=== PATIENT | female | born 1960 | race Caucasian/White ===

== ENCOUNTER → 2016-05-31 | Outpatient (CLI) | payer OTHER ==
[~2016-05-31] MED LIST: ATEN25TA PO; CHOL1CAP63 PO; CMD3 PO; CYAN10005 PO; FERR324T PO; FLUO20CA36 PO; LPT10 PO; LSN40 PO; WARF6TAB5 PO
[2016-05-31 15:42] LABS: BASO % 0.3 %; BASO ABS # 0.03 K/uL (0-0.2); COMPLETE YES; EOS % 0.9 %; HEMATOCRIT 39.5 % (37-47); IG% 0.2 %; LYMPH % 10.6 %; LYMPH ABS # 1.18 K/uL (1.2-3.4); MEAN CORPUSCULAR HGB CONC 33.7 g/dl (32-36); MEAN PLATELET VOLUME 8.9 fL (7.4-10.4); MONO % 4.8 %; NEUT % 83.2 %; PLATELET COUNT 240 K/uL (130-400); RED BLOOD COUNT 4.16 M/uL (4.2-5.4); WHITE BLOOD COUNT 11.08 K/uL (4.8-10.8)
[2016-05-31 15:49] LABS: INR 1.6 (0.9-1.1); PROTHROMBIN TIME (PATIENT) 17.4 SECONDS (9.0-12.0)
[2016-05-31 16:00] LABS: ESTIMATED AVERAGE GLUCOSE 94 mg/dl; HA1C FLAG Normal (Normal)
[2016-05-31 16:40] LABS: ALT/SGPT 62 U/L (12-78); BLOOD UREA NITROGEN 10 mg/dl (7-18); BUN/CREATININE RATIO 15.6 (10-20); CALCIUM 8.8 mg/dl (8.5-10.1); CARBON DIOXIDE 29 mmol/L (21-32); CHLORIDE 99 mmol/L (98-107); CREATININE 0.62 mg/dl (0.60-1.20); GLUCOSE 85 mg/dl (70-99); POTASSIUM 4.1 mmol/L (3.5-5.1); SODIUM 140 mmol/L (136-145)
[2016-05-31 16:51] LABS: ALB/GLOB RATIO 0.8 (0.9-2); ALKALINE PHOSPHATASE 230 U/L (45-117); AST/SGOT 150 U/L (15-37); CHOLESTEROL 246 mg/dl (0-200); CHOLESTEROL/HDL RATIO 4.6; HDL CHOLESTEROL 54 mg/dl; LDL CHOLESTEROL CALCULATED 115 mg/dl; TRIGLYCERIDES 385 mg/dl (0-150); VERY LOW DENSITY LIPOPROT CALC 77 mg/dl
== END | disposition home or self-care (01) ==
LOC: C.LAB 14:38
PROVIDERS: ATTEND Internal Medicine
DX: E55.9 Vitamin D deficiency, unspecified (principal)

== ENCOUNTER → 2016-12-24 | Outpatient (CLI) | payer OTHER ==
[2016-12-24 16:13] LABS: BASO % 0.2 %; BASO ABS # 0.03 K/uL (0-0.2); COMPLETE YES; HEMATOCRIT 32.5 % (37-47); IG% 0.4 %; LYMPH % 7.4 %; LYMPH ABS # 1.12 K/uL (1.2-3.4); MEAN CORPUSCULAR HEMOGLOBIN 31.9 pg (25-34); MEAN CORPUSCULAR HGB CONC 33.5 g/dl (32-36); MEAN PLATELET VOLUME 8.5 fL (7.4-10.4); MONO % 5.1 %; NEUT % 85.9 %; PLATELET COUNT 250 K/uL (130-400); RED BLOOD COUNT 3.42 M/uL (4.2-5.4); WHITE BLOOD COUNT 15.16 K/uL (4.8-10.8)
[2016-12-24 16:30] LABS: ALT/SGPT 15 U/L (12-78); AST/SGOT 47 U/L (15-37); BLOOD UREA NITROGEN 9 mg/dl (7-18); BUN/CREATININE RATIO 19.1 (10-20); CALCIUM 9.3 mg/dl (8.5-10.1); CARBON DIOXIDE 29 mmol/L (21-32); CHLORIDE 100 mmol/L (98-107); CHOLESTEROL 72 mg/dl (0-200); CREATININE 0.47 mg/dl (0.60-1.20); GLUCOSE 82 mg/dl (70-99); POTASSIUM 3.8 mmol/L (3.5-5.1); SODIUM 137 mmol/L (136-145)
[2016-12-24 16:40] LABS: ALB/GLOB RATIO 0.8 (0.9-2); ALKALINE PHOSPHATASE 365 U/L (45-117); CHOLESTEROL/HDL RATIO 1.3; HDL CHOLESTEROL 56 mg/dl; TRIGLYCERIDES 247 mg/dl (0-150); VERY LOW DENSITY LIPOPROT CALC 49 mg/dl
== END | disposition home or self-care (01) ==
LOC: C.LAB 14:11
PROVIDERS: ATTEND Internal Medicine
DX: I73.9 Peripheral vascular disease, unspecified (principal); E78.1 Pure hyperglyceridemia

== ENCOUNTER → 2017-02-17 | Outpatient (CLI) | payer OTHER ==
[2017-02-17 15:44] LABS: BASO % 0.2 %; BASO ABS # 0.03 K/uL (0-0.2); COMPLETE YES; EOS % 1.2 %; HEMATOCRIT 28.8 % (37-47); IG% 0.2 %; LYMPH % 7.3 %; LYMPH ABS # 1.08 K/uL (1.2-3.4); MEAN CORPUSCULAR HEMOGLOBIN 29.7 pg (25-34); MEAN CORPUSCULAR HGB CONC 31.3 g/dl (32-36); MEAN PLATELET VOLUME 8.6 fL (7.4-10.4); MONO % 4.8 %; NEUT % 86.3 %; PLATELET COUNT 254 K/uL (130-400); RED BLOOD COUNT 3.03 M/uL (4.2-5.4); WHITE BLOOD COUNT 14.88 K/uL (4.8-10.8)
[2017-02-17 16:20] LABS: FERRITIN 26.7 ng/ml (8.0-388.0)
== END | disposition home or self-care (01) ==
LOC: C.LAB 14:13
PROVIDERS: ATTEND Internal Medicine
DX: D64.9 Anemia, unspecified (principal)

== ENCOUNTER → 2017-07-16 | Outpatient (CLI) | payer OTHER ==
[~2017-07-16] MED LIST changes: +ATOR-22 PO; -CHOL1CAP63 PO; +CHOL20009 PO; -CMD3 PO; +CYAN100020 PO; -CYAN10005 PO; +FERR1TAB39 PO; -FERR324T PO; -FLUO20CA36 PO; -LPT10 PO; +TCMD1 PO; -WARF6TAB5 PO
[2017-07-16 16:32] LABS: BASO % 0.3 %; BASO ABS # 0.04 K/uL (0-0.2); EOS % 1.3 %; EOS ABS # 0.18 K/uL (0-0.5); HEMATOCRIT 38.9 % (37-47); HEMOGLOBIN 12.9 g/dL (12.0-16.0); IG# 0.07 K/uL (0.00-0.02); LYMPH % 8.4 %; LYMPH ABS # 1.17 K/uL (1.2-3.4); MEAN CELL VOLUME 99.2 fL (80-100); MEAN CORPUSCULAR HEMOGLOBIN 32.9 pg (25-34); MEAN CORPUSCULAR HGB CONC 33.2 g/dl (32-36); MONO % 5.1 %; MONO ABS # 0.71 K/uL (0.11-0.59); NEUT % 84.4 %; NEUT ABS # 11.77 K/uL (1.4-6.5); PLATELET COUNT 271 K/uL (130-400); RED CELL DISTRIBUTION WIDTH CV 15.7 % (11.5-14.5); RED CELL DISTRIBUTION WIDTH SD 56.6 fL (36.4-46.3); WHITE BLOOD COUNT 13.94 K/uL (4.8-10.8)
[2017-07-16 16:36] LABS: INR 2.6 (0.9-1.1); PTT PATIENT 36.9 SECONDS (21.0-31.0)
--- NOTE | 2017-07-16 16:48 | DIAGNOSTIC IMAGING REPORT ---
TWO VIEW CHEST CLINICAL HISTORY: Preoperative examination. FINDINGS: PA and lateral chest radiographs are compared to study dated 02/10/2014 and correlated with chest CT dated 11/15/2015. The PA view is degraded by apical lordotic positioning. The cardiomediastinal silhouette is unremarkable. Emphysema and chronic interstitial thickening are similar to previous. The lungs and pleural spaces are clear. There is no pneumothorax. The skeletal structures appear osteopenic. The bony thorax appears intact. IMPRESSION: Emphysema with no active disease in the chest. Electronically signed by: Tristin Addison M.D. 07/16/2017 4:47 PM Dictated Date/Time: 07/16/2017 4:45 PM
[2017-07-16 16:52] LABS: ALBUMIN 3.5 gm/dl (3.4-5.0); ALT/SGPT 26 U/L (12-78); AST/SGOT 76 U/L (15-37); BLOOD UREA NITROGEN 9 mg/dl (7-18); CALCIUM 9.9 mg/dl (8.5-10.1); CARBON DIOXIDE 26 mmol/L (21-32); CREATININE 0.52 mg/dl (0.60-1.20); GLUCOSE 86 mg/dl (70-99); POTASSIUM 3.9 mmol/L (3.5-5.1); SODIUM 136 mmol/L (136-145)
[2017-07-16 17:00] LABS: ALKALINE PHOSPHATASE 693 U/L (45-117); CHOLESTEROL 150 mg/dl (0-200); LDL CHOLESTEROL CALCULATED 54 mg/dl; TOTAL PROTEIN 7.5 gm/dl (6.4-8.2)
== END | disposition home or self-care (01) ==
LOC: C.RAD 14:57
DX: Z01.810 Encounter for preprocedural cardiovascular examination (principal); Z01.811 Encounter for preprocedural respiratory examination; Z01.812 Encounter for preprocedural laboratory examination; I10 Essential (primary) hypertension; E53.8 Deficiency of other specified B group vitamins; D68.62 Lupus anticoagulant syndrome; F10.20 Alcohol dependence, uncomplicated; D68.59 Other primary thrombophilia; E55.9 Vitamin D deficiency, unspecified; Z79.01 Long term (current) use of anticoagulants; D64.9 Anemia, unspecified; R16.2 Hepatomegaly with splenomegaly, not elsewhere classified; J43.9 Emphysema, unspecified

== ENCOUNTER → 2017-07-24 | Outpatient (CLI) | payer OTHER ==
--- NOTE | 2017-07-24 11:05 | DIAGNOSTIC IMAGING REPORT ---
ABDOMEN COMPLETE (US) CLINICAL HISTORY: 57 years-old Female with R74.0 Elevated AST (SGOT)R74.8 Elevated alkaline phosphatase lev. TECHNIQUE: Multiple real time sonographic images of the abdomen were obtained assessing berrios-scale appearance. FINDINGS: PANCREAS: The pancreas is partially obscured by bowel gas. The visualized portions of the pancreas are unremarkable. Pancreatic duct measures 4 mm. LIVER: Increased echogenicity of the liver measuring up to 19 cm. There is no intrahepatic bile duct dilation, focal lesion, or contour nodularity. There is no ascites. GALLBLADDER: The gallbladder is fluid-filled without cholelithiasis, wall thickening, or pericholecystic fluid. Negative sonographic Nascimento's sign. The common bile duct measures 0.6 cm. RIGHT KIDNEY: The right kidney measures 10.8 x 4.2 x 4.4 cm The parenchymal echotexture and cortical thickness are normal. No nephrolithiasis or hydronephrosis. LEFT KIDNEY: The left kidney measures 11.1 x 5.3 x 5.2 cm. The parenchymal echotexture and cortical thickness are normal. No nephrolithiasis or hydronephrosis. SPLEEN: The spleen measures 10.6 cm and is normal in echotexture. No focal lesions are identified. VASCULATURE: The visualized aorta and inferior vena cava are sub-visualized although appear normal as seen. IMPRESSION: 1. Hepatomegaly with hepatic steatosis. 2. No cholelithiasis or sonographic evidence of acute cholecystitis. 3. The remainder of the study is unremarkable. The above report was generated using voice recognition software. It may contain grammatical, syntax or spelling errors. Electronically signed by: Mohinder Carlton M.D. 07/24/2017 11:04 AM Dictated Date/Time: 07/24/2017 10:57 AM
[2017-07-24 12:29] LABS: BASO % 0.4 %; BASO ABS # 0.06 K/uL (0-0.2); EOS % 2.8 %; HEMOGLOBIN 13.4 g/dL (12.0-16.0); IG# 0.06 K/uL (0.00-0.02); LYMPH % 11.8 %; MEAN CELL VOLUME 98.5 fL (80-100); MEAN CORPUSCULAR HGB CONC 33.5 g/dl (32-36); MEAN PLATELET VOLUME 8.9 fL (7.4-10.4); MONO % 2.5 %; MONO ABS # 0.36 K/uL (0.11-0.59); NEUT % 82.1 %; NEUT ABS # 11.84 K/uL (1.4-6.5); PLATELET COUNT 313 K/uL (130-400); RED CELL DISTRIBUTION WIDTH CV 15.3 % (11.5-14.5); RED CELL DISTRIBUTION WIDTH SD 55.1 fL (36.4-46.3); WHITE BLOOD COUNT 14.42 K/uL (4.8-10.8)
[2017-07-24 12:39] LABS: POTASSIUM 3.9 mmol/L (3.5-5.1)
== END | disposition home or self-care (01) ==
LOC: C.ULTR 10:08
PROVIDERS: ATTEND Internal Medicine
DX: Z01.818 Encounter for other preprocedural examination (principal); K76.0 Fatty (change of) liver, not elsewhere classified; R16.0 Hepatomegaly, not elsewhere classified; R94.5 Abnormal results of liver function studies; R74.0 Nonspecific elevation of levels of transaminase and lactic acid dehydrogenase [LDH]; R74.8 Abnormal levels of other serum enzymes

== ENCOUNTER → 2017-07-25 | Day surgery (SDC) | payer OTHER ==
[2017-07-10 15:15] VITALS: Ht 167.6 cm; Wt 60.9 kg
[~2017-07-25] VITALS: Ht 167.6 cm; Wt 60.9 kg
[~2017-07-25] MED LIST changes: +ALBUT/IPRATROP 3MG/0.5MG NEB 3 ML VIAL INH ONE; +ALBUT/IPRATROP 3MG/0.5MG NEB 3 ML VIAL ONE; +ATROPINE SULFATE 0.1 MG/ML 5ML SYR IV PRN; +DEXAMETHASONE SOD INJ 4 MG/ML VIAL ONE; +EpHEDrine SULFATE INJ 50 MG/ML AMP IV PRN; +EpINEphrine INJ 1MG/ML AMP 1 MG/ML AMP ONE; +FENTANYL CITRATE INJ 50 MCG/1 ML 2 ML VIAL ONE; +HYDROCODONE/ACETAMIN 5/325MG TAB PO PRN; +LIDOCAINE 2% JELLY 5 ML TUBE EXT ONE; +LIDOCAINE HCL 2% 2 ML VIAL (20MG/ML) ONE; +LIDOCAINE/EPINEPHRINE 1% 20 ML VIAL ONE; +ONDANSETRON INJ 2 MG/ML 2 ML VIAL IV PRN; +ONDANSETRON INJ 2 MG/ML 2 ML VIAL ONE; +PROPOFOL IV EMULSION 10 MG/ML 20 ML VIAL IV ONE; +SUCCINYLCHOLINE CHLORIDE 20 MG/ML 10 ML VIAL IV ONE
[2017-07-25] MEDS: LACTATED RINGER'S 1000ML 1,000 ML IV SCH ×2 (11:38→14:23)
--- NOTE | 2017-07-25 13:22 | History & Physical Bridge - [place] ---
H&P Re-Evaluation Bridge Note: I have examined the patient, reviewed the History & Physical and in the interval since the performance of the History & Physical I have noted the following changes of clinical significance: No changes noted
--- NOTE | 2017-07-25 13:59 | [facility] Operative Report ---
Operative Report Operative Date Jul 25, 2017. Pre-Operative Diagnosis RIGHT OROPHARYNGEAL MASS Post-Operative Diagnosis SAME ABOVE Procedure(s) Performed EXCISIONAL BIOPSY OF RIGHT OROPHARYNGEAL MASS Surgeon LANCE Estimated Blood Loss 0 Findings MULTILOBULATED CYSTIC LESION OF THE RIGHT TONSIL REGION CONSISTENT WITH EPIDERMAL INCLUSION CYST Specimens RIGHT OROPHARYNGEAL MASS I attest to the content of the Intraoperative Record and any orders documented therein. Any exceptions are noted below.
--- NOTE | 2017-07-25 14:16 | Discharge Instructions ---
Discharge Instructions Date of Service Jul 25, 2017. Admission Reason for Admission: Pharyngeal Mass Discharge Discharge Diagnosis / Problem: SAME Discharge Goals Goal(s): Therapeutic intervention Activity Recommendations Activity Limitations: as noted below LIGHT ACTIVITY FOR 2 WEEKS; NO DRIVING WHILE ON NORCO . Current Hospital Diet Patient's current hospital diet: Full Liquid Diet Discharge Diet Recommended Diet: Full Liquid Diet Diet Texture: Mechanical Soft (ground) Procedures Procedures Performed: EXCISIONAL BIOPSY OF RIGHT OROPHARYNGEAL MASS Pending Studies Studies pending at discharge: no Laboratory Results Lipid Panel Test 07/16/17 15:14 Range/Units Triglycerides Level 261 H 0-150 mg/dl Cholesterol Level 150 0-200 mg/dl HDL Cholesterol 44 mg/dl Cholesterol/HDL Ratio 3.4 LDL Cholesterol, Calculated 54 mg/dl Medical Emergencies . Who to Call and When: Medical Emergencies: If at any time you feel your situation is an emergency, please call 911 immediately. . Non-Emergent Contact Non-Emergency issues call your: Surgeon . . "Provider Documentation" section prepared by Brayan Johnson. .
[2017-07-25] MEDS: FENTANYL CITRATE INJ 50 MCG/1 ML 2 ML VIAL IV PRN ×3 (14:20→14:40)
[2017-07-25 14:58] VITALS: TEMP 37
[2017-07-25 15:19] VITALS: BP 154/94; PULSE 76; O2SAT 95
--- NOTE | 2017-07-25 15:20 | Anesthesia Progress Nt - [facility] ---
Anesthesia Post Op Note Date & Time Jul 25, 2017 at 15:20 Vital Signs Pain Intensity: 3.5 Vital Signs Past 12 Hours Date Time Temp Pulse Resp B/P (MAP) Pulse Ox O2 Delivery O2 Flow Rate FiO2 07/25/17 14:58 37 75 16 134/85 (101) 95 Room Air 07/25/17 14:56 18 07/25/17 14:56 79 18 07/25/17 14:55 144/84 07/25/17 14:51 78 16 94 07/25/17 14:51 77 16 07/25/17 14:50 137/89 07/25/17 14:50 37.5 78 16 137/89 94 Room Air 07/25/17 14:48 75 19 95 07/25/17 14:48 76 19 07/25/17 14:45 155/78 07/25/17 14:43 72 12 100 07/25/17 14:43 73 12 07/25/17 14:40 153/87 07/25/17 14:38 69 13 100 07/25/17 14:38 70 13 07/25/17 14:35 138/83 07/25/17 14:33 71 18 91 07/25/17 14:33 71 18 07/25/17 14:31 142/80 07/25/17 14:28 74 30 07/25/17 14:28 74 30 95 07/25/17 14:26 122/79 07/25/17 14:23 71 19 98 07/25/17 14:23 72 19 07/25/17 14:20 133/79 07/25/17 14:18 72 17 99 07/25/17 14:18 72 17 07/25/17 14:16 129/73 07/25/17 14:13 75 23 07/25/17 14:13 75 23 98 07/25/17 14:10 133/74 07/25/17 14:08 76 18 07/25/17 14:08 36.8 76 16 141/71 98 Room Air 07/25/17 14:08 76 18 141/71 98 07/25/17 11:21 37.4 78 16 127/75 (92) 97 Room Air Notes Mental Status: alert / awake / arousable, participated in evaluation Pt Amnestic to Procedure: Yes Nausea / Vomiting: adequately controlled Pain: adequately controlled Airway Patency, RR, SpO2: stable & adequate BP & HR: stable & adequate Hydration State: stable & adequate Anesthetic Complications: no major complications apparent
--- NOTE | 2017-07-25 15:39 | OPERATIVE REPORT ---
DATE OF OPERATION: 07/25/2017 PREOPERATIVE DIAGNOSIS: Right oropharyngeal mass. POSTOPERATIVE DIAGNOSIS: Right oropharyngeal mass. PROCEDURE: Excisional biopsy of right oropharyngeal mass. SURGEON: Brayan Johnson MD ANESTHESIA: General endotracheal. ESTIMATED BLOOD LOSS: Zero. FINDINGS: Multilobulated cystic mass involving the inferior aspect of the right tonsil, clinically consistent with epidermal inclusion cyst. SPECIMENS: Right oropharyngeal mass for permanent pathologic assessment. COMPLICATIONS: None. INDICATIONS FOR THE PROCEDURE: The patient is a 57-year-old female, smoker, with a history of an incidentally found right oropharyngeal mass which is relatively asymptomatic. However, due to the multilobulated and large nature of the mass, it was recommended that the patient undergo excisional biopsy to rule out malignancy or other worrisome features. She also has mild dysphagia in this region. She presents for the above-mentioned procedure on an outpatient elective basis. DETAILS OF THE PROCEDURE: After informed consent had been obtained from the patient, the patient was wheeled to the operating room, and placed on the operating table in supine position. Monitors were placed. After induction of general endotracheal anesthesia, the table was turned to 90 degrees. The patient's head and neck were gently extended. Antibiotic ointment was applied to the lips and a mouth gag was carefully inserted, opened, and was stabilized on a roll of towels. The palate was inspected and this was found to be mildly abnormal with a bifid uvula. A total of 0.5 mL of 1% lidocaine with 1:100,000 epinephrine was used to inject the mucosa and submucosa overlying the planned incision of the right oropharynx and the inferior tonsil region. After allowing adequate time for vasoconstriction, Bovie electrocautery was used to perform an excisional biopsy of this multilobulated cystic mass that measured approximately 1 cm to 1.5 cm in greatest dimension. Care was taken not to inadvertently enter the cyst portion of the mass. This was sent off for permanent pathological assessment. Suction Bovie electrocautery was used to achieve adequate hemostasis. There was no blood loss during the procedure. 2% lidocaine jelly was placed into the right tonsillar fossa for added anesthetic effect. An orogastric tube was placed and stomach was suctioned free of air and stomach contents. This marked the end of the case. The patient tolerated the procedure well. There were no apparent complications. The patient was extubated and transferred to recovery room in stable condition. I attest to the content of the Intraoperative Record and any orders documented therein. Any exception s are noted below.
== END | disposition home or self-care (01) ==
LOC: X.SURG 11:08
DX: J35.8 Other chronic diseases of tonsils and adenoids (principal); J39.2 Other diseases of pharynx; D68.62 Lupus anticoagulant syndrome; F10.20 Alcohol dependence, uncomplicated; D64.9 Anemia, unspecified; F17.200 Nicotine dependence, unspecified, uncomplicated; F32.9 Major depressive disorder, single episode, unspecified; E78.1 Pure hyperglyceridemia; R16.2 Hepatomegaly with splenomegaly, not elsewhere classified; I10 Essential (primary) hypertension; I73.9 Peripheral vascular disease, unspecified; E55.9 Vitamin D deficiency, unspecified; Z98.51 Tubal ligation status; Z80.0 Family history of malignant neoplasm of digestive organs; Z83.3 Family history of diabetes mellitus; Z86.718 Personal history of other venous thrombosis and embolism; Z86.711 Personal history of pulmonary embolism; Z82.49 Family history of ischemic heart disease and other diseases of the circulatory system; Z79.01 Long term (current) use of anticoagulants

== ENCOUNTER 2021-10-12 17:25 | Inpatient (IN) ==
--- NOTE | 2021-10-12 17:35 | ED Triage Note ---
Date of Service October 12, 2021 History of Present Illness This patient was briefly evaluated while in triage. An abbreviated physical exam was performed. This patient is a 61-year-old Female with past medical history of cirrhosis, anorexia, renal insufficiency who presents to the ED for evaluation of nausea a nd vomiting all day, but been feeling sick x2 weeks. No pain. Physical Exam VITALS: Vitals are noted on the nurse's note and reviewed by myself. GENERAL: This is a 61 year old white female, in no acute distress, nondiaphoretic, well-developed well-nourished. SKIN: The skin was without rashes, erythema, edema, or bruising. There is no tenting of the skin. Capillary refill less than 2 seconds. HEAD: Normocephalic atraumatic. NECK: No JVD. ABDOMEN: Bloated. MUSCULOSKELETAL: No muscle atrophy, erythema, or edema noted. Full range of motion without joint tenderness in all extremities. Normal gait. NEURO: Patient was alert and oriented to person place and time. No focal neurological deficits. Initial orders for labs and / or imaging were placed and patient was placed in the waiting area until a bed is available. Please see further documentation for the full ED course.
[2021-10-12 18:07] LABS: Basophils # (auto) 0.01 K/uL (0-0.2); Basophils % (auto) 0.1 %; Eosinophils # (auto) 0.01 K/uL (0-0.5); Eosinophils % (auto) 0.1 %; Hematocrit (blood only) 36.3 % (37-47); Hemoglobin 13.1 g/dL (12.0-16.0); Immature Granulocytes # (auto) 0.04 K/uL (0.00-0.02); Immature Granulocytes % (auto) 0.3 %; Lymphocytes # (auto) 0.85 K/uL (1.2-3.4); Lymphocytes % (auto) 5.6 %; Mean Corpuscular Hemoglobin 35.6 pg (25-34); Mean Corpuscular Hgb Conc 36.1 g/dL (32-36); Mean Corpuscular Volume 98.6 fL (80-100); Monocytes # (auto) 1.45 K/uL (0.11-0.59); Monocytes % (auto) 9.5 %; Neutrophils # (auto) 12.91 K/uL (1.4-6.5); Neutrophils % (auto) 84.4 %; Platelet Count 287 K/uL (130-400); RDW Coefficient of Variation 12.5 % (11.5-14.5); Red Blood Count 3.68 M/uL (4.2-5.4); White Blood Count 15.27 K/uL (4.8-10.8)
[2021-10-12 18:09] LABS: INR 1.3 (0.9-1.1); Partial Thromboplastin Ratio 1.1; Partial Thromboplastin Time 29.3 Seconds (21.0-31.0); Prothrombin Time 13.5 Seconds (9.0-12.0)
[2021-10-12 18:10] LABS: Pregnancy Test, Serum Negative (Negative)
[2021-10-12 18:19] LABS: BUN Creatinine Ratio 16.3 (10-20); Calcium 8.6 mg/dl (8.5-10.1); Creatinine Clr Calc Pharmacy 118.4 ml/min; Est GFR (African American) 128.1 ml/min; Est GFR (Non-African American) 110.6 ml/min; Potassium 4.1 mmol/L (3.5-5.1)
[2021-10-12 18:20] LABS: Albumin Globulin Ratio 1.2 (0.9-2); Albumin Level 3.6 gm/dl (3.4-5.0); Bilirubin,Total 1.6 mg/dl (0.2-1.0); Globulin 3.1 gm/dl (2.5-4.0); Total Protein 6.7 gm/dl (6.0-8.3)
[2021-10-12] MEDS ORDERED: ONDANSETRON INJ 2 MG/ML 2 ML VIAL IV STA (18:42)
[2021-10-12] MEDS ORDERED: SODIUM CHLORIDE 0.9% 1000ML 1,000 ML IV SCH (18:45)
[2021-10-12] MEDS ORDERED: OPTIRAY 320 100ml IV ONE (18:59)
--- NOTE | 2021-10-12 19:09 | Emergency Department Note ---
History of Present Illness General Chief complaint: Vomiting Stated complaint: UNABLE TO KEEP FOOD OR WATER DOWN Time Seen by Provider: 10/12/21 18:28 History of Present Illness Provider Complaint: + nausea, + vomiting and + abdominal pain Onset (ago): week(s) 1 Description of Vomiting: + watery; no bilious, no blood-streaked or no coffee grounds Description of Diarrhea: + none Associated Abdominal Pain: Yes Location of pain: + diffuse Severity: moderate Maximum Pain Intensity: 7 Current Pain Intensity: 7 Quality: + cramping and + aching Pain Consistency: + intermittent Relieved By: + none Exacerbated By: + eating and + vomiting Context: + alcohol abuse (Patient states that she drinks half a bottle of vodka daily); no foreign travel, no sick contacts, no recent antibiotic use, no anticoagulant use, no NSAID use, no caffeine, no smoking, no CO exposure or no marijuana use Associated symptoms: no myalgias, no chest pain, no cough, no fever/chills, no headaches, no malaise, no dysuria, no shortness of breath, no syncope, no weakness, no altered mental status or no palpitation HPI Narrative: No seizures. No recent head injuries. Home Medications Medication Instructions Recorded Confirmed Type cholecalciferol (vitamin D3) 50 2,000 units PO QAM 11/30/18 10/12/21 History mcg (2,000 unit) capsule cyanocobalamin (vitamin B-12) 1,000 mcg PO PM 11/30/18 10/12/21 History 1,000 mcg tablet (Vitamin B-12) magnesium 500 mg tablet 500 mg PO PM tab 11/30/18 10/12/21 History multivitamin 1 tab PO PM 05/12/19 10/12/21 History buspirone 10 mg tablet 5 - 10 mg PO Q8H PRN #45 tab 12/28/19 10/12/21 Rx fluoxetine 20 mg capsule (Prozac) 20 mg PO PM 05/15/20 10/12/21 History atorvastatin 20 mg tablet 20 mg PO PM #90 tab 12/29/20 10/12/21 Rx atenolol 25 mg tablet 25 mg PO QAM #90 tab 09/03/21 10/12/21 Rx bismuth subsalicylate 262 mg/15 mL 524 mg PO QID PRN 10/12/21 10/12/21 History oral suspension (Pepto-Bismol) gabapentin 300 mg capsule 300 mg PO QPM 10/12/21 10/12/21 History lisinopril 40 mg tablet 40 mg PO QAM 10/12/21 10/12/21 History Allergies Allergy/AdvReac Type Severity Reaction Status Date / Time No Known Allergies Allergy Verified 10/12/21 20:54 Past Med/Surg History Medical History Anxiety Avascular necrosis of femoral neck b/l on CT abd/pelvis 04/2020 Calcification of abdominal aorta Depression Enlarged liver History of anemia History of bronchitis resolved HTN (hypertension), benign Lump of skin of back lipoma Migraine hx Pulmonary embolism and one to groin 8 yrs ago> unknown causes> Xarelto Pulmonary nodules under surveillance Surgical History H/O colonoscopy (2016) Dr. Billings History of esophagogastroduodenoscopy (EGD) (2016) Dr. Billings History of laparoscopic appendectomy (05/23/20) Laparoscopic Appendectomy Dr. Naylor 05/23/2020 History of throat surgery small mass removed > benign History of tooth extraction History of tubal ligation (1996) Family History Mother Diabetes Hypertension Father Colorectal cancer Bladder cancer Grandmother (Paternal) Aneurysm Denies family history of Ovarian cancer Prostate cancer Myocardial infarction Breast cancer Social History Smoking Status: Current every day smoker Tobacco Type: Cigarettes Age Started Using Tobacco: 17; packs per day: 1; Cigarettes Per Day: 20; Second Hand Exposure: No; Hx Alcohol Use: Yes Alcohol type: hard liquor Alcohol Intake Frequency Comment: daily Hx Substance Use: No Preferred Language: Trinidadian Communication Ability: Effective Visual Impairment: Limited Hearing Ability: Normal Communications Advisor Required: No Beliefs That Will Affect Care: None marital status: Current Living Situation: Spouse current occupational status: unemployed 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 How many Children do You have: 2 Feels Safe at Home: Yes Childhood Exposure to Second-Hand Smoke: No caffeine: Yes (coffee and tea 1 cup daily ) Dental Care, Regularly: Yes Physical Activity Frequency: Does not Exercise Seatbelt Use: always Sunscreen Use: No Assistive Devices: None Review of Systems A total of 10 systems reviewed and were otherwise negative Physical Exam Vital Signs: Vital Signs - 24 hr 10/12/21 17:33 10/12/21 18:19 10/12/21 19:12 Temperature 36.6 C Temperature Source Temporal Artery Sc an Pulse Rate 83 Pulse Rate [Apical ] 73 73 Pulse Rhythm Regular Pulse Strength Normal Respiratory Rate 20 16 18 Respiratory Effort / Characteristics Non-Labored Non-Labored Sponta neous Non-Labored Respiratory Depth Normal Normal Normal Respiratory Patter n Regular Blood Pressure 129/88 Blood Pressure [Ri ght Arm] 148/85 H 131/79 Blood Pressure Ananya n 101 Blood Pressure Ananya n [Right Arm] 106 96 Blood Pressure Pos ition [Right Arm] Lying Pulse Oximetry 99 100 100 Oxygen Delivery Me thod Room Air Room Air Room Air Sepsis Recent Feve r Within 48 Hours No Sepsis New/Unexpla ined Change in Men elvin Status N/A Sepsis Action Take n by Nursing No Action Required 10/12/21 19:31 10/12/21 20:00 10/12/21 20:30 Temperature Temperature Source Pulse Rate Pulse Rate [Apical ] 70 76 73 Pulse Rhythm Pulse Strength Respiratory Rate 18 18 18 Respiratory Effort / Characteristics Non-Labored Respiratory Depth Normal Respiratory Patter n Blood Pressure Blood Pressure [Ri ght Arm] 137/77 123/77 125/77 Blood Pressure Ananya n Blood Pressure Ananya n [Right Arm] 97 92 93 Blood Pressure Pos ition [Right Arm] Pulse Oximetry 100 96 98 Oxygen Delivery Me thod Room Air Room Air Room Air Sepsis Recent Feve r Within 48 Hours Sepsis New/Unexpla ined Change in Men elvin Status Sepsis Action Take n by Nursing 10/12/21 21:00 Temperature Temperature Source Pulse Rate Pulse Rate [Apical ] 71 Pulse Rhythm Pulse Strength Respiratory Rate 18 Respiratory Effort / Characteristics Non-Labored Respiratory Depth Normal Respiratory Patter n Blood Pressure Blood Pressure [Ri ght Arm] 143/82 H Blood Pressure Ananya n Blood Pressure Ananya n [Right Arm] 102 Blood Pressure Pos ition [Right Arm] Pulse Oximetry 98 Oxygen Delivery Me thod Room Air Sepsis Recent Feve r Within 48 Hours Sepsis New/Unexpla ined Change in Men elvin Status Sepsis Action Take n by Nursing Physical Exam: Physical Exam GENERAL: She is oriented to person, place, and time. She appears well-developed and well-nourished. She does not appear distressed. HENT: Exam performed. -Head: Normocephalic and atraumatic. -Right Ear: External ear normal. No mastoid tenderness. -Left Ear: External ear normal. No mastoid tenderness. -Mouth/Throat: The oropharynx is clear and moist. No trismus in the jaw. No dental abscesses or uvula swelling. No oropharyngeal exudate or tonsillar abscesses. EYES: Conjunctivae and EOM are normal. Pupils are equal, round, and reactive to light. Right eye exhibits no discharge. Left eye exhibits no discharge. No scleral icterus. NECK: Normal range of motion. Neck supple. No JVD present. No spinous process tenderness present. No carotid bruit present. No rigidity. No tracheal deviation and normal range of motion present. No Brudzinski's sign and no Kernig's sign noted. CV: Normal rate, regular rhythm, normal heart sounds and intact distal pulses. There is no peripheral edema. Palpable radial pulses bue. PULM/CHEST: Effort normal and breath sounds normal. No respiratory distress. No stridor. She has no wheezes. She has no rales. -Chest Wall: She exhibits no tenderness. ABD: The abdomen is distended. Hepatomegaly. No pain on palpation of the abdomen. No fluid wave. MUSC/SKEL: Normal range of motion. There is no peripheral edema, tenderness or deformity. LYMPH: No cervical adenopathy. NEURO: She is alert and oriented to person, place, and time. She has normal strength. No cranial nerve deficit or sensory deficit. Coordination and gait normal. GCS eye subscore is 4. GCS verbal subscore is 5. GCS motor subscore is 6. Cerebellar tests wnl. SKIN: Skin is warm and dry. She is not diaphoretic. PSYCH: She has a normal mood and affect. Behavior is normal. Judgment and thought content normal. Course Course 1827: The patient was evaluated in room B11. A complete history and physical exam was performed Cardiac monitoring: An order was placed for continuous cardiac monitoring. The monitor shows a rate of 80 with sinus rhythm Patient was seen during a time of extreme volume and extreme acuity in the emergency department. Nursing triage protocols were initiated and labs were drawn by protocol in the triage area. Patient's labs show a leukocytosis of 15. Sodium 122. Total bilirubin 1.6. AST 149. Alkaline phosphatase 569. When EMR was reviewed the blood work from September 27 showed that the patient had a sodium of 123. Total bilirubin of 1.7. AST of 149. Alkaline phosphatase of 757. The patient's lipase today is 1754 on September 27 it was 182. Bedside [id number] ultrasound was performed and the patient has some mild asc ites but no pockets that are large enough for bedside drainage in the emergency department tonight. It is not thought that the patient has SBP as she is no pain on palpation of her abdomen at this time. Awaiting CT of the abdomen. 1944: Vital signs stable. CT imaging shows pancreatitis. Patient will be admitted to the [facility] team Dr. Arvizu notified. Administered Medications Thiamine HCl 100 mg/ Syringe 10 mls @ 2 mls/min IV QAM ALISIA Stop: 11/11/21 08:59 Last Admin: 10/12/21 23:27 Dose: Not Given Documented by: [id number] Folic Acid 1 mg/ Syringe 10 mls @ 5 mls/min IV QAM ALISIA Stop: 11/11/21 08:59 Last Admin: 10/12/21 23:27 Dose: Not Given Documented by: [id number] Dextrose/Sodium Chloride (D5w And Nss) 1,000 mls @ 100 mls/hr IV .Q10H ALISIA Stop: 10/14/21 04:44 Last Admin: 10/12/21 23:09 Dose: 100 mls/hr Documented by: [id number] Discontinued Medications Sodium Chloride (Nss 1000ml) 1,000 mls @ 125 mls/hr IV .Q8H ALISIA Stop: 11/11/21 18:44 Last Infusion: 10/12/21 22:38 Dose: 0 mls/hr Documented by: [id number] Admin: 10/12/21 19:11 Dose: 125 mls/hr Documented by: [id number] Pantoprazole Sodium 40 mg/ (Syringe) 10 mls @ 5 mls/min IV NOW ONE Stop: 10/13/21 00:31 Last Admin: 10/13/21 01:12 Dose: 5 mls/min Documented by: [id number] Ioversol (Optiray 320 100ml) 93 ml IV ONCE ONE Stop: 10/12/21 19:00 Last Admin: 10/12/21 19:03 Dose: 93 ml Documented by: [id number] Ondansetron HCl (Ondansetron Inj 2 Mg/Ml 2 Ml Vial) 4 mg IV NOW STA Stop: 10/12/21 18:43 Last Admin: 10/12/21 19:11 Dose: 4 mg Documented by: [id number] Thiamine HCl (Thiamine Hcl 100 Mg/Ml 2 Ml Vial) 100 mg IM NOW STA Stop: 10/12/21 21:15 Last Admin: 10/12/21 23:09 Dose: 100 mg Documented by: [id number] Medical Decision Making Laboratory Data Result diagrams: 10/12/21 17:43 10/12/21 23:46 Lab Results 10/12/21 10/12/21 10/12/21 Range/Units 17:43 17:43 17:43 WBC 15.27 H (4.8-10.8) K/uL RBC 3.68 L (4.2-5.4) M/uL Hgb 13.1 (12.0-16.0) g/dL Hct 36.3 L (37-47) % MCV 98.6 (80-100) fL MCH 35.6 H (25-34) pg MCHC 36.1 H (32-36) g/dL RDW Std Deviation 45.0 (36.4-46.3) fL RDW Coeff of Jorge Luis 12.5 (11.5-14.5) % Plt Count 287 (130-400) K/uL MPV 9.0 (7.4-10.4) fL Immature Gran % (Auto) 0.3 % Neut % (Auto) 84.4 % Lymph % (Auto) 5.6 % Shannon % (Auto) 9.5 % Eos % (Auto) 0.1 % Baso % (Auto) 0.1 % Neut # (Auto) 12.91 H (1.4-6.5) K/uL Lymph # (Auto) 0.85 L (1.2-3.4) K/uL Shannon # (Auto) 1.45 H (0.11-0.59) K/uL Eos # (Auto) 0.01 (0-0.5) K/uL Baso # (Auto) 0.01 (0-0.2) K/uL Immature Gran # (Auto) 0.04 H (0.00-0.02) K/uL PT 13.5 H (9.0-12.0) Seconds INR 1.3 H (0.9-1.1) APTT 29.3 (21.0-31.0) Seconds PTT Ratio 1.1 Sodium (136-145) mmol/L Potassium (3.5-5.1) mmol/L Chloride (98-107) mmol/L Carbon Dioxide (21-32) mmol/L Anion Gap (3-11) BUN (6-23) mg/dl Creatinine (0.6-1.2) mg/dl Est Cr Clr Drug Dosing ml/min Est GFR ( Amer) ml/min Est GFR (Non-Af Amer) ml/min BUN/Creatinine Ratio (10-20) Glucose (70-99(Fasting)) mg/dl Calcium (8.5-10.1) mg/dl Total Bilirubin (0.2-1.0) mg/dl AST (13-39) U/L ALT (7-52) U/L Alkaline Phosphatase (34-104) U/L Total Protein (6.0-8.3) gm/dl Albumin (3.4-5.0) gm/dl Globulin (2.5-4.0) gm/dl Albumin/Globulin Ratio (0.9-2) Lipase (11-82) U/L HCG, Qual (Negative) Urine Color Urine Appearance (Clear) Urine pH (4.5-7.5) Ur Specific [place] (1.000-1.030) Urine Protein (Negative) Urine Glucose (UA) (Negative) Urine Ketones (Negative) Urine Blood (Negative) Urine Nitrite (Negative) Urine Bilirubin (Negative) Urine Urobilinogen (Negative) Ur Leukocyte Esterase (Negative) Urine WBC (Auto) (0-5) /hpf Urine RBC (Auto) (0-4) /hpf U Hyaline Cast (Auto) (0-5) /lpf U Epithel Cells (Auto) (0-5) /lpf Urine Bacteria (Auto) (Negative) Ethyl Alcohol mg/dL < 10.0 (<10.0) mg/dl SARS-CoV-2, RNA, NAAT (NEGATIVE) 10/12/21 10/12/21 10/12/21 Range/Units 17:43 17:43 18:54 WBC (4.8-10.8) K/uL RBC (4.2-5.4) M/uL Hgb (12.0-16.0) g/dL Hct (37-47) % MCV (80-100) fL MCH (25-34) pg MCHC (32-36) g/dL RDW Std Deviation (36.4-46.3) fL RDW Coeff of Jorge Luis (11.5-14.5) % Plt Count (130-400) K/uL MPV (7.4-10.4) fL Immature Gran % (Auto) % Neut % (Auto) % Lymph % (Auto) % Shannon % (Auto) % Eos % (Auto) % Baso % (Auto) % Neut # (Auto) (1.4-6.5) K/uL Lymph # (Auto) (1.2-3.4) K/uL Shannon # (Auto) (0.11-0.59) K/uL Eos # (Auto) (0-0.5) K/uL Baso # (Auto) (0-0.2) K/uL Immature Gran # (Auto) (0.00-0.02) K/uL PT (9.0-12.0) Seconds INR (0.9-1.1) APTT (21.0-31.0) Seconds PTT Ratio Sodium 122 L (136-145) mmol/L Potassium 4.1 (3.5-5.1) mmol/L Chloride 84 L (98-107) mmol/L Carbon Dioxide 28 (21-32) mmol/L Anion Gap 10 (3-11) BUN 7 (6-23) mg/dl Creatinine 0.43 L (0.6-1.2) mg/dl Est Cr Clr Drug Dosing 118.4 ml/min Est GFR ( Amer) 128.1 ml/min Est GFR (Non-Af Amer) 110.6 ml/min BUN/Creatinine Ratio 16.3 (10-20) Glucose 101 H (70-99(Fasting)) mg/dl Calcium 8.6 (8.5-10.1) mg/dl Total Bilirubin 1.6 H (0.2-1.0) mg/dl AST 149 H (13-39) U/L ALT 31 (7-52) U/L Alkaline Phosphatase 569 H (34-104) U/L Total Protein 6.7 (6.0-8.3) gm/dl Albumin 3.6 (3.4-5.0) gm/dl Globulin 3.1 (2.5-4.0) gm/dl Albumin/Globulin Ratio 1.2 (0.9-2) Lipase 1754 H (11-82) U/L HCG, Qual Negative (Negative) Urine Color Dark Yellow Urine Appearance Cloudy A (Clear) Urine pH 5.5 (4.5-7.5) Ur Specific [place] 1.018 (1.000-1.030) Urine Protein Trace H (Negative) Urine Glucose (UA) Negative (Negative) Urine Ketones 1+ H (Negative) Urine Blood Negative (Negative) Urine Nitrite Positive A (Negative) Urine Bilirubin 2+ H (Negative) Urine Urobilinogen Negative (Negative) Ur Leukocyte Esterase Trace H (Negative) Urine WBC (Auto) 1-5 (0-5) /hpf Urine RBC (Auto) 0-4 (0-4) /hpf U Hyaline Cast (Auto) 5-10 H (0-5) /lpf U Epithel Cells (Auto) >30 H (0-5) /lpf Urine Bacteria (Auto) Negative (Negative) Ethyl Alcohol mg/dL (<10.0) mg/dl SARS-CoV-2, RNA, NAAT (NEGATIVE) 10/12/21 Range/Units 19:14 WBC (4.8-10.8) K/uL RBC (4.2-5.4) M/uL Hgb (12.0-16.0) g/dL Hct (37-47) % MCV (80-100) fL MCH (25-34) pg MCHC (32-36) g/dL RDW Std Deviation (36.4-46.3) fL RDW Coeff of Jorge Luis (11.5-14.5) % Plt Count (130-400) K/uL MPV (7.4-10.4) fL Immature Gran % (Auto) % Neut % (Auto) % Lymph % (Auto) % Shannon % (Auto) % Eos % (Auto) % Baso % (Auto) % Neut # (Auto) (1.4-6.5) K/uL Lymph # (Auto) (1.2-3.4) K/uL Shannon # (Auto) (0.11-0.59) K/uL Eos # (Auto) (0-0.5) K/uL Baso # (Auto) (0-0.2) K/uL Immature Gran # (Auto) (0.00-0.02) K/uL PT (9.0-12.0) Seconds INR (0.9-1.1) APTT (21.0-31.0) Seconds PTT Ratio Sodium (136-145) mmol/L Potassium (3.5-5.1) mmol/L Chloride (98-107) mmol/L Carbon Dioxide (21-32) mmol/L Anion Gap (3-11) BUN (6-23) mg/dl Creatinine (0.6-1.2) mg/dl Est Cr Clr Drug Dosing ml/min Est GFR ( Amer) ml/min Est GFR (Non-Af Amer) ml/min BUN/Creatinine Ratio (10-20) Glucose (70-99(Fasting)) mg/dl Calcium (8.5-10.1) mg/dl Total Bilirubin (0.2-1.0) mg/dl AST (13-39) U/L ALT (7-52) U/L Alkaline Phosphatase (34-104) U/L Total Protein (6.0-8.3) gm/dl Albumin (3.4-5.0) gm/dl Globulin (2.5-4.0) gm/dl Albumin/Globulin Ratio (0.9-2) Lipase (11-82) U/L HCG, Qual (Negative) Urine Color Urine Appearance (Clear) Urine pH (4.5-7.5) Ur Specific [place] (1.000-1.030) Urine Protein (Negative) Urine Glucose (UA) (Negative) Urine Ketones (Negative) Urine Blood (Negative) Urine Nitrite (Negative) Urine Bilirubin (Negative) Urine Urobilinogen (Negative) Ur Leukocyte Esterase (Negative) Urine WBC (Auto) (0-5) /hpf Urine RBC (Auto) (0-4) /hpf U Hyaline Cast (Auto) (0-5) /lpf U Epithel Cells (Auto) (0-5) /lpf Urine Bacteria (Auto) (Negative) Ethyl Alcohol mg/dL (<10.0) mg/dl SARS-CoV-2, RNA, NAAT NEGATIVE (NEGATIVE) Imaging Data Radiologist's Impression: Abdomen/Pelvis CT 10/12/21 17:37 CT OF THE ABDOMEN AND PELVIS WITH CONTRAST CLINICAL HISTORY: Generalized abdominal pain/bloating. COMPARISON STUDY: CT of the abdomen and pelvis May 09, 2020. Abdominal ultrasound October 03, 2021. TECHNIQUE: Following IV administration of 93 mL of Optiray, axial images of the abdomen and pelvis were obtained from the lung bases to the proximal femurs. Images were reviewed in the axial, sagittal, and coronal planes. IV contrast was administered without complication. Automated exposure control was utilized for the study. A dose lowering technique was utilized adhering to the principles of ALARA. CT DOSE: 272.15 mGy.cm FINDINGS: Lung bases are unremarkable. No pneumatosis, free air or portal venous gas is present. There is moderate ascites. Hepatic steatosis is noted. Liver surface is irregular. This indicates cirrhosis. No hepatic lesions are identified on this portal venous phase study. The main, left and right portal veins are patent. There is no biliary ductal dilatation. Fluid adjacent to the gallbladder is nonspecific in the setting of ascites. The gallbladder is not distended. Pancreatic duct is mildly dilated, measuring 6 mm in caliber. This has mildly increased since CT of May 09, 2020. Pancreas divisum is noted. A 9 mm hypodense focus within the pancreatic head on axial image 154 of 446 is noted. Fluid and apparent stranding adjacent to the second portion of the duodenum is noted. No free air is present. There is no abscess. There is no evidence for a bowel obstruction. The appendix is surgically absent. Extensive plaque of the abdominal aorta is noted. There is avascular necrosis of both fe moral heads without collapse. No acute fracture or suspicious lesion is identified within the visualized skeletal structures. There is no hydronephrosis. There are no urinary calculi. No lymphadenopathy is present. Recanalized paraumbilical vein is noted. IMPRESSION: 1. Hepatic steatosis and cirrhosis. Manifestations of portal hypertension including moderate ascites and small varices formation. 2. No bowel obstruction. 3. Possible stranding and fluid adjacent to the second portion of the duodenum. This could simply represent ascites however duodenitis or acute pancreatitis cannot be excluded. 4. Mild pancreatic ductal dilatation. This may be related to pancreas divisum however a follow-up pancreatic protocol MRI in one month is recommended. 5. 9 mm cystic focus within the pancreas head which is indeterminate and can be assessed on follow-up MRI. 6. Avascular necrosis of the bilateral femoral heads. ACT 112: Negative or not required by law. Electronically signed by: Humberto Guillen M.D. 10/12/2021 7:39 PM ECG Data Indication: nausea Rate (beats per minute): 75 Rhythm: normal sinus Findings: no ST depression, no ST elevation or no prolonged QT Additional Comments: QRS 72 MDM Narrative 1828: The patient was evaluated in room B11. A complete history and physical exam was performed Cardiac monitoring: An order was placed for continuous cardiac monitoring. The monitor shows a rate of 80 with sinus rhythm Patient was seen during a time of extreme volume and extreme acuity in the emergency department. Nursing triage protocols were initiated and labs were drawn by protocol in the triage area. Patient's labs show a leukocytosis of 15. Sodium 122. Total bilirubin 1.6. AST 149. Alkaline phosphatase 569. When EMR was reviewed the blood work from September 27 showed that the patient had a sodium of 123. Total bilirubin of 1.7. AST of 149. Alkaline phosphatase of 757. The patient's lipase today is 1754 on September 27 it was 182. Bedside [id number] ultrasound was performed and the patient has some mild ascites but no pockets that are large enough for bedside drainage in the emergency department tonight. It is not thought that the patient has SBP as she is no pain on palpation of her abdomen at this time. Awaiting CT of the abdomen. 1945: Vital signs stable. CT imaging shows pancreatitis. Patient will be a dmitted to the [facility] team Dr. Arvizu notified. Impression & Plan Pancreatitis Discharge Plan Visit Data Chief Complaint: Vomiting Stated Complaint: UNABLE TO KEEP FOOD OR WATER DOWN ED Provider: Gino Ross Discharge Problem: Pancreatitis Patient Disposition: Admitted As Inpatient Discharge Instructions Interventions: ED Discharge Assessment Last Done: 10/12/21 22:06
[2021-10-12 19:17] LABS: Appearance Urine Cloudy (Clear); Bacteria Urine Automated Negative (Negative); Blood Urine Negative (Negative); Color Urine Dark Yellow; Epithelial Cell Urine Auto >30 /lpf (0-5); Glucose Urine UA Negative (Negative); Ketones Urine 1+ (Negative); Leukocyte Esterase Urine Trace (Negative); Nitrite Urine Positive (Negative); Protein Urine Trace (Negative); RBC Urine Automated 0-4 /hpf (0-4); Specific Gravity Urine 1.018 (1.000-1.030); Urobilinogen Urine Negative (Negative); pH Urine 5.5 (4.5-7.5)
[2021-10-12 19:27] LABS: Bilirubin Urine 2+ (Negative)
--- NOTE | 2021-10-12 19:40 | CT Scan Report ---
CT OF THE ABDOMEN AND PELVIS WITH CONTRAST CLINICAL HISTORY: Generalized abdominal pain/bloating. COMPARISON STUDY: CT of the abdomen and pelvis May 09, 2020. Abdominal ultrasound October 03, 2021. TECHNIQUE: Following IV administration of 93 mL of Optiray, axial images of the abdomen and pelvis we re obtained from the lung bases to the proximal femurs. Images were reviewed in the axial, sagittal, and coronal planes. IV contrast was administered without complication. Automated exposure control wa s utilized for the study. A dose lowering technique was utilized adhering to the principles of ALARA . CT DOSE: 272.15 mGy.cm FINDINGS: Lung bases are unremarkable. No pneumatosis, free air or portal venous gas is present. Ther e is moderate ascites. Hepatic steatosis is noted. Liver surface is irregular. This indicates cirrhos is. No hepatic lesions are identified on this portal venous phase study. The main, left and right por elvin veins are patent. There is no biliary ductal dilatation. Fluid adjacent to the gallbladder is non specific in the setting of ascites. The gallbladder is not distended. Pancreatic duct is mildly dilat ed, measuring 6 mm in caliber. This has mildly increased since CT of May 09, 2020. Pancreas divis um is noted. A 9 mm hypodense focus within the pancreatic head on axial image 154 of 446 is noted. Fl uid and apparent stranding adjacent to the second portion of the duodenum is noted. No free air is pr esent. There is no abscess. There is no evidence for a bowel obstruction. The appendix is surgically absent. Extensive plaque of the abdominal aorta is noted. There is avascular necrosis of both femoral heads without collapse. No acute fracture or suspicious lesion is identified within the visualized s keletal structures. There is no hydronephrosis. There are no urinary calculi. No lymphadenopathy is p resent. Recanalized paraumbilical vein is noted. IMPRESSION: 1. Hepatic steatosis and cirrhosis. Manifestations of portal hypertension including moderate ascites and small varices formation. 2. No bowel obstruction. 3. Possible stranding and fluid adjacent to the second portion of the duodenum. This could simply rep resent ascites however duodenitis or acute pancreatitis cannot be excluded. 4. Mild pancreatic ductal dilatation. This may be related to pancreas divisum however a follow-up morejon creatic protocol MRI in one month is recommended. 5. 9 mm cystic focus within the pancreas head which is indeterminate and can be assessed on follow-up MRI. 6. Avascular necrosis of the bilateral femoral heads. ACT 112: Negative or not required by law. Electronically signed by: Humberto Guillen M.D. 10/12/2021 7:39 PM
[2021-10-12] MEDS ORDERED: LORazepam 2 MG in SYRINGE 0.5 ML IV PRN (21:14)
[2021-10-12] MEDS ORDERED: THIAMINE HCL 100 MG/ML 2 ML VIAL IM STA (21:14)
[2021-10-12] MEDS ORDERED: LORazepam 1 MG in SYRINGE 0.5 ML IV PRN (21:20)
--- NOTE | 2021-10-12 21:57 | History & Physical Report ---
Date of Service October 12, 2021 Assessment & Plan (1) Cirrhosis: Plan: 61 y/o F Hx HTN, HLD, depression, lupus anticoagulant + with history of PE, ETOH abuse with recent diagnosis of cirrhosis. She states she has not been able to tolerate sufficient amounts of solid food for a few months. She states that she feels full and tends to get nauseous and usually vomits. She has continued to consume alcohol, usually vodka, daily. The pt normally takes Xarelto, however, her PCP instructed her to stop, as he was concerned she may have an ulcer. She has no additional complaints and appears to have a poor overall understanding of her medical conditions. Initial labs are notable for leukocytosis, transaminitis, INR 1.6, lipase 1754, and a sodium of 122. She has a high alk/phos which is apparently chronic. A CT abdomen was read as follows: - Hepatic steatosis and cirrhosis. Manifestations of portal hypertension including moderate ascites and small varices formation. - Possible stranding and fluid adjacent to the second portion of the duodenum. This could simply represent ascites however duodenitis or acute pancreatitis cannot be excluded. - Mild pancreatic ductal dilatation. - 9 mm cystic focus within the pancreas head which is indeterminate and can be assessed on follow-up MRI. - Avascular necrosis of the bilateral femoral heads. On further questioning, she states that her hips have been bothering her when she sleeps, but not when she walks interestingly. 1) Anorexia, nausea, vomiting, abdominal pain - this may be due to gastritis owing to ETOH intake, in addition to cirrhosis. She will be NPO overnight pending a GI consult as she likely needs an EGD. She will receive a PPi. 2) Abnormal CT abdomen - could not exclude pancreatitis, pancreatic malignancy - abdominal MRI will be ordered 3) Hyponatremia - severe without related symptoms - may be due to poor PO intake and free water intake - IVF overnight, trend BMP - urine lytes 4) Cirrhosis - mild ascites and portal HTN - cont atenolol, GI consult AM - 5) HTN, HLD - cont atenolol - hold statin pending DC to follow LFTs. Cont lisinopril, atenolol. 6) ETOH withdrawal is expected - she is assigned to telemetry - PRN lorazepam, thiamine, D5NS provided. She takes gabapentin HS. 7) History of PE - anticoagulation held pending GI workup. SCDs. 8) Depression - cont fluoxetine. Full code - SCDs Total time for this admit including review of labs, meds, imaging, records - discussion with pt and ER attending - 53 min (2) History of alcoholism: (3) Pulmonary embolism: (4) Anorexia: (5) Nausea: (6) Abdominal pain: History of Present Illness Chief Complaint: Nausea, vomiting, upper abdominal pain Primary Care Provider: Rachid Cool MD 61 y/o F Hx HTN, HLD, depression, lupus anticoagulant + with history of PE, ETOH abuse with recent diagnosis of cirrhosis. She states she has not been able to tolerate sufficient amounts of solid food for a few months. She states that she feels full and tends to get nauseous and usually vomits. She has continued to consume alcohol, usually vodka, daily. The pt normally takes Xarelto, however, her PCP instructed her to stop, as he was concerned she may have an ulcer. She has no additional complaints and appears to have a poor overall understanding of her medical conditions. Initial labs are notable for leukocytosis, transaminitis, INR 1.6, lipase 1754, and a sodium of 122. She has a high alk/phos which is apparently chronic. A CT abdomen was read as follows: - Hepatic steatosis and cirrhosis. Manifestations of portal hypertension including moderate ascites and small varices formation. - Possible stranding and fluid adjacent to the second portion of the duodenum. This could simply represent ascites however duodenitis or acute pancreatitis cannot be excluded. - Mild pancreatic ductal dilatation. - 9 mm cystic focus within the pancreas head which is indeterminate and can be assessed on follow-up MRI. - Avascular necrosis of the bilateral femoral heads. On further questioning, she states that her hips have been bothering her when she sleeps, but not when she walks interestingly. PMH: 1) HTN 2) HLD 3) Alcohol abuse 4) Lupus anticoagulant - PE 2011 5) Depression 6) Cirrhosis 7) B12 deficiency Surgical: 1) Appendectomy 2) Tubal ligation Social: Smokes one pack daily, > 30 PYH. Drinks vodka daily - could not specify quantity Family: Mother alive and well Father - colon and bladder CA Allergies Allergy/AdvReac Type Severity Reaction Status Date / Time No Known Allergies Allergy Verified 10/12/21 20:54 Home Medications Medication Instructions Recorded Confirmed Type cholecalciferol (vitamin D3) 50 2,000 units PO QAM 11/30/18 10/12/21 History mcg (2,000 unit) capsule cyanocobalamin (vitamin B-12) 1,000 mcg PO PM 11/30/18 10/12/21 History 1,000 mcg tablet (Vitamin B-12) magnesium 500 mg tablet 500 mg PO PM tab 11/30/18 10/12/21 History multivitamin 1 tab PO PM 05/12/19 10/12/21 History buspirone 10 mg tablet 5 - 10 mg PO Q8H PRN #45 tab 12/28/19 10/12/21 Rx fluoxetine 20 mg capsule (Prozac) 20 mg PO PM 05/15/20 10/12/21 History atorvastatin 20 mg tablet 20 mg PO PM #90 tab 12/29/20 10/12/21 Rx atenolol 25 mg tablet 25 mg PO QAM #90 tab 09/03/21 10/12/21 Rx bismuth subsalicylate 262 mg/15 mL 524 mg PO QID PRN 10/12/21 10/12/21 History oral suspension (Pepto-Bismol) gabapentin 300 mg capsule 300 mg PO QPM 10/12/21 10/12/21 History lisinopril 40 mg tablet 40 mg PO QAM 10/12/21 10/12/21 History Past Med/Surg History Medical History Anxiety Avascular necrosis of femoral neck b/l on CT abd/pelvis 04/2020 Calcification of abdominal aorta Depression Enlarged liver History of anemia History of bronchitis resolved HTN (hypertension), benign Lump of skin of back lipoma Migraine hx Pulmonary embolism and one to groin 8 yrs ago> unknown causes> Xarelto Pulmonary nodules under surveillance Surgical History H/O colonoscopy (2016) Dr. Billings History of esophagogastroduodenoscopy (EGD) (2016) Dr. Billings History of laparoscopic appendectomy (05/23/20) Laparoscopic Appendectomy Dr. Naylor 05/23/2020 History of throat surgery small mass removed > benign History of tooth extraction History of tubal ligation (1996) Family History Mother Diabetes Hypertension Father Colorectal cancer Bladder cancer Grandmother (Paternal) Aneurysm Denies family history of Ovarian cancer Prostate cancer Myocardial infarction Breast cancer Social History Smoking Status: Current every day smoker Tobacco Type: Cigarettes Age Started Using Tobacco: 17; packs per day: 1; Cigarettes Per Day: 20; Second Hand Exposure: No; Hx Alcohol Use: Yes Alcohol type: hard liquor Alcohol Intake Frequency Comment: daily Hx Substance Use: No Preferred Language: Turkmen Communication Ability: Effective Visual Impairment: Limited Hearing Ability: Normal Sustainment Logistics Analyst Required: No Beliefs That Will Affect Care: None marital status: Current Living Situation: Spouse current occupational status: unemployed 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 How many Children do You have: 2 Feels Safe at Home: Yes Childhood Exposure to Second-Hand Smoke: No caffeine: Yes (coffee and tea 1 cup daily ) Dental Care, Regularly: Yes Physical Activity Frequency: Does not Exercise Seatbelt Use: always Sunscreen Use: No Assistive Devices: Glasses Review of Systems Review of Systems: Gen: Denies fevers, night sweats, rigors, fatigue, malaise, weight loss/gain ENT: Denies congestion, throat pain, hearing loss Eyes: Denies acute visual changes CV: Denies CP, palpitations Pulmonary: Denies SOB, cough, wheezing GI: Nausea, vomiting, epigastric pain, poor PO intake - several months Neuro: Denies acute or unilateral weakness, acute gait impairment, headache or acute visual changes Musculoskeletal: Denies joint pain, inflammation Endocrine: Denies polydipsia, polyuria Skin: Denies acute rashes or ulcers Physical Exam Physical Exam: General: AAO x 3, no distress ENT: No erythema or exudates, no thrush Eyes: ZE, EOMI Head and neck: Normocephalic, atraumatic, No JVD, neck is supple. Facial erythema and telangiectasia apparent. Chest/heart: Nontender, S1,2, RRR, no murmurs, no gallops Lungs: CTAB, no wheezing or crackles Abdomen: Nontender, nondistended, BS+ Neuro: AAO x 3, speech is clear, no unilateral weakness or loss of sensation, coordination intact Musculoskeletal: No joint inflammation, muscle tenderness, FROM Skin: No acute rashes or ulcers Extremities: No clubbing, cyanosis, edema Results & Data Results & Data ([facility]) Vital Signs (Past 12 Hours) Vital Signs Temp Pulse Pulse Resp BP BP Pulse Ox 10/12/21 21:00 71 18 143/82 H 98 10/12/21 20:30 73 18 125/77 98 10/12/21 20:00 76 18 123/77 96 10/12/21 19:31 70 18 137/77 100 10/12/21 19:12 73 18 131/79 100 10/12/21 18:19 73 16 148/85 H 100 10/12/21 17:33 97.9 F 83 20 129/88 99 Code Status & VTE Plan VTE Prophylaxis Plan VTE Prophylaxis will be ordered: Yes PG Care Time/CCT Total # of Minutes Spent Total Time Spent with Patient: Total time spent is greater than 50% in coordination of care (as documented) at patient's floor/unit and/or counseling patient: Coding Level of Care Code 81298 Initial Inpt Care Lvl 3 Diagnoses Cirrhosis K74.60 History of alcoholism F10.21 Pulmonary embolism I26.99 Anorexia R63.0 Nausea R11.0 Abdominal pain R10.9
[2021-10-12] MEDS ORDERED: ONDANSETRON INJ 2 MG/ML 2 ML VIAL IV PRN (22:33)
[2021-10-12] MEDS ORDERED: MAGNESIUM HYDROXIDE SUSP 30 ML UDC PO PRN (22:33)
[2021-10-12] MEDS: D5W AND NSS 1,000 ML IV SCH (23:09)
[2021-10-12] MEDS: FOLIC ACID 1 MG in SYRINGE 9.8 ML IV SCH (23:27)
[2021-10-12] MEDS: THIAMINE HCL 100 MG in SYRINGE 9 ML IV SCH (23:27)
[2021-10-13 00:18] LABS: BUN Creatinine Ratio 17.9 (10-20); Calcium 7.9 mg/dl (8.5-10.1); Creatinine Clr Calc Pharmacy 137.3 ml/min; Est GFR (African American) 132.3 ml/min; Est GFR (Non-African American) 114.2 ml/min; Potassium 4.1 mmol/L (3.5-5.1)
[2021-10-13] MEDS ORDERED: PANTOprazole 40 MG in SYRINGE 0 ML IV ONE (00:30)
[2021-10-13 05:53] LABS: Basophils # (auto) 0.02 K/uL (0-0.2); Basophils % (auto) 0.2 %; Eosinophils # (auto) 0.03 K/uL (0-0.5); Eosinophils % (auto) 0.3 %; Hemoglobin 10.4 g/dL (12.0-16.0); Immature Granulocytes # (auto) 0.02 K/uL (0.00-0.02); Immature Granulocytes % (auto) 0.2 %; Lymphocytes # (auto) 1.02 K/uL (1.2-3.4); Lymphocytes % (auto) 11.1 %; Mean Corpuscular Hemoglobin 35.7 pg (25-34); Mean Corpuscular Hgb Conc 35.9 g/dL (32-36); Mean Corpuscular Volume 99.7 fL (80-100); Mean Platelet Volume 8.8 fL (7.4-10.4); Monocytes # (auto) 0.93 K/uL (0.11-0.59); Monocytes % (auto) 10.1 %; Neutrophils # (auto) 7.21 K/uL (1.4-6.5); Neutrophils % (auto) 78.1 %; Platelet Count 186 K/uL (130-400); RDW Coefficient of Variation 12.4 % (11.5-14.5); RDW Standard Deviation 45.2 fL (36.4-46.3); Red Blood Count 2.91 M/uL (4.2-5.4); White Blood Count 9.23 K/uL (4.8-10.8)
[2021-10-13 06:12] LABS: Albumin Level 2.8 gm/dl (3.4-5.0); BUN Creatinine Ratio 20.6 (10-20); Bilirubin Direct 0.6 mg/dl (0-0.2); Bilirubin,Total 1.3 mg/dl (0.2-1.0); Calcium 7.8 mg/dl (8.5-10.1); Creatinine Clr Calc Pharmacy 157.5 ml/min; Est GFR (African American) 138.4 ml/min; Est GFR (Non-African American) 119.4 ml/min; Magnesium 1.2 mg/dl (1.7-2.4); Potassium 3.7 mmol/L (3.5-5.1); Total Protein 5.2 gm/dl (6.0-8.3)
[2021-10-13] MEDS: MAGNESIUM SULFATE / D5W 1 GM/100 ML BAG IV SCH ×4 (08:43→16:16)
[2021-10-13] MEDS: PANTOprazole 40 MG in SYRINGE 0 ML IV SCH ×2 (08:43→20:12)
[2021-10-13] MEDS: THIAMINE HCL 100 MG in SYRINGE 9 ML IV SCH (08:44)
[2021-10-13] MEDS: lisinopril 40 MG TAB PO SCH (08:44)
[2021-10-13] MEDS: FOLIC ACID 1 MG in SYRINGE 9.8 ML IV SCH (08:44)
[2021-10-13] MEDS: ATENOLOL 25 MG TABLET PO SCH (08:45)
[2021-10-13] MEDS: D5W AND NSS 1,000 ML IV SCH ×2 (08:49→18:32)
[2021-10-13] MEDS ORDERED: PANTOprazole 40 MG TAB PO SCH (09:00)
--- NOTE | 2021-10-13 10:26 | Gastrointestinal Consultation ---
Date of Consultation October 13, 2021 Assessment & Plan (1) Pancreatitis: Evidence of likely alcohol induced pancreatitis with significant hyponatremia which appears to be hypovolemic hyponatremia based upon osmolality. Patient has had an appropriate drop in hemoconcentration with IV fluids, will closely monitor sodium and electrolyte levels. No signs of ductal dilatation so no role for instrumentation with ERCP. Would continue supportive care with n.p.o., IV fluids, IV pain control. His very important for patient to stop alcohol which she has been counseled on today. (2) Cirrhosis: Clinical cirrhosis complicated by likely ascites, no known varices, no other decompensating features such as confusion bleeding. Imperative to cease alcohol use monitor for alcohol withdrawal. Advance diet based upon clinical symptoms. Call with any questions or concerns History of Present Illness Reason for Consultation: Abdominal pain Attending Physician: Zac Emerson MD History of Present Illness This a 61 y/o F Hx HTN, HLD, depression, lupus anticoagulant + with history of PE, ETOH abuse with recent clinical diagnosis of cirrhosis. She states she has not been able to tolerate sufficient amounts of solid food for a week or two. She states that she feels full and tends to get nauseous and usually vomits yellow fluid. She has continued to consume alcohol, usually vodka, daily,none the last week. is recently home from rehab for Etoh abuse. The pt normally takes Xarelto, however, her PCP instructed her to stop, as he was concerned she may have an ulcer. She has no additional complaints and appears to have a poor overall understanding of her medical conditions. Initial labs are notable for leukocytosis, mild transaminitis, INR 1.6, lipase 1754, and a sodium of 122. No signs of GI bleeding, HE, does have ascites. LFTs mildly elevated, but no ductal dilation on CT scan. CT OF THE ABDOMEN AND PELVIS WITH CONTRAST CLINICAL HISTORY: Generalized abdominal pain/bloating. COMPARISON STUDY: CT of the abdomen and pelvis May 09, 2020. Abdominal ultrasound October 03, 2021. TECHNIQUE: Following IV administration of 93 mL of Optiray, axial images of the abdomen and pelvis were obtained from the lung bases to the proximal femurs. Images were reviewed in the axial, sagittal, and coronal planes. IV contrast was administered without complication. Automated exposure control was utilized for the study. A dose lowering technique was utilized adhering to the principles of ALARA. CT DOSE: 272.15 mGy.cm FINDINGS: Lung bases are unremarkable. No pneumatosis, free air or portal venous gas is present. There is moderate ascites. Hepatic steatosis is noted. Liver surface is irregular. This indicates cirrhosis. No hepatic lesions are identified on this portal venous phase study. The main, left and right portal veins are patent. There is no biliary ductal dilatation. Fluid adjacent to the gallbladder is nonspecific in the setting of ascites. The gallbladder is not distended. Pancreatic duct is mildly dilated, measuring 6 mm in caliber. This has mildly increased since CT of May 09, 2020. Pancreas divisum is noted. A 9 mm hypodense focus within the pancreatic head on axial image 154 of 446 is noted. Fluid and apparent stranding adjacent to the second portion of the duodenum is noted. No free air is present. There is no abscess. There is no evidence for a bowel obstruction. The appendix is surgically absent. Extensive plaque of the abdominal aorta is noted. There is avascular necrosis of both femoral heads without collapse. No acute fracture or suspicious lesion is identified within the visualized skeletal structures. There is no hydronephrosis. There are no urinary calculi. No lymphadenopathy is present. Recanalized paraumbilical vein is noted. IMPRESSION: 1. Hepatic steatosis and cirrhosis. Manifestations of portal hypertension including moderate ascites and small varices formation. 2. No bowel obstruction. 3. Possible stranding and fluid adjacent to the second portion of the duodenum. This could simply represent ascites however duodenitis or acute pancreatitis cannot be excluded. 4. Mild pancreatic ductal dilatation. This may be related to pancreas divisum however a follow-up pancreatic protocol MRI in one month is recommended. 5. 9 mm cystic focus within the pancreas head which is indeterminate and can be assessed on follow-up MRI. 6. Avascular necrosis of the bilateral femoral heads. Allergies Allergy/AdvReac Type Severity Reaction Status Date / Time No Known Allergies Allergy Verified 10/12/21 20:54 Home Medications Medication Instructions Recorded Confirmed Type cholecalciferol (vitamin D3) 50 2,000 units PO QAM 11/30/18 10/12/21 History mcg (2,000 unit) capsule cyanocobalamin (vitamin B-12) 1,000 mcg PO PM 11/30/18 10/12/21 History 1,000 mcg tablet (Vitamin B-12) magnesium 500 mg tablet 500 mg PO PM tab 11/30/18 10/12/21 History multivitamin 1 tab PO PM 05/12/19 10/12/21 History buspirone 10 mg tablet 5 - 10 mg PO Q8H PRN #45 tab 12/28/19 10/12/21 Rx fluoxetine 20 mg capsule (Prozac) 20 mg PO PM 05/15/20 10/12/21 History atorvastatin 20 mg tablet 20 mg PO PM #90 tab 12/29/20 10/12/21 Rx atenolol 25 mg tablet 25 mg PO QAM #90 tab 09/03/21 10/12/21 Rx bismuth subsalicylate 262 mg/15 mL 524 mg PO QID PRN 10/12/21 10/12/21 History oral suspension (Pepto-Bismol) gabapentin 300 mg capsule 300 mg PO QPM 10/12/21 10/12/21 History lisinopril 40 mg tablet 40 mg PO QAM 10/12/21 10/12/21 History Patient History Medical History Anxiety Avascular necrosis of femoral neck b/l on CT abd/pelvis 04/2020 Calcification of abdominal aorta Depression Enlarged liver History of anemia History of bronchitis resolved HTN (hypertension), benign Lump of skin of back lipoma Migraine hx Pulmonary embolism and one to groin 8 yrs ago> unknown causes> Xarelto Pulmonary nodules under surveillance Surgical History H/O colonoscopy (2016) Dr. Billings History of esophagogastroduodenoscopy (EGD) (2016) Dr. Billings History of laparoscopic appendectomy (05/23/20) Laparoscopic Appendectomy Dr. Naylor 05/23/2020 History of throat surgery small mass removed > benign History of tooth extraction History of tubal ligation (1996) Family History Mother Diabetes Hypertension Father Colorectal cancer Bladder cancer Grandmother (Paternal) Aneurysm Denies family history of Ovarian cancer Prostate cancer Myocardial infarction Breast cancer Social History Smoking Status: Current every day smoker Tobacco Type: Cigarettes Age Started Using Tobacco: 17; packs per day: 1; Cigarettes Per Day: 20; Second Hand Exposure: No; Hx Alcohol Use: Yes Alcohol type: hard liquor Alcohol Intake Frequency Comment: daily Hx Substance Use: No Preferred Language: Spanish Communication Ability: Effective Visual Impairment: Limited Hearing Ability: Normal Ged Tutor Required: No Beliefs That Will Affect Care: None marital status: Current Living Situation: Spouse current occupational status: 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 Facial erythema and telangiectasia apparent. Chest/heart: Nontender, S1,2, RRR, no murmurs, no gallops Lungs: CTAB, no wheezing or crackles Abdomen: mildly tender in epigastrium, ventral hernia, nondistended, BS+ Neuro: AAO x 3, speech is clear, no unilateral weakness or loss of sensation, coordination intact Musculoskeletal: No joint inflammation, muscle tenderness, FROM Skin: No acute rashes or ulcers Extremities: No clubbing, cyanosis, edema chewing nicorette gum, lying on side in nad Results & Data ([facility]) Vital Signs (Past 12 Hours) Vital Signs Temp Pulse Pulse Resp BP BP Pulse Ox 10/13/21 09:36 67 10/13/21 08:23 36.8 C 71 17 127/78 96 10/13/21 04:13 36.5 C 72 18 115/70 98 10/12/21 22:26 36.8 C 75 18 138/89 99
--- NOTE | 2021-10-13 10:33 | Hospitalist Progress Note ---
Date of Service October 13, 2021 Assessment & Plan (1) Cirrhosis: Plan: Supportive care. Alcohol cessation highly recommended. Serial lab studies. Await GI consultation and recommendations. (2) History of alcoholism: Plan: Cirrhosis and ascites noted on CT scan. Alcohol cessation highly recommended (3) Pulmonary embolism: Plan: History of lupus anticoagulant. Xarelto is currently on hold (4) Anorexia: Plan: Discontinue alcohol intake. Treat underlying pancreatitis (5) Nausea: Plan: Zofran IV as needed. Treat underlying pancreatitis (6) Abdominal pain: Plan: Intravenous morphine as needed for pain control. Treat underlying pancreatitis (7) Pancreatitis: Plan: Acute due to alcoholism. N.p.o. for now. IV fluids. Pain control measures. (8) Hyperlipidemia: Plan: Discontinue statin therapy to avoid further hepatic insult. Diet control only for now Plan: Eventual discharge back to home Admission and Anticipated Discharge Date Admission Date: October 12, 2021 Subjective Alert and oriented. Mild abdominal discomfort. No acute distress. She appears to have acute pancreatitis that is alcohol induced. Sodium is low which is not surprising and serum osmolarity is pending but will probably be low. Magnesium replacement ordered. N.p.o. for now. Continue IV fluids and pain control measures. She has bilateral avascular necrosis of both hips but is able to ambulate. Orthopedic consultation pending. Await GI consultation also Review of Systems Review of Systems: Constitutional-no fever or chills ENT-no blurred vision, no double vision, no epistaxis, no sore throat Respiratory-no cough, no wheezing, no shortness of breath Cardiac-no palpitations, no chest pain, no syncope GI-nausea and abdominal discomfort. No melena or hematochezia -no urinary retention, no urinary incontinence, no dysuria, no hematuria Musculoskeletal-mild bilateral hip discomfort with ambulation Skin-no bruising, no rashes, no pruritus Neuro-no isolated weakness, no paresthesia, no weakness Psych-no depression, no anxiety Physical Exam 2 Physical Exam: General-alert and oriented x3, no fevers, no chills HEENT-head atraumatic and normocephalic, TMs intact bilaterally, pupils equal and reactive to light, extraocular muscles intact Neck-no lymphadenopathy or thyromegaly, trachea midline Chest-clear to auscultation percussion. No rales wheezing or rhonchi Cardiac-regular rate and rhythm, normal S1 and S2, no murmurs Abdomen-mildly distended with ascites. Mid abdominal tenderness to palpation. No rebound or guarding Extremities-no cyanosis, clubbing, or edema Neuro-cranial nerves II through XII intact, motor and sensory function within normal limits, strength symmetrical , no focal deficits Psych-normal affect, normal mood Results & Data Results & Data ([facility]) Vital Signs (Past 12 Hours) Vital Signs Temp Pulse Pulse Resp BP BP Pulse Ox 10/13/21 09:36 67 10/13/21 08:23 36.8 C 71 17 127/78 96 10/13/21 04:13 36.5 C 72 18 115/70 98 Laboratory Results 10/13/21 05:16 PG Care Time/CCT Total # of Minutes Spent Total Time Spent with Patient: Total time spent is greater than 50% in coordination of care (as documented) at patient's floor/unit and/or counseling patient: Coding Level of Care Code 74685 Subseq Hosp Care Lvl 3 Diagnoses Cirrhosis K74.60 History of alcoholism F10.21 Pulmonary embolism I26.99 Anorexia R63.0 Nausea R11.0 Abdominal pain R10.9 Pancreatitis K85.90 Hyperlipidemia E78.5
[2021-10-13] MEDS ORDERED: GADOBUTROL 30ML VIAL IV ONE (12:19)
[2021-10-13] MEDS: MoRPHine SULFATE 2 MG/ML CARP IV PRN ×3 (13:02→22:04)
--- NOTE | 2021-10-13 16:19 | Consultation Report ---
DATE OF CONSULTATION: 10/13/2021 HISTORY OF PRESENT ILLNESS: This is a 61-year-old female seen at the request of Dr. Monster Meza and Dr Ashly Cool regarding bilateral hip AVN determined with a routine CT and abdominal MRI related to ascites, alcoholic cirrhosis and pancreatitis. The patient presented to [facility] on 10/12/2021 with difficulty with eating, recurrent vomiting. She feels full and tends to be naus eous and usually vomits. She has chronic alcoholism, typically drinking vodka daily. She had stomac h and GI upset, and her PCP instructed her to stop her Xarelto due to concerns of a gastric ulcer. S he presented to the ER. She was evaluated. A consult was placed for the medical service. The patie nt was deemed necessary for admission. The patient was admitted to the hospitalist service. Finding s per CT scan and MRI concerning for AVN of bilateral hips. Orthopedic service was consulted at that time. Upon interview of the patient today, the patient states she did not have any pain in her groi n or in her hips. She does have some pain related to an old mattress that she sleeps on in bilateral hips on the lateral aspect only. No previous injury to the hips. No prior complaints of intra-ana maria cular hip pain noted. PAST MEDICAL HISTORY: Hypertension, alcoholism, hyperlipidemia, pancreatitis, lupus anticoagulant, P E in 2011, depression, cirrhosis, B12 deficiency, new diagnosis of ascites. PAST SURGICAL HISTORY: Appendectomy, tubal ligation. ALLERGIES: No known drug allergies. MEDICATIONS: Please note the list present in the medical record. SOCIAL HISTORY: She is . She lives with her spouse. She smokes daily cigarettes, smokes a p ack a day and chronic alcoholic for many years. Denies drug use. 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 PHYSICAL EXAMINATION: This is a frail-appearing 61-year-old woman who appears older than her stated age. Her is present at bedside. She has rosacea and engorged central abdomen. She has a sl ight yellowish hue to her skin and sclerae. Focused examination of the hips demonstrates skin warm, dry and intact. Cap refill less than 2 seconds. Dorsalis pedis and posterior tibial pulses are 2/4. Sensation is intact in bilateral lower extremities. She is nontender in bilateral heads of the fem ur at the groin. She does have some mild to moderate tenderness over the trochanteric bursa bilatera lly. No significant radiation of tenderness distally. Range of motion is symmetric, approximately 4 5 degrees of abduction, 15 degrees adduction, 115 degrees of flexion, full extension, 40 degrees exte rnal rotation and 15 degrees internal rotation bilaterally. RADIOGRAPHS: CT scan and MRI reviewed demonstrating trace stage I avascular necrosis of bilateral fe moral heads without any evidence of femoral collapse or any irregularity in the sphericity of the scott ateral femoral heads. IMPRESSION AND PLAN: 1. Bilateral hip avascular necrosis, early stage, nonoperative. 2. Alcoholic cirrhosis. 3. Pancreatitis. 4. New-onset ascites, currently under medical management. Nonoperative care. Highly recommend disco ntinuation of alcohol use as there is a direct correlation between high alcohol usage and avascular n ecrosis as evidenced in cases such as this patient. Anti-inflammatories if patient's complaints adria ant treatment and if medical condition and medical team approve the use of any Tylenol or anti-inflam matories, though I highly doubt it based upon her current metabolic circumstances. The patient may f ollow up in the clinic as necessary. Thank you for the opportunity to consult in the care of this patient. Job ID: [id number]
--- NOTE | 2021-10-13 19:41 | Magnetic Resonance Report ---
MR abdomen wo/w con CLINICAL HISTORY: pancreatic, biliary, liver eval - abnormal CT COMPARISON: Comparison is made to MRCP 08/28/[address] abdomen pelvis 02/12/2022 TECHNIQUE: Multiplanar multisequence images were obtained of the abdomen with and without the adminis tration of contrast. FINDINGS: Lower chest: No acute abnormality Liver: Nodular contour of the liver is seen compatible with cirrhosis. There is an arterially enhanci ng lesion in segment 8 of the liver (image 32) which is very small and does not demonstrate washout, may represent shunt vascularity. No foci of washout are seen. Gallbladder and biliary tree: Cholelithiasis is seen without evidence of cholecystitis. No intra- or extrahepatic biliary ductal dilation. Pancreas: Pancreatic duct is dilated measuring 5 mm in diameter in the body and 4 mm in the tail. The re is a hypoenhancing focus in the pancreatic head which measures approximately 7 x 5 mm. This may co rrespond to the hypodensity seen on prior CT. However, it is not clearly seen on T2-weighted imaging. Otherwise, no definite pancreatic mass is seen. Spleen: Unremarkable. Adrenals: Unremarkable. Kidneys and ureters: Unremarkable. Bowel: Unremarkable. Lymph nodes Retroperitoneal: Subcentimeter lymph nodes are noted. Mesenteric: Unremarkable. Peritoneum: Moderate ascites. Vessels: Atherosclerotic disease is noted in the aorta and its branches. Abdominal wall: Unremarkable. Bones: Unremarkable. IMPRESSION: 1. There is a hypoenhancing focus in the pancreatic head which is not clearly seen on T2-weighted im aging. This corresponds to location of previously noted hypodense lesion. Findings are nonspecific an d pancreatic head mass cannot be entirely excluded in the setting of a dilated pancreatic duct. If cl inical concern remains, EUS can be performed. 2. Cirrhotic contour of the liver without evidence of lesions with washout to suggest hepatocellular carcinoma. 3. Moderate ascites. 4. Additional findings as above. ACT 112: Positive. There are findings on this exam that require communication between the performing entity and the patient following Patient Test Result Information Act ([place] Act 112) guidelines. Electronically signed by: Ra Florez M.D. 10/13/2021 7:39 PM
[2021-10-13] MEDS: GABAPENTIN 300 MG CAP PO SCH (20:12)
[2021-10-13] MEDS: CYANOCOBALAMIN (B-12) 500 MCG TABLET PO SCH (20:13)
[2021-10-13] MEDS: MAGNESIUM OXIDE 400 MG TAB PO SCH (20:13)
[2021-10-13] MEDS: FLUoxetine HCL 20 MG CAP PO SCH (20:13)
[2021-10-13] MEDS ORDERED: ATORVASTATIN 20 MG TAB PO SCH (21:00)
--- NOTE | 2021-10-13 23:07 | Electrocardiogram Report ---
Test Reason : Blood Pressure : / mmHG Vent. Rate : 075 BPM Atrial Rate : 075 BPM P-R Int : 182 ms QRS Dur : 072 ms QT Int : 420 ms P-R-T Axes : 058 055 048 degrees QTc Int : 469 ms Normal sinus rhythm Possible Left atrial enlargement Septal infarct , age undetermined Abnormal ECG When compared with ECG of 17-MAY-2020 12:04, QRS voltage has decreased Septal infarct is now Present T wave amplitude has decreased in Inferior leads Confirmed by Wilmer Hare ([id number]) on 10/13/2021 11:07:29 PM Referred By: REFERRED SELF Confirmed By:Wilmer Hare
[2021-10-14] MEDS: MoRPHine SULFATE 2 MG/ML CARP IV PRN ×5 (05:30→22:28)
[2021-10-14 06:02] LABS: Basophils # (auto) 0.01 K/uL (0-0.2); Basophils % (auto) 0.1 %; Eosinophils # (auto) 0.03 K/uL (0-0.5); Eosinophils % (auto) 0.3 %; Hematocrit (blood only) 29.8 % (37-47); Hemoglobin 10.2 g/dL (12.0-16.0); Immature Granulocytes # (auto) 0.03 K/uL (0.00-0.02); Immature Granulocytes % (auto) 0.3 %; Lymphocytes # (auto) 0.75 K/uL (1.2-3.4); Lymphocytes % (auto) 8.6 %; Mean Corpuscular Hemoglobin 35.1 pg (25-34); Mean Corpuscular Hgb Conc 34.2 g/dL (32-36); Mean Corpuscular Volume 102.4 fL (80-100); Mean Platelet Volume 9.1 fL (7.4-10.4); Monocytes # (auto) 0.82 K/uL (0.11-0.59); Monocytes % (auto) 9.4 %; Neutrophils # (auto) 7.06 K/uL (1.4-6.5); Neutrophils % (auto) 81.3 %; Platelet Count 175 K/uL (130-400); RDW Coefficient of Variation 12.4 % (11.5-14.5); RDW Standard Deviation 46.3 fL (36.4-46.3); Red Blood Count 2.91 M/uL (4.2-5.4)
[2021-10-14 06:14] LABS: Alanine Aminotransferase 19 U/L (7-52); Albumin Globulin Ratio 1.1 (0.9-2); Albumin Level 2.5 gm/dl (3.4-5.0); Alkaline Phosphatase 400 U/L (34-104); Anion Gap 8 (3-11); Aspartate Aminotransferase 74 U/L (13-39); BUN Creatinine Ratio 13.6 (10-20); Bilirubin,Total 1.2 mg/dl (0.2-1.0); Blood Urea Nitrogen 3 mg/dl (6-23); Calcium 7.6 mg/dl (8.5-10.1); Carbon Dioxide 23 mmol/L (21-32); Chloride 100 mmol/L (98-107); Creatinine Clr Calc Pharmacy 230.1 ml/min; Est GFR (African American) > 150.0 ml/min; Est GFR (Non-African American) 137.8 ml/min; Globulin 2.3 gm/dl (2.5-4.0); Glucose 93 mg/dl (70-99(Fasting)); Lipase 21 U/L (11-82); Magnesium 1.9 mg/dl (1.7-2.4); Potassium 3.3 mmol/L (3.5-5.1); Sodium 131 mmol/L (136-145); Total Protein 4.8 gm/dl (6.0-8.3)
[2021-10-14] MEDS: ATENOLOL 25 MG TABLET PO SCH (08:08)
[2021-10-14] MEDS: THIAMINE HCL 100 MG in SYRINGE 9 ML IV SCH (08:09)
[2021-10-14] MEDS: FOLIC ACID 1 MG in SYRINGE 9.8 ML IV SCH (08:09)
[2021-10-14] MEDS: lisinopril 40 MG TAB PO SCH (08:09)
[2021-10-14] MEDS: PANTOprazole 40 MG in SYRINGE 0 ML IV SCH ×2 (08:09→20:34)
[2021-10-14] MEDS: D5NSS + 20MEQ KCL 20 MEQ/1,000 ML BAG IV SCH ×2 (09:16→22:27)
--- NOTE | 2021-10-14 11:07 | Hospitalist Progress Note ---
Date of Service October 14, 2021 Assessment & Plan (1) Cirrhosis: Plan: Supportive care. Alcohol cessation highly recommended. Serial lab studies. GI consult appreciated (2) History of alcoholism: Plan: Cirrhosis and ascites noted on CT scan. Alcohol cessation highly recommended (3) Pulmonary embolism: Plan: History of lupus anticoagulant. Xarelto is currently on hold. Will restart at discharge (4) Anorexia: Plan: Discontinue alcohol intake. Treat underlying pancreatitis (5) Nausea: Plan: Zofran IV as needed. Treat underlying pancreatitis (6) Abdominal pain: Plan: Intravenous morphine as needed for pain control. Treat underlying pancreatitis (7) Pancreatitis: Plan: Acute due to alcoholism. Lipase has now normalized. Start clear liquids today, October 14. Advance as tolerated. (8) Hyperlipidemia: Plan: Discontinue statin therapy to avoid further hepatic insult. Diet control only for now Plan: Eventual discharge back to home. Hopefully tomorrow, October 15 Admission and Anticipated Discharge Date Admission Date: October 12, 2021 Subjective Alert and oriented. Lipase has normalized. Clear liquid diet has been started. IV fluids taper down. Potassium replacement for potassium 3.2. Low magnesium has been corrected. Abdomen MRI scan results noted. This will need further follow-up. Probably discharge to home when she is back eating solid food. Review of Systems Review of Systems: Constitutional-no fever or chills ENT-no blurred vision, no double vision, no epistaxis, no sore throat Respiratory-no cough, no wheezing, no shortness of breath Cardiac-no palpitations, no chest pain, no syncope GI-no nausea, vomiting, diarrhea, melena, hematochezia -no urinary retention, no urinary incontinence, no dysuria, no hematuria Musculoskeletal-no joint pain, no muscle tenderness Skin-no bruising, no rashes, no pruritus Neuro-no isolated weakness, no paresthesia, no weakness Psych-no depression, no anxiety Physical Exam Physical Exam: General-alert and oriented x3, no fevers, no chills HEENT-head atraumatic and normocephalic, TMs intact bilaterally, pupils equal and reactive to light, extraocular muscles intact Neck-no lymphadenopathy or thyromegaly, trachea midline Chest-clear to auscultation percussion. No rales wheezing or rhonchi Cardiac-regular rate and rhythm, normal S1 and S2, no murmurs Abdomen-normal bowel sounds. Mildly distended with ascites. Tenderness has nearly resolved. Extremities-no cyanosis, clubbing, or edema Neuro-cranial nerves II through XII intact, motor and sensory function within normal limits, strength symmetrical , no focal deficits Psych-normal affect, normal mood Results & Data Results & Data ([facility]) Vital Signs (Past 12 Hours) Vital Signs Temp Pulse Pulse Resp BP BP Pulse Ox 10/14/21 07:59 36.8 C 70 19 98/65 L 95 10/14/21 07:31 64 10/14/21 03:00 36.6 C 67 16 105/59 L 98 Laboratory Results 10/14/21 05:16 10/14/21 05:16 PG Care Time/CCT Total # of Minutes Spent Total Time Spent with Patient: Total time spent is greater than 50% in coordination of care (as documented) at patient's floor/unit and/or counseling patient: Coding Level of Care Code 34900 Subseq Hosp Care Lvl 3 Diagnoses Cirrhosis K74.60 History of alcoholism F10.21 Pulmonary embolism I26.99 Anorexia R63.0 Nausea R11.0 Abdominal pain R10.9 Pancreatitis K85.90 Hyperlipidemia E78.5
--- NOTE | 2021-10-14 12:07 | Gastroenterology Progress Note ---
Date of Service October 14, 2021 Assessment & Plan (1) Pancreatitis: Plan: Evidence of likely alcohol induced pancreatitis with significant hyponatremia which appears to be hypovolemic hyponatremia based upon osmolality. Patient has had an appropriate drop in hemoconcentration with IV fluids, will closely monitor sodium and electrolyte levels. No signs of ductal dilatation so no role for instrumentation with ERCP. Would continue supportive care with clear liquids today and can advance diet tomorrow , IV fluids, IV pain control. His very important for patient to stop alcohol which she has been counseled on today. (2) Cirrhosis: Plan: Clinical cirrhosis complicated by likely ascites, no known varices, no other decompensating features such as confusion bleeding. Imperative to cease alcohol use monitor for alcohol withdrawal. Advance diet based upon clinical symptoms. Call with any questions or concerns Will require outpatient GI follow-up in 4 weeks after discharge. Admission and Anticipated Discharge Date Admission Date: October 12, 2021 Subjective Patient is improved, tolerating liquid diet without issues. Physical Exam Physical Exam: General: AAO x 3, no distress ENT: No erythema or exudates, no thrush Eyes: ZE, EOMI Head and neck: Normocephalic, atraumatic, No JVD, neck is supple. Facial erythema and telangiectasia apparent. Chest/heart: Nontender, S1,2, RRR, no murmurs, no gallops Lungs: CTAB, no wheezing or crackles Abdomen: Less tender in epigastrium, ventral hernia, nondistended, BS+ Neuro: AAO x 3, speech is clear, no unilateral weakness or loss of sensation, coordination intact Musculoskeletal: No joint inflammation, muscle tenderness, FROM Skin: No acute rashes or ulcers Extremities: No clubbing, cyanosis, edema lying on side in nad Results & Data ([facility]) Vital Signs (Past 12 Hours) Vital Signs Temp Pulse Pulse Resp BP BP Pulse Ox 10/14/21 07:59 36.8 C 70 19 98/65 L 95 10/14/21 07:31 64 10/14/21 03:00 36.6 C 67 16 105/59 L 98
[2021-10-14] MEDS: MAGNESIUM OXIDE 400 MG TAB PO SCH (20:38)
[2021-10-14] MEDS: GABAPENTIN 300 MG CAP PO SCH (20:38)
[2021-10-14] MEDS: CYANOCOBALAMIN (B-12) 500 MCG TABLET PO SCH (20:38)
[2021-10-14] MEDS: FLUoxetine HCL 20 MG CAP PO SCH (20:39)
--- NOTE | 2021-10-14 22:30 | Communication Note ---
Date of Service: October 14, 2021 Ordered home buspar 5mg TID prn. Cirrhosis noted. Liver enzymes acceptable. PCP to consider regarding fpc use risks vs benefits as general recommendation is to avoid in severe liver disease.
[2021-10-14] MEDS: busPIRone 5 MG TAB PO PRN (23:09)
[2021-10-15 07:48] LABS: Basophils # (auto) 0.03 K/uL (0-0.2); Basophils % (auto) 0.3 %; Eosinophils # (auto) 0.02 K/uL (0-0.5); Eosinophils % (auto) 0.2 %; Hematocrit (blood only) 29.8 % (37-47); Hemoglobin 10.1 g/dL (12.0-16.0); Immature Granulocytes # (auto) 0.03 K/uL (0.00-0.02); Immature Granulocytes % (auto) 0.3 %; Lymphocytes # (auto) 0.92 K/uL (1.2-3.4); Lymphocytes % (auto) 9.2 %; Mean Corpuscular Hemoglobin 35.2 pg (25-34); Mean Corpuscular Hgb Conc 33.9 g/dL (32-36); Mean Corpuscular Volume 103.8 fL (80-100); Mean Platelet Volume 9.5 fL (7.4-10.4); Monocytes # (auto) 1.16 K/uL (0.11-0.59); Monocytes % (auto) 11.6 %; Neutrophils # (auto) 7.82 K/uL (1.4-6.5); Neutrophils % (auto) 78.4 %; Platelet Count 194 K/uL (130-400); RDW Coefficient of Variation 12.7 % (11.5-14.5); RDW Standard Deviation 48.5 fL (36.4-46.3); Red Blood Count 2.87 M/uL (4.2-5.4); White Blood Count 9.98 K/uL (4.8-10.8)
[2021-10-15] MEDS: MoRPHine SULFATE 2 MG/ML CARP IV PRN ×4 (08:26→23:12)
[2021-10-15] MEDS: lisinopril 40 MG TAB PO SCH (08:27)
[2021-10-15] MEDS: PANTOprazole 40 MG in SYRINGE 0 ML IV SCH (08:27)
[2021-10-15] MEDS: FOLIC ACID 1 MG in SYRINGE 9.8 ML IV SCH (08:27)
[2021-10-15] MEDS: ATENOLOL 25 MG TABLET PO SCH (08:27)
[2021-10-15] MEDS: THIAMINE HCL 100 MG in SYRINGE 9 ML IV SCH (08:27)
[2021-10-15 08:37] LABS: Albumin Globulin Ratio 1.1 (0.9-2); Albumin Level 2.5 gm/dl (3.4-5.0); BUN Creatinine Ratio 8.1 (10-20); Bilirubin,Total 1.3 mg/dl (0.2-1.0); Calcium 7.4 mg/dl (8.5-10.1); Creatinine Clr Calc Pharmacy 136.8 ml/min; Est GFR (African American) 134.6 ml/min; Est GFR (Non-African American) 116.2 ml/min; Globulin 2.2 gm/dl (2.5-4.0); Magnesium 1.5 mg/dl (1.7-2.4); Potassium 3.9 mmol/L (3.5-5.1); Total Protein 4.7 gm/dl (6.0-8.3)
[2021-10-15] MEDS ORDERED: MAG SULFATE 50% 1GM/2ML VIAL IV ONE (09:21)
--- NOTE | 2021-10-15 09:26 | Hospitalist Progress Note ---
Date of Service October 15, 2021 Assessment & Plan (1) Cirrhosis: Plan: Supportive care. Alcohol cessation highly recommended. Serial lab studies. GI consult appreciated (2) History of alcoholism: Plan: Cirrhosis and ascites noted on CT scan. Alcohol cessation highly recommended (3) Pulmonary embolism: Plan: History of lupus anticoagulant. Xarelto is currently on hold. Will restart at discharge versus PCP follow-up since was advised cessation by PCP (4) Anorexia: Plan: Discontinue alcohol intake. Treat underlying pancreatitis (5) Nausea: Plan: Zofran IV as needed. Treat underlying pancreatitis (6) Abdominal pain: Plan: Intravenous morphine as needed for pain control. Treat underlying pancreatitis (7) Pancreatitis: Plan: Acute due to alcoholism. Lipase has now normalized. Advance diet; stop IV fluid (8) Hyperlipidemia: Plan: Discontinue statin therapy to avoid further hepatic insult. Diet control only for now (9) Hypomagnesemia: Plan: Replace IV; given diarrhea stop magnesium oxide (10) Diarrhea: Plan: Stop oral magnesium, stop IV PPI, observe (11) HTN (hypertension), benign: Plan: Per chart; cut back lisinopril, blood pressure on low side Plan: Eventual discharge back to home. Admission and Anticipated Discharge Date Admission Date: October 12, 2021 Subjective Follow-up of abdominal painlots of loose stool; crampy kind of abdominal pain Physical Exam Physical Exam: Constitutional and general: No acute distress, looks biologic age Head and face: No puffiness, atraumatic Eyes: No scleral icterus, extraocular movements normal Neck: Supple, no JVD Musculoskeletal: No acute joint swelling, no bony abnormalities Skin/dermatologic/integument: No rash, no purpura Hematologic and lymphatic: pallor +, no petechia Gastrointestinal/abdomen: distended, soft, nonacute Neurologic: Cranial nerves intact, nonfocal Psychiatry: Awake, alert, pleasant, communicative Cardiovascular: Heart rhythm regular, no rub, no murmur, no gallop Respiratory: Chest movements equal, no use of accessory muscles, no adventitious sounds Extremities: No edema, no cyanosis Results & Data Results & Data ([facility]) Vital Signs (Past 12 Hours) Vital Signs Temp Pulse Pulse Resp BP Pulse Ox 10/15/21 08:14 36.5 C 85 18 112/68 99 10/15/21 05:00 37.1 C 101 H 16 92/58 L 96 10/14/21 23:18 37.2 C 83 18 125/82 92 PG Care Time/CCT Total # of Minutes Spent Total Time Spent with Patient: Total time spent is greater than 50% in coordination of care (as documented) at patient's floor/unit and/or counseling patient: Coding Level of Care Code 18425 Subseq Hosp Care Lvl 2 Diagnoses Cirrhosis K74.60 History of alcoholism F10.21 Pulmonary embolism I26.99 Anorexia R63.0 Nausea R11.0 Abdominal pain R10.9 Pancreatitis K85.90 Hyperlipidemia E78.5 Hypomagnesemia E83.42 Diarrhea R19.7 HTN (hypertension), benign I10
[2021-10-15] MEDS: MAGNESIUM SULFATE / D5W 1 GM/100 ML BAG IV SCH ×2 (10:24→12:07)
[2021-10-15] MEDS ORDERED: LOPERAMIDE HCL 2 MG CAP PO STA (13:01)
--- NOTE | 2021-10-15 13:02 | Hospitalist Progress Note ---
Date of Service October 15, 2021 Assessment & Plan (1) Cirrhosis: Plan: Supportive care. Alcohol cessation highly recommended. Serial lab studies. GI consult appreciated (2) History of alcoholism: Plan: Cirrhosis and ascites noted on CT scan. Alcohol cessation highly recommended (3) Pulmonary embolism: Plan: History of lupus anticoagulant. Xarelto is currently on hold. Will restart at discharge versus PCP follow-up since was advised cessation by PCP (4) Anorexia: Plan: Discontinue alcohol intake. Treat underlying pancreatitis (5) Nausea: Plan: Zofran IV as needed. Treat underlying pancreatitis (6) Abdominal pain: Plan: Intravenous morphine as needed for pain control. Treat underlying pancreatitis (7) Pancreatitis: Plan: Acute due to alcoholism. Lipase has now normalized. Advance diet; stop IV fluid (8) Hyperlipidemia: Plan: Discontinue statin therapy to avoid further hepatic insult. Diet control only for now (9) Hypomagnesemia: Plan: Replace IV; given diarrhea stop magnesium oxide (10) Diarrhea: Plan: Stop oral magnesium, stop IV PPI, observe (11) HTN (hypertension), benign: Plan: Per chart; cut back lisinopril, blood pressure on low side Plan: Eventual discharge back to home. Admission and Anticipated Discharge Date Admission Date: October 12, 2021 Subjective Follow-up of abdominal painlots of loose stool; crampy kind of abdominal pain Results & Data Results & Data ([facility]) Vital Signs (Past 12 Hours) Vital Signs Temp Pulse Pulse Resp BP Pulse Ox 10/15/21 12:21 36.7 C 75 18 117/65 10/15/21 08:14 36.5 C 85 18 112/68 99 10/15/21 05:00 37.1 C 101 H 16 92/58 L 96 PG Care Time/CCT Total # of Minutes Spent Total Time Spent with Patient: Total time spent is greater than 50% in coordination of care (as documented) at patient's floor/unit and/or counseling patient: Coding Diagnoses Cirrhosis K74.60 History of alcoholism F10.21 Pulmonary embolism I26.99 Anorexia R63.0 Nausea R11.0 Abdominal pain R10.9 Pancreatitis K85.90 Hyperlipidemia E78.5 Hypomagnesemia E83.42 Diarrhea R19.7 HTN (hypertension), benign I10
[2021-10-15] MEDS: busPIRone 5 MG TAB PO PRN ×2 (13:05→23:09)
--- NOTE | 2021-10-15 13:18 | Gastroenterology Progress Note ---
Date of Service October 15, 2021 Assessment & Plan (1) Pancreatitis: Plan: Evidence of likely alcohol induced pancreatitis with significant hyponatremia which appears to be hypovolemic hyponatremia based upon osmolality. sodium has improved to near normal range now. Patient has had an appropriate drop in hemoconcentration with IV fluids, will closely monitor sodium and electrolyte levels. No signs of ductal dilatation so no role for instrumentation with ERCP. Would continue supportive care with clear liquids today and can advance diet tomorrow , IV fluids, IV pain control. His very important for patient to stop alcohol which she has been counseled on today. GI will sign off call questions (2) Cirrhosis: Plan: Clinical cirrhosis complicated by likely ascites, no known varices, no other decompensating features such as confusion bleeding. Imperative to cease alcohol use monitor for alcohol withdrawal. Advance diet based upon clinical symptoms. Call with any questions or concerns Will require outpatient GI follow-up in 4 weeks after discharge. Admission and Anticipated Discharge Date Admission Date: October 12, 2021 Subjective feels better, less pain today tolerating liquid diet Physical Exam Physical Exam: Constitutional and general: No acute distress, looks biologic age Head and face: No puffiness, atraumatic Eyes: No scleral icterus, extraocular movements normal Neck: Supple, no JVD Musculoskeletal: No acute joint swelling, no bony abnormalities Skin/dermatologic/integument: No rash, no purpura Hematologic and lymphatic: pallor +, no petechia Gastrointestinal/abdomen: distended, soft, nonacute Neurologic: Cranial nerves intact, nonfocal Psychiatry: Awake, alert, pleasant, communicative Cardiovascular: Heart rhythm regular, no rub, no murmur, no gallop Respiratory: Chest movements equal, no use of accessory muscles, no adventitious sounds Extremities: No edema, no cyanosis Results & Data ([facility]) Vital Signs (Past 12 Hours) Vital Signs Temp Pulse Pulse Resp BP Pulse Ox 10/15/21 12:21 36.7 C 75 18 117/65 10/15/21 08:14 36.5 C 85 18 112/68 99 10/15/21 05:00 37.1 C 101 H 16 92/58 L 96
[2021-10-15] MEDS: CYANOCOBALAMIN (B-12) 500 MCG TABLET PO SCH (20:27)
[2021-10-15] MEDS: FLUoxetine HCL 20 MG CAP PO SCH (20:27)
[2021-10-15] MEDS: GABAPENTIN 300 MG CAP PO SCH (20:27)
[2021-10-16 07:54] LABS: Basophils # (auto) 0.04 K/uL (0-0.2); Basophils % (auto) 0.4 %; Eosinophils # (auto) 0.04 K/uL (0-0.5); Eosinophils % (auto) 0.4 %; Hemoglobin 9.9 g/dL (12.0-16.0); Immature Granulocytes # (auto) 0.01 K/uL (0.00-0.02); Immature Granulocytes % (auto) 0.1 %; Lymphocytes # (auto) 1.26 K/uL (1.2-3.4); Mean Corpuscular Hemoglobin 35.1 pg (25-34); Mean Corpuscular Hgb Conc 34.1 g/dL (32-36); Mean Corpuscular Volume 102.8 fL (80-100); Mean Platelet Volume 9.1 fL (7.4-10.4); Monocytes # (auto) 1.13 K/uL (0.11-0.59); Monocytes % (auto) 10.8 %; Neutrophils # (auto) 8.01 K/uL (1.4-6.5); Neutrophils % (auto) 76.3 %; Platelet Count 205 K/uL (130-400); RDW Coefficient of Variation 12.3 % (11.5-14.5); RDW Standard Deviation 46.1 fL (36.4-46.3); Red Blood Count 2.82 M/uL (4.2-5.4); White Blood Count 10.49 K/uL (4.8-10.8)
[2021-10-16] MEDS: THIAMINE HCL 100 MG in SYRINGE 9 ML IV SCH (08:10)
[2021-10-16] MEDS: FOLIC ACID 1 MG in SYRINGE 9.8 ML IV SCH (08:10)
[2021-10-16] MEDS: PANTOprazole 40 MG TAB PO SCH (08:11)
[2021-10-16] MEDS: ATENOLOL 25 MG TABLET PO SCH (08:11)
[2021-10-16 08:25] LABS: Albumin Globulin Ratio 1.2 (0.9-2); Albumin Level 2.5 gm/dl (3.4-5.0); BUN Creatinine Ratio 12.5 (10-20); Bilirubin,Total 1.4 mg/dl (0.2-1.0); Calcium 7.4 mg/dl (8.5-10.1); Est GFR (African American) 141.2 ml/min; Est GFR (Non-African American) 121.8 ml/min; Globulin 2.1 gm/dl (2.5-4.0); Magnesium 1.5 mg/dl (1.7-2.4); Phosphorus 2.1 mg/dl (2.5-4.9); Potassium 3.5 mmol/L (3.5-5.1); Total Protein 4.6 gm/dl (6.0-8.3)
[2021-10-16] MEDS: MoRPHine SULFATE 2 MG/ML CARP IV PRN ×4 (08:25→23:07)
[2021-10-16] MEDS ORDERED: lisinopril 20 MG TAB PO SCH (09:00)
[2021-10-16] MEDS ORDERED: POTASSIUM PHOS 3 MMOL/1 ML INFUSION IV STA (11:09)
[2021-10-16] MEDS ORDERED: POTASSIUM PHOSPHATE 15 MMOL in SODIUM CHLORIDE 0.9% 250 ML IV ONE (11:30)
[2021-10-16] MEDS: MAGNESIUM SULFATE / D5W 1 GM/100 ML BAG IV SCH ×2 (12:02→14:52)
--- NOTE | 2021-10-16 13:45 | Ultrasound Report ---
US abdomen ltd ascites HISTORY: 61 years-old Female Request therapeutic paracentesis cirrhosis with ascites COMPARISON: CT 10/12/2021 TECHNIQUE: Multiple real-time sonographic images of the abdomen were obtained assessing grayscale donna earance FINDINGS: Cirrhotic liver. Small volume of abdominal ascites. Secondary to no large pocket of ascitic fluid to target percutaneously for therapeutic purposes, a therapeutic paracentesis was not conducted. As more parasitic fluid accumulates, the patient was encouraged to return for a therapeutic paracentesis at a later date. IMPRESSION: Cirrhosis with ascites redemonstrated. ACT 112: Negative or not required by law. The above report was generated using voice recognition software. It may contain grammatical, syntax o r spelling errors. Electronically signed by: Rolando Carlton M.D. 10/16/2021 1:44 PM
--- NOTE | 2021-10-16 14:46 | Hospitalist Progress Note ---
Date of Service October 16, 2021 Assessment & Plan (1) Cirrhosis: Plan: Supportive care. Alcohol cessation highly recommended. Start spironolactone for ascites (2) History of alcoholism: Plan: Cirrhosis and ascites noted on CT scan. Alcohol cessation highly recommended; as above (3) Pulmonary embolism: Plan: History of lupus anticoagulant. Xarelto is currently on hold. Will restart at discharge versus PCP follow-up since was advised cessation by PCP (4) Abdominal pain: Plan: Intravenous morphine as needed for pain control. Treat underlying pancreatitis; referred for paracentesis but apparently not enough fluid (5) Pancreatitis: Plan: Acute due to alcoholism. Lipase has now normalized. Advance diet, continue as tolerated (6) Hyperlipidemia: Plan: At present off statin therapy; can reassess as outpatient after lipid panel discontinue statin therapy to avoid further hepatic insult. Diet control only for now (7) Hypomagnesemia: Plan: Replace (8) Diarrhea: Plan: Betterobserve (9) HTN (hypertension), benign: Plan: Continuing low side blood pressure, stopped lisinopril (10) Hypophosphatemia: Plan: Replace (11) Pancreatic mass: Plan: Not confirmed; outpatient consideration of EUS (12) Ascites: Plan: As above (13) Anemia: Plan: Follow Plan: Eventual discharge back to home. Admission and Anticipated Discharge Date Admission Date: October 12, 2021 Subjective Follow-up of presentation with abdominal painabdominal pain better but complains of distention; diarrhea better Physical Exam Physical Exam: Constitutional and general: No acute distress, looks biologic age Head and face: No puffiness, atraumatic Eyes: No scleral icterus, extraocular movements normal Neck: Supple, no JVD Musculoskeletal: No acute joint swelling, no bony abnormalities Skin/dermatologic/integument: No rash, no purpura Hematologic and lymphatic: pallor +, no petechia Gastrointestinal/abdomen: distended, soft, nonacute Neurologic: Cranial nerves intact, nonfocal Psychiatry: Awake, alert, pleasant, communicative Cardiovascular: Heart rhythm regular, no rub, no murmur, no gallop Respiratory: Chest movements equal, no use of accessory muscles, no adventitious sounds Extremities: No edema, no cyanosis Results & Data Results & Data ([facility]) Vital Signs (Past 12 Hours) Vital Signs Temp Pulse Resp BP BP Pulse Ox 10/16/21 11:40 36.8 C 76 18 120/76 97 10/16/21 07:43 36.4 C L 79 18 112/69 95 10/16/21 03:00 36.9 C 69 16 95/57 L 95 Laboratory Results Laboratory Results - last 24 hr 10/16/21 10/16/21 07:21 07:21 WBC 10.49 RBC 2.82 L Hgb 9.9 L Hct 29.0 L MCV 102.8 H MCH 35.1 H MCHC 34.1 RDW Std Deviation 46.1 RDW Coeff of Jorge Luis 12.3 Plt Count 205 MPV 9.1 Immature Gran % (Auto) 0.1 Neut % (Auto) 76.3 Lymph % (Auto) 12.0 [place] % (Auto) 10.8 Eos % (Auto) 0.4 Baso % (Auto) 0.4 Neut # (Auto) 8.01 H Lymph # (Auto) 1.26 [place] # (Auto) 1.13 H Eos # (Auto) 0.04 Baso # (Auto) 0.04 Immature Gran # (Auto) 0.01 Sodium 131 L Potassium 3.5 Chloride 102 Carbon Dioxide 24 Anion Gap 5 BUN 4 L Creatinine 0.32 L Est Cr Clr Drug Dosing 175.0 Est GFR ( Amer) 141.2 Est GFR (Non-Af Amer) 121.8 BUN/Creatinine Ratio 12.5 Glucose 77 Fasting Glucose 77 Calcium 7.4 L Phosphorus 2.1 L Magnesium 1.5 L Total Bilirubin 1.4 H AST 39 ALT 16 Alkaline Phosphatase 333 H Total Protein 4.6 L Albumin 2.5 L Globulin 2.1 L Albumin/Globulin Ratio 1.2 Lipase 11 PG Care Time/CCT Total # of Minutes Spent Total Time Spent with Patient: Total time spent is greater than 50% in coordination of care (as documented) at patient's floor/unit and/or counseling patient: Coding Level of Care Code 28876 Subseq Hosp Care Lvl 2 Diagnoses Cirrhosis K74.60 History of alcoholism F10.21 Pulmonary embolism I26.99 Abdominal pain R10.9 Pancreatitis K85.90 Hyperlipidemia E78.5 Hypomagnesemia E83.42 Diarrhea R19.7 HTN (hypertension), benign I10 Hypophosphatemia E83.39 Pancreatic mass K86.89 Ascites R18.8 Anemia D64.9
[2021-10-16] MEDS: GABAPENTIN 300 MG CAP PO SCH (20:39)
[2021-10-16] MEDS: CYANOCOBALAMIN (B-12) 500 MCG TABLET PO SCH (20:39)
[2021-10-16] MEDS: FLUoxetine HCL 20 MG CAP PO SCH (20:41)
[2021-10-16] MEDS: busPIRone 5 MG TAB PO PRN (23:07)
[2021-10-17] MEDS: MoRPHine SULFATE 2 MG/ML CARP IV PRN ×2 (03:25→08:28)
[2021-10-17 06:49] LABS: Basophils # (auto) 0.02 K/uL (0-0.2); Basophils % (auto) 0.3 %; Eosinophils # (auto) 0.03 K/uL (0-0.5); Eosinophils % (auto) 0.4 %; Hematocrit (blood only) 28.5 % (37-47); Hemoglobin 9.7 g/dL (12.0-16.0); Immature Granulocytes # (auto) 0.02 K/uL (0.00-0.02); Immature Granulocytes % (auto) 0.3 %; Lymphocytes # (auto) 1.02 K/uL (1.2-3.4); Lymphocytes % (auto) 13.7 %; Mean Corpuscular Hemoglobin 34.6 pg (25-34); Mean Corpuscular Volume 101.8 fL (80-100); Mean Platelet Volume 9.1 fL (7.4-10.4); Monocytes # (auto) 0.63 K/uL (0.11-0.59); Monocytes % (auto) 8.5 %; Neutrophils # (auto) 5.73 K/uL (1.4-6.5); Neutrophils % (auto) 76.8 %; Platelet Count 206 K/uL (130-400); RDW Coefficient of Variation 12.6 % (11.5-14.5); RDW Standard Deviation 46.6 fL (36.4-46.3); White Blood Count 7.45 K/uL (4.8-10.8)
[2021-10-17 07:30] LABS: Albumin Globulin Ratio 1.1 (0.9-2); Albumin Level 2.5 gm/dl (3.4-5.0); Bilirubin,Total 1.4 mg/dl (0.2-1.0); Calcium 7.7 mg/dl (8.5-10.1); Est GFR (African American) 147.5 ml/min; Est GFR (Non-African American) 127.3 ml/min; Globulin 2.2 gm/dl (2.5-4.0); Magnesium 1.4 mg/dl (1.7-2.4); Phosphorus 3.3 mg/dl (2.5-4.9); Potassium 3.8 mmol/L (3.5-5.1); Total Protein 4.7 gm/dl (6.0-8.3)
[2021-10-17] MEDS: THIAMINE HCL 100 MG TAB PO SCH (08:29)
[2021-10-17] MEDS: ATENOLOL 25 MG TABLET PO SCH (08:29)
[2021-10-17] MEDS: FOLIC ACID 1 MG TAB PO SCH (08:29)
[2021-10-17] MEDS: SPIRONOLACTONE 100 MG TAB PO SCH (08:29)
[2021-10-17] MEDS: PANTOprazole 40 MG TAB PO SCH (08:29)
[2021-10-17] MEDS: MAGNESIUM SULFATE / D5W 1 GM/100 ML BAG IV SCH ×4 (11:44→17:34)
--- NOTE | 2021-10-17 13:46 | XRay Report ---
XR abdomen 2V w PA chest HISTORY: 61 years-old Female Abdominal distention acute generalized abdominal pain with distention COMPARISON: Chest radiographs 05/17/2020 TECHNIQUE: PA view of the chest with erect and supine views of the abdomen FINDINGS: Cardiomediastinal and hilar silhouettes are within normal limits. There is no pneumothorax, pleural e ffusion, airspace consolidation or overt pulmonary edema. Degenerative changes of the shoulders and s pine. Nonobstructive bowel gas pattern. Scattered air-fluid levels are noted within loops of bowel within t he right hemicolon. Mild centralization of the bowel is suggestive of underlying ascites. Renal shado ws are obscured by bowel gas. No urolith identified. Degenerative changes of the spine, pelvis and hi ps. Sclerotic focus of the right sacrum redemonstrated. Avascular necrosis of the hips without articu lar collapse. IMPRESSION: 1. Nonobstructive bowel gas pattern with findings suggestive of abdominal ascites. 2. There are a few scattered air-fluid levels within the right abdomen may be physiologic or represen t a nonspecific enteritis/diarrheal illness. 3. Avascular necrosis of the femoral heads. ACT 112: Negative or not required by law. The above report was generated using voice recognition software. It may contain grammatical, syntax o r spelling errors. Electronically signed by: Rolando Cralton M.D. 10/17/2021 1:45 PM
[2021-10-17] MEDS: busPIRone 5 MG TAB PO PRN ×2 (14:09→22:19)
--- NOTE | 2021-10-17 15:42 | Hospitalist Progress Note ---
Date of Service October 17, 2021 Assessment & Plan (1) Cirrhosis: Plan: Supportive care. Alcohol cessation highly recommended. Start spironolactone for ascites (2) History of alcoholism: Plan: Cirrhosis and ascites noted on CT scan. Alcohol cessation highly recommended; as above (3) Abdominal distension: Plan: Primary symptomatology right now; stop morphine, could be contributing; x-ray nonacute; referred for paracentesis but not enough fluid (4) Pulmonary embolism: Plan: History of lupus anticoagulant. Xarelto is currently on hold. Will restart at discharge versus PCP follow-up since was advised cessation by PCP (5) Pancreatitis: Plan: Acute due to alcoholism. Lipase has now normalized. Diet advanced (6) Hyperlipidemia: Plan: At present off statin therapy; can reassess as outpatient after lipid panel discontinue statin therapy to avoid further hepatic insult. Diet control only for now (7) Hypomagnesemia: Plan: Replacestubborn; 4 g magnesium sulfate today (8) Diarrhea: Plan: Betterobserve (9) HTN (hypertension), benign: Plan: off agents -follow (10) Pancreatic mass: Plan: Not confirmed; outpatient consideration of EUS (11) Ascites: Plan: may need reassessment; will consider radiology reevaluation (12) Anemia: Plan: Follow Plan: Eventual discharge back to home. Admission and Anticipated Discharge Date Admission Date: October 12, 2021 Subjective Follow-up of presentation with abdominal painstill complains of significant discomfort related to distention Physical Exam Physical Exam: Constitutional and general: No acute distress, looks biologic age Head and face: No puffiness, atraumatic Eyes: No scleral icterus, extraocular movements normal Neck: Supple, no JVD Musculoskeletal: No acute joint swelling, no bony abnormalities Skin/dermatologic/integument: No rash, no purpura Hematologic and lymphatic: pallor +, no petechia Gastrointestinal/abdomen: distended, soft, nonacute Neurologic: Cranial nerves intact, nonfocal Psychiatry: Awake, alert, pleasant, communicative Cardiovascular: Heart rhythm regular, no rub, no murmur, no gallop Respiratory: Chest movements equal, no use of accessory muscles, no adventitious sounds Extremities: No edema, no cyanosis Results & Data Results & Data ([facility]) Vital Signs (Past 12 Hours) Vital Signs Temp Pulse Resp BP Pulse Ox 10/17/21 14:59 36.8 C 66 18 116/69 95 10/17/21 11:37 36.5 C 68 16 120/71 95 10/17/21 07:08 36.5 C 68 16 101/56 L 95 Laboratory Results Laboratory Results - last 24 hr 10/17/21 10/17/21 06:07 06:07 WBC 7.45 RBC 2.80 L Hgb 9.7 L Hct 28.5 L MCV 101.8 H MCH 34.6 H MCHC 34.0 RDW Std Deviation 46.6 H RDW Coeff of Jorge Luis 12.6 Plt Count 206 MPV 9.1 Immature Gran % (Auto) 0.3 Neut % (Auto) 76.8 Lymph % (Auto) 13.7 [place] % (Auto) 8.5 Eos % (Auto) 0.4 Baso % (Auto) 0.3 Neut # (Auto) 5.73 Lymph # (Auto) 1.02 L [place] # (Auto) 0.63 H Eos # (Auto) 0.03 Baso # (Auto) 0.02 Immature Gran # (Auto) 0.02 Sodium 132 L Potassium 3.8 Chloride 102 Carbon Dioxide 25 Anion Gap 5 BUN 5 L Creatinine 0.28 L Est Cr Clr Drug Dosing 195.0 Est GFR ( Amer) 147.5 Est GFR (Non-Af Amer) 127.3 Fasting Glucose 75 Calcium 7.7 L Phosphorus 3.3 D Magnesium 1.4 L Total Bilirubin 1.4 H AST 37 ALT 16 Alkaline Phosphatase 349 H Total Protein 4.7 L Albumin 2.5 L Globulin 2.2 L Albumin/Globulin Ratio 1.1 PG Care Time/CCT Total # of Minutes Spent Total Time Spent with Patient: Total time spent is greater than 50% in coordination of care (as documented) at patient's floor/unit and/or counseling patient: Coding Level of Care Code 00602 Subseq Hosp Care Lvl 2 Diagnoses Cirrhosis K74.60 History of alcoholism F10.21 Pulmonary embolism I26.99 Pancreatitis K85.90 Hyperlipidemia E78.5 Hypomagnesemia E83.42 Diarrhea R19.7 HTN (hypertension), benign I10 Pancreatic mass K86.89 Ascites R18.8 Anemia D64.9 Abdominal distension R14.0
[2021-10-17] MEDS: CYANOCOBALAMIN (B-12) 500 MCG TABLET PO SCH (20:19)
[2021-10-17] MEDS: GABAPENTIN 300 MG CAP PO SCH (20:19)
[2021-10-17] MEDS: FLUoxetine HCL 20 MG CAP PO SCH (20:19)
[2021-10-18 07:39] LABS: Basophils # (auto) 0.02 K/uL (0-0.2); Basophils % (auto) 0.4 %; Eosinophils # (auto) 0.03 K/uL (0-0.50); Eosinophils % (auto) 0.5 %; Hematocrit (blood only) 26.8 % (34.1-44.9); Hemoglobin 9.2 g/dl (12.0-16.0); Immature Granulocytes # (auto) 0.03 K/uL (0.00-0.02); Immature Granulocytes % (auto) 0.5 %; Lymphocytes % (auto) 17.6 %; Mean Corpuscular Hemoglobin 34.3 pg (25.0-34.0); Mean Corpuscular Hgb Conc 34.3 g/dL (32.0-36.0); Mean Platelet Volume 9.5 fL (9.4-12.3); Monocytes # (auto) 0.55 K/uL (0.24-0.82); Monocytes % (auto) 9.7 %; Neutrophils # (auto) 4.05 K/uL (1.4-6.5); Neutrophils % (auto) 71.3 %; Platelet Count 179 K/uL (130-400); RDW Standard Deviation 44.1 fL (36.4-46.3); Red Blood Count 2.68 M/uL (3.93-5.22); White Blood Count 5.68 K/ul (4.8-10.8)
[2021-10-18] MEDS: busPIRone 5 MG TAB PO PRN ×2 (07:55→21:01)
[2021-10-18] MEDS: PANTOprazole 40 MG TAB PO SCH (07:56)
[2021-10-18] MEDS: SPIRONOLACTONE 100 MG TAB PO SCH (07:56)
[2021-10-18] MEDS: THIAMINE HCL 100 MG TAB PO SCH (07:56)
[2021-10-18] MEDS: FOLIC ACID 1 MG TAB PO SCH (07:56)
[2021-10-18 07:57] LABS: Albumin Globulin Ratio 1.1 (0.9-2); Albumin Level 2.4 gm/dl (3.4-5.0); Bilirubin,Total 1.4 mg/dl (0.2-1.0); Calcium 7.7 mg/dl (8.5-10.1); Creatinine Clr Calc Pharmacy 207.4 ml/min; Est GFR (African American) 149.3 ml/min; Est GFR (Non-African American) 128.8 ml/min; Globulin 2.2 gm/dl (2.5-4.0); Magnesium 1.4 mg/dl (1.7-2.4); Phosphorus 3.3 mg/dl (2.5-4.9); Potassium 3.9 mmol/L (3.5-5.1); Total Protein 4.6 gm/dl (6.0-8.3)
[2021-10-18] MEDS: MAGNESIUM SULFATE / D5W 1 GM/100 ML BAG IV SCH ×6 (12:41→22:40)
--- NOTE | 2021-10-18 13:26 | Hospitalist Progress Note ---
Date of Service October 18, 2021 Assessment & Plan (1) Cirrhosis: Plan: Supportive care. Alcohol cessation highly recommended. Started spironolactone for ascites (2) History of alcoholism: Plan: Cirrhosis and ascites noted on CT scan. Alcohol cessation highly recommended; as above (3) Abdominal distension: Plan: At present nothing new; did not today's specifically complain; discussed relook for paracentesis but she wanted to defer (4) Pulmonary embolism: Plan: History of lupus anticoagulant. Xarelto is currently on hold. 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 Lipase has now normalized. Diet advanced (6) Hyperlipidemia: Plan: Reassess need as outpatient given cirrhosis (7) Hypomagnesemia: Plan: stubborn; 4 g magnesium sulfate given yesterday and no change!; 6 g today, repeat in p.m. and increase p.m. dose to 4 g if necessary; is inhibiting disc harge (8) Diarrhea: Plan: Betterobserve (9) HTN (hypertension), benign: Plan: off agents -isolated high value; if persists will resume agents (10) Pancreatic mass: Plan: Not confirmed; outpatient consideration of EUS (11) Ascites: Plan: Reassessmentfollow as outpatient (12) Anemia: Plan: Follow Plan: Eventual discharge back to home. Admission and Anticipated Discharge Date Admission Date: October 12, 2021 Subjective Follow-up of presentation with abdominal painno specific complaints as such today Physical Exam Physical Exam: Constitutional and general: No acute distress, looks biologic age Head and face: No puffiness, atraumatic Eyes: No scleral icterus, extraocular movements normal Neck: Supple, no JVD Musculoskeletal: No acute joint swelling, no bony abnormalities Skin/dermatologic/integument: No rash, no purpura Hematologic and lymphatic: pallor +, no petechia Gastrointestinal/abdomen: distended, soft, nonacute Neurologic: Cranial nerves intact, nonfocal Psychiatry: Awake, alert, pleasant, communicative Cardiovascular: Heart rhythm regular, no rub, no murmur, no gallop Respiratory: Chest movements equal, no use of accessory muscles, no adventitious sounds Extremities: No edema, no cyanosis Results & Data Results & Data ([facility]) Vital Signs (Past 12 Hours) Vital Signs Temp Pulse Resp BP BP Pulse Ox 10/18/21 11:22 36.8 C 76 16 143/89 H 100 10/18/21 06:56 36.8 C 71 18 123/72 95 10/18/21 02:48 37.1 C 66 18 123/71 95 PG Care Time/CCT Total # of Minutes Spent Total Time Spent with Patient: Total time spent is greater than 50% in coordination of care (as documented) at patient's floor/unit and/or counseling patient: Coding Level of Care Code 81487 Subseq Hosp Care Lvl 2 Diagnoses Cirrhosis K74.60 History of alcoholism F10.21 Abdominal distension R14.0 Pulmonary embolism I26.99 Pancreatitis K85.90 Hyperlipidemia E78.5 Hypomagnesemia E83.42 Diarrhea R19.7 HTN (hypertension), benign I10 Pancreatic mass K86.89 Ascites R18.8 Anemia D64.9
[2021-10-18] MEDS: SIMETHICONE 80 MG CHEW PO PRN (18:40)
[2021-10-18] MEDS: FLUoxetine HCL 20 MG CAP PO SCH (21:01)
[2021-10-18] MEDS: CYANOCOBALAMIN (B-12) 500 MCG TABLET PO SCH (21:02)
[2021-10-18] MEDS: GABAPENTIN 300 MG CAP PO SCH (21:02)
[2021-10-19 07:26] LABS: Basophils # (auto) 0.03 K/uL (0-0.2); Basophils % (auto) 0.4 %; Eosinophils # (auto) 0.03 K/uL (0-0.50); Eosinophils % (auto) 0.4 %; Hematocrit (blood only) 28.7 % (34.1-44.9); Hemoglobin 9.9 g/dl (12.0-16.0); Immature Granulocytes # (auto) 0.02 K/uL (0.00-0.02); Immature Granulocytes % (auto) 0.3 %; Lymphocytes # (auto) 1.05 K/uL (1.2-3.4); Lymphocytes % (auto) 13.8 %; Mean Corpuscular Hemoglobin 34.5 pg (25.0-34.0); Mean Corpuscular Hgb Conc 34.5 g/dL (32.0-36.0); Mean Platelet Volume 9.2 fL (9.4-12.3); Monocytes # (auto) 0.82 K/uL (0.24-0.82); Monocytes % (auto) 10.8 %; Neutrophils # (auto) 5.65 K/uL (1.4-6.5); Neutrophils % (auto) 74.3 %; Platelet Count 192 K/uL (130-400); RDW Coefficient of Variation 11.9 % (11.5-14.5); RDW Standard Deviation 43.8 fL (36.4-46.3); Red Blood Count 2.87 M/uL (3.93-5.22)
[2021-10-19 08:00] LABS: Albumin Globulin Ratio 1.1 (0.9-2); Albumin Level 2.6 gm/dl (3.4-5.0); Bilirubin,Total 1.4 mg/dl (0.2-1.0); Calcium 8.1 mg/dl (8.5-10.1); Est GFR (African American) 137.1 ml/min; Est GFR (Non-African American) 118.3 ml/min; Globulin 2.4 gm/dl (2.5-4.0); Magnesium 1.5 mg/dl (1.7-2.4); Potassium 3.8 mmol/L (3.5-5.1)
[2021-10-19] MEDS: MAGNESIUM OXIDE 400 MG TAB PO SCH ×3 (08:58→20:06)
[2021-10-19] MEDS: THIAMINE HCL 100 MG TAB PO SCH (08:59)
[2021-10-19] MEDS: busPIRone 5 MG TAB PO PRN ×2 (08:59→20:05)
[2021-10-19] MEDS: PANTOprazole 40 MG TAB PO SCH (08:59)
[2021-10-19] MEDS: FOLIC ACID 1 MG TAB PO SCH (08:59)
[2021-10-19] MEDS: SPIRONOLACTONE 100 MG TAB PO SCH (08:59)
[2021-10-19] MEDS ORDERED: ATENOLOL 25 MG TABLET PO SCH (09:00)
[2021-10-19] MEDS: MAGNESIUM SULFATE / D5W 1 GM/100 ML BAG IV SCH ×4 (09:56→16:46)
--- NOTE | 2021-10-19 12:25 | Hospitalist Progress Note ---
Date of Service October 19, 2021 Assessment & Plan (1) Hypomagnesemia: Plan: stubborn; 5 g magnesium sulfate given yesterday and no significant change! (unfortunately 6 g was ordered but 1 g was discontinued overnight); low normal might be accepted but arguably this low degree in the face of receiving 4 to 6 g of magnesium sulfate IV raised the question of potentially critical low levels without same; also on spironolactone that should help magnesium retention Etiology is not clear, does not appear to be GI loss; 24-hour urine magnesium 4 g today, added oral magnesium oxide Reassessif low normal might have to accept Can consider nephrology input (2) Ascites: Plan: Distention appears more, requested radiology relook for paracentesis, ordered testing including cytology given some question of hepatic/pancreatic mass; continue spironolactone (3) Cirrhosis: Plan: Supportive care. Alcohol cessation highly recommended. (4) History of alcoholism: Plan: Alcohol cessation highly recommended; as above (5) Pulmonary embolism: Plan: History of lupus anticoagulant. Xarelto is currently on hold. 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 Admission and Anticipated Discharge Date Admission Date: October 12, 2021 Subjective Follow-up of presentation with abdominal painno specific complaints as such today; formed stools though many BMs Physical Exam Physical Exam: Constitutional and general: No acute distress, looks biologic age Head and face: No puffiness, atraumatic Eyes: No scleral icterus, extraocular movements normal Neck: Supple, no JVD Musculoskeletal: No acute joint swelling, no bony abnormalities Skin/dermatologic/integument: No rash, no purpura Hematologic and lymphatic: pallor +, no petechia Gastrointestinal/abdomen: distended, soft, nonacute but distention appears more distention appears more Neurologic: Cranial nerves intact, nonfocal Psychiatry: Awake, alert, pleasant, communicative Cardiovascular: Heart rhythm regular, no rub, no murmur, no gallop Respiratory: Chest movements equal, no use of accessory muscles, no adventitious sounds Extremities: No edema, no cyanosis Results & Data Results & Data ([facility]) Vital Signs (Past 12 Hours) Vital Signs Temp Pulse Pulse Pulse Resp BP Pulse Ox 10/19/21 07:52 36.6 C 86 18 142/92 H 98 10/19/21 06:45 78 10/19/21 02:53 36.6 C 77 16 113/70 97 Laboratory Results Laboratory Results - last 24 hr 10/18/21 10/19/21 10/19/21 21:03 07:11 07:11 WBC 7.60 RBC 2.87 L Hgb 9.9 L Hct 28.7 L MCV 100.0 MCH 34.5 H MCHC 34.5 RDW Std Deviation 43.8 RDW Coeff of Jorge Luis 11.9 Plt Count 192 MPV 9.2 L Immature Gran % (Auto) 0.3 Neut % (Auto) 74.3 Lymph % (Auto) 13.8 [place] % (Auto) 10.8 Eos % (Auto) 0.4 Baso % (Auto) 0.4 Neut # (Auto) 5.65 Lymph # (Auto) 1.05 L [place] # (Auto) 0.82 Eos # (Auto) 0.03 Baso # (Auto) 0.03 Immature Gran # (Auto) 0.02 Sodium 133 L Potassium 3.8 Chloride 101 Carbon Dioxide 26 Anion Gap 6 BUN 5 L Creatinine 0.35 L Est Cr Clr Drug Dosing 160.0 Est GFR ( Amer) 137.1 Est GFR (Non-Af Amer) 118.3 Fasting Glucose 89 Calcium 8.1 L Magnesium 2.0 1.5 L Total Bilirubin 1.4 H AST 45 H ALT 17 Alkaline Phosphatase 344 H Total Protein 5.0 L Albumin 2.6 L Globulin 2.4 L Albumin/Globulin Ratio 1.1 PG Care Time/CCT Total # of Minutes Spent Total Time Spent with Patient: Total time spent is greater than 50% in coordination of care (as documented) at patient's floor/unit and/or counseling patient: Coding Level of Care Code 65197 Subseq Hosp Care Lvl 2 Diagnoses Cirrhosis K74.60 History of alcoholism F10.21 Pulmonary embolism I26.99 Pancreatitis K85.90 Hyperlipidemia E78.5 Hypomagnesemia E83.42 Diarrhea R19.7 HTN (hypertension), benign I10 Pancreatic mass K86.89 Ascites R18.8 Anemia D64.9
--- NOTE | 2021-10-19 12:56 | Ultrasound Report ---
PARACENTESIS UNDER ULTRASOUND GUIDANCE CLINICAL HISTORY: Abdominal ascites. COMPARISON STUDY: Abdominal CT dated 10/12/2021. PROCEDURE: The risks, benefits, and alternatives to the procedure were discussed with the patient who voiced understanding. Written informed consent was obtained. Following real-time ultrasound localiza tion of a suitable pocket of fluid in the right lower quadrant, the abdomen was prepped and draped in the usual sterile fashion. The skin and soft tissues were anesthetized with 1% lidocaine. The sheath ed paracentesis needle was inserted and approximately 1.7 liters of straw-colored ascitic fluid was r emoved by vacuum suction. The procedure was well tolerated and without immediate complication. The pa tient left the department in satisfactory condition. IMPRESSION: Completed ultrasound-guided paracentesis with removal of approximately 1.7 liters of asci tic fluid. ACT 112: Negative or not required by law. Electronically signed by: Tristin Addison M.D. 10/19/2021 12:55 PM
[2021-10-19] MEDS: SIMETHICONE 80 MG CHEW PO PRN (15:03)
[2021-10-19] MEDS: GABAPENTIN 300 MG CAP PO SCH (20:05)
[2021-10-19] MEDS: FLUoxetine HCL 20 MG CAP PO SCH (20:06)
[2021-10-19] MEDS: CYANOCOBALAMIN (B-12) 500 MCG TABLET PO SCH (20:07)
[2021-10-20 06:02] LABS: Basophils # (auto) 0.04 K/uL (0-0.2); Basophils % (auto) 0.5 %; Eosinophils # (auto) 0.03 K/uL (0-0.50); Eosinophils % (auto) 0.4 %; Hematocrit (blood only) 27.5 % (34.1-44.9); Hemoglobin 9.5 g/dl (12.0-16.0); Immature Granulocytes # (auto) 0.04 K/uL (0.00-0.02); Immature Granulocytes % (auto) 0.5 %; Lymphocytes # (auto) 1.16 K/uL (1.2-3.4); Lymphocytes % (auto) 14.8 %; Mean Corpuscular Hemoglobin 34.9 pg (25.0-34.0); Mean Corpuscular Hgb Conc 34.5 g/dL (32.0-36.0); Mean Corpuscular Volume 101.1 fL (80.0-100.0); Mean Platelet Volume 9.3 fL (9.4-12.3); Monocytes # (auto) 0.79 K/uL (0.24-0.82); Monocytes % (auto) 10.1 %; Neutrophils % (auto) 73.7 %; Platelet Count 183 K/uL (130-400); RDW Standard Deviation 44.7 fL (36.4-46.3); Red Blood Count 2.72 M/uL (3.93-5.22); White Blood Count 7.86 K/ul (4.8-10.8)
[2021-10-20 06:29] LABS: Albumin Level 2.5 gm/dl (3.4-5.0); Bilirubin,Total 1.2 mg/dl (0.2-1.0); Creatinine Clr Calc Pharmacy 169.1 ml/min; Est GFR (African American) 139.8 ml/min; Est GFR (Non-African American) 120.6 ml/min; Globulin 2.4 gm/dl (2.5-4.0); Magnesium 1.4 mg/dl (1.7-2.4); Potassium 3.8 mmol/L (3.5-5.1); Total Protein 4.9 gm/dl (6.0-8.3)
[2021-10-20] MEDS: SPIRONOLACTONE 100 MG TAB PO SCH (08:07)
[2021-10-20] MEDS: MAGNESIUM OXIDE 400 MG TAB PO SCH ×3 (08:07→20:02)
[2021-10-20] MEDS: nadoloL 40 MG TAB PO SCH (08:07)
[2021-10-20] MEDS: FOLIC ACID 1 MG TAB PO SCH (08:08)
[2021-10-20] MEDS: PANTOprazole 40 MG TAB PO SCH (08:08)
[2021-10-20] MEDS: busPIRone 5 MG TAB PO PRN ×2 (08:09→20:02)
[2021-10-20] MEDS: THIAMINE HCL 100 MG TAB PO SCH (08:10)
--- NOTE | 2021-10-20 11:05 | Hospitalist Progress Note ---
Date of Service October 20, 2021 Assessment & Plan (1) Hypomagnesemia: Plan: Patient continues to have magnesium levels between 1.2 and 1.4. 5 g magnesium sulfate given yesterday and no significant change. Patient received 4 g again today. Continue spironolactone 24-hour urine collection should be completed by today Patient has no significant diarrhea or vomiting Magnesium oxide 3 times daily started on 10/19/2021 Will consult nephrology for their input Telemetry reviewed. Patient in normal sinus rhythm with no evidence of torsades Patient did complain of some palpitations yesterday afternoon. Telemetry record was reviewed and showed only artifact. Follow daily labs (2) Ascites: Plan: Most likely associated with patient's diagnosis of cirrhosis Paracentesis completed Await labs including cytology Continue Aldactone Follow fluid ins and outs (3) Cirrhosis: Plan: Patient with significant ethanol use Discussed need for abstention from alcohol intake Patient asking for prognosis. She was advised that we are in the early stages of work-up and that she most likely would need to follow with gastroenterology as an outpatient Gastroenterology was consulted this admission And will follow-up as an outpatient in 4 weeks after discharge (4) History of alcoholism: Plan: Alcohol cessation required to arrest progression of cirrhosis and other complications with ethanol ingestion Patient expressed understanding but was noncommittal to quitting drinking (5) Pulmonary embolism: Plan: History of lupus anticoagulant. Xarelto is currently on hold. 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 Defer to PCP on outpatient follow-up (6) Pancreatitis: Plan: Most likely secondary to alcohol ingestion Gastroenterology was consulted. No indication for instrumentation with ERCP Continue to monitor Resolved clinically, tolerating diet (7) Hyperlipidemia: Plan: Reassess need as outpatient given cirrhosis (8) Diarrhea: Plan: Formed stool now though many bowel movements reported by patient Documentation in medical record shows 1-3 bowel movements per day No watery diarrhea and no large volumes Continue to monitor (9) HTN (hypertension), benign: Plan: BP drifting up, resume atenolol, lisinopril still on hold Will review medications again tomorrow (10) Pancreatic mass: Plan: Not confirmed; outpatient consideration of EUSsee CT scan report Outpatient follow-up with gastroenterology (11) Anemia: Plan: No active blood loss, hematemesis, hematuria, melena, hematochezia, BRBPR Hemoglobin is stable at 9.5 Continue to follow serial labs Plan: Continue to manage electrolytes. Patient may be close to baseline. May need to be discharged home with outpatient follow-up and labs with PCP Admission and Anticipated Discharge Date Admission Date: October 12, 2021 Subjective Attending: Dr. Jhonatan Roland This is a 61-year-old female with past medical history including h ypertension hyperlipidemia, depression, lupus anticoagulant plus history of PE, ethanol abuse, recent diagnosis of cirrhosis, chronic anticoagulation with Xarelto, current everyday smoker with [id number] smoking history, peripheral artery disease, hair loss, pulmonary nodules. Patient admitted 10/12/2021 for nausea vomiting and upper abdominal pain. Patient was seen by gastroenterology for pancreatitis as well as cirrhosis. No intervention was recommended. Gastroenterology has signed off. Orthopedics also consulted for evidence of avascular necrosis of the bilateral hips which was an incidental finding for routine CT abdominal MRI. At this point they recommend monitoring with no intervention. Currently patient has hypomagnesemia which is refractory to repletion. Potassium is normal. Patient received 5 g of magnesium sulfate yesterday. Magnesium remains low at 1.4 mg/Henok. It has been trending between 1.2 and 1.4 typically since admission. Patient currently is 10 L ahead on her ins and outs and has no evidence of significant diarrhea or vomiting. Review of Systems Review of Systems: A total of 10 systems was reviewed and is negative other than as listed in the HPI Physical Exam Physical Exam: GENERAL : No acute distress EYES: No icterus, gaze conjugate NOSE: No evidence of epistaxis MOUTH: No lesions or candidiasis NECK: Supple LUNGS: CTA B/L, no wheezes, rales or rhonchi HEART: Regular, rate controlled ABDOMEN: Soft,ND, BS Present. Some tenderness with deep palpation in the right upper quadrant. Patient does have ascites with fluid wave. EXTREMITIES: No LE edema, pedal pulses intact NEURO: A&OX3 Results & Data Results & Data ([facility]) Vital Signs (Past 12 Hours) Vital Signs Temp Pulse Pulse Resp BP BP Pulse Ox 10/20/21 09:11 66 10/20/21 07:53 37.2 C 76 16 117/72 96 10/20/21 02:38 36.8 C 77 20 119/69 97 Critical Care Results & Data Vital Signs (Past 12 Hours) Vital Signs Temp Pulse Pulse Pulse Resp BP Pulse Ox 10/20/21 19:26 37.0 C 70 16 134/82 97 10/20/21 16:00 36.6 C 69 16 145/84 H 99 10/20/21 15:00 69 10/20/21 12:02 36.6 C 68 16 147/83 H 97 Lab & Micro Results (Past 24 Hours) RBC 2.72 M/uL (3.93-5.22) L 10/20/21 WBC 7.86 K/ul (4.8-10.8) 10/20/21 Hgb 9.5 g/dl (12.0-16.0) L 10/20/21 Hct 27.5 % (34.1-44.9) L 10/20/21 MCV 101.1 fL (80.0-100.0) H 10/20/21 MCH 34.9 pg (25.0-34.0) H 10/20/21 MCHC 34.5 g/dL (32.0-36.0) 10/20/21 RDW Standard Deviation 44.7 fL (36.4-46.3) 10/20/21 RDW Coefficient of Variation 12.0 % (11.5-14.5) 10/20/21 Plt Count 183 K/uL (130-400) 10/20/21 MPV 9.3 fL (9.4-12.3) L 10/20/21 Neutrophils (%) (Auto) 73.7 % 10/20/21 Lymphocytes (%) (Auto) 14.8 % 10/20/21 Monocytes # (Auto) 0.79 K/uL (0.24-0.82) 10/20/21 Eosinophils # (Auto) 0.03 K/uL (0-0.50) 10/20/21 Immature Granulocyte % (Auto) 0.5 % 10/20/21 Neutrophils # (Auto) 5.80 K/uL (1.4-6.5) 10/20/21 Lymphocytes # (Auto) 1.16 K/uL (1.2-3.4) L 10/20/21 Monocytes # (Auto) 0.79 K/uL (0.24-0.82) 10/20/21 Eosinophils # (Auto) 0.03 K/uL (0-0.50) 10/20/21 Basophils # (Auto) 0.04 K/uL (0-0.2) 10/20/21 Immature Granulocyte # (Auto) 0.04 K/uL (0.00-0.02) H 10/20/21 Na 132 mmol/L (136-145) L 10/20/21 K 3.8 mmol/L (3.5-5.1) 10/20/21 Cl 100 mmol/L (98-107) 10/20/21 CO2 25 mmol/L (21-32) 10/20/21 Anion Gap 7 (3-11) 10/20/21 BUN 5 mg/dl (6-23) L 10/20/21 Creatinine 0.33 mg/dl (0.6-1.2) L 10/20/21 Estimated GFR ( Amer) 139.8 ml/min 10/20/21 Estimated GFR (Non-Af Amer) 120.6 ml/min 10/20/21 Ca 8.0 mg/dl (8.5-10.1) L 10/20/21 Total Bilirubin 1.2 mg/dl (0.2-1.0) H 10/20/21 AST 44 U/L (13-39) H 10/20/21 ALT 16 U/L (7-52) 10/20/21 Alkaline Phosphatase 313 U/L (34-104) H 10/20/21 TP 4.9 gm/dl (6.0-8.3) L 10/20/21 Albumin 2.5 gm/dl (3.4-5.0) L 10/20/21 Globulin 2.4 gm/dl (2.5-4.0) L 10/20/21 Albumin/Globulin Ratio 1.0 (0.9-2) 10/20/21 Mg 1.4 mg/dl (1.7-2.4) L 10/20/21 05:45 10/20/21 Calcium Level 8.0 mg/dl (8.5-10.1) L 10/20/21 05:45 10/20/21 I & O Totals 24 Hours 10/19/21 10/20/21 10/21/21 06:59 06:59 06:59 Intake Total 543.333 / 222.491 0448 / 1600 917.5 / 917.5 Output Total 1075 / 1075 425 / 425 Balance 543.333 / 543.333 525 / 525 492.5 / 492.5 Cumulative 10/12/21 17:25 thru 10/20/21 19:21 Intake Total 92979.667 Output Total 2155 Balance 21280.667 RT Ventilator Mngmt (Last Documented) Ventilator Ordered Settings Respiratory Rate 16 10/20/21 19:26 Ventilator - PT Measurements Respiratory Rate 16 PG Care Time/CCT Total # of Minutes Spent Total Time Spent with Patient: Total time spent is greater than 50% in coordination of care (as documented) at patient's floor/unit and/or counseling patient: Coding Level of Care Code 95794 Subseq Hosp Care Lvl 2 Diagnoses Hypomagnesemia E83.42 Ascites R18.8 Cirrhosis K74.60 History of alcoholism F10.21 Pulmonary embolism I26.99 Pancreatitis K85.90 Hyperlipidemia E78.5 Diarrhea R19.7 HTN (hypertension), benign I10 Pancreatic mass K86.89 Anemia D64.9
[2021-10-20] MEDS: MAGNESIUM SULFATE / D5W 1 GM/100 ML BAG IV SCH ×4 (11:41→17:05)
--- NOTE | 2021-10-20 11:46 | Nephrology Consultation ---
Date of Consultation October 20, 2021 Assessment & Plan (1) Hyponatremia: * Hyponatremia related to cirrhosis and 3rd spacing of fluid (ascites) * Expect patient will have ongoing mild hyponatremia w/ SNa 130 - 135 mmol/L due to cirrhosis * Recommend 2g/day NaCl restricted diet, 1L/day free water restriction * Continue Furosemide 40 mg po and Spironolactone 100 mg po daily to help mobilize ascitic fluid * Monitor PRP (2) Hypomagnesemia: * Presumed due to GI losses * Will order FeMg (>4% c/w GI loss) * Agree w/ both IV and oral magnesium supplementation. IV magnesium will rapidly increase serum levels which then redistribute to the intracellular space. 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 Guy is a 61 year old white female who is seen at the request of Tristin Aponte PA-c for evaluation of hyponatremia and hypomagnesemia. Medical records in the EMR were reviewed today and are summarized as follows: Mrs. Guy was admitted to [facility] 10/12/21 with alcohol induced pancreatitis and cirrhosis w/ ascites. Mrs. Guy drinks vodka on a daily basis. She reports poor oral intake for at least one week prior to admission and recurrent emesis and diarrhea for at least 24 hours prior to admission. With conservative management Mrs. Guy's lipase has normalized and she is now symptomatically improved. Serum sodium however has been 123 - 132 mmol/L and patient has had refractory hypomagnesemia requiring several grams of IV Magnesium Sulfate. Mrs. Guy reports that she has developed ascites and underwent paracentesis yesterday for 1.7 L volume removal. Patient's home medical regimen did include magnesium 500 mg po q PM. PMH: alcoholic cirrhosis, anemia, HTN, PE 2014, depression Allergies Allergy/AdvReac Type Severity Reaction Status Date / Time No Known Allergies Allergy Verified 10/12/21 20:54 Home Medications Medication Instructions Recorded Confirmed Type cholecalciferol (vitamin D3) 50 2,000 units PO QAM 11/30/18 10/12/21 History mcg (2,000 unit) capsule cyanocobalamin (vitamin B-12) 1,000 mcg PO PM 11/30/18 10/12/21 History 1,000 mcg tablet (Vitamin B-12) magnesium 500 mg tablet 500 mg PO PM tab 11/30/18 10/12/21 History multivitamin 1 tab PO PM 05/12/19 10/12/21 History buspirone 10 mg tablet 5 - 10 mg PO Q8H PRN #45 tab 12/28/19 10/12/21 Rx fluoxetine 20 mg capsule (Prozac) 20 mg PO PM 05/15/20 10/12/21 History atorvastatin 20 mg tablet 20 mg PO PM #90 tab 12/29/20 10/12/21 Rx atenolol 25 mg tablet 25 mg PO QAM #90 tab 09/03/21 10/12/21 Rx bismuth subsalicylate 262 mg/15 mL 524 mg PO QID PRN 10/12/21 10/12/21 History oral suspension (Pepto-Bismol) gabapentin 300 mg capsule 300 mg PO QPM 10/12/21 10/12/21 History lisinopril 40 mg tablet 40 mg PO QAM 10/12/21 10/12/21 History Patient History Medical History Anxiety Avascular necrosis of femoral neck b/l on CT abd/pelvis 04/2020 Calcification of abdominal aorta Depression Enlarged liver History of anemia History of bronchitis resolved HTN (hypertension), benign Lump of skin of back lipoma Migraine hx Pulmonary embolism and one to groin 8 yrs ago> unknown causes> Xarelto Pulmonary nodules under surveillance Surgical History H/O colonoscopy (2016) Dr. Billings History of esophagogastroduodenoscopy (EGD) (2016) Dr. Billings History of laparoscopic appendectomy (05/23/20) Laparoscopic Appendectomy Dr. Naylor 05/23/2020 History of throat surgery small mass removed > benign History of tooth extraction History of tubal ligation (1996) Family History Mother Diabetes Hypertension Father Colorectal cancer Bladder cancer Grandmother (Paternal) Aneurysm Denies family history of Ovarian cancer Prostate cancer Myocardial infarction Breast cancer Social History Smoking Status: Current every day smoker Tobacco Type: Cigarettes Age Started Using Tobacco: 17; packs per day: 1; Cigarettes Per Day: 20; Second Hand Exposure: No; Hx Alcohol Use: Yes Alcohol type: hard liquor Alcohol Intake Frequency Comment: daily Hx Substance Use: No Preferred Language: Fijian Communication Ability: Effective Visual Impairment: Limited Hearing Ability: Normal Third Grade Teacher Required: No Beliefs That Will Affect Care: None marital status: Current Living Situation: Spouse current occupational status: unemployed 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 How many Children do You have: 2 Feels Safe at Home: Yes Childhood Exposure to Second-Hand Smoke: No caffeine: Yes (coffee and tea 1 cup daily ) Dental Care, Regularly: Yes Physical Activity Frequency: Does not Exercise Seatbelt Use: always Sunscreen Use: No Assistive Devices: None Review of Systems Constitutional: + weakness; no fever Eyes: no problem reported Ear, Nose, Mouth, Throat: no problem reported Respiratory: no cough and no dyspnea Cardiovascular: no chest pain, no palpitations and no edema Gastrointestinal: + vomiting and + diarrhea/loose stools; no abdominal pain Genitourinary: no dysuria and no hematuria Musculoskeletal: no back pain Integumentary: no rash Neurologic: no confusion Physical Exam Constitutional: + thin and + frail appearing Eyes: PERRL, conjunctivae normal, anicteric sclerae ENMT: external ear and nose normal, oropharynx normal Neck: trachea midline, no thyromegaly Respiratory: normal respiratory effort, lungs clear to auscultation Cardiovascular: RRR, no murmur, no edema Gastrointestinal (Abdomen): Inspection/Auscultation: + abdomen distended and + hypoactive bowel sounds Percussion/Palpation: abdomen nontender and no guarding Skin: no rashes, warm and dry Neurologic: awake; not confused Results & Data ([facility]) Vital Signs (Past 12 Hours) Vital Signs Temp Pulse Pulse Resp BP BP Pulse Ox 10/20/21 09:11 66 10/20/21 07:53 37.2 C 76 16 117/72 96 10/20/21 02:38 36.8 C 77 20 119/69 97 Laboratory Results Laboratory Tests 10/18/21 10/18/21 10/19/21 07:06 21:03 07:11 WBC Hgb Hct Plt Count Sodium Potassium Chloride Carbon Dioxide BUN Creatinine Est GFR (Non-Af Amer) Calcium Magnesium 1.4 L 2.0 1.5 L Total Bilirubin AST ALT Alkaline Phosphatase Albumin 10/20/21 10/20/21 05:45 05:45 WBC 7.86 Hgb 9.5 L Hct 27.5 L Plt Count 183 Sodium 132 L Potassium 3.8 Chloride 100 Carbon Dioxide 25 BUN 5 L Creatinine 0.33 L Est GFR (Non-Af Amer) 120.6 Calcium 8.0 L Magnesium 1.4 L Total Bilirubin 1.2 H AST 44 H ALT 16 Alkaline Phosphatase 313 H Albumin 2.5 L PG Care Time/CCT Total # of Minutes Spent Total Time Spent with Patient: Total time spent is greater than 50% in coordination of care (as documented) at patient's floor/unit and/or counseling patient: Coding Level of Care Code 30214 Inpt Consult Level 5 Diagnoses Hyponatremia E87.1 Hypomagnesemia E83.42
--- NOTE | 2021-10-20 12:28 | Electrocardiogram Report ---
Test Reason : Blood Pressure : / mmHG Vent. Rate : 067 BPM Atrial Rate : 067 BPM P-R Int : 176 ms QRS Dur : 070 ms QT Int : 440 ms P-R-T Axes : 055 037 032 degrees QTc Int : 464 ms Normal sinus rhythm Low voltage QRS Borderline ECG Confirmed by Singh Hoffman ([id number]) on 10/20/2021 12:28:35 PM Referred By: REFERRED SELF Confirmed By:Satya Hoffman
[2021-10-20] MEDS: CYANOCOBALAMIN (B-12) 500 MCG TABLET PO SCH (20:00)
[2021-10-20] MEDS: FLUoxetine HCL 20 MG CAP PO SCH (20:01)
[2021-10-20] MEDS: GABAPENTIN 300 MG CAP PO SCH (20:01)
[2021-10-20] MEDS: SIMETHICONE 80 MG CHEW PO PRN (20:31)
[2021-10-20] MEDS ORDERED: BISMUTH SUBSALICYLATE 262 MG CHEW PO ONE (21:00)
[2021-10-21 07:18] LABS: BUN Creatinine Ratio 16.7 (10-20); Calcium 8.3 mg/dl (8.5-10.1); Creatinine Clr Calc Pharmacy 144.6 ml/min; Est GFR (African American) 135.8 ml/min; Est GFR (Non-African American) 117.2 ml/min; Magnesium 1.4 mg/dl (1.7-2.4)
[2021-10-21] MEDS: MAGNESIUM OXIDE 400 MG TAB PO SCH (08:26)
[2021-10-21] MEDS: nadoloL 40 MG TAB PO SCH (08:26)
[2021-10-21] MEDS: SPIRONOLACTONE 100 MG TAB PO SCH (08:26)
[2021-10-21] MEDS: PANTOprazole 40 MG TAB PO SCH (08:26)
[2021-10-21] MEDS: FUROSEMIDE 40 MG TAB PO SCH (08:27)
[2021-10-21] MEDS: FOLIC ACID 1 MG TAB PO SCH (08:27)
[2021-10-21] MEDS: THIAMINE HCL 100 MG TAB PO SCH (08:27)
--- NOTE | 2021-10-21 09:52 | Hospitalist Progress Note ---
Date of Service October 21, 2021 Assessment & Plan (1) Hypomagnesemia: Plan: Patient continues to have magnesium levels between 1.2 and 1.4 and has been refractory to repletion Nephrology consulted. Appreciate Dr. Branham's input Patient has been receiving 4 to 5 g of magnesium sulfate daily Patient has now also been on magnesium oxide 3 times daily since 10/19/2021 Will discontinue magnesium oxide and start magnesium chloride with calcium 64 mg p.o. twice daily Instituted 1200 cc fluid restriction today Continue spironolactone 24-hour urine collection completed. Results pending should be completed by today Patient has no significant diarrhea or vomiting Telemetry reviewed. Patient in normal sinus rhythm with no evidence of torsades Follow daily labs (2) Ascites: Plan: Most likely associated with patient's diagnosis of cirrhosis Paracentesis completed Await labs including cytology Continue Aldactone Follow fluid ins and outs Abdominal girth seems to be enlarging. No firmness or indication for acute paracentesis. (3) Cirrhosis: Plan: Patient with significant ethanol use Discussed need for abstention from alcohol intake Patient asking for prognosis. She was advised that we are in the early stages of work-up and that she most likely would need to follow with gastroenterology as an outpatient Gastroenterology was consulted this admission And will follow-up as an outpatient in 4 weeks after discharge (4) History of alcoholism: Plan: Alcohol cessation required to arrest progression of cirrhosis and other complications with ethanol ingestion Patient expressed understanding but was noncommittal to quitting drinking Discussed with patient that this may be inhibiting nutritional intake resulting in her electrolyte disorder (5) Pulmonary embolism: Plan: History of lupus anticoagulant. Xarelto is currently on hold. 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 Defer to PCP on outpatient follow-up (6) Pancreatitis: Plan: Most likely secondary to alcohol ingestion Gastroenterology was consulted. No indication for instrumentation with ERCP Continue to monitor Resolved clinically, tolerating diet (7) Hyperlipidemia: Plan: Reassess need as outpatient given cirrhosis (8) Diarrhea: Plan: Formed stool now though many bowel movements reported by patient Documentation in medical record shows 1-3 bowel movements per day No watery diarrhea and no large volumes Patient reports 2 bowel movements today with some irritation from toilet paper and spotty blood. She reports history of hemorrhoids. Requesting Preparation H. Ordered Anusol Topical to be applied daily Continue to monitor (9) HTN (hypertension), benign: Plan: BP drifting up, resume atenolol, lisinopril still on hold Will review medications again tomorrow (10) Pancreatic mass: Plan: Not confirmed; outpatient consideration of EUSsee CT scan report Outpatient follow-up with gastroenterology (11) Anemia: Plan: No active blood loss, hematemesis, hematuria, melena, hematochezia, BRBPR Hemoglobin is stable at 9.5 Continue to follow serial labs Plan: Continue to manage electrolytes. Patient may be close to baseline. May need to be discharged home with outpatient follow-up and labs with PCP Admission and Anticipated Discharge Date Admission Date: October 12, 2021 Subjective Attending: Dr. Roland Patient with 2 bowel movements this morning. They were formed. She has some nausea but no vomiting. Increased abdominal girth with noticeable drop in pannus as reported by patient today. Otherwise, no acute complaints. Review of Systems Review of Systems: A total of 10 systems was reviewed and is negative other than as listed in the HPI Physical Exam Physical Exam: GENERAL : No acute distress. EYES: No icterus, gaze conjugate NOSE: No evidence of epistaxis MOUTH: No lesions or candidiasis NECK: Supple LUNGS: CTA B/L, no wheezes, rales or rhonchi HEART: Regular, rate controlled. No ectopy appreciated ABDOMEN: Soft, BS Present. Patient does have some evidence of ascites with fluid wave. No evidence of surgical belly. Bandage and dressing removed from paracentesis site with no evidence of bleeding. EXTREMITIES: No LE edema, pedal pulses intact and equal bilaterally. No calf tenderness. NEURO: A&OX3 Results & Data Results & Data ([facility]) Vital Signs (Past 12 Hours) Vital Signs Temp Pulse Pulse Resp BP Pulse Ox 10/21/21 08:08 36.5 C 74 14 118/81 96 10/21/21 07:00 69 10/21/21 02:55 36.7 C 72 16 114/67 99 10/20/21 23:16 36.3 C L 68 16 144/83 H 94 10/20/21 22:05 70 Critical Care Results & Data Vital Signs (Past 12 Hours) Vital Signs Temp Pulse Pulse Resp BP Pulse Ox 10/21/21 08:08 36.5 C 74 14 118/81 96 10/21/21 07:00 69 10/21/21 02:55 36.7 C 72 16 114/67 99 10/20/21 23:16 36.3 C L 68 16 144/83 H 94 10/20/21 22:05 70 Lab & Micro Results (Past 24 Hours) No Data to Display Na 131 mmol/L (136-145) L 10/21/21 K 4.0 mmol/L (3.5-5.1) 10/21/21 Cl 98 mmol/L (98-107) 10/21/21 CO2 29 mmol/L (21-32) 10/21/21 Anion Gap 4 (3-11) 10/21/21 BUN 6 mg/dl (6-23) 10/21/21 Creatinine 0.36 mg/dl (0.6-1.2) L 10/21/21 Estimated GFR ( Amer) 135.8 ml/min 10/21/21 Estimated GFR (Non-Af Amer) 117.2 ml/min 10/21/21 BUN/Creatinine Ratio 16.7 (10-20) 10/21/21 Glu 83 mg/dl (70-99(Fasting)) 10/21/21 Ca 8.3 mg/dl (8.5-10.1) L 10/21/21 Mg 1.4 mg/dl (1.7-2.4) L 10/21/21 06:40 10/21/21 Calcium Level 8.3 mg/dl (8.5-10.1) L 10/21/21 06:40 10/21/21 I & O Totals 24 Hours 10/20/21 10/21/21 10/22/21 06:59 06:59 06:59 Intake Total 1600 / 1600 1157.5 / 1157.5 Output Total 1075 / 1075 425 / 425 Balance 525 / 525 732.5 / 732.5 Cumulative 10/12/21 17:25 thru 10/21/21 06:00 Intake Total 03500.667 Output Total 2155 Balance 90750.667 RT Ventilator Mngmt (Last Documented) Ventilator Ordered Settings Respiratory Rate 14 10/21/21 08:08 Ventilator - PT Measurements Respiratory Rate 14 PG Care Time/CCT Total # of Minutes Spent Total Time Spent with Patient: Total time spent is greater than 50% in coordination of care (as documented) at patient's floor/unit and/or counseling patient: Coding Level of Care Code 74961 Subseq Hosp Care Lvl 3 Diagnoses Hypomagnesemia E83.42 Ascites R18.8 Cirrhosis K74.60 History of alcoholism F10.21 Pulmonary embolism I26.99 Pancreatitis K85.90 Hyperlipidemia E78.5 Diarrhea R19.7 HTN (hypertension), benign I10 Pancreatic mass K86.89 Anemia D64.9 Comment Refractory hypomagnesemia
[2021-10-21] MEDS ORDERED: MAGNESIUM CHLORIDE W/CALCIUM 64MG DELAYED REL TAB PO SCH (10:00)
[2021-10-21] MEDS ORDERED: HYDROCORTISONE HC 2.5% CRM 30GM TUBE EXT PRN (10:02)
--- NOTE | 2021-10-21 10:03 | Nephrology Progress Note ---
Date of Service October 21, 2021 Assessment & Plan (1) Hyponatremia: Plan: * Hyponatremia related to cirrhosis and 3rd spacing of fluid (ascites) * Expect patient will have ongoing mild hyponatremia w/ SNa 130 - 135 mmol/L due to cirrhosis * Recommend 2g/day NaCl restricted diet, 1L/day free water restriction * Continue Furosemide 40 mg po and Spironolactone 100 mg po daily to help mobilize ascitic fluid * Monitor PRP (2) Hypomagnesemia: Plan: * Presumed due to GI losses * FeMg is pending (>4% c/w GI loss) * MgSO4 4 g IV x 1 ordered today. Will increase po Slo-Mg to 64 mg po TID * Monitor daily Mg Admission and Anticipated Discharge Date Admission Date: October 12, 2021 [address] Mrs. Guy was seen in her hospital room this morning. She is tolerating the oral magnesium supplement without GI upset or diarrhea. She notes that her abdomen is again becoming distended Review of Systems Constitutional: + weakness; no fever Eyes: no problem reported Ear, Nose, Mouth, Throat: no problem reported Respiratory: no cough and no dyspnea Cardiovascular: no chest pain, no palpitations and no edema Gastrointestinal: + abdominal pain (tender at recent paracentesis site) Genitourinary: no dysuria and no hematuria Musculoskeletal: no back pain Integumentary: no rash Neurologic: no confusion Physical Exam Constitutional: + thin and + frail appearing Eyes: PERRL, conjunctivae normal, anicteric sclerae ENMT: external ear and nose normal, oropharynx normal Neck: trachea midline, no thyromegaly Respiratory: normal respiratory effort, lungs clear to auscultation Cardiovascular: RRR, no murmur, no edema Gastrointestinal (Abdomen): Inspection/Auscultation: + abdomen distended and + hypoactive bowel sounds Percussion/Palpation: abdomen nontender and no guarding Skin: no rashes, warm and dry Neurologic: awake; not confused Results & Data ([facility]) Vital Signs (Past 12 Hours) Vital Signs Temp Pulse Pulse Resp BP Pulse Ox 10/21/21 08:08 36.5 C 74 14 118/81 96 10/21/21 07:00 69 10/21/21 02:55 36.7 C 72 16 114/67 99 10/20/21 23:16 36.3 C L 68 16 144/83 H 94 10/20/21 22:05 70 Laboratory Results Laboratory Tests 10/20/21 10/20/21 10/21/21 05:45 05:45 06:40 WBC 7.86 Hgb 9.5 L Hct 27.5 L Plt Count 183 Sodium 131 L Potassium 4.0 Chloride 98 Carbon Dioxide 29 BUN 6 Creatinine 0.36 L Calcium 8.3 L Magnesium 1.4 L Albumin 2.5 L PG Care Time/CCT Total # of Minutes Spent Total Time Spent with Patient: Total time spent is greater than 50% in coordination of care (as documented) at patient's floor/unit and/or counseling patient: Coding Level of Care Code 96577 Subseq Hosp Care Lvl 3 Diagnoses Hyponatremia E87.1 Hypomagnesemia E83.42
[2021-10-21] MEDS: MAGNESIUM SULFATE / D5W 1 GM/100 ML BAG IV SCH ×4 (10:19→16:33)
[2021-10-21] MEDS: MAGNESIUM CHLORIDE W/CALCIUM 64MG DELAYED REL TAB PO SCH ×2 (14:32→20:08)
[2021-10-21] MEDS: GABAPENTIN 300 MG CAP PO SCH (20:07)
[2021-10-21] MEDS: CYANOCOBALAMIN (B-12) 500 MCG TABLET PO SCH (20:08)
[2021-10-21] MEDS: FLUoxetine HCL 20 MG CAP PO SCH (20:08)
[2021-10-21] MEDS: busPIRone 5 MG TAB PO PRN (20:10)
[2021-10-22 07:35] LABS: BUN Creatinine Ratio 18.4 (10-20); Calcium 8.5 mg/dl (8.5-10.1); Creatinine Clr Calc Pharmacy 138.4 ml/min; Est GFR (African American) 133.4 ml/min; Est GFR (Non-African American) 115.1 ml/min; Magnesium 1.4 mg/dl (1.7-2.4); Potassium 3.9 mmol/L (3.5-5.1)
--- NOTE | 2021-10-22 08:37 | Nephrology Progress Note ---
Date of Service October 22, 2021 Assessment & Plan (1) Hyponatremia: Plan: * Hyponatremia related to cirrhosis and 3rd spacing of fluid (ascites) * Expect patient will have ongoing mild hyponatremia w/ SNa 130 - 135 mmol/L due to cirrhosis * Recommend 2g/day NaCl restricted diet, 1L/day free water restriction * Continue Furosemide 40 mg po and Spironolactone 100 mg po daily to help mobilize ascitic fluid * Monitor PRP (2) Hypomagnesemia: Plan: * Presumed due to GI losses * FeMg is pending (>4% c/w GI loss) * MgSO4 4 g IV x 1 ordered today. Continue Slo-Mg 64 mg po TID * Monitor daily Mg Admission and Anticipated Discharge Date Admission Date: October 12, 2021 [address] Mrs. Guy was seen in her hospital room this morning. She is tolerating the oral magnesium supplement without GI upset or diarrhea. She reports that she is feeling better this morning and tolerating a regular diet Review of Systems Constitutional: + weakness; no fever Eyes: no problem reported Ear, Nose, Mouth, Throat: no problem reported Respiratory: no cough and no dyspnea Cardiovascular: no chest pain, no palpitations and no edema Genitourinary: no dysuria and no hematuria Musculoskeletal: no back pain Integumentary: no rash Neurologic: no confusion Physical Exam Constitutional: + thin and + frail appearing Eyes: PERRL, conjunctivae normal, anicteric sclerae ENMT: external ear and nose normal, oropharynx normal Neck: trachea midline, no thyromegaly Respiratory: normal respiratory effort, lungs clear to auscultation Cardiovascular: RRR, no murmur, no edema Gastrointestinal (Abdomen): Inspection/Auscultation: + abdomen distended and + hypoactive bowel sounds Percussion/Palpation: abdomen nontender and no guarding Skin: no rashes, warm and dry Neurologic: awake; not confused Results & Data ([facility]) Vital Signs (Past 12 Hours) Vital Signs Temp Pulse Pulse Pulse Resp BP Pulse Ox 10/22/21 08:10 37.1 C 75 126/83 97 10/22/21 07:00 65 10/22/21 03:16 36.5 C 63 18 119/70 96 10/22/21 00:01 36.7 C 68 18 115/67 96 Laboratory Results Laboratory Tests 10/22/21 07:03 Sodium 131 L Potassium 3.9 Chloride 95 L Carbon Dioxide 30 BUN 7 Creatinine 0.38 L Magnesium 1.4 L PG Care Time/CCT Total # of Minutes Spent Total Time Spent with Patient: Total time spent is greater than 50% in coordination of care (as documented) at patient's floor/unit and/or counseling patient: Coding Level of Care Code 03540 Subseq Hosp Care Lvl 3 Diagnoses Hyponatremia E87.1 Hypomagnesemia E83.42
[2021-10-22] MEDS: SPIRONOLACTONE 100 MG TAB PO SCH (08:41)
[2021-10-22] MEDS: PANTOprazole 40 MG TAB PO SCH (08:42)
[2021-10-22] MEDS: busPIRone 5 MG TAB PO PRN ×2 (08:42→20:03)
[2021-10-22] MEDS: THIAMINE HCL 100 MG TAB PO SCH (08:42)
[2021-10-22] MEDS: FOLIC ACID 1 MG TAB PO SCH (08:42)
[2021-10-22] MEDS: MAGNESIUM CHLORIDE W/CALCIUM 64MG DELAYED REL TAB PO SCH ×3 (08:42→20:00)
[2021-10-22] MEDS: nadoloL 40 MG TAB PO SCH (08:42)
[2021-10-22] MEDS: FUROSEMIDE 40 MG TAB PO SCH (08:42)
[2021-10-22] MEDS: MAGNESIUM SULFATE / D5W 1 GM/100 ML BAG IV SCH ×4 (11:42→19:32)
--- NOTE | 2021-10-22 12:30 | Ultrasound Report ---
US abdomen ltd ascites CLINICAL HISTORY: Follow-up abdominal ascites. Evaluate for reaccumulation. COMPARISON STUDY: Paracentesis 10/19/2021. FINDINGS: Real-time sonographic imaging of the abdomen was performed with outbound telemarketing representative images submi tted. No ascites identified. IMPRESSION: No ascites. ACT 112: Negative or not required by law. Electronically signed by: Mauricio Garza M.D. 10/22/2021 12:28 PM
--- NOTE | 2021-10-22 13:48 | Hospitalist Progress Note ---
Date of Service October 22, 2021 Assessment & Plan (1) Hypomagnesemia: Plan: Patient continues to have magnesium levels between 1.2 and 1.4 and has been refractory to repletion Presumed from GI loss, FeMg is pending Repeat level this morning 1.4 Nephrology consulted, appreciate recs Patient has been receiving 4 to 5 g of magnesium sulfate daily Patient has now also been on magnesium oxide 3 times daily since 10/19/2021 Will discontinue magnesium oxide and start magnesium chloride with calcium 64 mg p.o. TID Instituted 1200 cc fluid restriction today Continue spironolactone and Lasix Receck labs in am (2) Ascites: Plan: Most likely associated with patient's diagnosis of cirrhosis Paracentesis completed. Repeat Abdominal US showed no ascites Await labs including cytology Continue Aldactone (3) Cirrhosis: Plan: Patient with significant ethanol use Discussed need for abstention from alcohol intake Patient asking for prognosis. She was advised that we are in the early stages of work-up and that she most likely would need to follow with gastroenterology as an outpatient Gastroenterology was consulted this admission And will follow-up as an outpatient in 4 weeks after discharge (4) History of alcoholism: Plan: Alcohol cessation required to arrest progression of cirrhosis and other complications with ethanol ingestion Patient expressed understanding but was noncommittal to quitting drinking Discussed with patient that this may be inhibiting nutritional intake resulting in her electrolyte disorder (5) Pulmonary embolism: Plan: History of lupus anticoagulant. Xarelto is currently on hold. 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 Defer to PCP on outpatient follow-up (6) Pancreatitis: Plan: Most likely secondary to alcohol ingestion Gastroenterology was consulted. No indication for instrumentation with ERCP Continue to monitor Resolved clinically, tolerating diet (7) Hyperlipidemia: Plan: Reassess need as outpatient given cirrhosis (8) Diarrhea: Plan: Formed stool now though many bowel movements reported by patient Documentation in medical record shows 1-3 bowel movements per day No watery diarrhea and no large volumes Patient reports 2 bowel movements today with some irritation from toilet paper and spotty blood. She reports history of hemorrhoids. Requesting Preparation H. Ordered Anusol Topical to be applied daily Continue to monitor (9) HTN (hypertension), benign: Plan: BP drifting up, resume atenolol, lisinopril still on hold Will review medications again tomorrow (10) Pancreatic mass: Plan: Not confirmed; outpatient consideration of EUSsee CT scan report Outpatient follow-up with gastroenterology (11) Anemia: Plan: No active blood loss, hematemesis, hematuria, melena, hematochezia, BRBPR Hemoglobin is stable at 9.5 Continue to follow serial labs Plan: Continue to manage electrolytes. Patient may be close to baseline. May need to be discharged home with outpatient follow-up and labs with PCP Admission and Anticipated Discharge Date Admission Date: October 12, 2021 Subjective patient seen and examined, feels better Results & Data Results & Data ([facility]) Vital Signs (Past 12 Hours) Vital Signs Temp Pulse Pulse Resp BP Pulse Ox 10/22/21 11:15 98.4 F 64 115/71 95 10/22/21 08:10 98.8 F 75 126/83 97 10/22/21 07:00 65 10/22/21 03:16 97.7 F 63 18 119/70 96 PG Care Time/CCT Total # of Minutes Spent Total Time Spent with Patient: Total time spent is greater than 50% in coordination of care (as documented) at patient's floor/unit and/or counseling patient: Coding Level of Care Code 85120 Subseq Hosp Care Lvl 2 Diagnoses Hypomagnesemia E83.42 Ascites R18.8 Cirrhosis K74.60 History of alcoholism F10.21 Pulmonary embolism I26.99 Pancreatitis K85.90 Hyperlipidemia E78.5 Diarrhea R19.7 HTN (hypertension), benign I10 Pancreatic mass K86.89 Anemia D64.9 Time Spent (min) 35
[2021-10-22] MEDS: CYANOCOBALAMIN (B-12) 500 MCG TABLET PO SCH (20:00)
[2021-10-22] MEDS: FLUoxetine HCL 20 MG CAP PO SCH (20:00)
[2021-10-22] MEDS: GABAPENTIN 300 MG CAP PO SCH (20:00)
[2021-10-23] MEDS: THIAMINE HCL 100 MG TAB PO SCH (08:15)
[2021-10-23] MEDS: PANTOprazole 40 MG TAB PO SCH (08:15)
[2021-10-23] MEDS: FUROSEMIDE 40 MG TAB PO SCH (08:15)
[2021-10-23] MEDS: FOLIC ACID 1 MG TAB PO SCH (08:15)
[2021-10-23] MEDS: SPIRONOLACTONE 100 MG TAB PO SCH (08:15)
[2021-10-23] MEDS: nadoloL 40 MG TAB PO SCH (08:15)
[2021-10-23] MEDS: MAGNESIUM CHLORIDE W/CALCIUM 64MG DELAYED REL TAB PO SCH ×3 (08:15→21:07)
[2021-10-23] MEDS: busPIRone 5 MG TAB PO PRN ×2 (08:16→21:06)
--- NOTE | 2021-10-23 08:30 | Nephrology Progress Note ---
Date of Service October 23, 2021 Assessment & Plan (1) Hyponatremia: Plan: * Hyponatremia related to cirrhosis and 3rd spacing of fluid (ascites) * Expect patient will have ongoing mild hyponatremia w/ SNa 130 - 135 mmol/L due to cirrhosis * Recommend 2g/day NaCl restricted diet, 1L/day free water restriction * Continue Furosemide 40 mg po and Spironolactone 100 mg po daily to help mobilize ascitic fluid * Monitor PRP (2) Hypomagnesemia: Plan: * Presumed due to GI losses * FeMg is pending (>4% c/w GI loss) * MgSO4 4 g IV x 1 ordered today. Continue Slo-Mg 64 mg po TID * Monitor daily Mg Admission and Anticipated Discharge Date Admission Date: October 12, 2021 [address] Mrs. Guy was seen in her hospital room this morning. She is tolerating the oral magnesium supplement without GI upset or diarrhea. She reports that she is feeling better this morning. She voices no new medical concerns Review of Systems Constitutional: + weakness; no fever Eyes: no problem reported Ear, Nose, Mouth, Throat: no problem reported Respiratory: no cough and no dyspnea Cardiovascular: no chest pain, no palpitations and no edema Gastrointestinal: no abdominal pain Genitourinary: no dysuria and no hematuria Musculoskeletal: no back pain Integumentary: no rash Neurologic: no confusion Physical Exam Constitutional: + thin and + frail appearing Eyes: PERRL, conjunctivae normal, anicteric sclerae ENMT: external ear and nose normal, oropharynx normal Neck: trachea midline, no thyromegaly Respiratory: normal respiratory effort, lungs clear to auscultation Cardiovascular: RRR, no murmur, no edema Gastrointestinal (Abdomen): Inspection/Auscultation: + abdomen distended and + hypoactive bowel sounds Percussion/Palpation: abdomen nontender and no guarding Skin: no rashes, warm and dry Neurologic: awake; not confused Results & Data ([facility]) Vital Signs (Past 12 Hours) Vital Signs Temp Pulse Pulse Resp BP Pulse Ox 10/23/21 07:46 64 10/23/21 07:01 36.6 C 66 18 132/79 98 10/23/21 03:01 36.6 C 64 18 117/69 97 10/22/21 22:41 36.7 C 67 18 115/71 98 10/22/21 22:18 67 Laboratory Results Laboratory Tests 10/22/21 07:03 Sodium 131 L Potassium 3.9 Chloride 95 L Carbon Dioxide 30 BUN 7 Creatinine 0.38 L Calcium 8.5 Magnesium 1.4 L Laboratory Tests 10/23/21 09:58 Magnesium 1.3 L PG Care Time/CCT Total # of Minutes Spent Total Time Spent with Patient: Total time spent is greater than 50% in coordination of care (as documented) at patient's floor/unit and/or counseling patient: Coding Level of Care Code 54417 Subseq Hosp Care Lvl 3 Diagnoses Hyponatremia E87.1 Hypomagnesemia E83.42
[2021-10-23 10:30] LABS: BUN Creatinine Ratio 21.7 (10-20); Calcium 8.6 mg/dl (8.5-10.1); Creatinine Clr Calc Pharmacy 113.9 ml/min; Est GFR (African American) 125.3 ml/min; Est GFR (Non-African American) 108.1 ml/min; Magnesium 1.3 mg/dl (1.7-2.4); Potassium 3.8 mmol/L (3.5-5.1)
[2021-10-23] MEDS: MAGNESIUM SULFATE / D5W 1 GM/100 ML BAG IV SCH ×4 (11:14→17:31)
--- NOTE | 2021-10-23 13:32 | Hospitalist Progress Note ---
Date of Service October 23, 2021 Assessment & Plan (1) Hypomagnesemia: Plan: Patient continues to have magnesium levels between 1.2 and 1.4 and has been refractory to repletion Presumed from GI loss, FeMg is pending Repeat level this morning 1.3 Nephrology on consult, jana tomlin Patient has been receiving 4 to 5 g of magnesium sulfate daily Continue magnesium chloride with calcium 64 mg p.o. TID Instituted 1200 cc fluid restriction today Continue spironolactone and Lasix Receck labs in am (2) Ascites: Plan: Most likely associated with patient's diagnosis of cirrhosis Paracentesis completed. Repeat Abdominal US showed no ascites Await labs including cytology Continue Aldactone (3) Cirrhosis: Plan: Patient with significant ethanol use Discussed need for abstention from alcohol intake Patient asking for prognosis. She was advised that we are in the early stages of work-up and that she most likely would need to follow with gastroenterology as an outpatient Gastroenterology was consulted this admission And will follow-up as an outpatient in 4 weeks after discharge (4) History of alcoholism: Plan: Alcohol cessation required to arrest progression of cirrhosis and other complications with ethanol ingestion Patient expressed understanding but was noncommittal to quitting drinking Discussed with patient that this may be inhibiting nutritional intake resulting in her electrolyte disorder (5) Pulmonary embolism: Plan: History of lupus anticoagulant. Xarelto is currently on hold. 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 Defer to PCP on outpatient follow-up (6) Pancreatitis: Plan: Most likely secondary to alcohol ingestion Gastroenterology was consulted. No indication for instrumentation with ERCP Continue to monitor Resolved clinically, tolerating diet (7) Hyperlipidemia: Plan: Reassess need as outpatient given cirrhosis (8) Diarrhea: Plan: Resolved (9) HTN (hypertension), benign: Plan: BP drifting up, resume atenolol, lisinopril still on hold Will review medications again tomorrow (10) Pancreatic mass: Plan: Not confirmed; outpatient consideration of EUSsee CT scan report Outpatient follow-up with gastroenterology (11) Anemia: Plan: No active blood loss, hematemesis, hematuria, melena, hematochezia, BRBPR Hemoglobin is stable at 9.5 Continue to follow serial labs Plan: Continue to manage electrolytes. Patient may be close to baseline. May need to be discharged home with outpatient follow-up and labs with PCP Admission and Anticipated Discharge Date Admission Date: October 12, 2021 Subjective patient seen and examined, no new complaints Review of Systems Review of Systems: A total of 10 systems was reviewed and is negative other than as listed in the HPI Physical Exam Physical Exam: The patient is awake, alert and oriented 3, well developed and well nourished, normocephalic and atraumatic, lying in bed and in no acute distress. HEENT--PERRL, EOMI, mucous membranes and oropharynx mildly dry Neck--supple. No JVD. No bruits. Thyroid normal, trachea midline, no adenopathy. Heart--normal S1 and S2. No murmurs, rubs or gallops. Lungs--clear bilaterally, no respiratory distress, no accessory muscle use. Abdomen--normal bowel sounds and soft. Mild epigastric and left sided abdominal pain Extremities--no cyanosis or clubbing. No edema. Dermatologic--normal skin turgor, normal color, no abnormal lymph nodes, no rash. Neurologic--cranial nerves II through XII grossly intact. Rheumatologic--normal range of motion. Psychiatric--normal affect. Results & Data Results & Data ([facility]) Vital Signs (Past 12 Hours) Vital Signs Temp Pulse Pulse Pulse Resp BP Pulse Ox 10/23/21 11:39 98.6 F 73 18 111/65 94 10/23/21 07:46 64 10/23/21 07:01 97.9 F 66 18 132/79 98 10/23/21 03:01 97.9 F 64 18 117/69 97 PG Care Time/CCT Total # of Minutes Spent Total Time Spent with Patient: Total time spent is greater than 50% in coordination of care (as documented) at patient's floor/unit and/or counseling patient: Coding Level of Care Code 36078 Subseq Hosp Care Lvl 2 Diagnoses Hypomagnesemia E83.42 Ascites R18.8 Cirrhosis K74.60 History of alcoholism F10.21 Pulmonary embolism I26.99 Pancreatitis K85.90 Hyperlipidemia E78.5 Diarrhea R19.7 HTN (hypertension), benign I10 Pancreatic mass K86.89 Anemia D64.9 Time Spent (min) 35
[2021-10-23] MEDS: FLUoxetine HCL 20 MG CAP PO SCH (21:06)
[2021-10-23] MEDS: GABAPENTIN 300 MG CAP PO SCH (21:06)
[2021-10-23] MEDS: CYANOCOBALAMIN (B-12) 500 MCG TABLET PO SCH (21:07)
[2021-10-24 08:16] LABS: BUN Creatinine Ratio 40.5 (10-20); Calcium 8.4 mg/dl (8.5-10.1); Creatinine Clr Calc Pharmacy 141.4 ml/min; Est GFR (African American) 134.6 ml/min; Est GFR (Non-African American) 116.2 ml/min; Magnesium 1.5 mg/dl (1.7-2.4); Potassium 3.6 mmol/L (3.5-5.1)
--- NOTE | 2021-10-24 08:26 | Nephrology Progress Note ---
Date of Service October 24, 2021 Assessment & Plan (1) Hyponatremia: Plan: * Hyponatremia related to cirrhosis and 3rd spacing of fluid (ascites) * Expect patient will have ongoing mild hyponatremia w/ SNa 130 - 135 mmol/L due to cirrhosis * Recommend 2g/day NaCl restricted diet, 1L/day free water restriction * Continue Furosemide 40 mg po and Spironolactone 100 mg po daily to help mobilize ascitic fluid * Monitor PRP (2) Hypomagnesemia: Plan: * Presumed due to GI losses * FeMg is pending (>4% c/w GI loss) * MgSO4 2 g IV x 1 ordered today. Continue Slo-Mg 64 mg po TID * Expect to transition to oral Slo-Mg in am * Monitor daily Mg Admission and Anticipated Discharge Date Admission Date: October 12, [address] Mrs[address] Guy was seen in her hospital room this morning. She is tolerating the oral magnesium supplement without GI upset or diarrhea. She reports that she is feeling better this morning. She voices no new medical concerns Review of Systems Constitutional: + weakness; no fever Eyes: no problem reported Ear, Nose, Mouth, Throat: no problem reported Respiratory: no cough and no dyspnea Cardiovascular: no chest pain, no palpitations and no edema Gastrointestinal: no abdominal pain Genitourinary: no dysuria and no hematuria Musculoskeletal: no back pain Integumentary: no rash Neurologic: no confusion Physical Exam Constitutional: + thin and + frail appearing Eyes: PERRL, conjunctivae normal, anicteric sclerae ENMT: external ear and nose normal, oropharynx normal Neck: trachea midline, no thyromegaly Respiratory: normal respiratory effort, lungs clear to auscultation Cardiovascular: RRR, no murmur, no edema Gastrointestinal (Abdomen): Inspection/Auscultation: + abdomen distended and + hypoactive bowel sounds Percussion/Palpation: abdomen nontender and no guarding Skin: no rashes, warm and dry Neurologic: awake; not confused Results & Data ([facility]) Vital Signs (Past 12 Hours) Vital Signs Temp Pulse Pulse Pulse Resp BP Pulse Ox 10/24/21 08:07 36.6 C 74 19 112/72 96 10/24/21 03:15 36.6 C 64 18 108/62 98 10/23/21 22:17 68 10/23/21 23:19 36.7 C 67 18 113/67 96 O2 Del Method 10/24/21 08:07 Room Air 10/24/21 03:15 Room Air 10/23/21 22:17 10/23/21 23:19 Room Air Laboratory Results Laboratory Tests 10/24/21 07:22 Sodium 132 L Potassium 3.6 Chloride 96 L Carbon Dioxide 30 BUN 15 Creatinine 0.37 L Glucose 87 Calcium 8.4 L Magnesium 1.5 L PG Care Time/CCT Total # of Minutes Spent Total Time Spent with Patient: Total time spent is greater than 50% in coordination of care (as documented) at patient's floor/unit and/or counseling patient: Coding Level of Care Code 41353 Subseq Hosp Care Lvl 3 Diagnoses Hyponatremia E87.1 Hypomagnesemia E83.42
[2021-10-24] MEDS: FUROSEMIDE 40 MG TAB PO SCH (09:38)
[2021-10-24] MEDS: MAGNESIUM CHLORIDE W/CALCIUM 64MG DELAYED REL TAB PO SCH ×3 (09:38→20:49)
[2021-10-24] MEDS: FOLIC ACID 1 MG TAB PO SCH (09:38)
[2021-10-24] MEDS: nadoloL 40 MG TAB PO SCH (09:39)
[2021-10-24] MEDS: SPIRONOLACTONE 100 MG TAB PO SCH (09:40)
[2021-10-24] MEDS: THIAMINE HCL 100 MG TAB PO SCH (09:40)
[2021-10-24] MEDS: PANTOprazole 40 MG TAB PO SCH (09:40)
[2021-10-24] MEDS: busPIRone 5 MG TAB PO PRN ×2 (09:41→21:15)
[2021-10-24] MEDS: MAGNESIUM SULFATE / D5W 1 GM/100 ML BAG IV SCH ×2 (10:18→12:13)
--- NOTE | 2021-10-24 14:02 | Hospitalist Progress Note ---
Date of Service October 24, 2021 Assessment & Plan (1) Hypomagnesemia: Plan: Patient continues to have magnesium levels between 1.2 and 1.4 and has been refractory to repletion Presumed from GI loss, FeMg is pending Repeat level this morning 1.5 Nephrology on consult, appreciate recs Continue magnesium chloride with calcium 64 mg p.o. TID Continue spironolactone and Lasix Receck labs in am (2) Ascites: Plan: Most likely associated with patient's diagnosis of cirrhosis Paracentesis completed. Repeat Abdominal US showed no ascites Await labs including cytology Continue Aldactone (3) Cirrhosis: Plan: Patient with significant ethanol use Discussed need for abstention from alcohol intake Patient asking for prognosis. She was advised that we are in the early stages of work-up and that she most likely would need to follow with gastroenterology as an outpatient Gastroenterology was consulted this admission And will follow-up as an outpatient in 4 weeks after discharge (4) History of alcoholism: Plan: Alcohol cessation required to arrest progression of cirrhosis and other complications with ethanol ingestion Patient expressed understanding but was noncommittal to quitting drinking Discussed with patient that this may be inhibiting nutritional intake resulting in her electrolyte disorder (5) Pulmonary embolism: Plan: History of lupus anticoagulant. Xarelto is currently on hold. 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 Defer to PCP on outpatient follow-up (6) Pancreatitis: Plan: Most likely secondary to alcohol ingestion Gastroenterology was consulted. No indication for instrumentation with ERCP Continue to monitor Resolved clinically, tolerating diet (7) Hyperlipidemia: Plan: Reassess need as outpatient given cirrhosis (8) Diarrhea: Plan: Resolved (9) HTN (hypertension), benign: Plan: BP drifting up, resume atenolol, lisinopril still on hold Will review medications again tomorrow (10) Pancreatic mass: Plan: Not confirmed; outpatient consideration of EUSsee CT scan report Outpatient follow-up with gastroenterology (11) Anemia: Plan: No active blood loss, hematemesis, hematuria, melena, hematochezia, BRBPR Hemoglobin is stable at 9.5 Continue to follow serial labs Plan Continue to manage electrolytes. Patient may be close to baseline. May need to be discharged home with outpatient follow-up and labs with PCP Admission and Anticipated Discharge Date Admission Date: October 12, 2021 Subjective patient seen and examined, no new complaints Review of Systems Review of Systems: A total of 10 systems was reviewed and is negative other than as listed in the HPI Physical Exam Physical Exam: The patient is awake, alert and oriented 3, well developed and well nourished, normocephalic and atraumatic, lying in bed and in no acute distress. HEENT--PERRL, EOMI, mucous membranes and oropharynx mildly dry Neck--supple. No JVD. No bruits. Thyroid normal, trachea midline, no adenopathy. Heart--normal S1 and S2. No murmurs, rubs or gallops. Lungs--clear bilaterally, no respiratory distress, no accessory muscle use. Abdomen--normal bowel sounds and soft. Mild epigastric and left sided abdominal pain Extremities--no cyanosis or clubbing. No edema. Dermatologic--normal skin turgor, normal color, no abnormal lymph nodes, no rash. Neurologic--cranial nerves II through XII grossly intact. Rheumatologic--normal range of motion. Psychiatric--normal affect. Results & Data Results & Data ([facility]) Vital Signs (Past 12 Hours) Vital Signs Temp Pulse Pulse Resp BP Pulse Ox O2 Del Method 10/24/21 12:03 98.1 F 66 18 136/75 98 Room Air 10/24/21 08:07 97.9 F 74 19 112/72 96 Room Air 10/24/21 03:15 97.9 F 64 18 108/62 98 Room Air PG Care Time/CCT Total # of Minutes Spent Total Time Spent with Patient: Total time spent is greater than 50% in coordination of care (as documented) at patient's floor/unit and/or counseling patient: Coding Level of Care Code 37871 Subseq Hosp Care Lvl 2 Diagnoses Hypomagnesemia E83.42 Ascites R18.8 Cirrhosis K74.60 History of alcoholism F10.21 Pulmonary embolism I26.99 Pancreatitis K85.90 Hyperlipidemia E78.5 Diarrhea R19.7 HTN (hypertension), benign I10 Pancreatic mass K86.89 Anemia D64.9 Time Spent (min) 35
[2021-10-24] MEDS ORDERED: KETOROLAC TROMETHAMINE 10 MG TABLET PO STA (17:41)
[2021-10-24 17:50] LABS: Magnesium, Random Urine 1328 mg/g creat (22-130)
[2021-10-24] MEDS: FLUoxetine HCL 20 MG CAP PO SCH (20:48)
[2021-10-24] MEDS: CYANOCOBALAMIN (B-12) 500 MCG TABLET PO SCH (20:48)
[2021-10-24] MEDS: GABAPENTIN 300 MG CAP PO SCH (20:49)
[2021-10-25] MEDS ORDERED: ACETAMINOPHEN 325 MG TAB PO PRN (04:52)
[2021-10-25 08:02] LABS: BUN Creatinine Ratio 48.8 (10-20); Calcium 8.6 mg/dl (8.5-10.1); Creatinine Clr Calc Pharmacy 121.5 ml/min; Est GFR (African American) 128.1 ml/min; Est GFR (Non-African American) 110.6 ml/min; Magnesium 1.5 mg/dl (1.7-2.4); Potassium 3.7 mmol/L (3.5-5.1)
--- NOTE | 2021-10-25 08:20 | Nephrology Progress Note ---
Date of Service October 25, 2021 Assessment & Plan (1) Hyponatremia: Plan: * Hyponatremia related to cirrhosis and 3rd spacing of fluid (ascites) * Expect patient will have ongoing mild hyponatremia w/ SNa 130 - 135 mmol/L due to cirrhosis * Recommend 2g/day NaCl restricted diet, 1L/day free water restriction * Continue Furosemide 40 mg po and Spironolactone 100 mg po daily to help mobilize ascitic fluid * Monitor PRP (2) Hypomagnesemia: Plan: * Presumed due to GI losses * FeMg is pending (>4% c/w GI loss) * Serum magnesium stable at 1.5. Potassium is acceptable * Continue Slo-Mg 64 mg po TID * If discharge is anticipated, recommend continuing oral Slo-Mg with close follow up by PCP Admission and Anticipated Discharge Date Admission Date: October 12, 2021 [address] Mrs. Guy was seen in her hospital room this morning. She is tolerating the oral magnesium supplement without GI upset or diarrhea. She reports that she is feeling better this morning. She voices no new medical concerns Review of Systems Constitutional: + weakness; no fever Eyes: no problem reported Ear, Nose, Mouth, Throat: no problem reported Respiratory: no cough and no dyspnea Cardiovascular: no chest pain, no palpitations and no edema Gastrointestinal: no abdominal pain Genitourinary: no dysuria and no hematuria Musculoskeletal: no back pain Integumentary: no rash Neurologic: no confusion Physical Exam Constitutional: + thin and + frail appearing Eyes: PERRL, conjunctivae normal, anicteric sclerae ENMT: external ear and nose normal, oropharynx normal Neck: trachea midline, no thyromegaly Respiratory: normal respiratory effort, lungs clear to auscultation Cardiovascular: RRR, no murmur, no edema Gastrointestinal (Abdomen): Inspection/Auscultation: + abdomen distended and + hypoactive bowel sounds Percussion/Palpation: abdomen nontender and no guarding Skin: no rashes, warm and dry Neurologic: awake; not confused Results & Data ([facility]) Vital Signs (Past 12 Hours) Vital Signs Temp Pulse Pulse Resp BP Pulse Ox O2 Del Method 10/25/21 07:05 36.5 C 64 18 128/74 97 Room Air 10/25/21 03:35 36.7 C 64 18 127/73 98 10/24/21 23:57 36.6 C 75 18 112/67 94 Room Air 10/24/21 22:16 72 Laboratory Results Laboratory Tests 10/25/21 07:06 Sodium 132 L Potassium 3.7 Chloride 95 L Carbon Dioxide 30 BUN 21 Creatinine 0.43 L Calcium 8.6 Magnesium 1.5 L PG Care Time/CCT Total # of Minutes Spent Total Time Spent with Patient: Total time spent is greater than 50% in coordination of care (as documented) at patient's floor/unit and/or counseling patient: Coding Level of Care Code 34566 Subseq Hosp Care Lvl 2 Diagnoses Hyponatremia E87.1 Hypomagnesemia E83.42
[2021-10-25] MEDS: FUROSEMIDE 40 MG TAB PO SCH (09:25)
[2021-10-25] MEDS: FOLIC ACID 1 MG TAB PO SCH (09:25)
[2021-10-25] MEDS: SPIRONOLACTONE 100 MG TAB PO SCH (09:25)
[2021-10-25] MEDS: nadoloL 40 MG TAB PO SCH (09:25)
[2021-10-25] MEDS: THIAMINE HCL 100 MG TAB PO SCH (09:26)
[2021-10-25] MEDS: PANTOprazole 40 MG TAB PO SCH (09:26)
[2021-10-25] MEDS: MAGNESIUM CHLORIDE W/CALCIUM 64MG DELAYED REL TAB PO SCH ×3 (09:26→21:05)
[2021-10-25] MEDS: busPIRone 5 MG TAB PO PRN ×2 (09:29→21:08)
[2021-10-25] MEDS ORDERED: KETOROLAC TROMETHAMINE 10 MG TABLET PO STA (10:09)
--- NOTE | 2021-10-25 12:56 | Hospitalist Progress Note ---
Date of Service October 25, 2021 Assessment & Plan (1) Hypomagnesemia: Plan: Patient magnesium level has improved and holding at 1.5 for the past couple of days Nephrology on consult, appreciate recs Continue magnesium chloride with calcium 64 mg p.o. TID Continue spironolactone and Lasix Receck labs in am (2) Ascites: Plan: Most likely associated with patient's diagnosis of cirrhosis Paracentesis completed. Repeat Abdominal US showed no ascites Await labs including cytology Continue Aldactone (3) Cirrhosis: Plan: Patient with significant ethanol use Discussed need for abstention from alcohol intake Patient asking for prognosis. She was advised that we are in the early stages of work-up and that she most likely would need to follow with gastroenterology as an outpatient Gastroenterology was consulted this admission And will follow-up as an outpatient in 4 weeks after discharge (4) History of alcoholism: Plan: Alcohol cessation required to arrest progression of cirrhosis and other complications with ethanol ingestion Patient expressed understanding but was noncommittal to quitting drinking Discussed with patient that this may be inhibiting nutritional intake resulting in her electrolyte disorder (5) Pulmonary embolism: Plan: History of lupus anticoagulant. Xarelto is currently on hold. 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 Defer to PCP on outpatient follow-up (6) Pancreatitis: Plan: Most likely secondary to alcohol ingestion Gastroenterology was consulted. No indication for instrumentation with ERCP Continue to monitor Resolved clinically, tolerating diet (7) Hyperlipidemia: Plan: Reassess need as outpatient given cirrhosis (8) Diarrhea: Plan: Resolved (9) HTN (hypertension), benign: Plan: BP drifting up, resume atenolol, lisinopril still on hold Will review medications again tomorrow (10) Pancreatic mass: Plan: Not confirmed; outpatient consideration of EUSsee CT scan report Outpatient follow-up with gastroenterology (11) Anemia: Plan: No active blood loss, hematemesis, hematuria, melena, hematochezia, BRBPR Hemoglobin is stable at 9.5 Continue to follow serial labs Plan Continue to manage electrolytes. Patient may be close to baseline. May need to be discharged home with outpatient follow-up and labs with PCP Admission and Anticipated Discharge Date Admission Date: October 12, 2021 Subjective patient seen and examined, no new complaints Review of Systems Review of Systems: A total of 10 systems was reviewed and is negative other than as listed in the HPI Physical Exam Physical Exam: The patient is awake, alert and oriented 3, well developed and well nourished, normocephalic and atraumatic, lying in bed and in no acute distress. HEENT--PERRL, EOMI, mucous membranes and oropharynx mildly dry Neck--supple. No JVD. No bruits. Thyroid normal, trachea midline, no adenopathy. Heart--normal S1 and S2. No murmurs, rubs or gallops. Lungs--clear bilaterally, no respiratory distress, no accessory muscle use. Abdomen--normal bowel sounds and soft. Mild epigastric and left sided abdominal pain Extremities--no cyanosis or clubbing. No edema. Dermatologic--normal skin turgor, normal color, no abnormal lymph nodes, no rash. Neurologic--cranial nerves II through XII grossly intact. Rheumatologic--normal range of motion. Psychiatric--normal affect. Results & Data Results & Data ([facility]) Vital Signs (Past 12 Hours) Vital Signs Temp Pulse Pulse Pulse Resp BP Pulse Ox 10/25/21 11:59 97.7 F 65 16 118/75 100 10/25/21 06:10 63 10/25/21 07:05 97.7 F 64 18 128/74 97 10/25/21 03:35 98.1 F 64 18 127/73 98 O2 Del Method 10/25/21 11:59 Room Air 10/25/21 06:10 10/25/21 07:05 Room Air 10/25/21 03:35 PG Care Time/CCT Total # of Minutes Spent Total Time Spent with Patient: Total time spent is greater than 50% in coordination of care (as documented) at patient's floor/unit and/or counseling patient: Coding Level of Care Code 72222 Subseq Hosp Care Lvl 2 Diagnoses Hypomagnesemia E83.42 Ascites R18.8 Cirrhosis K74.60 History of alcoholism F10.21 Pulmonary embolism I26.99 Pancreatitis K85.90 Hyperlipidemia E78.5 Diarrhea R19.7 HTN (hypertension), benign I10 Pancreatic mass K86.89 Anemia D64.9 Time Spent (min) 35
[2021-10-25] MEDS: CYANOCOBALAMIN (B-12) 500 MCG TABLET PO SCH (21:04)
[2021-10-25] MEDS: GABAPENTIN 300 MG CAP PO SCH (21:05)
[2021-10-25] MEDS: FLUoxetine HCL 20 MG CAP PO SCH (21:05)
[2021-10-26 07:37] LABS: BUN Creatinine Ratio 56.8 (10-20); Calcium 8.9 mg/dl (8.5-10.1); Creatinine Clr Calc Pharmacy 114.4 ml/min; Est GFR (African American) 127.2 ml/min; Est GFR (Non-African American) 109.7 ml/min; Magnesium 1.4 mg/dl (1.7-2.4); Potassium 3.8 mmol/L (3.5-5.1)
--- NOTE | 2021-10-26 08:21 | Nephrology Progress Note ---
Date of Service October 26, 2021 Assessment & Plan (1) Hyponatremia: Plan: * Hyponatremia related to cirrhosis and 3rd spacing of fluid (ascites) * Expect patient will have ongoing mild hyponatremia w/ SNa 130 - 135 mmol/L due to cirrhosis * Recommend 2g/day NaCl restricted diet, 1L/day free water restriction * Continue Furosemide 40 mg po and Spironolactone 100 mg po daily to help mobilize ascitic fluid * Monitor PRP (2) Hypomagnesemia: Plan: * Presumed due to GI losses * Serum magnesium remains stable at 1.4 - 1.5 off IV MgSO4. Potassium is acceptable * Continue Slo-Mg 64 mg po TID * If discharge is anticipated, recommend continuing oral Slo-Mg with close follow up by PCP * Will sign off. Please call if further Nephrology assistance is needed Admission and Anticipated Discharge Date Admission Date: October 12, 2021 [address] Mrs. Guy was seen in her hospital room this morning. She is tolerating the oral magnesium supplement without GI upset or diarrhea. She reports that she is feeling better this morning. She voices no new medical concerns Review of Systems Constitutional: + weakness; no fever Eyes: no problem reported Ear, Nose, Mouth, Throat: no problem reported Respiratory: no cough and no dyspnea Cardiovascular: no chest pain, no palpitations and no edema Gastrointestinal: no abdominal pain Genitourinary: no dysuria and no hematuria Musculoskeletal: no back pain Integumentary: no rash Neurologic: no confusion Physical Exam Constitutional: + thin and + frail appearing Eyes: PERRL, conjunctivae normal, anicteric sclerae ENMT: external ear and nose normal, oropharynx normal Neck: trachea midline, no thyromegaly Respiratory: normal respiratory effort, lungs clear to auscultation Cardiovascular: RRR, no murmur, no edema Gastrointestinal (Abdomen): Inspection/Auscultation: + abdomen distended and + hypoactive bowel sounds Percussion/Palpation: abdomen nontender and no guarding Skin: no rashes, warm and dry Neurologic: awake; not confused Results & Data ([facility]) Vital Signs (Past 12 Hours) Vital Signs Temp Pulse Resp BP Pulse Ox O2 Del Method 10/26/21 07:05 36.7 C 66 19 125/75 98 Room Air 10/26/21 03:41 36.6 C 69 18 114/69 97 Room Air 10/25/21 23:03 36.6 C 74 18 137/84 97 Room Air Laboratory Results Laboratory Tests 10/26/21 06:51 Sodium 133 L Potassium 3.8 Chloride 96 L Carbon Dioxide 29 BUN 25 H Creatinine 0.44 L Glucose 89 Magnesium 1.4 L PG Care Time/CCT Total # of Minutes Spent Total Time Spent with Patient: Total time spent is greater than 50% in coordination of care (as documented) at patient's floor/unit and/or counseling patient: Coding Level of Care Code 54227 Subseq Hosp Care Lvl 3 Diagnoses Hyponatremia E87.1 Hypomagnesemia E83.42
[2021-10-26] MEDS: FUROSEMIDE 40 MG TAB PO SCH (08:50)
[2021-10-26] MEDS: FOLIC ACID 1 MG TAB PO SCH (08:50)
[2021-10-26] MEDS: MAGNESIUM CHLORIDE W/CALCIUM 64MG DELAYED REL TAB PO SCH (08:52)
[2021-10-26] MEDS: SPIRONOLACTONE 100 MG TAB PO SCH (08:52)
[2021-10-26] MEDS: THIAMINE HCL 100 MG TAB PO SCH (08:53)
[2021-10-26] MEDS: PANTOprazole 40 MG TAB PO SCH (08:53)
[2021-10-26] MEDS: nadoloL 40 MG TAB PO SCH (08:53)
--- NOTE | 2021-10-26 12:01 | Discharge Summary ---
Date of Service October 26, 2021 Admission HPI Per Admitting Provider 61 y/o F Hx HTN, HLD, depression, lupus anticoagulant + with history of PE, ETOH abuse with recent diagnosis of cirrhosis. She states she has not been able to tolerate sufficient amounts of solid food for a few months. She states that she feels full and tends to get nauseous and usually vomits. She has continued to consume alcohol, usually vodka, daily. The pt normally takes Xarelto, however, her PCP instructed her to stop, as he was concerned she may have an ulcer. She has no additional complaints and appears to have a poor overall understanding of her medical conditions. Initial labs are notable for leukocytosis, transaminitis, INR 1.6, lipase 1754, and a sodium of 122. She has a high alk/phos which is apparently chronic. A CT abdomen was read as follows: - Hepatic steatosis and cirrhosis. Manifestations of portal hypertension including moderate ascites and small varices formation. - Possible stranding and fluid adjacent to the second portion of the duodenum. This could simply represent ascites however duodenitis or acute pancreatitis cannot be excluded. - Mild pancreatic ductal dilatation. - 9 mm cystic focus within the pancreas head which is indeterminate and can be assessed on follow-up MRI. - Avascular necrosis of the bilateral femoral heads. On further questioning, she states that her hips have been bothering her when she sleeps, but not when she walks interestingly. PMH: 1) HTN 2) HLD 3) Alcohol abuse 4) Lupus anticoagulant - PE 2011 5) Depression 6) Cirrhosis 7) B12 deficiency Surgical: 1) Appendectomy 2) Tubal ligation Social: Smokes one pack daily, > 30 PYH. Drinks vodka daily - could not specify quantity Family: Mother alive and well Father - colon and bladder CA Principal Diagnosis hypomagnesemia Discharge Exam The patient is awake, alert and oriented 3, well developed and well nourished, normocephalic and atraumatic, lying in bed and in no acute distress. HEENT--PERRL, EOMI, mucous membranes and oropharynx mildly dry Neck--supple. No JVD. No bruits. Thyroid normal, trachea midline, no adenopathy. Heart--normal S1 and S2. No murmurs, rubs or gallops. Lungs--clear bilaterally, no respiratory distress, no accessory muscle use. Abdomen--normal bowel sounds and soft. Mild epigastric and left sided abdominal pain Extremities--no cyanosis or clubbing. No edema. Dermatologic--normal skin turgor, normal color, no abnormal lymph nodes, no rash. Neurologic--cranial nerves II through XII grossly intact. Rheumatologic--normal range of motion. Psychiatric--normal affect. Discharge Data Allergies Allergy/AdvReac Type Severity Reaction Status Date / Time No Known Allergies Allergy Verified 10/12/21 20:54 Consultations 10/12/21 19:48 ED Decision to Admit Stat 10/12/21 22:32 Consult Gastroenterology Routine 10/13/21 06:41 Consult Orthopedic Surgery Routine 10/20/21 11:09 Consult Nephrology Routine Ordered Studies 10/12/21 17:37 CT abd pelvis IV con only Stat 10/13/21 22:35 MR abdomen wo/w con Routine 10/16/21 11:12 US abdomen ltd ascites Routine 10/19/21 07:55 US paracentesis abd w/image Routine 10/22/21 10:35 US abdomen ltd ascites Routine Hospital Course (1) Hypomagnesemia: Patient magnesium level has improved and holding at 1.5 for the past couple of days Nephrology on consult, appreciate recs Continue magnesium chloride with calcium 64 mg p.o. TID Continue spironolactone and Lasix Weekly serum magnesium upon d/c (2) Ascites: Most likely associated with patient's diagnosis of cirrhosis Paracentesis completed. Repeat Abdominal US showed no ascites Await labs including cytology Continue Aldactone (3) Cirrhosis: Patient with significant ethanol use Discussed need for abstention from alcohol intake Patient asking for prognosis. She was advised that we are in the early stages of work-up and that she most likely would need to follow with gastroenterology as an outpatient Gastroenterology was consulted this admission And will follow-up as an outpatient in 4 weeks after discharge (4) History of alcoholism: Alcohol cessation required to arrest progression of cirrhosis and other complications with ethanol ingestion Patient expressed understanding but was noncommittal to quitting drinking Discussed with patient that this may be inhibiting nutritional intake resulting in her electrolyte disorder (5) Pulmonary embolism: History of lupus anticoagulant. Xarelto is currently on hold. 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 Defer to PCP on outpatient follow-up (6) Pancreatitis: Most likely secondary to alcohol ingestion Gastroenterology was consulted. No indication for instrumentation with ERCP Continue to monitor Resolved clinically, tolerating diet (7) Hyperlipidemia: Reassess need as outpatient given cirrhosis (8) Diarrhea: Resolved (9) HTN (hypertension), benign: BP drifting up, resume atenolol, lisinopril still on hold Will review medications again tomorrow (10) Pancreatic mass: Not confirmed; outpatient consideration of EUSsee CT scan report Outpatient follow-up with gastroenterology (11) Anemia: No active blood loss, hematemesis, hematuria, melena, hematochezia, BRBPR Hemoglobin is stable at 9.5 Continue to follow serial labs Plan Continue to manage electrolytes. Patient may be close to baseline. May need to be discharged home with outpatient follow-up and labs with PCP Total Time Total Time Spent Total Time Spent (In Minutes): 35 Discharge Plan Discharge Items Patient Disposition: Home - Self-Care Reason For Visit: NAUSEA/VOMITING HYPONATREMIA Discharge Diagnosis: hypomagnesemia Activity: Resume your previous activity Non-emergency contact: Primary Care Provider Call non-emergency contact if: you have any medication questions Follow-up/Referrals: Rachid Cool MD [Primary Care Provider] - Diet: Low Potassium (2gm) Addtl Attending Provider Instructions: please make appointment to follow up with your PCP Weekly lab work Pending Studies at Discharge: No Stand-Alone Forms: My [facility] [employer], Smoking Cessation Medications and DC Order Prescriptions: New spironolactone 100 mg Tablet 100 mg PO DAILY 30 Days Qty: 30 0RF Mag 64 64 mg Tablet,Delayed Release (Dr/Ec) 64 mg PO TID 30 Days Qty: 90 0RF furosemide 40 mg Tablet 40 mg PO QAM 30 Days Qty: 30 0RF Continued buspirone 10 mg tablet 5 - 10 mg PO Q8H PRN (Reason: anxiety) Qty: 45 0RF atorvastatin 20 mg tablet 20 mg PO PM Qty: 90 3RF atenolol 25 mg tablet 25 mg PO QAM Qty: 90 3RF multivitamin Tablet 1 tab PO PM cyanocobalamin (vitamin B-12) [Vitamin B-12] 1,000 mcg tablet 1,000 mcg PO PM cholecalciferol (vitamin D3) 2,000 unit capsule 2,000 units PO QAM fluoxetine [Prozac] 20 mg capsule 20 mg PO PM gabapentin 300 mg capsule 300 mg PO QPM Rx Instructions: is ordered bid but patient just takes 1 tab hs Discontinued magnesium 500 mg tablet 500 mg PO PM lisinopril 40 mg tablet 40 mg PO QAM Rx Instructions: TAKE ONE TABLET BY MOUTH EVERY MORNING bismuth subsalicylate [Pepto-Bismol] 262 mg/15 mL Suspension 524 mg PO QID PRN (Reason: gi-upset) Discharge Orders: Discharge Order (Routine); Ordered 10/26/21 Ordered By: Aric Levine Admission Data Admit Date/Time: 10/12/21 21:14 Attending Provider: Aric Levine Admit Provider: Monster Meza Primary Care Provider: Rachid Cool Other Providers: Monster eMza ; Frank Hdz ; Pedro Qiu ; Rory Barksdale Other Interventions: Discharge Summary Assessment (RN) Last Done: 10/26/21 10:33 Coding Level of Care Code D/C DAY MANAGEMENT >30 MINS Diagnoses Hypomagnesemia E83.42 Ascites R18.8 Cirrhosis K74.60 History of alcoholism F10.21 Pulmonary embolism I26.99 Pancreatitis K85.90 Hyperlipidemia E78.5 Diarrhea R19.7 HTN (hypertension), benign I10 Pancreatic mass K86.89 Anemia D64.9 Time Spent (min) 35
[2021-10-27 05:41] LABS: Magnesium 24 hr Urine 402 mg/24 h (18-130)
== END 2021-10-26 11:42 | disposition home or self-care (01) | DRG 432 ==
LOC: ED 17:25 → 2S 21:14 → SUATTDRO 21:14 → 2S 22:06

== ENCOUNTER 2021-11-08 20:03 | Inpatient (IN) ==
--- NOTE | 2021-11-08 20:35 | ED Triage Note ---
Date of Service November 08, 2021 History of Present Illness This patient was briefly evaluated while in triage. An abbreviated physical exam was performed. This patient is a 61-year-old Female who presents to the ED for evaluation of high potassium. Patient had a recent admission. Dr. Mendieta did blood work today and she was found to have a potassium of 6.4. Physical Exam VITALS: Vitals are noted on the nurse's note and reviewed by myself. Vital signs stable. GENERAL: This is a 61-year-old female, in no acute distress, well-developed well-nourished. SKIN: The skin was without rashes. HEART: Regular rate and rhythm without murmurs gallops or rubs. LUNGS: Clear to auscultation bilaterally without wheezes, rales or rhonchi. NEURO: Patient was alert and oriented to person place and time. Initial orders for labs and / or imaging were placed and patient was placed in the waiting area until a bed is available. Please see further documentation for the full ED course.
[2021-11-08 21:04] LABS: Basophils # (auto) 0.07 K/uL (0-0.2); Basophils % (auto) 0.6 %; Eosinophils # (auto) 0.12 K/uL (0-0.50); Hematocrit (blood only) 35.8 % (34.1-44.9); Hemoglobin 12.4 g/dl (12.0-16.0); Immature Granulocytes # (auto) 0.06 K/uL (0.00-0.02); Immature Granulocytes % (auto) 0.5 %; Lymphocytes # (auto) 2.34 K/uL (1.2-3.4); Lymphocytes % (auto) 20.3 %; Mean Corpuscular Hemoglobin 33.8 pg (25.0-34.0); Mean Corpuscular Hgb Conc 34.6 g/dL (32.0-36.0); Mean Corpuscular Volume 97.5 fL (80.0-100.0); Monocytes # (auto) 0.77 K/uL (0.24-0.82); Monocytes % (auto) 6.7 %; Neutrophils # (auto) 8.15 K/uL (1.4-6.5); Neutrophils % (auto) 70.9 %; Platelet Count 458 K/uL (130-400); RDW Coefficient of Variation 11.9 % (11.5-14.5); RDW Standard Deviation 42.5 fL (36.4-46.3); Red Blood Count 3.67 M/uL (3.93-5.22); White Blood Count 11.51 K/ul (4.8-10.8)
[2021-11-08 21:20] LABS: Albumin Globulin Ratio 1.2 (0.9-2); Albumin Level 4.7 gm/dl (3.4-5.0); BUN Creatinine Ratio 63.5 (10-20); Bilirubin,Total 0.8 mg/dl (0.2-1.0); Calcium 11.5 mg/dl (8.5-10.1); Creatinine Clr Calc Pharmacy 39.8 ml/min; Est GFR (African American) 59.9 ml/min; Est GFR (Non-African American) 51.7 ml/min; Globulin 3.9 gm/dl (2.5-4.0); Magnesium 2.1 mg/dl (1.7-2.4); Potassium 6.2 mmol/L (3.5-5.1); Total Protein 8.6 gm/dl (6.0-8.3)
[2021-11-08] MEDS ORDERED: DEXTROSE 50% 50 ML SYRINGE IV STA (21:21)
[2021-11-08] MEDS ORDERED: STAT IV STA (21:21)
[2021-11-08] MEDS ORDERED: INSULIN HUMAN REGULAR PER UNIT 5 UNITS in SYRINGE 9.9 ML IV STA (21:21)
[2021-11-08] MEDS ORDERED: CALCIUM GLUCONATE 10% 1,000 MG in DEXTROSE 5% 50 ML IV STA (21:21)
--- NOTE | 2021-11-08 21:47 | Emergency Department Note ---
History of Present Illness General Chief Complaint: Abnormal Labs/Diagnostic Testing Stated Complaint: DR REF FOR AB NORMAL LABS W/ HIGH POTASSIUM Time Seen by Provider: 11/08/21 20:56 History of Present Illness Provider Complaint: + abnormal lab Description of abnormal result: K 6.2 Context: + called for abnormal lab result Associated symptoms: no fever, no chills, no chest pain, no shortness of breath, no rash, no malaise, no nausea or no abdominal pain Home Medications Medication Instructions Recorded Confirmed Type cholecalciferol (vitamin D3) 50 2,000 units PO QAM 11/30/18 11/08/21 History mcg (2,000 unit) capsule cyanocobalamin (vitamin B-12) 1,000 mcg PO PM 11/30/18 11/08/21 History 1,000 mcg tablet (Vitamin B-12) multivitamin 1 tab PO PM 05/12/19 11/08/21 History buspirone 10 mg tablet 5 - 10 mg PO Q8H PRN anxiety #45 12/28/19 11/08/21 Rx tabs fluoxetine 20 mg capsule (Prozac) 20 mg PO PM 05/15/20 11/08/21 History atorvastatin 20 mg tablet 20 mg PO PM #90 tabs 12/29/20 11/08/21 Rx atenolol 25 mg tablet 25 mg PO QAM #90 tabs 09/03/21 11/08/21 Rx gabapentin 300 mg capsule 300 mg PO QPM 10/12/21 11/08/21 History furosemide 40 mg tablet 40 mg PO QAM 30 days #30 tabs 10/26/21 11/08/21 Rx magnesium chloride 64 mg 64 mg PO TID 30 days #90 tabs 10/26/21 11/08/21 Rx (magnesium chloride) tablet,delayed release (Mag 64) spironolactone 100 mg tablet 100 mg PO DAILY 30 days #30 tabs 10/26/21 11/08/21 Rx rivaroxaban 20 mg tablet (Xarelto) 20 mg PO DAILY 11/08/21 11/08/21 History Allergies Allergy/AdvReac Type Severity Reaction Status Date / Time No Known Allergies Allergy Verified 11/08/21 21:45 Past Med/Surg History Medical History Anxiety Avascular necrosis of femoral neck b/l on CT abd/pelvis 04/2020 Calcification of abdominal aorta Depression Enlarged liver History of anemia History of bronchitis resolved HTN (hypertension), benign Hyponatremia Lump of skin of back lipoma Migraine hx Pulmonary embolism and one to groin 8 yrs ago> unknown causes> Xarelto Pulmonary nodules under surveillance Surgical History H/O colonoscopy (2017) Dr. Billings History of esophagogastroduodenoscopy (EGD) (2017) Dr. Billings History of laparoscopic appendectomy (05/23/20) Laparoscopic Appendectomy Dr. Naylor 05/23/2020 History of throat surgery small mass removed > benign History of tooth extraction History of tubal ligation (1996) Family History Mother Diabetes Hypertension Father Colorectal cancer Bladder cancer Grandmother (Paternal) Aneurysm Denies family history of Ovarian cancer Prostate cancer Myocardial infarction Breast cancer Social History Smoking Status: Current every day smoker Tobacco Type: Cigarettes Age Started Using Tobacco: 17; packs per day: 1; Cigarettes Per Day: 20; Second Hand Exposure: No; Hx Alcohol Use: Yes Alcohol type: hard liquor Alcohol Intake Frequency Comment: daily Hx Substance Use: No Preferred Language: Surinamese Communication Ability: Effective Visual Impairment: Limited Hearing Ability: Normal Lpc Required: No Beliefs That Will Affect Care: None marital status: Current Living Situation: Spouse current occupational status: unemployed 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 How many Children do You have: 2 Feels Safe at Home: Yes Childhood Exposure to Second-Hand Smoke: No caffeine: Yes (coffee and tea 1 cup daily ) Dental Care, Regularly: Yes Physical Activity Frequency: Does not Exercise Seatbelt Use: always Sunscreen Use: No Assistive Devices: None Review of Systems A total of 10 systems reviewed and were otherwise negative Physical Exam Vital Signs: Vital Signs - 24 hr 11/08/21 20:28 Temperature 36.6 C Temperature Source Temporal Artery Sc an Pulse Rate 79 Respiratory Rate 18 Respiratory Effort / Characteristics Non-Labored Sponta neous Respiratory Depth Normal Respiratory Patter n Regular Blood Pressure 121/73 Blood Pressure Ananya n 89 Blood Pressure Pos ition Sitting Pulse Oximetry 98 Oxygen Delivery Me thod Room Air Sepsis Recent Feve r Within 48 Hours No Sepsis New/Unexpla ined Change in Men elvin Status N/A Sepsis Action Take n by Nursing No Action Required Physical Exam: Physical Exam GENERAL: She is oriented to person, place, and time. She appears well-developed and well-nourished. She does not appear distressed. HENT: Exam performed. -Head: Normocephalic and atraumatic. -Right Ear: External ear normal. No mastoid tenderness. -Left Ear: External ear normal. No mastoid tenderness. -Mouth/Throat: The oropharynx is clear and moist. No trismus in the jaw. No dental abscesses or uvula swelling. No oropharyngeal exudate or tonsillar abscesses. EYES: Conjunctivae and EOM are normal. Pupils are equal, round, and reactive to light. Right eye exhibits no discharge. Left eye exhibits no discharge. No scleral icterus. NECK: Normal range of motion. Neck supple. No JVD present. No spinous process tenderness present. No carotid bruit present. No rigidity. No tracheal deviation and normal range of motion present. No Brudzinski's sign and no Kernig's sign noted. CV: Normal rate, regular rhythm, normal heart sounds and intact distal pulses. There is no peripheral edema. Palpable radial pulses bue. PULM/CHEST: Effort normal and breath sounds normal. No respiratory distress. No stridor. She has no wheezes. She has no rales. -Chest Wall: She exhibits no tenderness. ABD: The abdomen is soft. Bowel sounds are normal. She has no distension. No mass is present. There is no tenderness. Hepatomegaly. There is no rebound, no guarding, no Nascimento's sign and no tenderness at McBurney's point. Rovsig negative MUSC/SKEL: Normal range of motion. There is no peripheral edema, tenderness or deformity. LYMPH: No cervical adenopathy. NEURO: She is alert and oriented to person, place, and time. She has normal strength. No cranial nerve deficit or sensory deficit. Coordination and gait normal. GCS eye subscore is 4. GCS verbal subscore is 5. GCS motor subscore is 6. Cerebellar tests wnl. SKIN: Skin is warm and dry. She is not diaphoretic. PSYCH: She has a normal mood and affect. Behavior is normal. Judgment and thought content normal. Course Course 2055: The patient was evaluated in room C8. A complete history and physical exam was performed Cardiac monitoring: An order was placed for continuous cardiac monitoring. The monitor shows a rate of 80 with sinus rhythm 2144: Patient's potassium 6.2. Peak T waves present on EKG. Patient will be treated with calcium gluconate 1 g as well as 5 units of insulin and 1 amp of D50. Patient will be admitted [facility]. Medical Decision Making Laboratory Data Result diagrams: 11/08/21 20:40 11/08/21 20:40 Lab Results 11/08/21 11/08/21 Range/Units 20:40 20:40 WBC 11.51 H (4.8-10.8) K/ul RBC 3.67 L (3.93-5.22) M/uL Hgb 12.4 (12.0-16.0) g/dl Hct 35.8 (34.1-44.9) % MCV 97.5 (80.0-100.0) fL MCH 33.8 (25.0-34.0) pg MCHC 34.6 (32.0-36.0) g/dL RDW Std Deviation 42.5 (36.4-46.3) fL RDW Coeff of Jorge Luis 11.9 (11.5-14.5) % Plt Count 458 H (130-400) K/uL MPV 9.0 L (9.4-12.3) fL Immature Gran % (Auto) 0.5 % Neut % (Auto) 70.9 % Lymph % (Auto) 20.3 % [place] % (Auto) 6.7 % Eos % (Auto) 1.0 % Baso % (Auto) 0.6 % Neut # (Auto) 8.15 H (1.4-6.5) K/uL Lymph # (Auto) 2.34 (1.2-3.4) K/uL [place] # (Auto) 0.77 (0.24-0.82) K/uL Eos # (Auto) 0.12 (0-0.50) K/uL Baso # (Auto) 0.07 (0-0.2) K/uL Immature Gran # (Auto) 0.06 H (0.00-0.02) K/uL Sodium 123 L (136-145) mmol/L Potassium 6.2 H* (3.5-5.1) mmol/L Chloride 91 L (98-107) mmol/L Carbon Dioxide 22 (21-32) mmol/L Anion Gap 10 (3-11) BUN 73 H (6-23) mg/dl Creatinine 1.15 (0.6-1.2) mg/dl Est Cr Clr Drug Dosing 39.8 ml/min Est GFR ( Amer) 59.9 ml/min Est GFR (Non-Af Amer) 51.7 ml/min BUN/Creatinine Ratio 63.5 H (10-20) Glucose 100 H (70-99(Fasting)) mg/dl Calcium 11.5 H (8.5-10.1) mg/dl Magnesium 2.1 (1.7-2.4) mg/dl Total Bilirubin 0.8 (0.2-1.0) mg/dl AST 59 H (13-39) U/L ALT 36 (7-52) U/L Alkaline Phosphatase 218 H (34-104) U/L Total Protein 8.6 H (6.0-8.3) gm/dl Albumin 4.7 (3.4-5.0) gm/dl Globulin 3.9 (2.5-4.0) gm/dl Albumin/Globulin Ratio 1.2 (0.9-2) ECG Data Indication: other (hyperkalemia) Rate (beats per minute): 62 Rhythm: normal sinus Findings: + peaked T-waves (V3-V6); no ST depression, no ST elevation or no prolonged QT MDM Narrative Patient's potassium 6.2. Peak T waves present on EKG. Patient will be treated with calcium gluconate 1 g as well as 5 units of insulin and 1 amp of D50. Patient will be admitted to Dr. Ed Yañez hospitalist team. Impression & Plan Acute hyperkalemia Critical Care Time Critical Care Time: Yes Total Critical Care Time: 45 I have personally spent greater than 45 minutes of critical care time in the direct management of this patient. This includes bedside care, interpretation of diagnostic studies, and testing, discussion with consultants, patient, and family members, and other required patient management activities. This 45 minutes is in excess of all separately billable procedures. Discharge Plan Visit Data Chief Complaint: Abnormal Labs/Diagnostic Testing Stated Complaint: DR REF FOR AB NORMAL LABS W/ HIGH POTASSIUM ED Provider: Gino Ross Discharge Problem: Acute hyperkalemia Patient Disposition: Admitted As Inpatient Forms Stand Alone Forms: My [facility] Prescriptions Prescriptions: No Action buspirone 10 mg tablet 5 - 10 mg PO Q8H PRN (Reason: anxiety) Qty: 45 0RF atorvastatin 20 mg tablet 20 mg PO PM Qty: 90 3RF atenolol 25 mg tablet 25 mg PO QAM Qty: 90 3RF multivitamin Tablet 1 tab PO PM cyanocobalamin (vitamin B-12) [Vitamin B-12] 1,000 mcg tablet 1,000 mcg PO PM cholecalciferol (vitamin D3) 2,000 unit capsule 2,000 units PO QAM fluoxetine [Prozac] 20 mg capsule 20 mg PO PM Xarelto 20 mg tablet 20 mg PO DAILY Rx Instructions: TAKE ONE TABLET BY MOUTH EVERY DAY. MUST TAKE WITH A MEAL/FOOD gabapentin 300 mg capsule 300 mg PO QPM Rx Instructions: is ordered bid but patient just takes 1 tab hs spironolactone 100 mg Tablet 100 mg PO DAILY 30 Days Qty: 30 0RF Mag 64 64 mg Tablet,Delayed Release (Dr/Ec) 64 mg PO TID 30 Days Qty: 90 0RF furosemide 40 mg Tablet 40 mg PO QAM 30 Days Qty: 30 0RF Referrals Referrals: Rachid Cool MD [Primary Care Provider] -
--- NOTE | 2021-11-08 21:52 | History & Physical Report ---
Date of Service November 08, 2021 Assessment & Plan (1) Acute hyperkalemia: Plan: 61yo female with HTN, HLD, lupus anticoagulant disorder and history of PE (on xarelto), alcohol use disorder, cirrhosis, and MDD presents after being referred to [facility] by her PCP for asymptomatic hyperkalemia (6.4) and hyponatremia (124) were incidentally found on labs. Labs on admission were also particularly notable for hypercalcemia and elevated BUN. Acute hyperkalemia Potassium 6.4 on outpatient labs, 6.2 on arrival to the ED Patient asymptomatic but peaked T waves noted on EKG - therefore qualifies as acute severe hypokalemia Differential includes aldosterone resistance potentially secondary to lupus, hypoaldosteronism, others In ED, received calcium gluconate 1g IV (x1), insulin 5u, and one amp of D50 Admit to PCU Ordered lasix IV 60mg (x1) and NSS@125mL/hr (x2 bags ordered); repeat potassium 5.4 Repeat EKG (~02:00) showing tall T waves without overt peaks, no other concerning changes Continue patient's home dose lasix (40mg PO qAM) BMP q4h Nephrology consulted - did follow patient during last admission; recommendations appreciated Hold spironolactone OK to continue atenolol - has little effect on serum potassium given intact beta-2 activity Hyponatremia Sodium on admission 123, repeat 124; patient has history of chronic mild hyponatremia (typically low 130s) but did have hyponatremia to low 120s last admission Suspect secondary to cirrhosis Free water restriction (1L/day) and NaCl restricted diet (2g/day) as per nephrology note from prior admission Hold home vitamin D supplementation, continue home lasix 40mg PO qd MAP currently 87mmHg; consider holding atenolol if MAP falls below 82mmHg Trend electrolytes Hypercalcemia On admission, patient noted with asymptomatic hypercalcemia with elevations noted in both serum calcium (11.2) and ionized calcium (1.43) PTH low (8.3), magnesium normal (2.1), TSH normal Differential includes excessive vitamin D use, malignancy, others Hold vitamin D supplementation Appreciate nephrology recommendations Trend daily serum and ionized calcium Elevated BUN On admission, BUN elevated (65) out of proportion to rise in creatinine Differential includes volume depletion, GI bleed leading to blood reabsorption, others FOBT ordered Trend renal function Transaminitis, cirrhosis, history of alcohol use disorder Labs on admission notable for elevated AST (59) and AlkP (218); ALT and Tbili were normal Patient has a known history of cirrhosis Some abdominal discomfort to palpation, but patient says this is normal for her and is currently no worse than baseline No acute intervention indicated at this time Trend daily CMP, low threshold for further workup if labs worsen or if suspicious symptoms arise Patient reports she has only had one sip of wine since discharge on 10/26; would still recommend consideration of naltrexone therapy; PCP follow-up recommended HLD: home atorvastatin HTN: home atenolol, furosemide LILLY: home buspirone MDD: home fluoxetine FEN: NaCl restriction (2g), free water restriction (1L), NSS@125mL/hr (x2 bags ordered) Code status: full code DVT ppx: home xarelto Held home meds: vitamin D, spironolactone Consults: nephrology PT/OT: ordered Dispo: PCU for cardiac monitoring due to severe hyperkalemia with EKG changes (2) Hypercalcemia: (3) Chronic anticoagulation: (4) Cirrhosis: (5) Elevated alkaline phosphatase level: (6) Elevated AST (SGOT): (7) Hepatosplenomegaly: (8) Lupus anticoagulant disorder: History of Present Illness Primary Care Provider: Rachid Cool MD 61yo female with HTN, HLD, lupus anticoagulant disorder and history of PE (on xarelto), alcohol use disorder, cirrhosis, and MDD presents after being referred to [facility] by her PCP after hyperkalemia (6.4) and hyponatremia (124) were incidentally found on labs. Patient is asymptomatic at this time and denies fever, chills, headache, vision changes, CP, palpitations, SOB, abdominal pain, nausea, vomiting, dysuria, diarrhea, lightheadedness, dizziness, weakness, or other symptoms. Of note, patient was recently admitted at [facility] (10/12 to 10/26) for hypomagnesemia, ascites suspected to be related to cirrhosis, and pancreatitis. In the ED, all vitals were stable, and patient was resting comfortably. Initial potassium was 6.2 and sodium was 124. Labs were otherwise notable for mild leukocytosis (11.5), mild thrombocytopenia (458). BUN was elevated (70) with normal-range creatinine (1.05) although this creatinine represents a tripling or quadrupling of patient's baseline creatinine. Calcium was elevated (11.2) as was ionized calcium (1.43). LFTs were notable for minor elevations in AST (59) and AlkP (218) with normal ALT and Tbili. TSH was normal. PTH level pending. EKG was notable for peaked T waves. Patient received calcium gluconate 1g IV (x1), insulin 5u, and one amp of D50. Surrogate decision maker in case of an emergency: spouse Joseph Guy (cell: [phone]) Allergies Allergy/AdvReac Type Severity Reaction Status Date / Time No Known Allergies Allergy Verified 11/08/21 21:45 Home Medications Medication Instructions Recorded Confirmed Type cholecalciferol (vitamin D3) 50 2,000 units PO QAM 11/30/18 11/08/21 History mcg (2,000 unit) capsule cyanocobalamin (vitamin B-12) 1,000 mcg PO PM 11/30/18 11/08/21 History 1,000 mcg tablet (Vitamin B-12) multivitamin 1 tab PO PM 05/12/19 11/08/21 History buspirone 10 mg tablet 5 - 10 mg PO Q8H PRN anxiety #45 12/28/19 11/08/21 Rx tabs fluoxetine 20 mg capsule (Prozac) 20 mg PO PM 05/15/20 11/08/21 History atorvastatin 20 mg tablet 20 mg PO PM #90 tabs 12/29/20 11/08/21 Rx atenolol 25 mg tablet 25 mg PO QAM #90 tabs 09/03/21 11/08/21 Rx gabapentin 300 mg capsule 300 mg PO QPM 10/12/21 11/08/21 History furosemide 40 mg tablet 40 mg PO QAM 30 days #30 tabs 10/26/21 11/08/21 Rx magnesium chloride 64 mg 64 mg PO TID 30 days #90 tabs 10/26/21 11/08/21 Rx (magnesium chloride) tablet,delayed release (Mag 64) spironolactone 100 mg tablet 100 mg PO DAILY 30 days #30 tabs 10/26/21 11/08/21 Rx rivaroxaban 20 mg tablet (Xarelto) 20 mg PO DAILY 11/08/21 11/08/21 History Past Med/Surg History Medical History (Updated 11/09/21 @ 01:54 by James Woodson MD) Anxiety Avascular necrosis of femoral neck b/l on CT abd/pelvis 04/2020 Calcification of abdominal aorta Depression Enlarged liver History of anemia History of bronchitis resolved HTN (hypertension), benign Hyponatremia Lump of skin of back lipoma Migraine hx Pulmonary embolism and one to groin 8 yrs ago> unknown causes> Xarelto Pulmonary nodules under surveillance Surgical History H/O colonoscopy (2016) Dr. Billings History of esophagogastroduodenoscopy (EGD) (2017) Dr. Billings History of laparoscopic appendectomy (05/23/20) Laparoscopic Appendectomy Dr. Naylor 05/23/2020 History of throat surgery small mass removed > benign History of tooth extraction History of tubal ligation (1996) Family History Mother Diabetes Hypertension Father Colorectal cancer Bladder cancer Grandmother (Paternal) Aneurysm Denies family history of Ovarian cancer Prostate cancer Myocardial infarction Breast cancer Social History Smoking Status: Current every day smoker Tobacco Type: Cigarettes Age Started Using Tobacco: 17; packs per day: 1; Cigarettes Per Day: 20; Second Hand Exposure: Yes; Hx Alcohol Use: No Hx Substance Use: No Preferred Language: Frisian Communication Ability: Effective Visual Impairment: Limited Hearing Ability: Normal 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: Voice Beliefs That Will Affect Care: None marital status: Current Living Situation: Spouse current occupational status: unemployed 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 How many Children do You have: 2 Feels Safe at Home: Yes Childhood Exposure to Second-Hand Smoke: No caffeine: Yes (coffee and tea 1 cup daily ) Dental Care, Regularly: Yes Physical Activity Frequency: Does not Exercise Seatbelt Use: always Sunscreen Use: No Assistive Devices: None Physical Exam Physical Exam: Constitutional: well-appearing, no acute distress HEENT: NCAT, no conjunctival injection, no scleral icterus CV: regular rhythm, no murmur appreciated, extremities well-perfused, no LE edema Resp: CTABL, no wheezes/rales/rhonchi appreciated, no increased work of breathing GI: soft, nondistended, hepatomegaly appreciated, minimal generalized abdominal discomfort to palpation, BS normoactive MSK: no gross deformities appreciated Skin: warm, dry, no rash appreciated Neuro: alert, oriented, no focal neurologic deficit appreciated Results & Data Results & Data ([facility]) Vital Signs (Past 12 Hours) Vital Signs Temp Pulse Resp BP Pulse Ox O2 Del Method 11/08/21 20:28 36.6 C 79 18 121/73 98 Room Air Supervising Physician Co-Signing Physician Notes Patient seen and examined, chart reviewed, case discussed with Dr. Woodson and I agree with the assessment and plan as above. Resident Activity Tracking Resident Involvement: Resident Care Provided and Telemarketing Manager Coverage Note Care Provided: Adult Hospital Medicine
[2021-11-08] MEDS ORDERED: FUROSEMIDE INJ 20 MG/2 ML VIAL IV STA (22:47)
[2021-11-08] MEDS ORDERED: busPIRone 5 MG TAB PO PRN (23:09)
[2021-11-08] MEDS ORDERED: SODIUM CHLORIDE 0.9% 1000ML 1,000 ML IV STA (23:12)
[2021-11-09 01:31] LABS: BUN Creatinine Ratio 66.7 (10-20); Calcium 11.2 mg/dl (8.5-10.1); Creatinine Clr Calc Pharmacy 43.6 ml/min; Est GFR (African American) 66.9 ml/min; Est GFR (Non-African American) 57.7 ml/min; Potassium 5.4 mmol/L (3.5-5.1)
--- NOTE | 2021-11-09 03:22 | Billing Data ---
Date of Service November 09, 2021 Coding Level of Care Code 89646 Initial Inpt Care Lvl 3
[2021-11-09 06:51] LABS: Basophils # (auto) 0.04 K/uL (0-0.2); Basophils % (auto) 0.4 %; Eosinophils # (auto) 0.21 K/uL (0-0.50); Hematocrit (blood only) 33.1 % (34.1-44.9); Hemoglobin 11.6 g/dl (12.0-16.0); Immature Granulocytes # (auto) 0.06 K/uL (0.00-0.02); Immature Granulocytes % (auto) 0.6 %; Lymphocytes # (auto) 2.32 K/uL (1.2-3.4); Lymphocytes % (auto) 22.2 %; Mean Corpuscular Hemoglobin 33.6 pg (25.0-34.0); Mean Corpuscular Volume 95.9 fL (80.0-100.0); Mean Platelet Volume 8.9 fL (9.4-12.3); Monocytes # (auto) 0.73 K/uL (0.24-0.82); Neutrophils # (auto) 7.08 K/uL (1.4-6.5); Neutrophils % (auto) 67.8 %; Platelet Count 351 K/uL (130-400); RDW Coefficient of Variation 11.9 % (11.5-14.5); RDW Standard Deviation 41.4 fL (36.4-46.3); Red Blood Count 3.45 M/uL (3.93-5.22); White Blood Count 10.44 K/ul (4.8-10.8)
--- NOTE | 2021-11-09 07:25 | Hospitalist Progress Note ---
Date of Service November 09, 2021 Assessment & Plan (1) Acute hyperkalemia: Plan: 61yo female with HTN, HLD, lupus anticoagulant disorder and history of PE (on xarelto), alcohol use disorder, cirrhosis, and MDD presents after being referred to [facility] by her PCP for asymptomatic hyperkalemia (6.4) and hyponatremia (124) were incidentally found on labs. Labs on admission were also particularly notable for hypercalcemia and elevated BUN. Hypercalcemia On admission, patient noted with asymptomatic hypercalcemia with elevations noted in both serum calcium (11.2) and ionized calcium (1.43) PTH low (8.3), magnesium normal (2.1), TSH normal Differential includes excessive vitamin D use, malignancy Hold vitamin D supplementation Appreciate nephrology management pending pTh RP, with suggestion of small pancreatic head hypodensity will repeat pancreatic CT if enlarged consider GI med consult for EUS inpt or outpt in 2020 did have paraspinous mass biopsied by [facility] at [facility] and found not to be suggestive of malignancy afp and Ca 19-9 sent Acute hyperkalemia Potassium 6.4 on outpatient labs, 6.2 on arrival to the ED Patient asymptomatic but peaked T waves noted on EKG - therefore qualifies as acute severe hypokalemia In ED, received calcium gluconate 1g IV (x1), insulin 5u, and one amp of D50 Ordered lasix IV 60mg (x1) and NSS@125mL/hr (x2 bags ordered); repeat pota ssium 5.4 Nephrology consulted - helping to manage multiple electrolyte abnormalities Hold spironolactone Hyponatremia Sodium on admission 123, repeat 124; patient has history of chronic mild hyponatremia (typically low 130s) but did have hyponatremia to low 120s last admission Suspect secondary to cirrhosis Free water restriction (1L/day) and NaCl restricted diet (2g/day) as per nephrology note from prior admission Hold home vitamin D supplementation, continue home lasix 40mg PO qd Chronic anticoagulation pt chronically on Xarelto for lupus anticoagulant and PE, will consider change to sc heparin if some procedures anticipated Elevated BUN On admission, BUN elevated (65) out of proportion to rise in creatinine FOBT positive hgb has been stable not suspecting active bleeding Transaminitis, cirrhosis, history of alcohol use disorder Labs on admission notable for elevated AST (59) and AlkP (218); ALT and Tbili were normal Patient has a known history of cirrhosis, also was on statin and ssri Patient reports she has only had one sip of wine since discharge on 10/26; would still recommend consideration of naltrexone therapy; PCP follow-up recommended HLD: home atorvastatin HTN: home atenolol, furosemide LILLY: home buspirone MDD: home fluoxetine Code status: full code DVT ppx: home xarelto Held home meds: vitamin D, spironolactone Consults: nephrology PT/OT: ordered Dispo: PCU for cardiac monitoring due to severe hyperkalemia with EKG changes (2) Hypercalcemia: (3) Chronic anticoagulation: (4) Cirrhosis: (5) Elevated alkaline phosphatase level: (6) Elevated AST (SGOT): (7) Hepatosplenomegaly: (8) Lupus anticoagulant disorder: Admission and Anticipated Discharge Date Admission Date: November 08, 2021 Subjective Pt feels much better, still with marked electrolyte abnormalities Nephrology is helping to manage, prevous pancreatitis, with hypodensity in head, will check ct pancreas Review of Systems Review of Systems: Mild distress and moderate fatigue no headache, no visual changes no speech or swallowing issues no chest pain, pressure or palpitations no shortness of breath, cough or wheezes no abdominal pain, nausea or vomiting, diarrhea or constipation no dysuria, hematuria or frequency no focal joint pain or swelling no back pain, CVA tenderness or radicular pain no bruising, bleeding or rashes no focal signs of weakness or numbness or altered sensation no complaints of anxiety or depression.. Physical Exam Physical Exam: The patient appeared chronically ill and fatigued Vital signs as documented. Head exam is normocephalic atraumatic Neck is without JVD, thyromegaly, or carotid bruits. Lungs are clear to auscultation, no focal loss of breath sounds Cardiac exam, Rhythm is regular.. No murmurs, rubs or gallops. Abdominal exam reveals normal bowel sounds, soft mildly tender to abdominal exam Extremities are nonedematous and both pedal pulses are present Neurologic exam is alert and oriented, no focal loss of strength or sensation Skin is without bruises or rashes Psychologically is without concerns for anxiety or depression.. Results & Data Results & Data ([facility]) Vital Signs (Past 12 Hours) Vital Signs Temp Pulse Pulse Resp BP BP Pulse Ox 11/09/21 06:15 68 11/09/21 04:42 97.5 F L 67 18 132/82 100 11/09/21 01:00 69 18 107/74 94 11/08/21 22:00 83 20 141/82 H 96 11/08/21 21:00 65 22 123/75 100 11/08/21 20:28 97.9 F 79 18 121/73 98 O2 Del Method 11/09/21 06:15 11/09/21 04:42 Room Air 11/09/21 01:00 Room Air 11/08/21 22:00 Room Air 11/08/21 21:00 Room Air 11/08/21 20:28 Room Air PG Care Time/CCT Total # of Minutes Spent Total Time Spent with Patient: Total time spent is greater than 50% in coordination of care (as documented) at patient's floor/unit and/or counseling patient: Coding Level of Care Code 25317 Subseq Hosp Care Lvl 3 Diagnoses Acute hyperkalemia E87.5 Hypercalcemia E83.52 Chronic anticoagulation Z79.01 Cirrhosis K74.60 Elevated alkaline phosphatase level R74.8 Elevated AST (SGOT) R74.01 Hepatosplenomegaly R16.2 Lupus anticoagulant disorder D68.62
[2021-11-09 07:43] LABS: Albumin Globulin Ratio 1.3 (0.9-2); Albumin Level 4.2 gm/dl (3.4-5.0); BUN Creatinine Ratio 65.4 (10-20); Bilirubin,Total 0.7 mg/dl (0.2-1.0); Calcium 10.8 mg/dl (8.5-10.1); Creatinine Clr Calc Pharmacy 47.6 ml/min; Est GFR (African American) 67.6 ml/min; Est GFR (Non-African American) 58.4 ml/min; Globulin 3.2 gm/dl (2.5-4.0); Magnesium 1.9 mg/dl (1.7-2.4); Phosphorus 5.8 mg/dl (2.5-4.9); Potassium 5.2 mmol/L (3.5-5.1); Total Protein 7.4 gm/dl (6.0-8.3)
[2021-11-09] MEDS: ATENOLOL 25 MG TABLET PO SCH (08:01)
[2021-11-09] MEDS: RIVAROXABAN 20 MG TAB PO SCH (08:01)
[2021-11-09] MEDS: FUROSEMIDE 40 MG TAB PO SCH (08:02)
[2021-11-09 13:35] LABS: BUN Creatinine Ratio 56.4 (10-20); Calcium 10.6 mg/dl (8.5-10.1); Creatinine Clr Calc Pharmacy 42.3 ml/min; Est GFR (African American) 58.7 ml/min; Est GFR (Non-African American) 50.6 ml/min; Potassium 5.2 mmol/L (3.5-5.1)
--- NOTE | 2021-11-09 15:52 | Nephrology Consultation ---
Date of Consultation November 09, 2021 Assessment & Plan (1) Renal insufficiency: Creatinine improved with hydration suggestive prerenal etiology from diuretics. Non-oliguric. Continue IVF to encourage even to slightly positive fluid balance. IVF stopped. Furosemide may be restarted as needed. Document strict I/O. Repeat metabolic profile this evening. (2) Acute hyperkalemia: Improving with increased urine output. Low potassium diet. Hold spironolactone. (3) Hypercalcemia: Non-PTH mediated. Also, improving with management for dehydration. Etiology unclear. No TUMS. D3 supplement has been stopped. Pancreatic mass concerning for malignancy. Also notable AVN involving both femoral heads. No additional treatment required for calcium at this time. (4) Hyponatremia: Related to decreased EAV from diuretics and increased TBW in cirrhosis. Improving with IV saline. Encourage oral solute intake. Restrict free water to 1.2 L daily. (5) Cirrhosis: MELD 11. LFT's stable. MRI did not demonstrate concerning features of HCC. (6) Pancreatic mass: Will require EUS. Consider checking CA 19-9. History of Present Illness Reason for Consultation: Hyponatremia, hyperkalemia Requesting Physician: Demond Shaikh MD Attending Physician: Demond Shaikh MD History of Present Illness Mrs. Shruthi Guy is a 61 year-old female with alcoholic cirrhosis and ascites. She was admitted to [facility] earlier this month with alcohol induced pancreatitis. Evaluation notable for electrolyte abnormalities including hyponatremia and hypomagnesemia. Hyponatremia attributed to cirrhosis with fluid retention and photomania. Nephrology consultation was provided during the admission. Serum sodium improved with free water restriction and diuretics. Paracentesis for 1.7 L performed during hospitalization. Serum sodium had improved to ~133 mmol/L. Serum potassium normal at discharge. She was discharged on spironolactone and furosemide. Shruthi returned to the hospital yesterday after outpatient laboratory studies demonstrated notable hyperkalemia, hyponatremia, and hypocalcemia. Thankfully, laboratory studies are improving with IV saline replacement. Shruthi overall states that she feels well and hopes to return home soon. Appetite is fair and she denies any notable abdominal pain or nausea. She denies diarrhea. She denies vomiting. Medical history is also notable for depression and hypertension. Shruthi denies significant alcohol use since hospital discharge. She states that she has had a few glasses of white wine at home with her . She is eating well and reports a good appetite. Allergies Allergy/AdvReac Type Severity Reaction Status Date / Time No Known Allergies Allergy Verified 11/08/21 21:45 Home Medications Medication Instructions Recorded Confirmed Type cholecalciferol (vitamin D3) 50 2,000 units PO QAM 11/30/18 11/08/21 History mcg (2,000 unit) capsule cyanocobalamin (vitamin B-12) 1,000 mcg PO PM 11/30/18 11/08/21 History 1,000 mcg tablet (Vitamin B-12) multivitamin 1 tab PO PM 05/12/19 11/08/21 History buspirone 10 mg tablet 5 - 10 mg PO Q8H PRN anxiety #45 12/28/19 11/08/21 Rx tabs fluoxetine 20 mg capsule (Prozac) 20 mg PO PM 05/15/20 11/08/21 History atorvastatin 20 mg tablet 20 mg PO PM #90 tabs 12/29/20 11/08/21 Rx atenolol 25 mg tablet 25 mg PO QAM #90 tabs 09/03/21 11/08/21 Rx gabapentin 300 mg capsule 300 mg PO QPM 10/12/21 11/08/21 History furosemide 40 mg tablet 40 mg PO QAM 30 days #30 tabs 10/26/21 11/08/21 Rx magnesium chloride 64 mg 64 mg PO TID 30 days #90 tabs 10/26/21 11/08/21 Rx (magnesium chloride) tablet,delayed release (Mag 64) spironolactone 100 mg tablet 100 mg PO DAILY 30 days #30 tabs 10/26/21 11/08/21 Rx rivaroxaban 20 mg tablet (Xarelto) 20 mg PO DAILY 11/08/21 11/08/21 History Patient History Medical History Anxiety Avascular necrosis of femoral neck b/l on CT abd/pelvis 04/2020 Calcification of abdominal aorta Depression Enlarged liver History of anemia History of bronchitis resolved HTN (hypertension), benign Hyponatremia Lump of skin of back lipoma Migraine hx Pulmonary embolism and one to groin 8 yrs ago> unknown causes> Xarelto Pulmonary nodules under surveillance Surgical History H/O colonoscopy (2017) Dr. Billings History of esophagogastroduodenoscopy (EGD) (2017) Dr. Billings History of laparoscopic appendectomy (05/23/20) Laparoscopic Appendectomy Dr. Naylor 05/23/2020 History of throat surgery small mass removed > benign History of tooth extraction History of tubal ligation (1996) Family History Mother Diabetes Hypertension Father Colorectal cancer Bladder cancer Grandmother (Paternal) Aneurysm Denies family history of Ovarian cancer Prostate cancer Myocardial infarction Breast cancer Social History Smoking Status: Current every day smoker Tobacco Type: Cigarettes Age Started Using Tobacco: 17; packs per day: 1; Cigarettes Per Day: 20; Second Hand Exposure: Yes; Hx Alcohol Use: No Hx Substance Use: No Preferred Language: [place] Citizen Communication Ability: Effective Visual Impairment: Limited Hearing Ability: Normal Foot Miter Operator Required: Voice Beliefs That Will Affect Care: None marital status: Current Living Situation: Spouse current occupational status: unemployed 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 How many Children do You have: 2 Feels Safe at Home: Yes Childhood Exposure to Second-Hand Smoke: No caffeine: Yes (coffee and tea 1 cup daily ) Dental Care, Regularly: Yes Physical Activity Frequency: Does not Exercise Seatbelt Use: always Sunscreen Use: No Assistive Devices: None Review of Systems Review of Systems: All systems reviewed & are unremarkable except as noted in HPI & below Physical Exam Constitutional: well developed, + thin and + frail appearing; no acute distress Eyes: + anicteric sclerae; no corneal abnormality ENMT: Mouth: + dry oral mucous membranes; no oral mucosal abnormality Neck: normal visual inspection and trachea midline Respiratory: normal respiratory effort Auscultation: lungs clear to auscultation bilaterally Cardiovascular: Rate/Rhythm: regular rate Heart Sounds: normal S1 and normal S2 Extremities: no edema Gastrointestinal (Abdomen): Inspection/Auscultation: + abdomen distended Percussion/Palpation: abdomen nontender Musculoskeletal: Extremities: no cyanosis and no clubbing Skin: normal turgor; no lesions Neurologic: Motor/Sensory: no tremor and no asterixis Psychiatric: Orientation: alert and oriented x 3 Results & Data ([facility]) Vital Signs (Past 12 Hours) Vital Signs Temp Pulse Pulse Resp BP Pulse Ox O2 Del Method 11/09/21 15:47 36.5 C 69 18 113/76 100 Room Air 11/09/21 15:28 62 11/09/21 15:24 68 11/09/21 12:03 36.5 C 68 18 102/66 100 Room Air 11/09/21 08:45 68 11/09/21 08:36 36.6 C 70 16 91/51 L 97 Room Air 11/09/21 08:08 Room Air 11/09/21 06:15 68 11/09/21 04:42 36.4 C L 67 18 132/82 100 Room Air Laboratory Results Laboratory Results - last 24 hr 11/08/21 11/08/21 11/08/21 20:40 20:40 20:40 WBC 11.51 H RBC 3.67 L Hgb 12.4 Hct 35.8 MCV 97.5 MCH 33.8 MCHC 34.6 RDW Std Deviation 42.5 RDW Coeff of Jorge Luis 11.9 Plt Count 458 H MPV 9.0 L Immature Gran % (Auto) 0.5 Neut % (Auto) 70.9 Lymph % (Auto) 20.3 Cocke % (Auto) 6.7 Eos % (Auto) 1.0 Baso % (Auto) 0.6 Neut # (Auto) 8.15 H Lymph # (Auto) 2.34 Cocke # (Auto) 0.77 Eos # (Auto) 0.12 Baso # (Auto) 0.07 Immature Gran # (Auto) 0.06 H Sodium 123 L Potassium 6.2 H* Chloride 91 L Carbon Dioxide 22 Anion Gap 10 BUN 73 H Creatinine 1.15 Est Cr Clr Drug Dosing 39.8 Est GFR ( Amer) 59.9 Est GFR (Non-Af Amer) 51.7 BUN/Creatinine Ratio 63.5 H Glucose 100 H Calcium 11.5 H Ionized Calcium Phosphorus Magnesium 2.1 Total Bilirubin 0.8 AST 59 H ALT 36 Alkaline Phosphatase 218 H Total Protein 8.6 H Albumin 4.7 Globulin 3.9 Albumin/Globulin Ratio 1.2 TSH 4.226 PTH Intact PTH Related Protein Hepatitis C Ab (EIA) Hep C Ab Signal/Cutoff SARS-CoV-2, RNA, NAAT 07/28/22 07/29/22 07/29/22 22:00 00:44 00:44 WBC RBC Hgb Hct MCV MCH MCHC RDW Std Deviation RDW Coeff of Jorge Luis Plt Count MPV Immature Gran % (Auto) Neut % (Auto) Lymph % (Auto) Cocke % (Auto) Eos % (Auto) Baso % (Auto) Neut # (Auto) Lymph # (Auto) Cocke # (Auto) Eos # (Auto) Baso # (Auto) Immature Gran # (Auto) Sodium Potassium Chloride Carbon Dioxide Anion Gap BUN Creatinine Est Cr Clr Drug Dosing Est GFR ( Amer) Est GFR (Non-Af Amer) BUN/Creatinine Ratio Glucose Calcium Ionized Calcium 1.43 H Phosphorus Magnesium Total Bilirubin AST ALT Alkaline Phosphatase Total Protein Albumin Globulin Albumin/Globulin Ratio TSH PTH Intact 8.3 L PTH Related Protein Hepatitis C Ab (EIA) Hep C Ab Signal/Cutoff SARS-CoV-2, RNA, NAAT NEGATIVE 11/09/21 11/09/21 11/09/21 00:44 06:39 06:39 WBC 10.44 RBC 3.45 L Hgb 11.6 L Hct 33.1 L MCV 95.9 MCH 33.6 MCHC 35.0 RDW Std Deviation 41.4 RDW Coeff of Jorge Luis 11.9 Plt Count 351 MPV 8.9 L Immature Gran % (Auto) 0.6 Neut % (Auto) 67.8 Lymph % (Auto) 22.2 Cocke % (Auto) 7.0 Eos % (Auto) 2.0 Baso % (Auto) 0.4 Neut # (Auto) 7.08 H Lymph # (Auto) 2.32 Cocke # (Auto) 0.73 Eos # (Auto) 0.21 Baso # (Auto) 0.04 Immature Gran # (Auto) 0.06 H Sodium 124 L 126 L Potassium 5.4 H 5.2 H Chloride 91 L 93 L Carbon Dioxide 24 24 Anion Gap 9 9 BUN 70 H 68 H Creatinine 1.05 1.04 Est Cr Clr Drug Dosing 43.6 47.6 Est GFR ( Amer) 66.9 67.6 Est GFR (Non-Af Amer) 57.7 58.4 BUN/Creatinine Ratio 66.7 H 65.4 H Glucose 108 H 102 H Calcium 11.2 H 10.8 H Ionized Calcium Phosphorus 5.8 H Magnesium 1.9 Total Bilirubin 0.7 AST 47 H ALT 31 Alkaline Phosphatase 195 H Total Protein 7.4 Albumin 4.2 Globulin 3.2 Albumin/Globulin Ratio 1.3 TSH PTH Intact PTH Related Protein Hepatitis C Ab (EIA) Hep C Ab Signal/Cutoff SARS-CoV-2, RNA, NAAT 11/09/21 11/09/21 11/09/21 06:39 06:39 12:53 WBC RBC Hgb Hct MCV MCH MCHC RDW Std Deviation RDW Coeff of Jorge Luis Plt Count MPV Immature Gran % (Auto) Neut % (Auto) Lymph % (Auto) Cocke % (Auto) Eos % (Auto) Baso % (Auto) Neut # (Auto) Lymph # (Auto) Cocke # (Auto) Eos # (Auto) Baso # (Auto) Immature Gran # (Auto) Sodium 127 L Potassium 5.2 H Chloride 94 L Carbon Dioxide 26 Anion Gap 7 BUN 66 H Creatinine 1.17 Est Cr Clr Drug Dosing 42.3 Est GFR ( Amer) 58.7 Est GFR (Non-Af Amer) 50.6 BUN/Creatinine Ratio 56.4 H Glucose 97 Calcium 10.6 H Ionized Calcium 1.34 H Phosphorus Magnesium Total Bilirubin AST ALT Alkaline Phosphatase Total Protein Albumin Globulin Albumin/Globulin Ratio TSH PTH Intact PTH Related Protein Hepatitis C Ab (EIA) Pending Hep C Ab Signal/Cutoff Pending SARS-CoV-2, RNA, NAAT 11/09/21 12:53 WBC RBC Hgb Hct MCV MCH MCHC RDW Std Deviation RDW Coeff of Jorge Luis Plt Count MPV Immature Gran % (Auto) Neut % (Auto) Lymph % (Auto) Cocke % (Auto) Eos % (Auto) Baso % (Auto) Neut # (Auto) Lymph # (Auto) Cocke # (Auto) Eos # (Auto) Baso # (Auto) Immature Gran # (Auto) Sodium Potassium Chloride Carbon Dioxide Anion Gap BUN Creatinine Est Cr Clr Drug Dosing Est GFR ( Amer) Est GFR (Non-Af Amer) BUN/Creatinine Ratio Glucose Calcium Ionized Calcium Phosphorus Magnesium Total Bilirubin AST ALT Alkaline Phosphatase Total Protein Albumin Globulin Albumin/Globulin Ratio TSH PTH Intact PTH Related Protein Pending Hepatitis C Ab (EIA) Hep C Ab Signal/Cutoff SARS-CoV-2, RNA, NAAT PG Care Time/CCT Total # of Minutes Spent Total Time Spent with Patient: Total time spent is greater than 50% in coordination of care (as documented) at patient's floor/unit and/or counseling patient: Coding Level of Care Code 73225 Inpt Consult Level 4 Diagnoses Renal insufficiency N28.9 Acute hyperkalemia E87.5 Hypercalcemia E83.52 Hyponatremia E87.1 Cirrhosis K74.60 Pancreatic mass K86.89
[2021-11-09] MEDS ORDERED: KETOROLAC 30 MG/ML VIAL IV ONE (16:00)
[2021-11-09] MEDS ORDERED: ACETAMINOPHEN 500 MG TAB PO PRN (16:00)
[2021-11-09 18:31] LABS: Albumin Level 4.3 gm/dl (3.4-5.0); BUN Creatinine Ratio 47.9 (10-20); Calcium 10.7 mg/dl (8.5-10.1); Creatinine Clr Calc Pharmacy 35.3 ml/min; Est GFR (African American) 47.2 ml/min; Est GFR (Non-African American) 40.7 ml/min; Phosphorus 5.1 mg/dl (2.5-4.9); Potassium 4.8 mmol/L (3.5-5.1)
[2021-11-09] MEDS ORDERED: KETOROLAC TROMETHAMINE 15 MG/ML VIAL IV ONE (19:15)
[2021-11-09] MEDS ORDERED: OPTIRAY 320 100ml IV ONE (20:17)
--- NOTE | 2021-11-09 21:03 | CT Scan Report ---
CT pancreas 3-phase wo/w con CLINICAL HISTORY: pt with hypercalcemia, mri 10/13 with ? 7mm lesion COMPARISON STUDY: CT of the abdomen and pelvis October 12, 2021. MRI of the abdomen October 13, 2021. TECHNIQUE: Unenhanced, arterial and venous phase imaging of the abdomen was performed. Intravenous in jection of 94 cc of Optiray 320 IV was uneventful. Automated exposure control was utilized for the st udy. A dose lowering technique was utilized adhering to the principles of ALARA. FINDINGS: The liver is cirrhotic. No hepatic lesions are identified. There is no biliary ductal dilat ation. Recanalized paraumbilical vein is again noted. Ascites shown on CT of October 12, 2021 and MRI of October 13, 2021 has resolved. There is minimal residual upper abdominal stranding. Pancreatic ductal dil atation is similar to CT of October 12, 2021. The main pancreatic duct measures 7 mm in caliber. Pancreas divisum is again noted. An ill-defined hypodense focus within the pancreatic head measures 1.3 cm, b est shown on arterial phase study. This is slightly more conspicuous than on prior CT although could be due to differences in phase of enhancement. Soft tissue thickening along the inferomedial aspect o f the proximal duodenum is again noted. This was shown on prior exam. Adjacent inflammation has decre ased. Possible 7 mm cystic focus between the pancreatic head and duodenum is noted. Major vasculature is patent. There is moderate plaque of the abdominal aorta. A prominent mesenteric lymph node measur es 1.3 x 0.6 cm and has slightly increased in size and is shown on axial image 196 of 256. This node is indeterminate. Spleen, adrenal glands and kidneys are normal. There is no hydronephrosis. Caliber and wall thickness of visualized small and large bowel are normal. Avascular necrosis of the femoral heads is depicted on the straight cutter machine tomogram. IMPRESSION: 1. Slight increased conspicuity of a 1.3 cm ill-defined hypodense focus within the pancreatic head. S table pancreatic ductal dilatation with mild irregularity of the pancreatic duct within the pancreati c head. Persistent soft tissue thickening/inflammation along the proximal duodenum. These findings ma y represent paraduodenal pancreatitis. However, a pancreatic head mass such as adenocarcinoma could a ppear similar. GI consultation for consideration for EUS is recommended. 2. Cirrhosis with recanalized paraumbilical vein indicative of portal hypertension. No hepatic lesion s. Resolution of ascites. 3. Mild increase in size of a prominent mesenteric lymph node. ACT 112: Negative or not required by law. Electronically signed by: Humberto Guillen M.D. 11/09/2021 9:00 PM
--- NOTE | 2021-11-09 21:05 | Electrocardiogram Report ---
Test Reason : Blood Pressure : / mmHG Vent. Rate : 062 BPM Atrial Rate : 062 BPM P-R Int : 192 ms QRS Dur : 086 ms QT Int : 424 ms P-R-T Axes : 073 068 064 degrees QTc Int : 430 ms Normal sinus rhythm Possible Left atrial enlargement Borderline ECG When compared with ECG of 20-OCT-2021 11:24, Nonspecific T wave abnormality no longer evident in Inferior leads T wave amplitude has increased in Anterior leads Confirmed by Franki Wang ([id number]) on 11/09/2021 9:05:22 PM Referred By: Provider Outside Confirmed By:Franki Wang
--- NOTE | 2021-11-09 21:12 | Electrocardiogram Report ---
Test Reason : Blood Pressure : / mmHG Vent. Rate : 067 BPM Atrial Rate : 067 BPM P-R Int : 186 ms QRS Dur : 076 ms QT Int : 422 ms P-R-T Axes : 071 073 066 degrees QTc Int : 445 ms Normal sinus rhythm Normal ECG When compared with ECG of 08-NOV-2021 20:33, (unconfirmed) No significant change was found Confirmed by Franki Wang ([id number]) on 11/09/2021 9:11:51 PM Referred By: Provider Outside Confirmed By:Franki Wang
--- NOTE | 2021-11-09 21:13 | Electrocardiogram Report ---
Test Reason : Blood Pressure : / mmHG Vent. Rate : 063 BPM Atrial Rate : 063 BPM P-R Int : 186 ms QRS Dur : 076 ms QT Int : 436 ms P-R-T Axes : 073 069 066 degrees QTc Int : 446 ms Normal sinus rhythm Normal ECG When compared with ECG of 09-NOV-2021 01:56, (unconfirmed) No significant change was found Confirmed by Franki Wang ([id number]) on 11/09/2021 9:13:02 PM Referred By: Provider Outside Confirmed By:Franki Wang
[2021-11-09] MEDS: MELATONIN 3 MG TAB PO PRN (21:52)
[2021-11-09] MEDS: GABAPENTIN 300 MG CAP PO SCH (21:52)
[2021-11-09] MEDS: ATORVASTATIN 20 MG TAB PO SCH (21:52)
[2021-11-09] MEDS: FLUoxetine HCL 20 MG CAP PO SCH (21:52)
[2021-11-10] MEDS: ATENOLOL 25 MG TABLET PO SCH (08:10)
[2021-11-10] MEDS: RIVAROXABAN 20 MG TAB PO SCH (08:10)
[2021-11-10] MEDS: FUROSEMIDE 40 MG TAB PO SCH (08:10)
--- NOTE | 2021-11-10 08:10 | Hospitalist Progress Note ---
Date of Service November 10, 2021 Assessment & Plan (1) Acute hyperkalemia: Plan: 61yo female with HTN, HLD, lupus anticoagulant disorder and history of PE (on xarelto), alcohol use disorder, cirrhosis, and MDD presents after being referred to [facility] by her PCP for asymptomatic hyperkalemia (6.4) and hyponatremia (124) were incidentally found on labs. Labs on admission were also particularly notable for hypercalcemia, hyperphosphatemia and elevated BUN. Hypercalcemia On admission, patient noted with asymptomatic hypercalcemia with elevations noted in both serum calcium (11.2) and ionized calcium (1.43) PTH low (8.3), magnesium normal (2.1), TSH normal Differential includes excessive vitamin D use, malignancy Hold vitamin D supplementation Appreciate nephrology management pending pTh RP, with suggestion of small pancreatic head hypodensity, repeat pancreatic CT with slight change in one month, consider GI med consult for EUS inpt or outpt in 2020 did have paraspinous mass biopsied by [facility] at [facility] and found not to be suggestive of malignancy but extramedullary hematopoiesis afp and Ca 19-9 sent Acute hyperkalemia Potassium 6.4 on outpatient labs, 6.2 on arrival to the ED Patient asymptomatic but peaked T waves noted on EKG - therefore qualifies as acute severe hypokalemia In ED, received calcium gluconate 1g IV (x1), insulin 5u, and one amp of D50 Ordered lasix IV 60mg (x1) and NSS@125mL/hr (x2 bags ordered); repeat potassium 5.4 Nephrology consulted - helping to manage multiple electrolyte abnormalities Hold spironolactone Hyponatremia Sodium on admission 123, repeat 124; patient has history of chronic mild hyponatremia (typically low 130s) but did have hyponatremia to low 120s last admission Suspect secondary to cirrhosis Free water restriction (1L/day) and NaCl restricted diet (2g/day) as per nephrology note from prior admission Hold home vitamin D supplementation, continue home lasix 40mg PO qd Chronic anticoagulation pt chronically on Xarelto for lupus anticoagulant and PE, will consider change to sc heparin if some procedures anticipated Elevated BUN On admission, BUN elevated (65) out of proportion to rise in creatinine FOBT positive hgb has been stable not suspecting active bleeding Transaminitis, cirrhosis, history of alcohol use disorder Labs on admission notable for elevated AST (59) and AlkP (218); ALT and Tbili were normal Patient has a known history of cirrhosis, also was on statin and ssri Patient reports she has only had one sip of wine since discharge on 10/26; would still recommend consideration of naltrexone therapy; PCP follow-up recommended HLD: home atorvastatin HTN: home atenolol, furosemide LILLY: home buspirone MDD: home fluoxetine Code status: full code DVT ppx: home xarelto Held home meds: vitamin D, spironolactone Consults: nephrology PT/OT: ordered (2) Hypercalcemia: (3) Chronic anticoagulation: (4) Cirrhosis: (5) Elevated alkaline phosphatase level: (6) Elevated AST (SGOT): (7) Hepatosplenomegaly: (8) Lupus anticoagulant disorder: Admission and Anticipated Discharge Date Admission Date: November 08, 2021 Subjective pt is tired, did not sleep well has some arthralgia req toradol Review of Systems Review of Systems: Mild distress and moderate fatigue no headache, no visual changes no speech or swallowing issues no chest pain, pressure or palpitations no shortness of breath, cough or wheezes no abdominal pain, slight distension, no nausea or vomiting, diarrhea or constipation no dysuria, hematuria or frequency no focal joint pain or swelling no back pain, CVA tenderness or radicular pain no bruising, bleeding or rashes no focal signs of weakness or numbness or altered sensation no complaints of anxiety or depression.. Physical Exam Physical Exam: The patient appeared chronically ill and fatigued Vital signs as documented. Head exam is normocephalic atraumatic Neck is without JVD, thyromegaly, or carotid bruits. Lungs are clear to auscultation, no focal loss of breath sounds Cardiac exam, Rhythm is regular.. No murmurs, rubs or gallops. Abdominal exam reveals normal bowel sounds, soft easily palpated liver, dull distension is mild Extremities are trace edema and both pedal pulses are present Neurologic exam is alert and oriented, no focal loss of strength or sensation Skin is without bruises or rashes Psychologically is without concerns for anxiety or depression.. Results & Data Results & Data ([facility]) Vital Signs (Past 12 Hours) Vital Signs Temp Pulse Resp BP Pulse Ox O2 Del Method 11/10/21 07:06 97.7 F 65 17 100/65 97 Room Air 11/10/21 03:43 98.1 F 71 16 92/55 L 97 Room Air 11/09/21 23:33 97.9 F 67 16 100/65 99 Room Air PG Care Time/CCT Total # of Minutes Spent Total Time Spent with Patient: Total time spent is greater than 50% in coordination of care (as documented) at patient's floor/unit and/or counseling patient: Coding Level of Care Code 47187 Subseq Hosp Care Lvl 2 Diagnoses Acute hyperkalemia E87.5 Hypercalcemia E83.52 Chronic anticoagulation Z79.01 Cirrhosis K74.60 Elevated alkaline phosphatase level R74.8 Elevated AST (SGOT) R74.01 Hepatosplenomegaly R16.2 Lupus anticoagulant disorder D68.62
--- NOTE | 2021-11-10 08:41 | Nephrology Progress Note ---
Date of Service November 10, 2021 Assessment & Plan (1) Renal insufficiency: Plan: * JERICA due to intravascular volume contraction. Creatinine improved following gentle hydration * Furosemide 40 mg po daily has been restarted * Monitor PRP (2) Acute hyperkalemia: Plan: * Corrected. Continue low potassium diet. Hold spironolactone (3) Hypercalcemia: Plan: * Non-PTH mediated * Pancreatic mass concerning for malignancy * Recommend consultation w/ GI for EUS (4) Hyponatremia: Plan: * Related to 3rd spacing of volume related to cirrhosis * Encourage oral solute intake * Restrict free water to 1.2 L daily (5) Pancreatic mass: Plan: * Will require EUS * CA 19-9 level is pending Admission and Anticipated Discharge Date Admission Date: November 08, 2021 Subjective Mrs. Guy was evaluated in her hospital room this morning. She denied abdominal pain, nausea or diarrhea. Review of Systems Constitutional: no fever Eyes: no problem reported Ear, Nose, Mouth, Throat: no problem reported Respiratory: no cough and no dyspnea Cardiovascular: no chest pain, no palpitations and no edema Gastrointestinal: no abdominal pain Genitourinary: no dysuria and no hematuria Musculoskeletal: no back pain Integumentary: no rash Neurologic: no confusion Physical Exam Constitutional: + thin and + frail appearing Eyes: PERRL, conjunctivae normal, anicteric sclerae ENMT: external ear and nose normal, oropharynx normal Neck: trachea midline, no thyromegaly Respiratory: normal respiratory effort, lungs clear to auscultation Cardiovascular: RRR, no murmur, no edema Gastrointestinal (Abdomen): Inspection/Auscultation: + abdomen distended and + hypoactive bowel sounds Percussion/Palpation: abdomen nontender and no guarding Skin: no rashes, warm and dry Neurologic: awake; not confused Results & Data ([facility]) Vital Signs (Past 12 Hours) Vital Signs Temp Pulse Resp BP Pulse Ox O2 Del Method 11/10/21 07:06 36.5 C 65 17 100/65 97 Room Air 11/10/21 03:43 36.7 C 71 16 92/55 L 97 Room Air 11/09/21 23:33 36.6 C 67 16 100/65 99 Room Air Laboratory Results Laboratory Tests 11/09/21 11/10/21 11/10/21 12:53 07:44 07:44 Sodium 126 L Potassium 4.9 Chloride 93 L Carbon Dioxide 24 BUN 73 H Creatinine 1.21 H Calcium 10.8 H CA 19-9 Antigen Pending PTH Related Protein Pending 11/09/21 11/10/21 12:53 07:44 CA 19-9 Antigen Pending PTH Related Protein Pending Diagnostic Findings 11/09/[address]: 1. Slight increased conspicuity of a 1.3 cm ill-defined hypodense focus within the pancreatic head. Stable pancreatic ductal dilatation with mild irregularity of the pancreatic duct within the pancreatic head. Persistent soft tissue thickening/inflammation along the proximal duodenum. These findings may represent paraduodenal pancreatitis. However, a pancreatic head mass such as adenocarcinoma could appear similar. GI consultation for consideration for EUS is recommended. 2. Cirrhosis with recanalized paraumbilical vein indicative of portal hypertension. No hepatic lesions. Resolution of ascites. 3. Mild increase in size of a prominent mesenteric lymph node. PG Care Time/CCT Total # of Minutes Spent Total Time Spent with Patient: Total time spent is greater than 50% in coordination of care (as documented) at patient's floor/unit and/or counseling patient: Coding Level of Care Code 22776 Subseq Hosp Care Lvl 3 Diagnoses Renal insufficiency N28.9 Acute hyperkalemia E87.5 Hypercalcemia E83.52 Hyponatremia E87.1 Pancreatic mass K86.89
[2021-11-10 09:43] LABS: Albumin Globulin Ratio 1.2 (0.9-2); Albumin Level 4.1 gm/dl (3.4-5.0); BUN Creatinine Ratio 60.3 (10-20); Bilirubin,Total 0.5 mg/dl (0.2-1.0); Calcium 10.8 mg/dl (8.5-10.1); Creatinine Clr Calc Pharmacy 42.1 ml/min; Est GFR (African American) 56.3 ml/min; Est GFR (Non-African American) 48.6 ml/min; Globulin 3.3 gm/dl (2.5-4.0); Phosphorus 5.9 mg/dl (2.5-4.9); Potassium 4.9 mmol/L (3.5-5.1); Total Protein 7.4 gm/dl (6.0-8.3)
[2021-11-10] MEDS ORDERED: KETOROLAC TROMETHAMINE 15 MG/ML VIAL IV ONE (12:21)
[2021-11-10] MEDS: ATORVASTATIN 20 MG TAB PO SCH (20:44)
[2021-11-10] MEDS: GABAPENTIN 300 MG CAP PO SCH (20:45)
[2021-11-10] MEDS: FLUoxetine HCL 20 MG CAP PO SCH (20:45)
[2021-11-10] MEDS: MELATONIN 3 MG TAB PO PRN (20:58)
[2021-11-11 07:37] LABS: BUN Creatinine Ratio 75.4 (10-20); Calcium 10.3 mg/dl (8.5-10.1); Creatinine Clr Calc Pharmacy 45.2 ml/min; Est GFR (African American) 60.5 ml/min; Est GFR (Non-African American) 52.2 ml/min; Magnesium 1.7 mg/dl (1.7-2.4)
[2021-11-11] MEDS: FUROSEMIDE 40 MG TAB PO SCH (08:35)
[2021-11-11] MEDS: ATENOLOL 25 MG TABLET PO SCH (08:35)
[2021-11-11] MEDS: RIVAROXABAN 20 MG TAB PO SCH (08:35)
--- NOTE | 2021-11-11 09:09 | Nephrology Progress Note ---
Date of Service November 11, 2021 Assessment & Plan (1) Renal insufficiency: Plan: * JERICA due to intravascular volume contraction. Creatinine improved following gentle hydration. Baseline 0.7 - 1.0 * Furosemide 40 mg po daily has been restarted * Monitor PRP (2) Acute hyperkalemia: Plan: * Corrected. Continue low potassium diet. Hold spironolactone (3) Hypercalcemia: Plan: * Non-PTH mediated * Pancreatic mass concerning for malignancy * Recommend consultation w/ GI for EUS * Serum Ca is trending down off vitamin D supplement (4) Hyponatremia: Plan: * Related to 3rd spacing of volume related to cirrhosis * Encourage oral solute intake * Restrict free water to 1.2 L daily (5) Pancreatic mass: Plan: * Will require EUS * CA 19-9 level is pending Admission and Anticipated Discharge Date Admission Date: November 08, 2021 Subjective Mrs. Guy was evaluated in her hospital room this morning. She denied abdominal pain, nausea or diarrhea. Review of Systems Constitutional: no fever Eyes: no problem reported Ear, Nose, Mouth, Throat: no problem reported Respiratory: no cough and no dyspnea Cardiovascular: no chest pain, no palpitations and no edema Gastrointestinal: no abdominal pain Genitourinary: no dysuria and no hematuria Musculoskeletal: no back pain Integumentary: no rash Neurologic: no confusion Physical Exam Constitutional: + thin and + frail appearing Eyes: PERRL, conjunctivae normal, anicteric sclerae ENMT: external ear and nose normal, oropharynx normal Neck: trachea midline, no thyromegaly Respiratory: normal respiratory effort, lungs clear to auscultation Cardiovascular: RRR, no murmur, no edema Gastrointestinal (Abdomen): Inspection/Auscultation: + abdomen distended and + hypoactive bowel sounds Percussion/Palpation: abdomen nontender and no guarding Skin: no rashes, warm and dry Neurologic: awake; not confused Results & Data ([facility]) Vital Signs (Past 12 Hours) Vital Signs Temp Pulse Resp BP Pulse Ox O2 Del Method 11/11/21 07:32 36.6 C 65 18 103/63 100 Room Air 11/11/21 02:34 36.4 C L 70 20 105/58 L 99 Room Air 11/10/21 22:25 36.5 C 73 20 94/58 L 98 Room Air Laboratory Results Laboratory Tests 11/11/21 06:10 Sodium 129 L Potassium 5.0 Chloride 97 L Carbon Dioxide 23 BUN 86 H Creatinine 1.14 Glucose 91 Calcium 10.3 H Laboratory Tests 11/10/21 07:44 CA 19-9 Antigen Pending Maternal Serum AFP Pending PG Care Time/CCT Total # of Minutes Spent Total Time Spent with Patient: Total time spent is greater than 50% in coordination of care (as documented) at patient's floor/unit and/or counseling patient: Coding Level of Care Code 58472 Subseq Hosp Care Lvl 3 Diagnoses Renal insufficiency N28.9 Acute hyperkalemia E87.5 Hypercalcemia E83.52 Hyponatremia E87.1 Pancreatic mass K86.89
--- NOTE | 2021-11-11 14:54 | Discharge Summary ---
Date of Service November 11, 2021 Admission HPI Per Admitting Provider 61yo female with HTN, HLD, lupus anticoagulant disorder and history of PE (on xarelto), alcohol use disorder, cirrhosis, and MDD presents after being referred to [facility] by her PCP after hyperkalemia (6.4) and hyponatremia (124) were incidentally found on labs. Patient is asymptomatic at this time and denies fever, chills, headache, vision changes, CP, palpitations, SOB, abdominal pain, nausea, vomiting, dysuria, diarrhea, lightheadedness, dizziness, weakness, or other symptoms. Of note, patient was recently admitted at [facility] (10/12 to 10/26) for hypomagnesemia, ascites suspected to be related to cirrhosis, and pancreatitis. In the ED, all vitals were stable, and patient was resting comfortably. Initial potassium was 6.2 and sodium was 124. Labs were otherwise notable for mild leukocytosis (11.5), mild thrombocytopenia (458). BUN was elevated (70) with normal-range creatinine (1.05) although this creatinine represents a tripling or quadrupling of patient's baseline creatinine. Calcium was elevated (11.2) as was ionized calcium (1.43). LFTs were notable for minor elevations in AST (59) and AlkP (218) with normal ALT and Tbili. TSH was normal. PTH level pending. EKG was notable for peaked T waves. Patient received calcium gluconate 1g IV (x1), insulin 5u, and one amp of D50. Surrogate decision maker in case of an emergency: spouse Joseph Guy (cell: [phone]) Principal Diagnosis hyperkalemia from mediation hyponatremia hypercalcemia, in need of further work up pancreatic hypodensity Discharge Data Allergies Allergy/AdvReac Type Severity Reaction Status Date / Time No Known Allergies Allergy Verified 11/08/21 21:45 Consultations 11/08/21 21:22 ED Decision to Admit Stat 11/09/21 07:00 Consult Nephrology Routine Ordered Studies 11/09/21 17:54 CT pancreas 3-phase wo/w con Routine Hospital Course (1) Acute hyperkalemia: 61yo female with HTN, HLD, lupus anticoagulant disorder and history of PE (on xarelto), alcohol use disorder, cirrhosis, and MDD presents after being referred to [facility] by her PCP for asymptomatic hyperkalemia (6.4) and hyponatremia (124) were incidentally found on labs. Labs on admission were also particularly notable for hypercalcemia, hyperphosphatemia and elevated BUN. Hypercalcemia On admission, patient noted with asymptomatic hypercalcemia with elevations noted in both serum calcium (11.2) and ionized calcium (1.43) PTH low (8.3), magnesium normal (2.1), TSH normal Differential includes excessive vitamin D use, malignancy Hold vitamin D supplementation Appreciate nephrology management pending pTh RP, with suggestion of small pancreatic head hypodensity, repeat pancreatic CT with slight change in one month, consider GI med consult for EUS inpt or outpt in 2020 did have paraspinous mass biopsied by [facility] at [facility] and found not to be suggestive of malignancy but extramedullary hematopoiesis afp and Ca 19-9 sent Acute hyperkalemia Potassium 6.4 on outpatient labs, 6.2 on arrival to the ED Patient asymptomatic but peaked T waves noted on EKG - therefore qualifies as acute severe hypokalemia In ED, received calcium gluconate 1g IV (x1), insulin 5u, and one amp of D50 Ordered lasix IV 60mg (x1) and NSS@125mL/hr (x2 bags ordered); repeat potassium 5.4 Nephrology consulted - helping to manage multiple electrolyte abnormalities Hold spironolactone Hyponatremia Sodium on admission 123, repeat 124; patient has history of chronic mild hyponatremia (typically low 130s) but did have hyponatremia to low 120s last admission Suspect secondary to cirrhosis Free water restriction (1.5L/day) and NaCl restricted diet (1.5g/day) Hold home vitamin D supplementation, continue home lasix 40mg PO qd Chronic anticoagulation pt chronically on Xarelto for lupus anticoagulant and PE Elevated BUN On admission, BUN elevated (65) out of proportion to rise in creatinine FOBT positive hgb has been stable not suspecting active bleeding consider suggestion of colonoscopy in near future will see GI for pancreatic mass Transaminitis, cirrhosis, history of alcohol use disorder Labs on admission notable for elevated AST (59) and AlkP (218); ALT and Tbili were normal Patient has a known history of cirrhosis, also was on statin and ssri Patient reports she has only had one sip of wine since discharge on 10/26; would still recommend consideration of naltrexone therapy; PCP follow-up recommended Code status: full code DVT ppx: home xarelto Held home meds: vitamin D, spironolactone Labs this week to pcp (2) Hypercalcemia: (3) Chronic anticoagulation: (4) Cirrhosis: (5) Elevated alkaline phosphatase level: (6) Elevated AST (SGOT): (7) Hepatosplenomegaly: (8) Lupus anticoagulant disorder: Total Time Total Time Spent Total Time Spent (In Minutes): It required greater than 30 minutes to prepare this patient for discharge Discharge Plan Discharge Items Patient Disposition: Home - Self-Care Reason For Visit: HYPERKALEMIA, HYPONATREMIA Discharge Diagnosis: hyponatremia hyperkalemia pancreatic evaluation Activity: Resume your previous activity Non-emergency contact: Primary Care Provider and 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 Call non-emergency contact if: your symptoms worsen Follow-up/Referrals: Rachid Cool MD [Primary Care Provider] - (* APPT REQUESTED THROUGH [facility] *) Diet: Regular Fluids: 1500ml (6 cups) Diet Comment: 1500 mg sodium Ambulatory Orders: Comprehensive Metabolic Panel (Routine) Timeframe: 3 Days Location: Determined by Patient Ordered By: Demond Landers (Recollect EDLab Use Only) (Routine) Timeframe: 3 Days Location: Determined by Patient Ordered By: Demond Shaikh Addtl Attending Provider Instructions: please be sure to follow up with Gastroenterology keep on a 1500ml fluid restriction and 1500mg sodium have blood work this week Pending Studies at Discharge: No Stand-Alone Forms: My [facility] CSA Medical, Smoking Cessation Medications and DC Order Prescriptions: Continued buspirone 10 mg tablet 5 - 10 mg PO Q8H PRN (Reason: anxiety) Qty: 45 0RF atorvastatin 20 mg tablet 20 mg PO PM Qty: 90 3RF atenolol 25 mg tablet 25 mg PO QAM Qty: 90 3RF multivitamin Tablet 1 tab PO PM fluoxetine [Prozac] 20 mg capsule 20 mg PO PM Xarelto 20 mg tablet 20 mg PO DAILY Rx Instructions: TAKE ONE TABLET BY MOUTH EVERY DAY. MUST TAKE WITH A MEAL/FOOD gabapentin 300 mg capsule 300 mg PO QPM Rx Instructions: is ordered bid but patient just takes 1 tab hs furosemide 40 mg Tablet 40 mg PO QAM 30 Days Qty: 30 0RF Changed Mag 64 64 mg Tablet,Delayed Release (Dr/Ec) 128 mg PO DAILY 30 Days Qty: 60 0RF Discontinued cyanocobalamin (vitamin B-12) [Vitamin B-12] 1,000 mcg tablet 1,000 mcg PO PM cholecalciferol (vitamin D3) 2,000 unit capsule 2,000 units PO QAM spironolactone 100 mg Tablet 100 mg PO DAILY 30 Days Qty: 30 0RF Discharge Orders: Discharge Order (Routine); Ordered 11/11/21 Ordered By: Demond Shaikh Admission Data Admit Date/Time: 11/08/21 22:34 Attending Provider: Demond Shaikh Admit Provider: James Woodson Primary Care Provider: Rachid Cool Other Providers: Radha Ward Kevin C. Other Interventions: Discharge Summary Assessment (RN) Last Done: 11/11/21 11:35 Coding Level of Care Code D/C DAY MANAGEMENT >30 MINS Diagnoses Acute hyperkalemia E87.5 Hypercalcemia E83.52 Chronic anticoagulation Z79.01 Cirrhosis K74.60 Elevated alkaline phosphatase level R74.8 Elevated AST (SGOT) R74.01 Hepatosplenomegaly R16.2 Lupus anticoagulant disorder D68.62
--- NOTE | 2021-11-11 18:45 | Electrocardiogram Report ---
Test Reason : Blood Pressure : / mmHG Vent. Rate : 063 BPM Atrial Rate : 063 BPM P-R Int : 180 ms QRS Dur : 076 ms QT Int : 422 ms P-R-T Axes : 070 068 060 degrees QTc Int : 431 ms Normal sinus rhythm Early repolarization Normal ECG When compared with ECG of 09-NOV-2021 04:18, No significant change was found Confirmed by Wilmer Hare ([id number]) on 11/11/2021 6:44:42 PM Referred By: Provider Outside Confirmed By:Wilmer Hare
[2021-11-11 22:46] LABS: Cancer Antigen 19-9 <3 U/mL (<34)
[2021-11-13 11:11] LABS: AFP Tumor Marker Serum 2.4 ng/mL
== END 2021-11-11 12:49 | disposition home or self-care (01) | DRG 641 ==
LOC: ED 20:03 → SUATTDRO 22:34 → EDINP 22:34 → 2S 23:00

== ENCOUNTER 2022-05-18 11:23 | Inpatient (IN) ==
[2022-05-18] MEDS ORDERED: SODIUM CHLORIDE 0.9% 1000ML 1,000 ML IV STA (11:39)
[2022-05-18] MEDS ORDERED: KETOROLAC TROMETHAMINE 15 MG/ML VIAL IV STA (12:01)
[2022-05-18] MEDS ORDERED: MoRPHine SULFATE 4 MG/ML 1 ML CARP\\VIAL IV STA (12:01)
[2022-05-18] MEDS ORDERED: ONDANSETRON INJ 2 MG/ML 2 ML VIAL IV STA (12:01)
--- NOTE | 2022-05-18 12:10 | XRay Report ---
XR chest 1V portable HISTORY: 62 years-old Female SOB, dizzy acute shortness breath with dizziness COMPARISON: Acute abdominal series radiographs 10/17/2021 TECHNIQUE: AP view of the chest FINDINGS: Cardiomediastinal and hilar silhouettes are within normal limits. Atherosclerosis of the aorta. No pn eumothorax, pleural effusion, airspace consolidation or pulmonary edema. Bones of the chest appear gr ossly intact. IMPRESSION: No acute process. ACT 112: Negative or not required by law. The above report was generated using voice recognition software. It may contain grammatical, syntax o r spelling errors. Electronically signed by: Rolando Carlton M.D. 05/18/2022 12:09 PM
--- NOTE | 2022-05-18 12:17 | Emergency Department Note ---
ED Provider Note History of Present Illness Chief Complaint: Abdominal Pain Stated Complaint: ABD PAIN Time Seen by Provider: 05/18/22 11:37 62-year-old female who presents to the emergency department with her for evaluation of general abdominal pain radiating into her right lower quadrant and flank region. The patient reports that she has had pain since yesterday. She reports that the pain is constant and burning in nature. It does come in waves. She has had nausea and vomiting x3 this morning. She denies any fever or chills. The patient reports a prior history of pancreatitis, and reports that this feels the same. The patient does have prior history of alcoholism, but denies any recent alcohol use. The patient was admitted last summer to our facility with similar condition. She underwent an ERCP on 05/08/[address] 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 He recommended a watch and wait approach before deciding on further surgical intervention. The patient denies any lucy pain radiating into the chest, and denies any shortness of breath, fever or chills. The patient reports some constipation, frequently goi ng to the bathroom every other day. She reports that her bowel movement was harder today. She denies any bloody or mucus stools, or unusual discoloration. She currently rates her pain a 9 out of 10. Home Medications Medication Instructions Recorded Confirmed Type fluoxetine 20 mg capsule (Prozac) 20 mg PO PM 05/15/20 05/18/22 History atenolol 25 mg tablet 25 mg PO QAM #90 tabs 09/03/21 05/18/22 Rx rivaroxaban 20 mg tablet (Xarelto) 20 mg PO DAILY 11/08/21 05/18/22 History buspirone 10 mg tablet 5 - 10 mg PO TID PRN anxiety 11/16/21 05/18/22 History furosemide 40 mg tablet 40 mg PO QAM 90 days #90 tabs 04/02/22 05/18/22 Rx gabapentin 300 mg capsule 300 mg PO BID #180 caps 04/02/22 05/18/22 Rx atorvastatin 20 mg tablet 20 mg PO PM #90 tabs 04/11/22 05/18/22 Rx levothyroxine 25 mcg tablet 25 mcg PO QAM 05/18/22 05/18/22 History magnesium oxide 200 mg PO QPM 05/18/22 05/18/22 History magnesium oxide 400 mg PO QAM 05/18/22 05/18/22 History vitamin B complex 1 tab PO DAILY 05/18/22 05/18/22 History Allergies Allergy/AdvReac Type Severity Reaction Status Date / Time No Known Allergies Allergy Verified 05/18/22 15:27 Past Med/Surg History Medical History Anxiety Avascular necrosis of femoral neck b/l on CT abd/pelvis 04/2020 Calcification of abdominal aorta Depression Enlarged liver History of anemia History of bronchitis resolved HTN (hypertension), benign Hyponatremia Lump of skin of back lipoma Migraine hx Pancreas divisum Pulmonary embolism and one to groin 8 yrs ago> unknown causes> Xarelto Pulmonary nodules under surveillance Surgical History H/O colonoscopy (2016) Dr. Billings History of esophagogastroduodenoscopy (EGD) (2016) Dr. Billings History of laparoscopic appendectomy (05/23/20) Laparoscopic Appendectomy Dr. Naylor 05/23/2020 History of throat surgery small mass removed > benign History of tooth extraction History of tubal ligation (1996) Family History Mother Diabetes Hypertension Father Colorectal cancer Bladder cancer Grandmother (Paternal) Aneurysm Denies family history of Ovarian cancer Prostate cancer Myocardial infarction Breast cancer Social History Smoking Status: Current every day smoker Tobacco Type: Cigarettes Age Started Using Tobacco: 17; packs per day: 1; Cigarettes Per Day: 1PPD pt started when she was 17 yrs old; Second Hand Exposure: Yes; Do You Dip or Chew Tobacco: No; Tobacco Cessation Education Requested by Patient: Yes Hx Alcohol Use: No Hx Substance Use: No Preferred Language: Stateless Communication Ability: Effective Communication Ability Comment: wears glasses for reading Visual Impairment: Limited Hearing Ability: Normal 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 Beliefs That Will Affect Care: None marital status: Current Living Situation: Spouse current occupational status: unemployed 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 How many Children do You have: 2 Other Information That Helps Us Care for You: No Feels Safe at Home: Yes Safety Concerns: Feels Safe At This Time Childhood Exposure to Second-Hand Smoke: No caffeine: Yes (coffee and tea 1 cup daily ) Dental Care, Regularly: Yes Physical Activity Frequency: Does not Exercise Seatbelt Use: always Sunscreen Use: No Assistive Devices: Glasses Assistive Devices Comment: glasses for reading only Physical Exam Vital Signs Vital Signs - 24 hr 05/18/22 11:30 05/18/22 11:39 05/18/22 11:39 Temperature 37.1 C Temperature Source Temporal Artery Scan Pulse Rate - Lying 62 Pulse Rate - Sitting 62 Pulse Rate - Standing 67 Pulse Rate 61 Pulse Rate from SpO2 Sensor Respiratory Rate 22 Respiratory Effort / Characteristics Non-Labored Blood Pressure - Lying 118/73 Blood Pressure - Sitting 141/74 H Blood Pressure- Standing 124/85 Blood Pressure 85/51 L Blood Pressure Mean 62 Pulse Oximetry 100 95 Oxygen Delivery Method Room Air Room Air Sepsis Recent Fever Within 48 Hours No Sepsis New/Unexplained Change in Mental Status N/A Sepsis Action Taken by Nursing No Action Required 05/18/22 14:41 05/18/22 14:42 05/18/22 15:00 Temperature Temperature Source Pulse Rate - Lying Pulse Rate - Sitting Pulse Rate - Standing Pulse Rate 72 Pulse Rate from SpO2 Sensor 71 Respiratory Rate 12 Respiratory Effort / Characteristics Blood Pressure - Lying Blood Pressure - Sitting Blood Pressure- Standing Blood Pressure 126/78 128/84 Blood Pressure Mean 94 98 Pulse Oximetry 96 Oxygen Delivery Method Sepsis Recent Fever Within 48 Hours Sepsis New/Unexplained Change in Mental Status Sepsis Action Taken by Nursing 05/18/22 15:00 05/18/22 16:00 05/18/22 16:00 Temperature Temperature Source Pulse Rate - Lying Pulse Rate - Sitting Pulse Rate - Standing Pulse Rate 72 68 Pulse Rate from SpO2 Sensor 71 68 Respiratory Rate 18 11 L Respiratory Effort / Characteristics Blood Pressure - Lying Blood Pressure - Sitting Blood Pressure- Standing Blood Pressure 114/59 L Blood Pressure Mean 77 Pulse Oximetry 99 98 Oxygen Delivery Method Sepsis Recent Fever Within 48 Hours Sepsis New/Unexplained Change in Mental Status Sepsis Action Taken by Nursing CONSTITUTIONAL: Healthy and well nourished. Patient is laying in a right lateral recumbent position in moderate distress. HEENT: No scleral icterus or conjunctival injection/pallor. NECK: Full active range of motion without discomfort. LYMPHATICS: No cervical chain adenopathy. RESPIRATORY: Clear to auscultation bilaterally with no wheezing, crackles, rhonchi or stridor. Deep breathing worsens the patient's abdominal discomfort. CARDIOVASCULAR: Regular rate and rhythm with no murmurs, rubs or gallops. GASTROINTESTINAL: Bowel sounds present in all quadrants. Patient is generally tender throughout the entire abdomen, with more focus in the epigastric region and right lower quadrant. No definitive McBurney's point tenderness, Rovsing sign or psoas/obturator sign. Negative CVA tenderness. No abdominal rigidity, guarding or rebound. MUSCULOSKELETAL: Full range of motion of all joints without discomfort. INTEGUMENTARY: No rash or other significant dermatologic conditions noted. HEMATOLOGIC: No ecchymosis or petechiae. PSYCHIATRIC: Positive affect. NEUROLOGIC: No focal neurologic deficits noted. Course Course Patient history and physical exam were performed. Nurses notes were reviewed. Vital signs were reviewed, showing a hypotension of 85/51. The patient is not tachycardic or febrile. I did review prior medical records from October 2021, showing that the patient had 2 separate admissions, including hyperkalemia, hypo natremia, hypercalcemia and a pancreatic hypodensity. She did have multiple consultations for her condition, and spent several weeks in the hospital at that time. IV access was established, and labs were drawn.. Because of the patient's prior hyperkalemia and EKG changes, I did recommend cardiac work-up as well, and the patient was in agreement. IV access was established, and labs were drawn. An IV access was established, and labs were drawn. The patient was hydrated with normal saline, and administered IV morphine, Toradol and Zofran. An ECG was performed, showing a sinus bradycardia without any other concerning findings. The patient was placed on monitoring coordinator while in the emergency department. A portable chest x-ray was normal. Review of labs shows a lipase of 3700, and TSH of 6.098 with a normal free T4. CBC shows a mild anemia which is baseline for the patient. Patient is also mildly hyponatremic at 134. Creatinine is normal. Alkaline phosphatase is 189, with known chronic elevated lab values in comparison with prior labs. Lactate and magnesium were also normal. Urinalysis shows no hematuria or signs of infection. CT with IV contrast of the abdomen and pelvis shows evidence for acute pancreatitis, with further incidental findings and details as described in the following Medical Decision Making section. Findings were discussed with the patient and . I did recommend admission for further treatment and management, and the patient was in agreement. The case was discussed with Dr. Rodas, ED attending physician, as well as the [facility] Hospitalist (Dr. Tolentino). Please see their dictation for further treatment and final disposition. COVID test was ordered and was negative. The patient was administered additional IV Dilaudid prior to transfer of care to the hospitalist service. Administered Medications Hydromorphone HCl (Hydromorphone Inj 0.5 Mg/0.5 Ml Syr) 0.5 mg IV Q4 PRN PRN Reason: Pain Stop: 06/01/22 17:48 Last Admin: 05/18/22 18:29 Dose: 0.5 mg Documented By: JOAO Lactated Ringer's (Lr) 1,000 mls @ 200 mls/hr IV .Q5H ALISIA Stop: 06/17/22 17:48 Last Admin: 05/18/22 17:52 Dose: 200 mls/hr Documented By: [id number] Discontinued Medications Hydromorphone HCl (Hydromorphone Inj 0.5 Mg/0.5 Ml Syr) 0.5 mg IV NOW STA Stop: 05/18/22 14:27 Last Admin: 05/18/22 14:42 Dose: 0.5 mg Documented By: KIMMIE Sodium Chloride (Nss 1000ml) 1,000 mls @ 999 mls/hr IV .Q1H1M STA Stop: 05/18/22 12:39 Last Infusion: 05/18/22 13:40 Dose: 0 mls/hr Documented By: Admin: 05/18/22 12:30 Dose: 999 mls/hr Documented By: KIMMIE Ioversol (Optiray 350 100ml) 94 ml IV ONCE ONE Stop: 05/18/22 13:29 Last Admin: 05/18/22 13:28 Dose: 94 ml Documented By: CHAKA Ketorolac Tromethamine (Ketorolac Tromethamine 15 Mg/Ml Vial) 15 mg IV NOW STA Stop: 05/18/22 12:02 Last Admin: 05/18/22 12:30 Dose: 15 mg Documented By: KIMMIE Morphine Sulfate (Morphine Sulfate 4 Mg/Ml 1 Ml Carp\Vial) 4 mg IV NOW STA Stop: 05/18/22 12:02 Last Admin: 05/18/22 12:30 Dose: 4 mg Documented By: KIMMIE Ondansetron HCl (Ondansetron Inj 2 Mg/Ml 2 Ml Vial) 4 mg IV NOW STA Stop: 05/18/22 12:02 Last Admin: 05/18/22 12:31 Dose: 4 mg Documented By: KIMMIE Medical Decision Making Medical Records Attestation: I reviewed the patient's medical records. Home Medications was personally reviewed by me Laboratory Data Attestation: I reviewed the patient's lab results. 05/18/22 12:23 05/18/22 12:23 Lab Results 05/18/22 05/18/22 05/18/22 Range/Units 12:20 12: 12:23 WBC 10.32 (4.8-10.8) K/ul RBC 4.15 L (4.20-5.40) M/uL Hgb 11.5 L (12.0-16.0) g/dl Hct 34.4 L (37.0-47.0) % MCV 82.9 (80.0-100.0) fL MCH 27.7 (25.0-34.0) pg MCHC 33.4 (32.0-36.0) g/dL RDW Std Deviation 48.5 H (36.4-46.3) fL RDW Coeff of Jorge Luis 16.6 H (11.5-14.5) % Plt Count 289 (130-400) K/uL MPV 9.2 L (9.4-12.4) fL Immature Gran % (Auto) 0.7 % Neut % (Auto) 84.5 % Lymph % (Auto) 9.3 % Titus % (Auto) 5.1 % Eos % (Auto) 0.1 % Baso % (Auto) 0.3 % Neut # (Auto) 8.72 H (1.40-6.50) K/uL Lymph # (Auto) 0.96 L (1.2-3.4) K/uL Titus # (Auto) 0.53 (0.11-0.59) K/uL Eos # (Auto) 0.01 (0-0.50) K/uL Baso # (Auto) 0.03 (0-0.2) K/uL Immature Gran # (Auto) 0.07 (0.01-0.20) K/uL Sodium 134 L (136-145) mmol/L Potassium 5.0 (3.5-5.1) mmol/L Chloride 100 (98-107) mmol/L Carbon Dioxide 28 (21-32) mmol/L Anion Gap 6 (3-11) BUN 26 H (6-23) mg/dl Creatinine 0.96 (0.6-1.2) mg/dl Est Cr Clr Drug Dosing 51.9 ml/min Est GFR ( Amer) 74.0 ml/min Est GFR (Non-Af Amer) 63.8 ml/min BUN/Creatinine Ratio 27.1 H (10-20) Glucose 134 H (70-99(Fasting)) mg/dl Lactate (0.4-2.0) mmol/L Calcium 10.0 (8.5-10.1) mg/dl Magnesium 1.9 (1.7-2.4) mg/dl Total Bilirubin 0.7 (0.2-1.0) mg/dl AST 24 (13-39) U/L ALT 15 (7-52) U/L Alkaline Phosphatase 189 H (34-104) U/L Troponin I High Sens 2.6 (0-14) pg/ml Total Protein 7.3 (6.0-8.3) gm/dl Albumin 4.2 (3.4-5.0) gm/dl Globulin 3.1 (2.5-4.0) gm/dl Albumin/Globulin Ratio 1.4 (0.9-2) Lipase 3700 H (11-82) U/L TSH (0.300-4.500) uIu/ml Free T4 (0.61-1.60) ng/dl Urine Color Dark Yellow Urine Appearance Clear (Clear) Urine pH 7.0 (4.5-7.5) Ur Specific Omro 1.021 (1.000-1.030) Urine Protein Negative (Negative) Urine Glucose (UA) Negative (Negative) Urine Ketones Trace H (Negative) Urine Blood Negative (Negative) Urine Nitrite Negative (Negative) Urine Bilirubin Negative (Negative) Urine Urobilinogen Negative (Negative) Ur Leukocyte Esterase Trace H (Negative) Urine WBC (Auto) 1-5 (0-5) /hpf Urine RBC (Auto) 0-4 (0-4) /hpf U Hyaline Cast (Auto) 0 (0-5) /lpf U Epithel Cells (Auto) 20-30 H (0-5) /lpf Urine Bacteria (Auto) Negative (Negative) SARS-CoV-2, RNA, NAAT (NEGATIVE) 05/18/22 05/18/22 05/18/22 Range/Units 12:23 12:23 14:48 WBC (4.8-10.8) K/ul RBC (4.20-5.40) M/uL Hgb (12.0-16.0) g/dl Hct (37.0-47.0) % MCV (80.0-100.0) fL MCH (25.0-34.0) pg MCHC (32.0-36.0) g/dL RDW Std Deviation (36.4-46.3) fL RDW Coeff of Jorge Luis (11.5-14.5) % Plt Count (130-400) K/uL MPV (9.4-12.4) fL Immature Gran % (Auto) % Neut % (Auto) % Lymph % (Auto) % Titus % (Auto) % Eos % (Auto) % Baso % (Auto) % Neut # (Auto) (1.40-6.50) K/uL Lymph # (Auto) (1.2-3.4) K/uL Titus # (Auto) (0.11-0.59) K/uL Eos # (Auto) (0-0.50) K/uL Baso # (Auto) (0-0.2) K/uL Immature Gran # (Auto) (0.01-0.20) K/uL Sodium (136-145) mmol/L Potassium (3.5-5.1) mmol/L Chloride (98-107) mmol/L Carbon Dioxide (21-32) mmol/L Anion Gap (3-11) BUN (6-23) mg/dl Creatinine (0.6-1.2) mg/dl Est Cr Clr Drug Dosing ml/min Est GFR ( Amer) ml/min Est GFR (Non-Af Amer) ml/min BUN/Creatinine Ratio (10-20) Glucose (70-99(Fasting)) mg/dl Lactate 1.0 (0.4-2.0) mmol/L Calcium (8.5-10.1) mg/dl Magnesium (1.7-2.4) mg/dl Total Bilirubin (0.2-1.0) mg/dl AST (13-39) U/L ALT (7-52) U/L Alkaline Phosphatase (34-104) U/L Troponin I High Sens (0-14) pg/ml Total Protein (6.0-8.3) gm/dl Albumin (3.4-5.0) gm/dl Globulin (2.5-4.0) gm/dl Albumin/Globulin Ratio (0.9-2) Lipase (11-82) U/L TSH 6.098 H (0.300-4.500) uIu/ml Free T4 0.93 (0.61-1.60) ng/dl Urine Color Urine Appearance (Clear) Urine pH (4.5-7.5) Ur Specific Omro (1.000-1.030) Urine Protein (Negative) Urine Glucose (UA) (Negative) Urine Ketones (Negative) Urine Blood (Negative) Urine Nitrite (Negative) Urine Bilirubin (Negative) Urine Urobilinogen (Negative) Ur Leukocyte Esterase (Negative) Urine WBC (Auto) (0-5) /hpf Urine RBC (Auto) (0-4) /hpf U Hyaline Cast (Auto) (0-5) /lpf U Epithel Cells (Auto) (0-5) /lpf Urine Bacteria (Auto) (Negative) SARS-CoV-2, RNA, NAAT NEGATIVE (NEGATIVE) Imaging Data Attestation: I personally reviewed and interpreted this imaging study as follows: My Impression: My interpretation of reportable chest x-ray does not show any consolidations, pneumothorax or cardiac prominence. My interpretation of a CT with IV contrast of the abdomen and pelvis shows evidence for acute pancreatitis, without any other concerning findings such as bowel obstruction, free air or cholecystitis. Radiologist reports were also reviewed. Radiologist's Impression: Chest X-Ray 05/18/22 11:39 XR chest 1V portable HISTORY: 62 years-old Female SOB, dizzy acute shortness breath with dizziness COMPARISON: Acute abdominal series radiographs 10/17/2021 TECHNIQUE: AP view of the chest FINDINGS: Cardiomediastinal and hilar silhouettes are within normal limits. Atherosclerosis of the aorta. No pneumothorax, pleural effusion, airspace consolidation or pulmonary edema. Bones of the chest appear grossly intact. IMPRESSION: No acute process. ACT 112: Negative or not required by law. The above report was generated using voice recognition software. It may contain grammatical, syntax or spelling errors. Electronically signed by: Rolando Carlton M.D. 05/18/2022 12:09 PM Abdomen/Pelvis CT 05/18/22 12:[address] WITH IV CONTRAST CT DOSE: 274.84 mGy.cm HISTORY: Acute right lower quadrant abdominal pain with nausea and vomiting. h/o pancreatitis/colon CA, RLQ pain TECHNIQUE: Multiaxial CT images of the abdomen and pelvis were performed following the IV administration of 94 cc of Optiray, A dose lowering technique was utilized adhering to the principles of ALARA. COMPARISON STUDY: CT pancreas 11/09/2021 FINDINGS: Pulmonary emphysema. 3 mm solid nodule of the lingula on image 5 series 3 is unchanged and likely benign. 9 mm linear focus of scarring versus atelectasis of the basal right lower lobe, image 50 series 3. No pneumatosis or pneumoperitoneum. Unremarkable pancreas and adrenal glands. Mild distention of the gallbladder without cholelithiasis identified. Mild cirrhosis of the liver with recannulized umbilical vein. Heterogeneity of the large portion of the right hepatic lobe without discrete mass identified. Patent portal vein. Dilation of the common bile pancreatic ducts redemonstrated measuring 9 and 6 mm respectively, similar to the prior study. Soft tissue fullness of the pancreatic head is noted along with interstitial and peripancreatic inflammation of the pancreatic head and uncinate process with edema and trace free fluid within the mike hepatis, pancreatic or duodenal groove, lesser sac and mesentery with small volume ascites tracking into the inferior right pericolic gutter. No acute peripancreatic fluid collections. Ill-defined area of decreased attenuation within the pancreatic head appears more conspicuous than the prior study measuring up to approximately 2.0 cm, previously 1.3 cm. Precaval lymph nodes measure up to 1.1 cm, previously 9 mm. Unremarkable kidneys. No hydronephrosis. Urinary bladder wall thickening with partial distention. Unremarkable uterus. Atherosclerosis of the aorta. No bowel junction. Wall thickening of the duodenum. Appendectomy unremarkable soft tissues. Sclerotic focus involving the right aspect of the sacrum may represent a bone island. Avascular necrosis without articular collapse of the femoral heads. IMPRESSION: 1. Acute pancreatitis without evidence of pancreatic necrosis or acute peripancreatic fluid collection. 2. Dilation of the common bile and pancreatic ducts redemonstrated with possible lesion of the pancreatic head which is slightly more conspicuous than the 2021 exam. Correlation with endoscopy recommended if not already conducted. 3. Mild precaval lymphadenopathy. 4. Mild wall thickening of the duodenum is likely reactive. 5. Cirrhotic liver with trace ascites. 6. Additional findings as above. ACT 112: Negative or not required by law. The above report was generated using voice recognition software. It may contain grammatical, syntax or spelling errors. Electronically signed by: Rolando Carlton M.D. 05/18/2022 1:53 PM ECG Data Indication: + abdominal pain and + other (History peaked T waves/hyperkalemia) Rate (beats per minute): 56 Rhythm: + sinus bradycardia ECG Intervals/blocks: + Normal QRS and + Normal [place] ECG [place]: + Normal ECG ST segments: + Normal ST segments ECG Findings: + Other (Low voltage QRS) Comparison ECG Date: from (05/18/2022) Change: the following changes noted (T wave application has significantly improv ed due to prior hyperkalemia) MDM Narrative Cardiac monitoring: An order was placed for continuous cardiac monitoring. The monitor shows a rate of 56 bpm with a sinus bradycardic rhythm. residential monitor history was reviewed throughout the evaluation, and no dysrhythmias were noted. Patient presents the emergency department with complaint of generalized abdominal pain radiating into the right lower quadrant/flank region. The patient has had a prior history of pancreatitis, and today's findings indicate recurrent pancreatitis. Her lipase today is 3700, and has CT imaging consistent with acute pancreatitis. Unlike her prior hospital admission, the patient does not have any other significant laboratory abnormalities or cardiac changes. Other than mild hyponatremia, remaining electrolytes were grossly normal. Patient does have a mild anemia that is chronic for the patient. It is noted that patient also has an elevated TSH, but a free T4. She has had elevated TSH levels in the past. Additional laboratory studies are not suggestive of cho lecystitis or hepatitis. The patient is status post appendectomy. Urinalysis does not show evidence for infection. ECG and troponin are normal, therefore I do not suspect acute cardiac event. Chest x-ray also does not show evidence for pneumonia, pneumothorax or cardiomegaly. I do feel that the patient warrants admission, with the patient in agreement to do so. The case was discussed with the [facility] Hospitalist team. Impression Acute recurrent pancreatitis, Pancreatic divisum, Acute hyponatremia, Nausea and vomiting Discharge Plan Visit Data Chief Complaint: Abdominal Pain Stated Complaint: ABD PAIN ED Provider: Kristy Rodas ED Midlevel Provider: Devin Blanca Discharge Problem: Acute recurrent pancreatitis, Pancreatic divisum, Acute hyponatremia, Nausea and vomiting Patient Disposition: Admitted As Inpatient Discharge Instructions Interventions: ED Discharge Assessment Last Done: 05/18/22 17:36
[2022-05-18 12:39] LABS: Basophils # (auto) 0.03 K/uL (0-0.2); Basophils % (auto) 0.3 %; Eosinophils # (auto) 0.01 K/uL (0-0.50); Eosinophils % (auto) 0.1 %; Hematocrit (blood only) 34.4 % (37.0-47.0); Hemoglobin 11.5 g/dl (12.0-16.0); Immature Granulocytes # (auto) 0.07 K/uL (0.01-0.20); Immature Granulocytes % (auto) 0.7 %; Lymphocytes # (auto) 0.96 K/uL (1.2-3.4); Lymphocytes % (auto) 9.3 %; Mean Corpuscular Hemoglobin 27.7 pg (25.0-34.0); Mean Corpuscular Hgb Conc 33.4 g/dL (32.0-36.0); Mean Corpuscular Volume 82.9 fL (80.0-100.0); Mean Platelet Volume 9.2 fL (9.4-12.4); Monocytes # (auto) 0.53 K/uL (0.11-0.59); Monocytes % (auto) 5.1 %; Neutrophils # (auto) 8.72 K/uL (1.40-6.50); Neutrophils % (auto) 84.5 %; Platelet Count 289 K/uL (130-400); RDW Coefficient of Variation 16.6 % (11.5-14.5); RDW Standard Deviation 48.5 fL (36.4-46.3); Red Blood Count 4.15 M/uL (4.20-5.40); White Blood Count 10.32 K/ul (4.8-10.8)
[2022-05-18 13:00] LABS: BUN Creatinine Ratio 27.1 (10-20); Creatinine Clr Calc Pharmacy 51.9 ml/min; Est GFR (Non-African American) 63.8 ml/min
[2022-05-18 13:01] LABS: Appearance Urine Clear (Clear); Bacteria Urine Automated Negative (Negative); Bilirubin Urine Negative (Negative); Blood Urine Negative (Negative); Cast Urine Automated 0 /lpf (0-5); Color Urine Dark Yellow; Epithelial Cell Urine Auto 20-30 /lpf (0-5); Glucose Urine UA Negative (Negative); Ketones Urine Trace (Negative); Leukocyte Esterase Urine Trace (Negative); Nitrite Urine Negative (Negative); Protein Urine Negative (Negative); RBC Urine Automated 0-4 /hpf (0-4); Specific Gravity Urine 1.021 (1.000-1.030); Urobilinogen Urine Negative (Negative)
[2022-05-18 13:06] LABS: Troponin I High Sensitivity 2.6 pg/ml (0-14)
[2022-05-18 13:14] LABS: Thyroid Stimulating Hormone 6.098 uIu/ml (0.300-4.500)
--- NOTE | 2022-05-18 13:18 | Electrocardiogram Report ---
Test Reason : Blood Pressure : / mmHG Vent. Rate : 056 BPM Atrial Rate : 056 BPM P-R Int : 188 ms QRS Dur : 074 ms QT Int : 452 ms P-R-T Axes : 070 061 053 degrees QTc Int : 436 ms Sinus bradycardia Low voltage QRS Borderline ECG When compared with ECG of 10-NOV-2021 05:52, T wave amplitude has decreased in Anterolateral leads Confirmed by Alek Weir ([id number]) on 05/18/2022 1:18:42 PM Referred By: Confirmed By:Alek Weir
[2022-05-18 13:19] LABS: Albumin Globulin Ratio 1.4 (0.9-2); Albumin Level 4.2 gm/dl (3.4-5.0); Bilirubin,Total 0.7 mg/dl (0.2-1.0); Globulin 3.1 gm/dl (2.5-4.0); Magnesium 1.9 mg/dl (1.7-2.4); Total Protein 7.3 gm/dl (6.0-8.3)
[2022-05-18] MEDS ORDERED: OPTIRAY 350 100ml IV ONE (13:28)
[2022-05-18 13:51] LABS: T4 Free Thyroxine 0.93 ng/dl (0.61-1.60)
--- NOTE | 2022-05-18 13:55 | CT Scan Report ---
ABDOMEN AND PELVIS CT WITH IV CONTRAST CT DOSE: 274.84 mGy.cm HISTORY: Acute right lower quadrant abdominal pain with nausea and vomiting. h/o pancreatitis/colon CA, RLQ pain TECHNIQUE: Multiaxial CT images of the abdomen and pelvis were performed following the IV administrat ion of 94 cc of Optiray, A dose lowering technique was utilized adhering to the principles of ALARA. COMPARISON STUDY: CT pancreas 11/09/2021 FINDINGS: Pulmonary emphysema. 3 mm solid nodule of the lingula on image 5 series 3 is unchanged and likely benign. 9 mm linear focus of scarring versus atelectasis of the basal right lower lobe, image 50 series 3. No pneumatosis or pneumoperitoneum. Unremarkable pancreas and adrenal glands. Mild diste ntion of the gallbladder without cholelithiasis identified. Mild cirrhosis of the liver with recannul ized umbilical vein. Heterogeneity of the large portion of the right hepatic lobe without discrete ma ss identified. Patent portal vein. Dilation of the common bile pancreatic ducts redemonstrated measur ing 9 and 6 mm respectively, similar to the prior study. Soft tissue fullness of the pancreatic head is noted along with interstitial and peripancreatic inflammation of the pancreatic head and uncinate process with edema and trace free fluid within the mike hepatis, pancreatic or duodenal groove, less er sac and mesentery with small volume ascites tracking into the inferior right pericolic gutter. No acute peripancreatic fluid collections. Ill-defined area of decreased attenuation within the pancreat ic head appears more conspicuous than the prior study measuring up to approximately 2.0 cm, previousl y 1.3 cm. Precaval lymph nodes measure up to 1.1 cm, previously 9 mm. Unremarkable kidneys. No hydronephrosis. Urinary bladder wall thickening with partial distention. Unr emarkable uterus. Atherosclerosis of the aorta. No bowel junction. Wall thickening of the duodenum. A ppendectomy unremarkable soft tissues. Sclerotic focus involving the right aspect of the sacrum may r epresent a bone island. Avascular necrosis without articular collapse of the femoral heads. IMPRESSION: 1. Acute pancreatitis without evidence of pancreatic necrosis or acute peripancreatic fluid collectio n. 2. Dilation of the common bile and pancreatic ducts redemonstrated with possible lesion of the pancre atic head which is slightly more conspicuous than the 11/09/2021 exam. Correlation with endoscopy daniele mmended if not already conducted. 3. Mild precaval lymphadenopathy. 4. Mild wall thickening of the duodenum is likely reactive. 5. Cirrhotic liver with trace ascites. 6. Additional findings as above. ACT 112: Negative or not required by law. The above report was generated using voice recognition software. It may contain grammatical, syntax o r spelling errors. Electronically signed by: Rolando Carlton M.D. 05/18/2022 1:53 PM
[2022-05-18] MEDS ORDERED: HYDROmorphone INJ 0.5 MG/0.5 ML SYR IV STA (14:26)
[2022-05-18] MEDS ORDERED: MAGNESIUM HYDROXIDE SUSP 30 ML UDC PO PRN (17:49)
[2022-05-18] MEDS ORDERED: ONDANSETRON INJ 2 MG/ML 2 ML VIAL IV PRN (17:49)
[2022-05-18] MEDS ORDERED: POLYETHYLENE (MIRALAX) 17 GM PACK PO PRN (17:49)
--- NOTE | 2022-05-18 17:49 | History & Physical Report ---
Date of Service May 18, 2022 Assessment & Plan (1) Acute recurrent pancreatitis: Plan: likely related to pancreas divisum, prior EtOH pancreatitis but >1yr since lipids, no A1c i can find - check for completeness ---> exam a little atypical - pain sl low - serial exams ---> IV fluids, pain/nausea control ---> outpt GI f/u for pancreas divisum unless doesn't get better fairly quickly here ---> outpt GI follow up for pancreatic head fullness as well (2) Pulmonary embolism: Plan: chronic - continue xarelto (3) History of alcoholism: Plan: sober since october 2021. thiamine/folate (4) Vitamin B12 deficiency: Plan: outpt f/u (5) Vitamin D deficiency: Plan: outpt f/u (6) Depression: Plan: home meds (7) Lung nodule: Plan: outpt f/u History of Present Illness Chief Complaint: abdominal pain Primary Care Provider: Rachid Cool MD had ERCP 05/08, felt fine. ate [employer] the next day - some pain. then felt fine from 05/10 until yesterday (05/17) - then had burning across stomach, lots of pain, some nausea and vomiting. came to hospital no better - found to have markedly elevated lipase and CT findings c/w pancreatitis. pain under reasonable control now. HPI and ROS otherwise negative except for as above Allergies Allergy/AdvReac Type Severity Reaction Status Date / Time No Known Allergies Allergy Verified 05/18/22 15:27 Home Medications Medication Instructions Recorded Confirmed Type fluoxetine 20 mg capsule (Prozac) 20 mg PO PM 05/15/20 05/18/22 History atenolol 25 mg tablet 25 mg PO QAM #90 tabs 09/03/21 05/18/22 Rx rivaroxaban 20 mg tablet (Xarelto) 20 mg PO DAILY 11/08/21 05/18/22 History buspirone 10 mg tablet 5 - 10 mg PO TID PRN anxiety 11/16/21 05/18/22 History furosemide 40 mg tablet 40 mg PO QAM 90 days #90 tabs 04/02/22 05/18/22 Rx gabapentin 300 mg capsule 300 mg PO BID #180 caps 04/02/22 05/18/22 Rx atorvastatin 20 mg tablet 20 mg PO PM #90 tabs 04/11/22 05/18/22 Rx levothyroxine 25 mcg tablet 25 mcg PO QAM 05/18/22 05/18/22 History magnesium oxide 200 mg PO QPM 05/18/22 05/18/22 History magnesium oxide 400 mg PO QAM 05/18/22 05/18/22 History vitamin B complex 1 tab PO DAILY 05/18/22 05/18/22 History Past Med/Surg History Medical History Anxiety Avascular necrosis of femoral neck b/l on CT abd/pelvis 04/2020 Calcification of abdominal aorta Depression Enlarged liver History of anemia History of bronchitis resolved HTN (hypertension), benign Hyponatremia Lump of skin of back lipoma Migraine hx Pancreas divisum Pulmonary embolism and one to groin 8 yrs ago> unknown causes> Xarelto Pulmonary nodules under surveillance Surgical History H/O colonoscopy (2016) Dr. Billings History of esophagogastroduodenoscopy (EGD) (2016) Dr. Billings History of laparoscopic appendectomy (05/23/20) Laparoscopic Appendectomy Dr. Naylor 05/23/2020 History of throat surgery small mass removed > benign History of tooth extraction History of tubal ligation (1996) Family History Mother Diabetes Hypertension Father Colorectal cancer Bladder cancer Grandmother (Paternal) Aneurysm Denies family history of Ovarian cancer Prostate cancer Myocardial infarction Breast cancer Social History Smoking Status: Current every day smoker Tobacco Type: Cigarettes Age Started Using Tobacco: 17; packs per day: 1; Cigarettes Per Day: 20; Second Hand Exposure: Yes; Hx Alcohol Use: No Hx Substance Use: No Preferred Language: Cambodian Communication Ability: Effective Visual Impairment: Limited Hearing Ability: Normal Addiction Treatment Counselor Required: Voice Beliefs That Will Affect Care: None marital status: Current Living Situation: Spouse current occupational status: unemployed 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 HEENT normocephalic atraumatic mucous membranes moist. Cardio regular without rubs murmurs or gallops, lungs clear no rales rhonchi or wheezes abdomen soft breathing unlabored no accessory muscle use good effort. Surprisingly not much epigastric tenderness, but mid abdominal very tender no guarding rebound or rigidity. Skin shows no rashes no pallor or icterus. Neuro without focal deficits. Extremities without cyanosis clubbing or edema no calf tenderness. Results & Data Results & Data ([facility]) Vital Signs (Past 12 Hours) Vital Signs Temp Pulse Resp BP Pulse Ox O2 Del Method 05/18/22 16:00 68 11 L 98 05/18/22 16:00 114/59 L 05/18/22 15:00 72 18 99 05/18/22 15:00 128/84 05/18/22 14:42 72 12 96 05/18/22 14:41 126/78 05/18/22 11:39 95 Room Air 05/18/22 11:30 98.8 F 61 22 85/51 L 100 Room Air Code Status & VTE Plan VTE Prophylaxis Plan VTE Prophylaxis will be ordered: Yes PG Care Time/CCT Total # of Minutes Spent Total Time Spent with Patient: Total time spent is greater than 50% in coordination of care (as documented) at patient's floor/unit and/or counseling patient: Coding Level of Care Code 75896 INT INP/OBS CARE 3/75MIN Diagnoses Acute recurrent pancreatitis K85.90 Pulmonary embolism I26.99 History of alcoholism F10.21 Vitamin B12 deficiency E53.8 Vitamin D deficiency E55.9 Depression F32.9 Lung nodule R91.1
[2022-05-18] MEDS: LACTATED RINGER'S 1,000 ML IV SCH ×2 (17:52→23:33)
[2022-05-18] MEDS: HYDROmorphone INJ 0.5 MG/0.5 ML SYR IV PRN ×2 (18:29→22:30)
[2022-05-18] MEDS ORDERED: ACETAMINOPHEN 325 MG TAB PO PRN (20:22)
[2022-05-18] MEDS: GABAPENTIN 300 MG CAP PO SCH (21:04)
[2022-05-18] MEDS: busPIRone 5 MG TAB PO PRN (21:04)
[2022-05-18] MEDS: FLUoxetine HCL 20 MG CAP PO SCH (21:04)
[2022-05-18] MEDS: ACETAMINOPHEN 325 MG TAB PO PRN (21:04)
[2022-05-19] MEDS: HYDROmorphone INJ 0.5 MG/0.5 ML SYR IV PRN ×5 (03:08→21:48)
[2022-05-19] MEDS: LACTATED RINGER'S 1,000 ML IV SCH ×4 (04:36→21:49)
[2022-05-19] MEDS: LEVOTHYROXINE SODIUM 25 MCG TABLET PO SCH (05:48)
--- NOTE | 2022-05-19 07:11 | Hospitalist Progress Note ---
Date of Service May 19, 2022 Assessment & Plan (1) Acute recurrent pancreatitis: (2) History of alcoholism: (3) Pulmonary embolism: (4) Vitamin B12 deficiency: (5) Vitamin D deficiency: (6) Depression: (7) Lung nodule: Plan Acute recurrent pancreatitis Lipase elevated at 3700 at time of admission. Likely related to pancreas divisum, prior EtOH pancreatitis but >1yr since lipids, no A1c i can find - check for completeness. A1c pending at this time. Pain is getting better, continue serial exams. Continue IV fluids, pain/nausea medication, and will work to advance her diet. Currently scheduled to be clear liquids at this time. If able to tolerate may advance diet on 05/20. Outpatient GI follow-up, this likely does not need any acute GI consult during this visit, but will consider if patient does not continue to improve clinically. Pulmonary embolism: -chronic - continue xarelto History of alcoholism: Sober since October 2021 Continue thiamine and folic acid once a day. Vitamin B12 deficiency: -outpt f/u Vitamin D deficiency: -outpt f/u Depression: -home meds Lung nodule: -outpt f/u Admission and Anticipated Discharge Date Admission Date: May 18, 2022 Supervising Physician Co-Signing Physician Notes I personally examined the patient and verified all arshad points of history and exam, discussed case, and agree with decision making with Dr Jaquez feeling better - still belly pain/burning - but far less and mostly more with contact/pressure ate clears [place] no significant rise in pain/nausea postprandially vitals noted nad heent nc at mmm breathing unlabored no accessory muscles good effort skin no rashes no pallor or icterus neuro no focal deficits recurrent pancreatitis -Previously alcoholic, now more idiopathic/pancreatic divisum Feeling better/acute situation improving. Continue to advance diet, continue fluids/pain control/supportive careas long as she continues to improve nicely for this episode, can probably follow-up with GI in short order as an outpatient. If any plateau/worsening/backslidingthen consult GI for inpatient evaluation Otherwise as above Subjective Patient was seen bedside this morning. States that her abdominal pain has been getting better since yesterday. Yesterday she reiterated that her pain was a 9 out of 10, today her pain is about a 7 or 8 out of 10. She also states that the burning that she felt in her stomach has resolved at this time. She still reports right upper quadrant and epigastric pain. With discussing her history of drinking, she reiterates that she stopped drinking about September 2021. Review of Systems Review of Systems: All systems reviewed & are unremarkable except as noted in HPI & below Physical Exam Physical Exam: Constitutional: well-appearing, no acute distress HEENT: NCAT, no conjunctival injection CV: regular rhythm, no murmur appreciated, extremities well-perfused, no LE edema Resp: CTABL, no wheezes/rales/rhonchi appreciated, no increased work of breathing GI: soft, nondistended, BS normal, right upper quadrant and epigastric tenderness on light palpitation MSK: no gross deformities appreciated Skin: warm, dry, no rash appreciated Neuro: alert, oriented, no focal neurologic deficit appreciated Results & Data Results & Data ([facility]) Vital Signs (Past 12 Hours) Vital Signs Temp Pulse Resp BP Pulse Ox O2 Del Method 05/18/22 22:48 36.5 C 73 16 136/75 95 Room Air Resident Activity Tracking Resident Involvement: Resident Care Provided Care Provided: Adult Hospital Medicine
[2022-05-19 07:19] LABS: Basophils # (auto) 0.02 K/uL (0-0.2); Basophils % (auto) 0.3 %; Eosinophils # (auto) 0.06 K/uL (0-0.50); Eosinophils % (auto) 0.8 %; Hematocrit (blood only) 32.6 % (37.0-47.0); Hemoglobin 10.9 g/dl (12.0-16.0); Immature Granulocytes # (auto) 0.03 K/uL (0.01-0.20); Immature Granulocytes % (auto) 0.4 %; Lymphocytes # (auto) 1.24 K/uL (1.2-3.4); Lymphocytes % (auto) 15.5 %; Mean Corpuscular Hemoglobin 27.6 pg (25.0-34.0); Mean Corpuscular Hgb Conc 33.4 g/dL (32.0-36.0); Mean Corpuscular Volume 82.5 fL (80.0-100.0); Mean Platelet Volume 9.2 fL (9.4-12.4); Monocytes # (auto) 0.45 K/uL (0.11-0.59); Monocytes % (auto) 5.6 %; Neutrophils # (auto) 6.19 K/uL (1.40-6.50); Neutrophils % (auto) 77.4 %; Platelet Count 228 K/uL (130-400); RDW Coefficient of Variation 16.2 % (11.5-14.5); RDW Standard Deviation 48.9 fL (36.4-46.3); Red Blood Count 3.95 M/uL (4.20-5.40); White Blood Count 7.99 K/ul (4.8-10.8)
[2022-05-19 07:49] LABS: BUN Creatinine Ratio 26.2 (10-20); Calcium 9.7 mg/dl (8.5-10.1); Chol HDL Ratio 4.6 (0-5); Creatinine Clr Calc Pharmacy 65.8 ml/min; Est GFR (African American) 86.9 ml/min; Potassium 4.6 mmol/L (3.5-5.1)
[2022-05-19] MEDS: RIVAROXABAN 20 MG TAB PO SCH (08:09)
[2022-05-19] MEDS: THIAMINE HCL 100 MG TAB PO SCH (08:09)
[2022-05-19] MEDS: FOLIC ACID 1 MG TAB PO SCH (08:09)
[2022-05-19] MEDS: GABAPENTIN 300 MG CAP PO SCH ×2 (08:09→19:43)
[2022-05-19] MEDS: ACETAMINOPHEN 325 MG TAB PO PRN (16:24)
--- NOTE | 2022-05-19 17:17 | Billing Data ---
Date of Service May 19, 2022 Coding Level of Care Code 14430 SUB INP/OBS CARE
[2022-05-19] MEDS: FLUoxetine HCL 20 MG CAP PO SCH (19:43)
[2022-05-20] MEDS: HYDROmorphone INJ 0.5 MG/0.5 ML SYR IV PRN ×6 (02:33→23:39)
[2022-05-20] MEDS: LACTATED RINGER'S 1,000 ML IV SCH ×4 (04:36→23:39)
[2022-05-20] MEDS: LEVOTHYROXINE SODIUM 25 MCG TABLET PO SCH (04:40)
[2022-05-20 07:31] LABS: Estimated Average Glucose 111 mg/dl; Hemoglobin A1C 5.5 % (4.5-5.6)
[2022-05-20] MEDS: RIVAROXABAN 20 MG TAB PO SCH (07:36)
[2022-05-20] MEDS: FOLIC ACID 1 MG TAB PO SCH (07:36)
[2022-05-20] MEDS: GABAPENTIN 300 MG CAP PO SCH ×2 (07:36→20:52)
[2022-05-20] MEDS: THIAMINE HCL 100 MG TAB PO SCH (07:37)
[2022-05-20] MEDS: busPIRone 5 MG TAB PO PRN (07:58)
--- NOTE | 2022-05-20 08:04 | Hospitalist Progress Note ---
Date of Service May 20, 2022 Assessment & Plan (1) Acute recurrent pancreatitis: (2) History of alcoholism: (3) Pulmonary embolism: (4) Vitamin B12 deficiency: (5) Vitamin D deficiency: (6) Depression: (7) Lung nodule: Plan Pt is a 62 yo female with PMH of chronic pancreatitis w/ pancreatic divisum, anxiety, depression, anemia, HTN, migraine, and PE on Xarelto therapy presenting to the ER d/t abdominal pain. Acute recurrent pancreatitis Lipase elevated at 3700 at time of admission; repeat lipase downtrended to 516 - CTAP upon admission showed acute pancreatitis w/o necrosis or fluid collections, dilated CBD, and cirrhosis of the liver Likely related to pancreas divisum/?idiopathic, prior EtOH pancreatitis - A1c 5.5; lipid panel WNL pain is improving, continue serial exams continue IV fluids, pain/nausea medication; advance to low fiber diet discussed w/ pt's GI; plan for outpatient ERCP, pt has f/u 05/30 - plan for d/c tomorrow pending clinical status Pulmonary embolism - unprovoked/unknown cause - continue xarelto 20 mg daily History of alcoholism last drink in September/October 2021 continue thiamine and folic acid once a day Vitamin B12 and D deficiencies - can be addressed during outpatient f/u Depression/anxiety - continue fluoxetine 20 mg and buspirone 10 mg TID PRN Hx of lung nodule - continue surveillance Diet: low fiber, Mg 4 grams DVT ppx: xarelto 20 mg daily Dispo: med/surg, d/c tomorrow pending clinical status Code: full Admission and Anticipated Discharge Date Admission Date: May 18, 2022 Supervising Physician Co-Signing Physician Notes Resident Physician Supervision Note: I independently interviewed and examined the patient and verified the arshad history and physical, reviewed labs and image studies and agree with findings and care plan. Subjective Pt is a 62 yo female with PMH of chronic pancreatitis w/ pancreatic divisum, anxiety, depression, anemia, HTN, migraine, and PE on Xarelto therapy presenting to the ER d/t abdominal pain. Pt seen at bedside this AM. She explains that she is in 8-9/10 pain which hasn't improved much since being admitted. She endorses that the pain worsened with her first meal of full liquids last night. She endorses that when she tries to take a deep breath that that causes an increase in her pain and the pain felt like "spasms" last night. Her pain medications are only lasting 3 hr instead of 4 hr. Upon reevaluation in the afternoon, pt's pain improved to a 7/10. She states breakfast and lunch "went down well." Review of Systems Review of Systems: All systems reviewed & are unremarkable except as noted in HPI & below Physical Exam Constitutional: NAD. Vitals WNL. Eyes: no conjunctival abnormality Respiratory: CTA bilaterally. No rhonchi, wheezing, or crackles. Non labored breathing. Cardiovascular: RRR. No murmur noted. No LL edema. Gastrointestinal (Abdomen): Soft in all four quadrants. Tender to light palpation in right upper and lower quadrants with voluntary guarding, +BS. No masses noted. Skin: no rashes, warm and dry Psychiatric: Alert. Mood and affect congruent. Results & Data Results & Data ([facility]) Vital Signs (Past 12 Hours) Vital Signs Temp Pulse Resp BP Pulse Ox O2 Del Method 05/20/22 07:12 37.2 C 77 16 112/70 93 Room Air 05/19/22 21:37 37.1 C 77 16 123/70 93 Room Air Resident Activity Tracking Resident Involvement: Resident Care Provided Care Provided: Adult Hospital Medicine
[2022-05-20 09:00] LABS: Basophils # (auto) 0.04 K/uL (0-0.2); Basophils % (auto) 0.4 %; Eosinophils # (auto) 0.08 K/uL (0-0.50); Eosinophils % (auto) 0.9 %; Hematocrit (blood only) 31.8 % (37.0-47.0); Hemoglobin 10.7 g/dl (12.0-16.0); Immature Granulocytes # (auto) 0.03 K/uL (0.01-0.20); Immature Granulocytes % (auto) 0.3 %; Lymphocytes # (auto) 1.62 K/uL (1.2-3.4); Lymphocytes % (auto) 17.3 %; Mean Corpuscular Hemoglobin 27.5 pg (25.0-34.0); Mean Corpuscular Hgb Conc 33.6 g/dL (32.0-36.0); Mean Corpuscular Volume 81.7 fL (80.0-100.0); Mean Platelet Volume 9.2 fL (9.4-12.4); Monocytes % (auto) 6.4 %; Neutrophils # (auto) 6.98 K/uL (1.40-6.50); Neutrophils % (auto) 74.7 %; Platelet Count 224 K/uL (130-400); RDW Coefficient of Variation 16.2 % (11.5-14.5); RDW Standard Deviation 47.9 fL (36.4-46.3); Red Blood Count 3.89 M/uL (4.20-5.40); White Blood Count 9.35 K/ul (4.8-10.8)
[2022-05-20 10:00] LABS: Albumin Globulin Ratio 1.2 (0.9-2); Albumin Level 3.4 gm/dl (3.4-5.0); BUN Creatinine Ratio 12.7 (10-20); Calcium 8.9 mg/dl (8.5-10.1); Creatinine Clr Calc Pharmacy 77.9 ml/min; Est GFR (African American) 106.5 ml/min; Est GFR (Non-African American) 91.9 ml/min; Globulin 2.8 gm/dl (2.5-4.0); Magnesium 1.4 mg/dl (1.7-2.4); Potassium 3.7 mmol/L (3.5-5.1); Total Protein 6.2 gm/dl (6.0-8.3)
[2022-05-20] MEDS: NICOTINE 21 MG/24 HR TDSY TD SCH (10:58)
[2022-05-20] MEDS: MAGNESIUM SULFATE / D5W 1 GM/100 ML BAG IV SCH ×4 (11:48→17:40)
[2022-05-20] MEDS: ACETAMINOPHEN 325 MG TAB PO PRN (14:22)
--- NOTE | 2022-05-20 15:11 | Communication Note ---
Date of Service: May 20, 2022 Chart reviewed, patient is known to me with Hx of Alcohol related Cirrhosis and chronic pancreatitis, had endoscopic work up including EUS and ERCP which revealed a pancreas divisium with upstream ductal dilation, no mass seen. ERCP done 2 weeks ago and was doing well however she developed mild acute pancreatitis now. She seems to be improving clinically, labs improving. Recommend: - Advance diet as tolerated and discharge once ready. - I am seeing her in the office on 05/30, I will schedule her for repeat ERCP with EUS guided PD stenting as OP in few months once hear current pancreatitis heals. - Please call me with any questions or concerns.
[2022-05-20] MEDS: FLUoxetine HCL 20 MG CAP PO SCH (20:52)
[2022-05-21] MEDS: HYDROmorphone INJ 0.5 MG/0.5 ML SYR IV PRN (05:48)
[2022-05-21] MEDS: LACTATED RINGER'S 1,000 ML IV SCH (05:48)
[2022-05-21] MEDS: LEVOTHYROXINE SODIUM 25 MCG TABLET PO SCH (05:50)
[2022-05-21 07:04] LABS: Hematocrit (blood only) 27.9 % (37.0-47.0); Hemoglobin 9.4 g/dl (12.0-16.0); Mean Corpuscular Hemoglobin 27.3 pg (25.0-34.0); Mean Corpuscular Hgb Conc 33.7 g/dL (32.0-36.0); Mean Corpuscular Volume 81.1 fL (80.0-100.0); Mean Platelet Volume 8.9 fL (9.4-12.4); Platelet Count 198 K/uL (130-400); RDW Coefficient of Variation 15.8 % (11.5-14.5); RDW Standard Deviation 46.5 fL (36.4-46.3); Red Blood Count 3.44 M/uL (4.20-5.40); White Blood Count 9.42 K/ul (4.8-10.8)
[2022-05-21 07:52] LABS: BUN Creatinine Ratio 12.3 (10-20); Calcium 9.3 mg/dl (8.5-10.1); Creatinine Clr Calc Pharmacy 75.8 ml/min; Est GFR (Non-African American) 88.9 ml/min; Potassium 3.7 mmol/L (3.5-5.1)
[2022-05-21] MEDS: NICOTINE 21 MG/24 HR TDSY TD SCH (07:53)
[2022-05-21] MEDS: FOLIC ACID 1 MG TAB PO SCH (07:55)
[2022-05-21] MEDS: GABAPENTIN 300 MG CAP PO SCH (07:55)
[2022-05-21] MEDS: RIVAROXABAN 20 MG TAB PO SCH (07:55)
[2022-05-21] MEDS: THIAMINE HCL 100 MG TAB PO SCH (07:55)
[2022-05-21 08:59] LABS: Magnesium 1.7 mg/dl (1.7-2.4)
[2022-05-21] MEDS: ACETAMINOPHEN 325 MG TAB PO PRN (10:11)
--- NOTE | 2022-05-21 10:37 | Discharge Summary ---
Date of Service May 21, 2022 Admission HPI Per Admitting Provider had ERCP 05/08, felt fine. ate [employer] the next day - some pain. then felt fine from 05/10 until yesterday (05/17) - then had burning across stomach, lots of pain, some nausea and vomiting. came to hospital no better - found to have markedly elevated lipase and CT findings c/w pancreatitis. pain under reasonable control now. HPI and ROS otherwise negative except for as above Admission Exam Per Admitting Provider General she is awake and alert pleasant no distress. HEENT normocephalic atraumatic mucous membranes moist. Cardio regular without rubs murmurs or gallops, lungs clear no rales rhonchi or wheezes abdomen soft breathing unlabored no accessory muscle use good effort. Surprisingly not much epigastric tenderness, but mid abdominal very tender no guarding rebound or rigidity. Skin shows no rashes no pallor or icterus. Neuro without focal deficits. Extremities without cyanosis clubbing or edema no calf tenderness. Principal Diagnosis pancreatitis Discharge Exam Constitutional NAD. Vitals WNL. Eyes Non icteric sclera. Neck Trachea midline. Respiratory CTA bilaterally. No rhonchi, wheezing, or crackles. Non labored breathing. Cardiovascular RRR. No murmur noted. No LE edema. Gastrointestinal (Abdomen) Soft, tender to palpation in RUQ and RLQ w/ associated voluntary guarding. No masses noted. +BS. Psychiatric Alert. Mood and affect congruent. Discharge Data Allergies Allergy/AdvReac Type Severity Reaction Status Date / Time No Known Allergies Allergy Verified 05/18/22 15:27 Ordered Studies 05/18/22 12:19 CT Abd and Pelvis [CT abd pelvis IV con only] Stat Chest X-Ray 05/18/22 11:39 XR chest 1V portable HISTORY: 62 years-old Female SOB, dizzy acute shortness breath with dizziness COMPARISON: Acute abdominal series radiographs 10/17/2021 TECHNIQUE: AP view of the chest FINDINGS: Cardiomediastinal and hilar silhouettes are within normal limits. Atherosclerosis of the aorta. No pneumothorax, pleural effusion, airspace consolidation or pulmonary edema. Bones of the chest appear grossly intact. IMPRESSION: No acute process. ACT 112: Negative or not required by law. The above report was generated using voice recognition software. It may contain grammatical, syntax or spelling errors. Electronically signed by: Rolando Carlton M.D. 05/18/2022 12:09 PM Abdomen/Pelvis CT 05/18/22 12:[address] WITH IV CONTRAST CT DOSE: 274.84 mGy.cm HISTORY: Acute right lower quadrant abdominal pain with nausea and vomiting. h/o pancreatitis/colon CA, RLQ pain TECHNIQUE: Multiaxial CT images of the abdomen and pelvis were performed following the IV administration of 94 cc of Optiray, A dose lowering technique was utilized adhering to the principles of ALARA. COMPARISON STUDY: CT pancreas 11/09/2021 FINDINGS: Pulmonary emphysema. 3 mm solid nodule of the lingula on image 5 series 3 is unchanged and likely benign. 9 mm linear focus of scarring versus atelectasis of the basal right lower lobe, image 50 series 3. No pneumatosis or pneumoperitoneum. Unremarkable pancreas and adrenal glands. Mild distention of the gallbladder without cholelithiasis identified. Mild cirrhosis of the liver with recannulized umbilical vein. Heterogeneity of the large portion of the right hepatic lobe without discrete mass identified. Patent portal vein. Dilat ion of the common bile pancreatic ducts redemonstrated measuring 9 and 6 mm respectively, similar to the prior study. Soft tissue fullness of the pancreatic head is noted along with interstitial and peripancreatic inflammation of the pancreatic head and uncinate process with edema and trace free fluid within the miek hepatis, pancreatic or duodenal groove, lesser sac and mesentery with small volume ascites tracking into the inferior right pericolic gutter. No acute peripancreatic fluid collections. Ill-defined area of decreased attenuation within the pancreatic head appears more conspicuous than the prior study measuring up to approximately 2.0 cm, previously 1.3 cm. Precaval lymph nodes measure up to 1.1 cm, previously 9 mm. Unremarkable kidneys. No hydronephrosis. Urinary bladder wall thickening with partial distention. Unremarkable uterus. Atherosclerosis of the aorta. No bowel junction. Wall thickening of the duodenum. Appendectomy unremarkable soft tissues. Sclerotic focus involving the right aspect of the sacrum may represent a bone island. Avascular necrosis without articular collapse of the femoral heads. IMPRESSION: 1. Acute pancreatitis without evidence of pancreatic necrosis or acute peripancreatic fluid collection. 2. Dilation of the common bile and pancreatic ducts redemonstrated with possible lesion of the pancreatic head which is slightly more conspicuous than the 11/09/2021 exam. Correlation with endoscopy recommended if not already conducted. 3. Mild precaval lymphadenopathy. 4. Mild wall thickening of the duodenum is likely reactive. 5. Cirrhotic liver with trace ascites. 6. Additional findings as above. ACT 112: Negative or not required by law. The above report was generated using voice recognition software. It may contain grammatical, syntax or spelling errors. Electronically signed by: Rolando Carlton M.D. 05/18/2022 1:53 PM Hospital Course (1) Acute recurrent pancreatitis: (2) History of alcoholism: (3) Pulmonary embolism: (4) Vitamin B12 deficiency: (5) Vitamin D deficiency: (6) Depression: (7) Lung nodule: Plan Pt is a 62 yo female with PMH of chronic pancreatitis w/ pancreatic divisum, anxiety, depression, anemia, HTN, migraine, and PE on Xarelto therapy presenting to the ER d/t abdominal pain. Acute recurrent pancreatitis Lipase elevated at 3700 at time of admission; repeat lipase downtrended to 516 - CTAP upon admission showed acute pancreatitis w/o necrosis or fluid collections, dilated CBD, and cirrhosis of the liver Likely related to pancreas divisum/?idiopathic, prior EtOH pancreatitis - A1c 5.5; lipid panel WNL Patient kept NPO and on IVF. Pain improved. Diet advanced to low fiber diet - tolerated well discussed w/ pt's GI; plan for outpatient ERCP, pt has f/u 05/30 - pt sent 2 days of oxycodone for pain; otherwise instructed to treat pain with tylenol and/or ibuprofen Pulmonary embolism - unprovoked/unknown cause - continue xarelto 20 mg daily History of alcoholism last drink in October 2021 Received thiamine and folic acid once a day while hospitalized - encouraged pt to continue abstinence from alcohol Vitamin B12 and D deficiencies - to be addressed during outpatient f/u Depression/anxiety - continue fluoxetine 20 mg and buspirone 10 mg TID PRN Hx of lung nodule - continue surveillance Diet: low fiber DVT ppx: xarelto 20 mg daily Dispo: d/c home Code: full Total Time Total Time Spent Total Time Spent (In Minutes): as per attending attestation Discharge Plan Discharge Items Patient Disposition: Home - Self-Care Reason For Visit: PANCREATITIS Discharge Diagnosis: pancreatitis Activity: Per Instructions section Non-emergency contact: Primary Care Provider and Pipe Fitter Call non-emergency contact if: your symptoms worsen, your pain is not controlled and your pain is worsening Follow-up/Referrals: Rachid Cool MD [Primary Care Provider] - 05/23/22 1:00 pm Pedro Jaquez MD [Physician] - (pt already scheduled for 05/30) Diet: Low Fiber and Low Fat Addtl Attending Provider Instructions: You were admitted to the hospital for abdominal pain associated with acute pancreatitis. You were treated with fluids and pain medications (dilaudid). We advanced your diet slowly from nothing by mouth to full liquids to low fiber diet. Upon discharge, you were tolerating food well and your pain was under control. Continue to follow a diet low in fat and that is easy on your digestive system. A discharge summary will be sent to your primary care physician to ensure continuity of care. Please bring this discharge summary with you to your next office appointment so that your provider can review it at that time. Medications: Your medication list has been reviewed and reconciled upon discharge to ensure accuracy and continuity of care. An updated list of all your medications is included with your hospital discharge paperwork. Please review this list closely and make note of any changes to your medications. - You have been prescribed oxycodone for pain management. This medication should only be used for severe pain. Otherwise, tylenol or ibuprofen are preferred medications for your pain management. - Otherwise, continue your medications as before your hospitalization. Follow up appointments: - Make a follow up appointment with your PCP within the next week. It is very important that you follow up with them shortly after discharge from the hospital. - You have a follow up appointment with Dr. Jaquez on 05/30/2022. Make sure to keep this appointment. - Keep all of your follow up appointments as already scheduled. If you cannot make an appointment, notify your provider. CONTACT YOUR PRIMARY CARE PROVIDER if you experience any of the following: - Increase in your abdominal pain - Difficulty following your treatment plan - Difficulty taking any of your medications CALL 911 OR GO TO THE EMERGENCY DEPARTMENT if you experience any of the following: - Sudden, severe abdominal pain or nausea/vomiting - Severe chest pain or chest pain that radiates to your jaw or arm - Sudden, severe shortness of breath or difficulty breathing Pending Studies at Discharge: No Stand-Alone Forms: My [facility], Smoking Cessation Medications and DC Order Prescriptions: New oxycodone 5 mg tablet 5 mg PO BID PRN (Reason: pain) Qty: 7 0RF Continued atenolol 25 mg tablet 25 mg PO QAM Qty: 90 3RF furosemide 40 mg tablet 40 mg PO QAM 90 Days Qty: 90 3RF gabapentin 300 mg capsule 300 mg PO BID Qty: 180 0RF atorvastatin 20 mg tablet 20 mg PO PM Qty: 90 3RF buspirone 10 mg tablet 5 - 10 mg PO TID PRN (Reason: anxiety) fluoxetine [Prozac] 20 mg capsule 20 mg PO PM Xarelto 20 mg tablet 20 mg PO DAILY Rx Instructions: TAKE ONE TABLET BY MOUTH EVERY DAY. MUST TAKE WITH A MEAL/FOOD levothyroxine 25 mcg tablet 25 mcg PO QAM magnesium oxide 200 mg magnesium tablet 400 mg PO QAM Rx Instructions: two tablets in the morning magnesium oxide 200 mg magnesium Tablet 200 mg PO QPM vitamin B complex Tablet 1 tab PO DAILY Discharge Orders: Discharge Order (Routine); Ordered 05/21/22 Ordered By: Yumiko Martinez Admission Data Admit Date/Time: 05/18/22 16:53 Attending Provider: Shyanne Batres Admit Provider: Laurent Tolentino Primary Care Provider: Rachid Cool Other Providers: Laurent Tolentino Other Interventions: Discharge Summary Assessment (RN) Last Done: 05/21/22 14:13 Supervising Physician Co-Signing Physician Notes Resident Physician Supervision Note: I independently interviewed and examined the patient and verified the arshad history and physical, reviewed labs and image studies and agree with findings and care plan. Resident Activity Tracking Resident Involvement: Resident Care Provided Care Provided: Adult Hospital Medicine
== END 2022-05-21 14:35 | disposition home or self-care (01) | DRG 438 ==
LOC: ED 11:23 → 3N 16:53 → SUATTDRO 16:53 → 3N 17:36

== ENCOUNTER 2022-07-11 15:09 | Inpatient (IN) ==
--- NOTE | 2022-07-11 15:36 | ED Triage Note ---
Date of Service July 11, 2022 History of Present Illness This patient was briefly evaluated while in triage. An abbreviated physical exam was performed. This patient is a 62-year-old Female who presents to the ED for evaluation of abdominal pain x 2 days. had 2 stents placed in pancreas at [place] on Friday-Dr. Jaquez having abdominal pain started friday sent by gi for CT Off Xarelto since procedure tried hydrocodone without relief Physical Exam GENERAL: NAD CARDIOVASCULAR: RRR RESPIRATORY: CTA ABDOMEN: BS x 4. Distended, TTP throughout Initial orders for labs and / or imaging were placed and patient was placed in the waiting area until a bed is available. Please see further documentation for the full ED course.
[2022-07-11] MEDS ORDERED: SODIUM CHLORIDE 0.9% 1000ML 1,000 ML IV SCH (15:38)
[2022-07-11 16:47] LABS: Basophils # (auto) 0.04 K/uL (0-0.2); Basophils % (auto) 0.2 %; Hematocrit (blood only) 32.7 % (37.0-47.0); Hemoglobin 11.4 g/dl (12.0-16.0); Immature Granulocytes # (auto) 0.25 K/uL (0.01-0.20); Immature Granulocytes % (auto) 1.4 %; Lymphocytes # (auto) 0.73 K/uL (1.2-3.4); Lymphocytes % (auto) 4.1 %; Mean Corpuscular Hemoglobin 28.4 pg (25.0-34.0); Mean Corpuscular Hgb Conc 34.9 g/dL (32.0-36.0); Mean Corpuscular Volume 81.5 fL (80.0-100.0); Mean Platelet Volume 9.3 fL (9.4-12.4); Monocytes # (auto) 0.87 K/uL (0.11-0.59); Monocytes % (auto) 4.9 %; Neutrophils # (auto) 15.86 K/uL (1.40-6.50); Neutrophils % (auto) 89.4 %; Platelet Count 227 K/uL (130-400); RDW Coefficient of Variation 15.6 % (11.5-14.5); RDW Standard Deviation 46.1 fL (36.4-46.3); Red Blood Count 4.01 M/uL (4.20-5.40); White Blood Count 17.75 K/ul (4.8-10.8)
[2022-07-11 16:50] LABS: Appearance Urine Clear (Clear); Bacteria Urine Automated Negative (Negative); Bilirubin Urine Negative (Negative); Blood Urine Negative (Negative); Color Urine Dark Yellow; Epithelial Cell Urine Auto >30 /lpf (0-5); Glucose Urine UA Negative (Negative); Ketones Urine Negative (Negative); Leukocyte Esterase Urine Trace (Negative); Nitrite Urine Negative (Negative); Protein Urine 1+ (Negative); RBC Urine Automated 0-4 /hpf (0-4); Specific Gravity Urine 1.025 (1.000-1.030); Urobilinogen Urine Negative (Negative); pH Urine 6.5 (4.5-7.5)
[2022-07-11] MEDS ORDERED: ONDANSETRON INJ 2 MG/ML 2 ML VIAL IV STA (17:08)
[2022-07-11] MEDS ORDERED: PIPERACILLIN/TAZOBACTAM 4.5 GM in DEXTROSE 5% 100 ML IV ONE (17:08)
[2022-07-11] MEDS ORDERED: MoRPHine SULFATE 10 MG/ML CARP/VIAL IV STA (17:08)
[2022-07-11 17:11] LABS: Albumin Globulin Ratio 1.3 (0.9-2); Albumin Level 3.8 gm/dl (3.4-5.0); BUN Creatinine Ratio 22.3 (10-20); Bilirubin,Total 1.2 mg/dl (0.2-1.0); Calcium 9.1 mg/dl (8.6-10.3); Est GFR (African American) 75.9 ml/min; Est GFR (Non-African American) 65.5 ml/min; Globulin 2.9 gm/dl (2.5-4.0); Potassium 4.2 mmol/L (3.5-5.1); Total Protein 6.7 gm/dl (6.0-8.3)
--- NOTE | 2022-07-11 17:11 | Emergency Department Note ---
Impression & Plan Acute pancreatitis, Abdominal pain, Leukocytosis, Acute hyponatremia ED Provider Note NAME: ELAINE FIELDS AGE: 62 SEX: F : 1960 ARRIVES VIA: Walk-In INFORMANT: Patient ED PROVIDER(S): Laurent Swanson DO CHIEF COMPLAINT: abdominal pain HPI: Patient is a 62-year-old female with a past medical history of colorectal cancer, pancreatitis, alcoholic cirrhosis who presents to the ER for periumbilical abdominal pain radiating through to the back. This started after she received 2 pancreatic stents on Friday. She notes the pain has been getting worse. She is unable to eat or drink as it does worsen the pain. She admits to some increased swelling of her belly. Has nausea and some intermittent vomiting. No dysuria, urgency, or frequency. No other exacerbating or remitting factors. PAST MEDICAL HISTORY:See Below PAST SURGICAL HISTORY:See Below FAMILY HISTORY:See Below SOCIAL HISTORY:See Below HOME MEDICATIONS:See Below ALLERGIES:See Below VITALS:See Below PHYSICAL EXAMINATION: GENERAL: Sitting up in bed, alert, well appearing, well nourished, no distress, non-toxic EYE EXAM: normal conjunctiva. OROPHARYNX: mucous membranes are moist LUNGS: Clear to auscultation. Normal chest wall mechanics HEART: no murmurs, S1 normal and S2 normal ABDOMEN: abdomen soft, tenderness periumbilically with mild distention of the belly, no rebound or guarding BACK: Back is symmetrical on inspection and there is no deformity, no midline tenderness, no CVA tenderness. SKIN: no rashes and no bruising UPPER EXTREMITIES: upper extremities are grossly normal. LOWER EXTREMITIES: No pitting edema. NEURO EXAM: Normal sensorium, cranial nerves II-XII grossly intact, normal speech, no gross weakness of arms, no gross weakness of legs. MEDICAL DECISION MAKING: Patient is a 62-year-old female who presents ER for periumbilical abdominal pain that feels like her previous bouts of pancreatitis. IV was established blood work was obtained. External records were reviewed. Labs show leukocytosis of 17,000. Mild anemia 11.4. Moderate hyponatremia at 124. No significant JERICA. T. bili 1.2. No transaminitis. Lipase at 200. UA with contamination. COVID was negative. CT abdomen pelvis consistent with pancreatitis. She was given IV fluids and IV antibiotics as well as discussing the case with her tower erector Dr. Lory Mitchell. He recommended admission to the hospitalist service and discussed the case with Dr. Cox for further evaluation manageme nt and treatment. Belly is tender periumbilically consistent with pancreatitis. Do not feel this consistent with SBP. Triage Nursing notes reviewed. Limited review of prior medical records performed Vital Signs: reviewed and remarkable for no significant abnormalities Differential diagnosis: Differential diagnoses includes but is not limited to gastritis, peptic ulcer disease, GERD, gallbladder disease, pancreatitis, small bowel obstruction, appendicitis, diverticulitis, hernia, perforation, trauma, infectious. ER treatment provided: See below Diagnostics interpreted by me include EKG and cardiac monitoring as listed below: -Cardiac Monitoring: An order was placed for continuous cardiac monitoring. The monitor shows a rate of 70 with sinus rhythm. -ECG: none -Laboratory studies:Interpreted by me as stated above in MDM and shown below. Imaging studies: Xrays: As interpreted by me:none CTs show: CT abdomen pelvis shows no obvious small bowel obstruction Consultation(s): As described in MDM Procedures:none Critical Care: None Past Med/Surg History Medical History Acute hyponatremia Acute recurrent pancreatitis Anxiety Avascular necrosis of femoral neck b/l on CT abd/pelvis 04/2020 Calcification of abdominal aorta Depression Enlarged liver History of anemia History of bronchitis resolved HTN (hypertension), benign Hyponatremia Lump of skin of back lipoma Migraine hx Pancreas divisum Pulmonary embolism (10/18/12) Pulmonary embolism and one to groin 8 yrs ago> unknown causes> Xarelto Pulmonary nodules under surveillance Surgical History H/O colonoscopy (2016) Dr. Billings History of esophagogastroduodenoscopy (EGD) (2017) Dr. Billings History of laparoscopic appendectomy (05/23/20) Laparoscopic Appendectomy Dr. Naylor 05/23/2020 History of throat surgery small mass removed > benign History of tooth extraction History of tubal ligation (1996) Family History Mother Diabetes Hypertension Father Colorectal cancer Bladder cancer Grandmother (Paternal) Aneurysm Denies family history of Ovarian cancer Prostate cancer Myocardial infarction Breast cancer Social History Smoking Status: Current some day smoker Tobacco Type: Cigarettes Age Started Using Tobacco: 17; packs per day: 1; Cigarettes Per Day: 1PPD pt started when she was 17 yrs old; Second Hand Exposure: Yes; Hx Alcohol Use: No Hx Substance Use: No Preferred Language: Mongolian Communication Ability: Effective Communication Ability Comment: wears glasses for reading Visual Impairment: Limited Hearing Ability: Normal Wine Maker Required: No Beliefs That Will Affect Care: None marital status: Current Living Situation: Spouse current occupational status: unemployed 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 How many Children do You have: 2 Feels Safe at Home: Yes Childhood Exposure to Second-Hand Smoke: No caffeine: Yes (coffee and tea 1 cup daily ) Dental Care, Regularly: Yes Physical Activity Frequency: Does not Exercise Seatbelt Use: always Sunscreen Use: No Assistive Devices: Apnea Monitor Allergies Allergies Allergy/AdvReac Type Severity Reaction Status Date / Time No Known Allergies Allergy Verified 07/11/22 18:11 Home Meds Home Medications Medication Instructions Recorded Confirmed fluoxetine 20 mg capsule (Prozac) 20 mg PO PM 05/15/20 07/11/22 rivaroxaban 20 mg tablet (Xarelto) 20 mg PO DAILY 11/08/21 07/11/22 buspirone 10 mg tablet 10 mg PO TID 11/16/21 07/11/22 levothyroxine 25 mcg tablet 25 mcg PO QAM 05/18/22 07/11/22 magnesium oxide See Rx Instructions .Route .COMPLEX 05/18/22 07/11/22 vitamin B complex 1 tab PO DAILY 05/18/22 07/11/22 ciprofloxacin HCl 500 mg tablet 500 mg PO BID 07/11/22 07/11/22 folic acid 800 mcg tablet 0.8 mg PO DAILY 07/11/22 07/11/22 Previous Rx's Medication Instructions Recorded atenolol 25 mg tablet 25 mg PO QAM #90 tabs 09/03/21 furosemide 40 mg tablet 40 mg PO QAM 90 days #90 tabs 04/02/22 atorvastatin 20 mg tablet 20 mg PO PM #90 tabs 04/11/22 gabapentin 300 mg capsule 300 mg PO BID #180 caps 07/02/22 Results & Data (ED) Vital Signs Vital Signs - 24 hr 07/11/22 15:33 07/11/22 16:54 07/11/22 16:54 Temperature 36.4 C L Temperature Source Temporal Artery Scan Pulse Rate 89 70 Pulse Rate [Apical] 70 Pulse Rhythm Regular Respiratory Rate 20 20 20 Respiratory Effort / Characteristics Non-Labored Spontaneous Respiratory Depth Normal Blood Pressure 95/63 L Blood Pressure [Right Arm] 96/80 L Blood Pressure Mean 73 Blood Pressure Mean [Right Arm] 85 Blood Pressure Position [Right Arm] Sitting Pulse Oximetry 97 99 99 Oxygen Delivery Method Room Air Room Air Sepsis Recent Fever Within 48 Hours No Sepsis New/Unexplained Change in Mental Status N/A Sepsis Action Taken by Nursing No Action Required 07/11/22 16:57 07/11/22 18:05 07/11/22 18:05 Temperature Temperature Source Pulse Rate 71 71 Pulse Rate [Apical] 71 Pulse Rhythm Respiratory Rate 18 17 Respiratory Effort / Characteristics Non-Labored Spontaneous Respiratory Depth Normal Blood Pressure 108/66 Blood Pressure [Right Arm] 108/66 Blood Pressure Mean 80 Blood Pressure Mean [Right Arm] 80 Blood Pressure Position [Right Arm] Pulse Oximetry 99 98 Oxygen Delivery Method Room Air Nasal Cannula Sepsis Recent Fever Within 48 Hours Sepsis New/Unexplained Change in Mental Status Sepsis Action Taken by Nursing Laboratory Data 07/11/22 16:23 07/11/22 16:23 Lab Results 07/11/22 07/11/22 07/11/22 Range/Units 16:23 16:23 16:23 WBC 17.75 H (4.8-10.8) K/ul RBC 4.01 L (4.20-5.40) M/uL Hgb 11.4 L (12.0-16.0) g/dl Hct 32.7 L (37.0-47.0) % MCV 81.5 (80.0-100.0) fL MCH 28.4 (25.0-34.0) pg MCHC 34.9 (32.0-36.0) g/dL RDW Std Deviation 46.1 (36.4-46.3) fL RDW Coeff of Jorge Luis 15.6 H (11.5-14.5) % Plt Count 227 (130-400) K/uL MPV 9.3 L (9.4-12.4) fL Immature Gran % (Auto) 1.4 % Neut % (Auto) 89.4 % Lymph % (Auto) 4.1 % Shelby % (Auto) 4.9 % Eos % (Auto) 0.0 % Baso % (Auto) 0.2 % Neut # (Auto) 15.86 H (1.40-6.50) K/uL Lymph # (Auto) 0.73 L (1.2-3.4) K/uL Shelby # (Auto) 0.87 H (0.11-0.59) K/uL Eos # (Auto) 0.00 (0-0.50) K/uL Baso # (Auto) 0.04 (0-0.2) K/uL Immature Gran # (Auto) 0.25 H (0.01-0.20) K/uL PT 12.8 H (9.0-12.0) Seconds INR 1.2 H (0.9-1.1) Sodium 124 L (136-145) mmol/L Potassium 4.2 (3.5-5.1) mmol/L Chloride 90 L (98-107) mmol/L Carbon Dioxide 27 (21-32) mmol/L Anion Gap 7 (3-11) BUN 21 (6-23) mg/dl Creatinine 0.94 (0.6-1.2) mg/dl Est Cr Clr Drug Dosing 55.0 ml/min Est GFR ( Amer) 75.9 ml/min Est GFR (Non-Af Amer) 65.5 ml/min BUN/Creatinine Ratio 22.3 H (10-20) Glucose 104 H (70-99(Fasting)) mg/dl Calcium 9.1 (8.6-10.3) mg/dl Total Bilirubin 1.2 H (0.2-1.0) mg/dl AST 21 (13-39) U/L ALT 13 (7-52) U/L Alkaline Phosphatase 128 H (34-104) U/L Total Protein 6.7 (6.0-8.3) gm/dl Albumin 3.8 (3.4-5.0) gm/dl Globulin 2.9 (2.5-4.0) gm/dl Albumin/Globulin Ratio 1.3 (0.9-2) Lipase 202 H (11-82) U/L Urine Color Urine Appearance (Clear) Urine pH (4.5-7.5) Ur Specific Ambrose (1.000-1.030) Urine Protein (Negative) Urine Glucose (UA) (Negative) Urine Ketones (Negative) Urine Blood (Negative) Urine Nitrite (Negative) Urine Bilirubin (Negative) Urine Urobilinogen (Negative) Ur Leukocyte Esterase (Negative) Urine WBC (Auto) (0-5) /hpf Urine RBC (Auto) (0-4) /hpf U Hyaline Cast (Auto) (0-5) /lpf U Epithel Cells (Auto) (0-5) /lpf Urine Bacteria (Auto) (Negative) SARS-CoV-2, RNA, NAAT (NEGATIVE) 07/11/22 07/11/22 Range/Units 16:30 16:45 WBC (4.8-10.8) K/ul RBC (4.20-5.40) M/uL Hgb (12.0-16.0) g/dl Hct (37.0-47.0) % MCV (80.0-100.0) fL MCH (25.0-34.0) pg MCHC (32.0-36.0) g/dL RDW Std Deviation (36.4-46.3) fL RDW Coeff of Jorge Luis (11.5-14.5) % Plt Count (130-400) K/uL MPV (9.4-12.4) fL Immature Gran % (Auto) % Neut % (Auto) % Lymph % (Auto) % Shelby % (Auto) % Eos % (Auto) % Baso % (Auto) % Neut # (Auto) (1.40-6.50) K/uL Lymph # (Auto) (1.2-3.4) K/uL Shelby # (Auto) (0.11-0.59) K/uL Eos # (Auto) (0-0.50) K/uL Baso # (Auto) (0-0.2) K/uL Immature Gran # (Auto) (0.01-0.20) K/uL PT (9.0-12.0) Seconds INR (0.9-1.1) Sodium (136-145) mmol/L Potassium (3.5-5.1) mmol/L Chloride (98-107) mmol/L Carbon Dioxide (21-32) mmol/L Anion Gap (3-11) BUN (6-23) mg/dl Creatinine (0.6-1.2) mg/dl Est Cr Clr Drug Dosing ml/min Est GFR ( Amer) ml/min Est GFR (Non-Af Amer) ml/min BUN/Creatinine Ratio (10-20) Glucose (70-99(Fasting)) mg/dl Calcium (8.6-10.3) mg/dl Total Bilirubin (0.2-1.0) mg/dl AST (13-39) U/L ALT (7-52) U/L Alkaline Phosphatase (34-104) U/L Total Protein (6.0-8.3) gm/dl Albumin (3.4-5.0) gm/dl Globulin (2.5-4.0) gm/dl Albumin/Globulin Ratio (0.9-2) Lipase (11-82) U/L Urine Color Dark Yellow Urine Appearance Clear (Clear) Urine pH 6.5 (4.5-7.5) Ur Specific Ambrose 1.025 (1.000-1.030) Urine Protein 1+ H (Negative) Urine Glucose (UA) Negative (Negative) Urine Ketones Negative (Negative) Urine Blood Negative (Negative) Urine Nitrite Negative (Negative) Urine Bilirubin Negative (Negative) Urine Urobilinogen Negative (Negative) Ur Leukocyte Esterase Trace H (Negative) Urine WBC (Auto) 5-10 H (0-5) /hpf Urine RBC (Auto) 0-4 (0-4) /hpf U Hyaline Cast (Auto) 1-5 (0-5) /lpf U Epithel Cells (Auto) >30 H (0-5) /lpf Urine Bacteria (Auto) Negative (Negative) SARS-CoV-2, RNA, NAAT NEGATIVE (NEGATIVE) Administered Medications Discontinued Medications Sodium Chloride (Nss 1000ml) 1,000 mls @ 999 mls/hr IV .Q1H1M ALISIA Stop: 07/11/22 16:38 Last Infusion: 07/11/22 18:07 Dose: 0 mls/hr Documented By: Admin: 07/11/22 16:52 Dose: 999 mls/hr Documented By: QGV Piperacillin Sod/Tazobactam (Sod 4.5 gm/ Dextrose) 120 mls @ 200 mls/hr IV NOW ONE; Protocol Stop: 07/11/22 17:43 Last Infusion: 07/11/22 19:07 Dose: 0 mls/hr Documented By: Admin: 07/11/22 18:04 Dose: 200 mls/hr Documented By: PATRICK Sodium Chloride (Nss) 500 mls @ 999 mls/hr IV .Q31M ONE Stop: 07/11/22 19:15 Last Infusion: 07/11/22 19:49 Dose: 0 mls/hr Documented By: Admin: 07/11/22 19:18 Dose: 999 mls/hr Documented By: EMIR Ioversol (Optiray 350 100ml) 89 ml IV ONCE ONE Stop: 07/11/22 17:56 Last Admin: 07/11/22 17:59 Dose: 89 ml Documented By: DAVID Morphine Sulfate (Morphine Sulfate 10 Mg/Ml Carp/Vial) 6 mg IV NOW STA Stop: 07/11/22 17:09 Last Admin: 07/11/22 17:32 Dose: 6 mg Documented By: QGV Ondansetron HCl (Ondansetron Inj 2 Mg/Ml 2 Ml Vial) 4 mg IV NOW STA Stop: 07/11/22 17:09 Last Admin: 07/11/22 17:22 Dose: 4 mg Documented By: QGV Imaging Data Radiologist's Impression: Abdomen/Pelvis CT 07/11/22 15:[address] WITH IV CONTRAST CT DOSE: 263.58 mGy.cm HISTORY: abd pain and bloating, 2 pancreatic stents 3 days TECHNIQUE: Multiaxial CT images of the abdomen and pelvis were performed following the use of intravenous contrast. A dose lowering technique was utilized adhering to the principles of ALARA. COMPARISON STUDY: Abdomen and pelvis CT 05/18/2022. FINDINGS: Emphysema and dependent changes again noted at the lung bases. No pneumoperitoneum. No pneumatosis. 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 Sclerotic focus within the right sacrum remains stable. This may represent a bone island. No acute fractures identified. Mild body wall edema. There is thickening of the proximal to mid duodenum. Edema both within and surrounding the pancreatic head consistent with acute pancreatitis. This has progressed in the interval. Peripancreatic edema/fluid is noted. There is fluid tracking along the bilateral anterior pararenal spaces. There is a small loculated fluid collection between the pancreatic head and liver best seen on image 150 measuring 3.6 x 2.3 cm. This may represent a developing pseudocyst. The main pancreatic duct stent appears in good position. Mild dilatation of the proximal main pancreatic duct within the tail the pancreas. This is similar to the prior study. There is a metallic common bile duct stent which is filled with gas and is therefore patent. This results in the pneumobilia. The liver is enlarged. No hepatic or splenic masses. The adrenal glands and kidneys enhance normally. There is mild perinephric edema noted. Gas and hyperdense material within the gallbladder which could represent sludge, stones, or contrast. There is mild gallbladder wall thickening and pericholecystic edema. This could be due to recent stent placement. A developing acute cholecystitis could also have a similar appearance. Clinical correlation recommended. The heterogeneous appearance to the pancreatic head may be due to the acute pancreatitis. Underlying pancreatic lesion would be difficult to exclude by imaging. There is mild peripancreatic lymphadenopathy. Normal caliber abdominal aorta with extensive calcified plaque. Mesenteric inflammatory change has progressed. There is partial peripheral enhancement of a developing peripancreatic fluid collection on image 151. This measures 4.8 x 2.0 cm. The main portal vein is patent. The bladder, uterus, and adnexa are unremarkable. Moderate fecal retention. Colonic diverticulosis. No evidence for acute diverticulitis. No evidence for a bowel obstruction. Prior appendectomy. IMPRESSION: 1. Interval placement of common bile duct and main pancreatic duct stents which appear in good position. 2. Edema within the pancreatic head which has progressed. There is also progressive peripancreatic inflammatory change/edema with a few developing peripancreatic fluid collections as described above. Findings suggest a progressive acute pancreatitis. An underlying lesion within the pancreatic head would be difficult to exclude on this study. 3. Duodenal thickening is likely reactive to the suspected pancreatitis. 4. Bladder wall thickening with a small amount of pericholecystic fluid. There is gas and hyperdense material within the bladder lumen. This is likely due to the recent stent placement. Developing acute cholecystitis is considered less likely but not entirely excluded. 5. No evidence for bowel obstruction. 6. Additional findings as described above. ACT 112: Negative or not required by law. Electronically signed by: Mauricio Garza M.D. 07/11/2022 6:19 PM Discharge Plan Visit Data Chief Complaint: Abdominal Pain Stated Complaint: ABDOMINAL PAIN ED Provider: Laurent Swanson Discharge Problem: Acute pancreatitis, Abdominal pain, Leukocytosis, Acute hyponatremia Patient Disposition: Admitted As Inpatient Discharge Instructions Interventions: ED Discharge Assessment Last Done: 07/11/22 21:30 Forms Stand Alone Forms: My [facility] Prescriptions Prescriptions: No Action atenolol 25 mg tablet 25 mg PO QAM Qty: 90 3RF furosemide 40 mg tablet 40 mg PO QAM 90 Days Qty: 90 3RF atorvastatin 20 mg tablet 20 mg PO PM Qty: 90 3RF gabapentin 300 mg capsule 300 mg PO BID Qty: 180 0RF buspirone 10 mg tablet 10 mg PO TID fluoxetine [Prozac] 20 mg capsule 20 mg PO PM Xarelto 20 mg tablet 20 mg PO DAILY Rx Instructions: ON HOLD SINCE 07/04/22 FOR PROCEDURE WAS TO START 07/11/22. MUST TAKE WITH A MEAL/FOOD levothyroxine 25 mcg tablet 25 mcg PO QAM magnesium oxide 200 mg magnesium Tablet See Rx Instructions .ROUTE .COMPLEX Rx Instructions: 200 mg orally; TAKES 400 MG QAM, THEN 200 MG QPM. vitamin B complex Tablet 1 tab PO DAILY ciprofloxacin HCl 500 mg tablet 500 mg PO BID Rx Instructions: STARTED 07/09/22 FOR 5 DAYS folic acid 800 mcg Tablet 0.8 mg PO DAILY Referrals Referrals: Rachid Cool MD [Primary Care Provider] -
[2022-07-11 17:16] LABS: INR 1.2 (0.9-1.1); Prothrombin Time 12.8 Seconds (9.0-12.0)
[2022-07-11] MEDS ORDERED: OPTIRAY 350 100ml IV ONE (17:55)
--- NOTE | 2022-07-11 18:21 | CT Scan Report ---
ABDOMEN AND PELVIS CT WITH IV CONTRAST CT DOSE: 263.58 mGy.cm HISTORY: abd pain and bloating, 2 pancreatic stents 3 days TECHNIQUE: Multiaxial CT images of the abdomen and pelvis were performed following the use of intrave nous contrast. A dose lowering technique was utilized adhering to the principles of ALARA. COMPARISON STUDY: Abdomen and pelvis CT 05/18/2022. FINDINGS: Emphysema and dependent changes again noted at the lung bases. No pneumoperitoneum. No pneu matosis. 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 Sclerotic focus within the right sacrum remains stable. This may represent a bone island. No acute fractures id entified. Mild body wall edema. There is thickening of the proximal to mid duodenum. Edema both withi n and surrounding the pancreatic head consistent with acute pancreatitis. This has progressed in the interval. Peripancreatic edema/fluid is noted. There is fluid tracking along the bilateral anterior p ararenal spaces. There is a small loculated fluid collection between the pancreatic head and liver be st seen on image 150 measuring 3.6 x 2.3 cm. This may represent a developing pseudocyst. The main morejon creatic duct stent appears in good position. Mild dilatation of the proximal main pancreatic duct wit hin the tail the pancreas. This is similar to the prior study. There is a metallic common bile duct s tent which is filled with gas and is therefore patent. This results in the pneumobilia. The liver is enlarged. No hepatic or splenic masses. The adrenal glands and kidneys enhance normally. There is mil d perinephric edema noted. Gas and hyperdense material within the gallbladder which could represent s ludge, stones, or contrast. There is mild gallbladder wall thickening and pericholecystic edema. This could be due to recent stent placement. A developing acute cholecystitis could also have a similar a ppearance. Clinical correlation recommended. The heterogeneous appearance to the pancreatic head may be due to the acute pancreatitis. Underlying pancreatic lesion would be difficult to exclude by imagi ng. There is mild peripancreatic lymphadenopathy. Normal caliber abdominal aorta with extensive calci fied plaque. Mesenteric inflammatory change has progressed. There is partial peripheral enhancement o f a developing peripancreatic fluid collection on image 151. This measures 4.8 x 2.0 cm. The main por elvin vein is patent. The bladder, uterus, and adnexa are unremarkable. Moderate fecal retention. Colon ic diverticulosis. No evidence for acute diverticulitis. No evidence for a bowel obstruction. Prior a ppendectomy. IMPRESSION: 1. Interval placement of common bile duct and main pancreatic duct stents which appear in good positi on. 2. Edema within the pancreatic head which has progressed. There is also progressive peripancreatic in flammatory change/edema with a few developing peripancreatic fluid collections as described above. Fi ndings suggest a progressive acute pancreatitis. An underlying lesion within the pancreatic head woul d be difficult to exclude on this study. 3. Duodenal thickening is likely reactive to the suspected pancreatitis. 4. Bladder wall thickening with a small amount of pericholecystic fluid. There is gas and hyperdense material within the bladder lumen. This is likely due to the recent stent placement. Developing acute cholecystitis is considered less likely but not entirely excluded. 5. No evidence for bowel obstruction. 6. Additional findings as described above. ACT 112: Negative or not required by law. Electronically signed by: Mauricio Garza M.D. 07/11/2022 6:19 PM
[2022-07-11] MEDS ORDERED: SODIUM CHLORIDE 0.9% 500 ML IV ONE (18:45)
--- NOTE | 2022-07-11 19:18 | History & Physical Report ---
Date of Service July 11, 2022 Assessment & Plan (1) Pancreatitis: Plan: Abdominal pain, pancreatitis versus developing cholecystitis -Lipase mildly elevated at 202 -CT-A/P: 1. Interval placement of common bile duct and main pancreatic duct stents which appear in good position. 2. Edema within the pancreatic head which has progressed. There is also progressive peripancreatic inflammatory change/edema with a few developing peripancreatic fluid collections as described above. Findings suggest a progressive acute pancreatitis. An underlying lesion within the pancreatic head would be difficult to exclude on this study.3. Duodenal thickening is likely reactive to the suspected pancreatitis.4. Bladder wall thickening with a small amount of pericholecystic fluid. There is gas and hyperdense material within the bladder lumen. This is likely due to the recent stent placement.Developing acute cholecystitis is considered less likely but not entirely excluded. 5. No evidence for bowel obstruction.6. Additional findings as described above. Patient with minimal p.o. intake, has been taking clears for the last several days Previously with EUS for suspected pancreatic mass which did not show a mass, but had dilated PD with evidence of chronic pancreatitis and was found to have pancreas divisum. Has had stents placed which are in good position as above Evidence on CT? Developing cholecystitis. Covered with empiric Zosyn at this time. No hx of stones on prior evaluation. HIDA pending No transaminitis trend CMP, - patient has a leukocytosis, trended No fever/chills GI consulted, surgical consult pending HIDA N.p.o., IV FM while n.p.o. (2) History of pulmonary embolism: Plan: Xarelto has been held due to stent placement. Patient was due to resume this today. She has a distant history of DVT/PE more than 10 years ago with no thromboembolism since. Will temporarily defer pending Gi and surgical evaluation, if no additional procedures indicated recommend resuming tomorrow. Heparin 3 times daily subcu DVT PPx continued in the interim (3) History of alcoholism: Plan: No alcohol use since April per patient With history of cirrhosis. Has had paracentesis last in October, otherwise has been stable on furosemide alone. Was previously on spironolactone but this was discontinued due to hyperkalemia and per patient possibly hypotension Cirrhosis appears stable (4) HTN (hypertension), benign: Plan: Patient reports that she is generally actually mildly hypotensive. Tolerates atenolol and Lasix well. These are continued. (5) Pulmonary nodules: History of Present Illness Primary Care Provider: Rachid Cool MD Shruthi is a 62-year-old female who is seen for recurrent worsening abdominal pain after she had a pancreatic stent placed. She has a history of alcohol induced cirrhosis with alcohol use in remission since April, DVT with PE more than 10 years ago on Xarelto which was held around her stent placement and was to be resumed today, and depression on fluoxetine. Per patient she did not have any evidence of stones but "bad drainage. The last several days she has had worsening abdominal pain but no nausea. Had 1 episode of nonbloody nonmelanotic diarrhea today. She has not eaten much has been continued on clear since her stent placement. She has had ascites related to alcoholic cirrhosis, this seems a little bit worse. She had 1 episode of paracentesis last October but has not needed this since. Takes lasix, was on spironolactone but did not tolerate and was told to stop. Had high potassium and thinks maybe blood pressure may have low. Just had 1 episode of diarrhea, brown. no blood/melena No vomiting.No chest pain or chest pressure No fevers/chills/sweats WBC 17. No steroid use lately. Has not been able to eat since Friday night. Was on clear liquid diet due to stents. Had not yet progressed to full liquid. At bedside she is not distressed, reports her pain is present but tolerable since receiving treatment with morphine in the ER. No additional questions or concerns. Medical History: Reviewed Medications: Reviewed Surgical History: Reviewed Family history: Reviewed Allergies: Reviewed Social History: Former alcohol use, last use 04/2022. Code Status: Full code Allergies Allergy/AdvReac Type Severity Reaction Status Date / Time No Known Allergies Allergy Verified 07/11/22 18:11 Home Medications Medication Instructions Recorded Confirmed Type fluoxetine 20 mg capsule (Prozac) 20 mg PO PM 05/15/20 07/11/22 History atenolol 25 mg tablet 25 mg PO QAM #90 tabs 09/03/21 07/11/22 Rx rivaroxaban 20 mg tablet (Xarelto) 20 mg PO DAILY 11/08/21 07/11/22 History buspirone 10 mg tablet 10 mg PO TID 11/16/21 07/11/22 History furosemide 40 mg tablet 40 mg PO QAM 90 days #90 tabs 04/02/22 07/11/22 Rx atorvastatin 20 mg tablet 20 mg PO PM #90 tabs 04/11/22 07/11/22 Rx levothyroxine 25 mcg tablet 25 mcg PO QAM 05/18/22 07/11/22 History magnesium oxide See Rx Instructions .Route .COMPLEX 05/18/22 07/11/22 History vitamin B complex 1 tab PO DAILY 05/18/22 07/11/22 History gabapentin 300 mg capsule 300 mg PO BID #180 caps 07/02/22 07/11/22 Rx ciprofloxacin HCl 500 mg tablet 500 mg PO BID 07/11/22 07/11/22 History folic acid 800 mcg tablet 0.8 mg PO DAILY 07/11/22 07/11/22 History Past Med/Surg History Medical History Acute hyponatremia Acute recurrent pancreatitis Anxiety Avascular necrosis of femoral neck b/l on CT abd/pelvis 04/2020 Calcification of abdominal aorta Depression Enlarged liver History of anemia History of bronchitis resolved HTN (hypertension), benign Hyponatremia Lump of skin of back lipoma Migraine hx Pancreas divisum Pulmonary embolism (10/18/12) Pulmonary embolism and one to groin 8 yrs ago> unknown causes> Xarelto Pulmonary nodules under surveillance Surgical History H/O colonoscopy (2016) Dr. Billings History of esophagogastroduodenoscopy (EGD) (2016) Dr. Billings History of laparoscopic appendectomy (05/23/20) Laparoscopic Appendectomy Dr. Naylor 05/23/2020 History of throat surgery small mass removed > benign History of tooth extraction History of tubal ligation (1996) Family History Mother Diabetes Hypertension Father Colorectal cancer Bladder cancer Grandmother (Paternal) Aneurysm Denies family history of Ovarian cancer Prostate cancer Myocardial infarction Breast cancer Social History Smoking Status: Current some day smoker Tobacco Type: Cigarettes Age Started Using Tobacco: 17; packs per day: 1; Cigarettes Per Day: 1PPD pt started when she was 17 yrs old; Second Hand Exposure: Yes; Hx Alcohol Use: No Hx Substance Use: No Preferred Language: Ukrainian Communication Ability: Effective Communication Ability Comment: wears glasses for reading Visual Impairment: Limited Hearing Ability: Normal Bedspread Folder Required: No Beliefs That Will Affect Care: None marital status: Current Living Situation: Spouse current occupational status: unemployed 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 NAD. Cooperative. HEENT: Atraumatic, normocephalic. Vision/hearing grossly intact Pulm: CTAB A&P. -wheezes, -rales, -rhonchi. Symmetrical chest rise. No increased work of breathing. No respiratory distress. Cardiac: RRR, -mrg. Radial pulses intact and symmetrical. Abdominal: Softly distended. Tender in the epigastrium. No rebound tenderness. Bowel sounds diminished. Extremities: Warm, dry. Moves all extremities equally Results & Data Results & Data Vital Signs (Past 12 Hours) Vital Signs Temp Pulse Pulse Resp BP BP Pulse Ox 07/11/22 18:05 71 18 108/66 99 07/11/22 16:57 71 07/11/22 16:54 70 20 99 07/11/22 16:54 70 20 96/80 L 99 07/11/22 15:33 36.4 C L 89 20 95/63 L 97 O2 Del Method 07/11/22 18:05 Room Air 07/11/22 16:57 07/11/22 16:54 Room Air 07/11/22 16:54 Room Air 07/11/22 15:33 PG Care Time/CCT Total # of Minutes Spent Total Time Spent with Patient: Total time spent is greater than 50% in coordination of care (as documented) at patient's floor/unit and/or counseling patient: Coding Level of Care Code 37510 INT INP/OBS CARE 3/75MIN Diagnoses Pancreatitis K85.20 Acute pancreatitis complication: unspecified Chronicity: acute Pancreatitis type: alcohol induced History of pulmonary embolism Z86.711 History of alcoholism F10.21 HTN (hypertension), benign I10 Pulmonary nodules R91.8 (1) Pancreatitis Acute pancreatitis complication: unspecified Chronicity: acute Pancreatitis type: alcohol induced Qualified Code(s): K85.20 - Alcohol induced acute pancreatitis without necrosis or infection
[2022-07-11] MEDS ORDERED: HYDROmorphone INJ 0.5 MG/0.5 ML SYR IV PRN (21:52)
[2022-07-11] MEDS: HYDROmorphone INJ 1 MG/ML SYRINGE IV PRN (22:17)
[2022-07-11] MEDS: LACTATED RINGER'S 1,000 ML IV SCH (22:18)
[2022-07-11] MEDS ORDERED: ACETAMINOPHEN 1,000 MG/100 ML VIAL IV PRN (22:48)
[2022-07-11] MEDS: ATORVASTATIN 20 MG TAB PO SCH (22:50)
[2022-07-11] MEDS: FLUoxetine HCL 20 MG CAP PO SCH (22:50)
[2022-07-11] MEDS: GABAPENTIN 300 MG CAP PO SCH (22:50)
[2022-07-11] MEDS: HEPARIN SOD 5,000 UNIT/0.5 ML VIAL SQ SCH (23:00)
[2022-07-12] MEDS: PIPERACILLIN/TAZOBACTAM 4.5 GM in DEXTROSE 5% 100 ML IV SCH ×3 (00:25→16:12)
[2022-07-12] MEDS: HEPARIN SOD 5,000 UNIT/0.5 ML VIAL SQ SCH ×3 (06:12→21:22)
[2022-07-12] MEDS: LEVOTHYROXINE SODIUM 25 MCG TABLET PO SCH (06:13)
[2022-07-12 08:55] LABS: Albumin Level 3.5 gm/dl (3.4-5.0); Calcium 8.9 mg/dl (8.6-10.3); Potassium 3.8 mmol/L (3.5-5.1)
[2022-07-12 09:01] LABS: Albumin Globulin Ratio 1.4 (0.9-2); BUN Creatinine Ratio 18.1 (10-20); Creatinine Clr Calc Pharmacy 62.5 ml/min; Est GFR (African American) 88.2 ml/min; Est GFR (Non-African American) 76.1 ml/min; Globulin 2.5 gm/dl (2.5-4.0)
--- NOTE | 2022-07-12 09:19 | Hospitalist Progress Note ---
Date of Service July 12, 2022 Assessment & Plan (1) Pancreatitis: Plan: Abdominal pain, pancreatitis -Lipase mildly elevated at 202 -CT-A/P: 1. Interval placement of common bile duct and main pancreatic duct stents which appear in good position. 2. Edema within the pancreatic head which has progressed. There is also progressive peripancreatic inflammatory change/edema with a few developing peripancreatic fluid collections as described above. Findings suggest a progressive acute pancreatitis. An underlying lesion within the pancreatic head would be difficult to exclude on this study.3. Duodenal thickening is likely reactive to the suspected pancreatitis.4. Bladder wall thickening with a small amount of pericholecystic fluid. There is gas and hyperdense material within the bladder lumen. This is likely due to the recent stent placement.Developing acute cholecystitis is considered less likely but not entirely excluded. 5. No evidence for bowel obstruction.6. Additional findings as described above. - Previously with EUS for suspected pancreatic mass which did not show a mass, but had dilated PD with evidence of chronic pancreatitis and was found to have pancreas divisum. Has had stents placed which are in good position as above - HIDA with EF 83% - Reviewed labs, LFTs and will repeat in AM - Reviewed CBC, repeat in AM no leukocytosis - GI evaluated and signed off (2) History of pulmonary embolism: Plan: Xarelto has been held due to stent placement. Patient was due to resume this today. She has a distant history of DVT/PE more than 10 years ago with no thro mboembolism since. Had subcut heparin today will restart Xarelto in AM (3) History of alcoholism: Plan: No alcohol use since September 2021 per patient (ER note documented April) With history of cirrhosis. Has had paracentesis last in October, otherwise has been stable on furosemide alone. Was previously on spironolactone but this was discontinued due to hyperkalemia and per patient possibly hypotension Cirrhosis appears stable - MELD score 8 (4) HTN (hypertension), benign: Plan: Patient reports that she is generally actually mildly hypotensive. Tolerates atenolol and Lasix well. These are continued. (5) Fecal impaction of colon: Plan: - Seen on CT imaging - Dulcolax supp x 1 - Encourage up and OOB Admission and Anticipated Discharge Date Admission Date: July 11, 2022 Subjective Patient is resting in bed in NAD. She states she ate a sandwich and feels increase in abdominal discomfort since eating. She denies any N/V Review of Systems Review of Systems: Patient denies any chest pain, SOB, Dyspnea. She admits to upper abdominal discomfort and abdominal bloating. She states her last BM was several days ago Physical Exam Constitutional: WD/WN, vitals as above Neck: trachea midline, no thyromegaly Respiratory: normal respiratory effort, lungs clear to auscultation Cardiovascular: RRR, no murmur, no edema Gastrointestinal (Abdomen): distended, +BS, soft tender to palpation upper abdomen, no R/R/G Neurologic: PERRL, EOMI, accommodation nl, no face palsy, no dysarthria Psychiatric: A+Ox3, euthymic affect Results & Data Results & Data Vital Signs (Past 12 Hours) Vital Signs Temp Pulse Resp BP Pulse Ox O2 Del Method 07/12/22 07:15 36.8 C 79 17 100/59 L 96 Room Air 07/11/22 21:45 36.2 C L 69 16 111/52 L 99 Room Air Laboratory Results Abnormal lab results 07/11/22 07/11/22 07/11/22 Range/Units 16:23 16:23 16:23 WBC 17.75 H (4.8-10.8) K/ul RBC 4.01 L (4.20-5.40) M/uL Hgb 11.4 L (12.0-16.0) g/dl Hct 32.7 L (37.0-47.0) % RDW Std Deviation (36.4-46.3) fL RDW Coeff of Jorge Luis 15.6 H (11.5-14.5) % MPV 9.3 L (9.4-12.4) fL Neut # (Auto) 15.86 H (1.40-6.50) K/uL Lymph # (Auto) 0.73 L (1.2-3.4) K/uL Fisher # (Auto) 0.87 H (0.11-0.59) K/uL Immature Gran # (Auto) 0.25 H (0.01-0.20) K/uL PT 12.8 H (9.0-12.0) Seconds INR 1.2 H (0.9-1.1) Sodium 124 L (136-145) mmol/L Chloride 90 L (98-107) mmol/L BUN/Creatinine Ratio 22.3 H (10-20) Glucose 104 H (70-99(Fasting)) mg/dl Total Bilirubin 1.2 H (0.2-1.0) mg/dl Alkaline Phosphatase 128 H (34-104) U/L Lipase 202 H (11-82) U/L Urine Protein (Negative) Ur Leukocyte Esterase (Negative) Urine WBC (Auto) (0-5) /hpf U Epithel Cells (Auto) (0-5) /lpf 07/11/22 07/12/22 07/12/22 Range/Units 16:30 08:09 09:53 WBC 12.43 H (4.8-10.8) K/ul RBC 3.74 L (4.20-5.40) M/uL Hgb 11.0 L (12.0-16.0) g/dl Hct 31.0 L (37.0-47.0) % RDW Std Deviation 46.5 H (36.4-46.3) fL RDW Coeff of Jorge Luis 16.0 H (11.5-14.5) % MPV (9.4-12.4) fL Neut # (Auto) 10.98 H (1.40-6.50) K/uL Lymph # (Auto) 0.62 L (1.2-3.4) K/uL Fisher # (Auto) 0.71 H (0.11-0.59) K/uL Immature Gran # (Auto) (0.01-0.20) K/uL PT (9.0-12.0) Seconds INR (0.9-1.1) Sodium 131 L (136-145) mmol/L Chloride (98-107) mmol/L BUN/Creatinine Ratio (10-20) Glucose (70-99(Fasting)) mg/dl Total Bilirubin (0.2-1.0) mg/dl Alkaline Phosphatase 113 H (34-104) U/L Lipase (11-82) U/L Urine Protein 1+ H (Negative) Ur Leukocyte Esterase Trace H (Negative) Urine WBC (Auto) 5-10 H (0-5) /hpf U Epithel Cells (Auto) >30 H (0-5) /lpf PG Care Time/CCT Total # of Minutes Spent Total Time Spent with Patient: Total time spent is greater than 50% in coordination of care (as documented) at patient's floor/unit and/or counseling patient: Coding Level of Care Code 55021 SUB INP/OBS CARE MIN Diagnoses Pancreatitis K85.20 Acute pancreatitis complication: unspecified Chronicity: acute Pancreatitis type: alcohol induced History of pulmonary embolism Z86.711 History of alcoholism F10.21 HTN (hypertension), benign I10 Fecal impaction of colon K56.41 (1) Pancreatitis Acute pancreatitis complication: unspecified Chronicity: acute Pancreatitis type: alcohol induced Qualified Code(s): K85.20 - Alcohol induced acute pancreatitis without necrosis or infection
[2022-07-12] MEDS ORDERED: SINCALIDE 1.1 MCG in 0.9 % SODIUM CHLORIDE 100 ML IV ONE (10:30)
[2022-07-12 10:49] LABS: Basophils # (auto) 0.03 K/uL (0-0.2); Basophils % (auto) 0.2 %; Eosinophils # (auto) 0.04 K/uL (0-0.50); Eosinophils % (auto) 0.3 %; Immature Granulocytes # (auto) 0.05 K/uL (0.01-0.20); Immature Granulocytes % (auto) 0.4 %; Lymphocytes # (auto) 0.62 K/uL (1.2-3.4); Mean Corpuscular Hemoglobin 29.4 pg (25.0-34.0); Mean Corpuscular Hgb Conc 35.5 g/dL (32.0-36.0); Mean Corpuscular Volume 82.9 fL (80.0-100.0); Mean Platelet Volume 9.5 fL (9.4-12.4); Monocytes # (auto) 0.71 K/uL (0.11-0.59); Monocytes % (auto) 5.7 %; Neutrophils # (auto) 10.98 K/uL (1.40-6.50); Neutrophils % (auto) 88.4 %; Platelet Count 205 K/uL (130-400); RDW Standard Deviation 46.5 fL (36.4-46.3); Red Blood Count 3.74 M/uL (4.20-5.40); White Blood Count 12.43 K/ul (4.8-10.8)
[2022-07-12] MEDS: HYDROmorphone INJ 1 MG/ML SYRINGE IV PRN ×3 (12:22→20:53)
[2022-07-12] MEDS: ATENOLOL 25 MG TABLET PO SCH (12:27)
[2022-07-12] MEDS: PANTOprazole 40 MG TAB PO SCH (12:27)
[2022-07-12] MEDS: GABAPENTIN 300 MG CAP PO SCH ×2 (12:27→20:17)
--- NOTE | 2022-07-12 13:13 | Nuclear Medicine Report ---
NM hepatobiliary EF CLINICAL HISTORY: ?acalculous larry TECHNIQUE: Following the intravenous injection of 5.4 mCi of Tc-99m labeled Technetium 99m mebrofeni n, multiple images of the upper abdomen were obtained in the anterior projection with uptake measurem ents of the gallbladder obtained. Once the gallbladder and small bowel were visualized, the patient w as intravenously infused over 30 minutes with 0.02 mcg/kg of Sincalide (CCK), and imaging and uptakes were again obtained. Comparison: None available at the time of this dictation. FINDINGS: Sequential images demonstrate normal uptake in the liver, common bile duct, gallbladder, an d small bowel. No defects in uptake are identified. Subsequent imaging after the administration of si ncalide demonstrates prompt elimination of the radiotracer from the gallbladder. The calculated gallbladder ejection fraction based on uptake measurements is 83%. IMPRESSION: Normal uptake and excretion of contrast by the gallbladder. No evidence of acalculous cholecystitis. Reference: Normal gallbladder ejection fraction is greater than 33%. ACT 112: Negative or not required by law. Electronically signed by: Ra Florez M.D. 07/12/2022 1:11 PM
[2022-07-12] MEDS: LACTATED RINGER'S 1,000 ML IV SCH (13:50)
--- NOTE | 2022-07-12 14:30 | Gastrointestinal Consultation ---
Date of Consultation July 12, 2022 Assessment & Plan (1) Acute pancreatitis: Acute on chronic ETOH pancreatitis. Plan 1. IV fluids 2. Low fat, regular consistency diet. 3. Avoidance of ETOH. 4. Continued OP GI f/u w Dr. Jaquez. 5. GI will sign off. Supervising Physician Co-Signing Physician Notes I performed a history and physical examination of the patient today, including specifically on physical exam - soft abdomen. I have discussed the patient's management with the advanced practitioner. Please refer to the nurse practitioner's note for the documented findings and plan of care. Abdomen is soft, mild tenderness. CT scan showed mild pancreatitis and constipation. Advance her diet. PRN Pain meds. IV Hydration. Recall GI if needed. History of Present Illness Reason for Consultation: Pancreatitis Requesting Physician: Attending Physician: Demond Shaikh MD History of Present Illness Shyanne Guy is a 62 yr old female pt of Dr. Rachid Cool w a hx of ETOH cirrhosis and chronic pancreatitis who had undergone an ERCP w panc duct stenting earlier this week. Initially, she did well, but 2 days after the procedure developed diffuse abdominal pain and nausea. She presented to the ED yesterday. CT was suggestive of acute pancreatitis of the pancreas head and stents were in place. Lipase was el at 212. LFTs wer normal. She had leukocytosis at 17 which has improved to 12. She is seen and examined while she is resting in bed. She c/o abd pain and hunger and is hemodynamically stable. Allergies Allergy/AdvReac Type Severity Reaction Status Date / Time No Known Allergies Allergy Verified 07/11/22 18:11 Home Medications Medication Instructions Recorded Confirmed Type fluoxetine 20 mg capsule (Prozac) 20 mg PO PM 05/15/20 07/11/22 History atenolol 25 mg tablet 25 mg PO QAM #90 tabs 09/03/21 07/11/22 Rx rivaroxaban 20 mg tablet (Xarelto) 20 mg PO DAILY 11/08/21 07/11/22 History buspirone 10 mg tablet 10 mg PO TID 11/16/21 07/11/22 History furosemide 40 mg tablet 40 mg PO QAM 90 days #90 tabs 04/02/22 07/11/22 Rx atorvastatin 20 mg tablet 20 mg PO PM #90 tabs 04/11/22 07/11/22 Rx levothyroxine 25 mcg tablet 25 mcg PO QAM 05/18/22 07/11/22 History magnesium oxide See Rx Instructions .Route .COMPLEX 05/18/22 07/11/22 History vitamin B complex 1 tab PO DAILY 05/18/22 07/11/22 History gabapentin 300 mg capsule 300 mg PO BID #180 caps 07/02/22 07/11/22 Rx ciprofloxacin HCl 500 mg tablet 500 mg PO BID 07/11/22 07/11/22 History folic acid 800 mcg tablet 0.8 mg PO DAILY 07/11/22 07/11/22 History Patient History Medical History Acute hyponatremia Acute recurrent pancreatitis Anxiety Avascular necrosis of femoral neck b/l on CT abd/pelvis 04/2020 Calcification of abdominal aorta Depression Enlarged liver History of anemia History of bronchitis resolved HTN (hypertension), benign Hyponatremia Lump of skin of back lipoma Migraine hx Pancreas divisum Pulmonary embolism (10/18/12) Pulmonary embolism and one to groin 8 yrs ago> unknown causes> Xarelto Pulmonary nodules under surveillance Surgical History H/O colonoscopy (2016) Dr. Billings History of esophagogastroduodenoscopy (EGD) (2016) Dr. Billings History of laparoscopic appendectomy (05/23/20) Laparoscopic Appendectomy Dr. Naylor 05/23/2020 History of throat surgery small mass removed > benign History of tooth extraction History of tubal ligation (1996) Family History Mother Diabetes Hypertension Father Colorectal cancer Bladder cancer Grandmother (Paternal) Aneurysm Denies family history of Ovarian cancer Prostate cancer Myocardial infarction Breast cancer Social History Smoking Status: Current every day smoker Tobacco Type: Cigarettes Age Started Using Tobacco: 17; packs per day: 1; Cigarettes Per Day: 20; Second Hand Exposure: Yes; Do You Dip or Chew Tobacco: No; Tobacco Cessation Education Requested by Patient: No Hx Alcohol Use: Yes (pt. 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 How many Children do You have: 2 Other Information That Helps Us Care for You: No Feels Safe at Home: Yes Safety Concerns: Feels Safe At This Time Childhood Exposure to Second-Hand Smoke: No caffeine: Yes (coffee and tea 1 cup daily ) Dental Care, Regularly: Yes Physical Activity Frequency: Does not Exercise Seatbelt Use: always Sunscreen Use: No Assistive Devices: None Assistive Devices Comment: glasses for reading only Review of Systems Review of Systems: ROS: Gen: Denies weakness, fevers, weight loss Eyes: No eye redness, or pain, no recent vision changes Resp: No SOB, no cough Cardio: No palpitations/irregular beats, no chest pain GI: As per HPI, otherwise (-) : Denies pain on urination Skin: No jaundice, itching or new rashes A total of 12 systems were reviewed, all others (-) Physical Exam Constitutional: well developed, well nourished, + acute distress (tearful w pain and asking to eat) and cooperative Eyes: PERRL, conjunctivae normal, anicteric sclerae ENMT: external ear and nose normal, oropharynx normal Neck: trachea midline, no thyromegaly Respiratory: normal respiratory effort, lungs clear to auscultation Cardiovascular: RRR, no murmur, no edema Gastrointestinal (Abdomen): soft, mild distention, moderate/diffuse tenderness Skin: no rashes, warm and dry Neurologic: PERRL, EOMI, accommodation nl, no face palsy, no dysarthria Lymphatic: no cervical or axillary lymphadenopathy Results & Data Vital Signs (Past 12 Hours) Vital Signs Temp Pulse Resp BP Pulse Ox O2 Del Method 07/12/22 07:15 36.8 C 79 17 100/59 L 96 Room Air Laboratory Results WBC 17, Hb 11.4, Hct 32.7, Plts 227, Na 124, K 4.2, Cl 90, Co2 27, BUn 21, Cr 0.9, glucose 104. Lipase 202 T Bli 1.2, AST 21, ALT 13, ALk PHos 128. Diagnostic Findings CTAP 07/11/22 1. Interval placement of common bile duct and main pancreatic duct stents which appear in good position. 2. Edema within the pancreatic head which has progressed. There is also progressive peripancreatic inflammatory change/edema with a few developing peripancreatic fluid collections as described above. Findings suggest a progressive acute pancreatitis. An underlying lesion within the pancreatic head would be difficult to exclude on this study. 3. Duodenal thickening is likely reactive to the suspected pancreatitis. 4. Bladder wall thickening with a small amount of pericholecystic fluid. There is gas and hyperdense material within the bladder lumen. This is likely due to the recent stent placement. Developing acute cholecystitis is considered less likely but not entirely excluded. 5. No evidence for bowel obstruction. 6. Additional findings as described above. HIDA GB EF = 83%
[2022-07-12] MEDS ORDERED: Nursing to Pharmacy Communication SCH (15:15)
[2022-07-12] MEDS ORDERED: bisacodyL 10 MG SUPP PR STA (16:52)
[2022-07-12] MEDS: FLUoxetine HCL 20 MG CAP PO SCH (20:17)
[2022-07-12] MEDS: ATORVASTATIN 20 MG TAB PO SCH (20:17)
[2022-07-13] MEDS: LACTATED RINGER'S 1,000 ML IV SCH ×2 (00:02→11:27)
[2022-07-13] MEDS: PIPERACILLIN/TAZOBACTAM 4.5 GM in DEXTROSE 5% 100 ML IV SCH ×2 (00:02→08:10)
[2022-07-13] MEDS: LEVOTHYROXINE SODIUM 25 MCG TABLET PO SCH (05:48)
[2022-07-13] MEDS: POLYETHYLENE (MIRALAX) 17 GM PACK PO SCH (08:10)
[2022-07-13] MEDS: HYDROmorphone INJ 1 MG/ML SYRINGE IV PRN (08:10)
[2022-07-13] MEDS: RIVAROXABAN 20 MG TAB PO SCH (08:10)
[2022-07-13] MEDS: ATENOLOL 25 MG TABLET PO SCH (08:11)
[2022-07-13] MEDS: PANTOprazole 40 MG TAB PO SCH (08:11)
[2022-07-13] MEDS: GABAPENTIN 300 MG CAP PO SCH ×2 (08:11→21:10)
[2022-07-13 09:54] LABS: Basophils # (auto) 0.03 K/uL (0-0.2); Basophils % (auto) 0.3 %; Eosinophils # (auto) 0.03 K/uL (0-0.50); Eosinophils % (auto) 0.3 %; Hematocrit (blood only) 29.6 % (37.0-47.0); Hemoglobin 10.3 g/dl (12.0-16.0); Immature Granulocytes # (auto) 0.06 K/uL (0.01-0.20); Immature Granulocytes % (auto) 0.5 %; Lymphocytes % (auto) 6.7 %; Mean Corpuscular Hemoglobin 29.1 pg (25.0-34.0); Mean Corpuscular Hgb Conc 34.8 g/dL (32.0-36.0); Mean Corpuscular Volume 83.6 fL (80.0-100.0); Mean Platelet Volume 9.4 fL (9.4-12.4); Monocytes # (auto) 1.14 K/uL (0.11-0.59); Monocytes % (auto) 9.6 %; Neutrophils # (auto) 9.85 K/uL (1.40-6.50); Neutrophils % (auto) 82.6 %; Platelet Count 199 K/uL (130-400); RDW Standard Deviation 48.3 fL (36.4-46.3); Red Blood Count 3.54 M/uL (4.20-5.40); White Blood Count 11.91 K/ul (4.8-10.8)
[2022-07-13 09:57] LABS: Albumin Globulin Ratio 1.2 (0.9-2); BUN Creatinine Ratio 12.4 (10-20); Bilirubin,Total 0.7 mg/dl (0.2-1.0); Calcium 8.1 mg/dl (8.6-10.3); Creatinine Clr Calc Pharmacy 58.3 ml/min; Est GFR (African American) 81.1 ml/min; Globulin 2.6 gm/dl (2.5-4.0); Potassium 3.4 mmol/L (3.5-5.1); Total Protein 5.6 gm/dl (6.0-8.3)
[2022-07-13] MEDS ORDERED: ACETAMINOPHEN 1,000 MG/100 ML VIAL IV PRN (11:29)
[2022-07-13] MEDS ORDERED: POTASSIUM CHLORIDE CRTAB 20 MEQ TABCR PO STA (11:30)
--- NOTE | 2022-07-13 11:38 | Hospitalist Progress Note ---
Date of Service July 13, 2022 Assessment & Plan (1) Pancreatitis: Plan: Acute on chronic/unstable - Lipase minimally elevated at [address] evidence of acute pancreatitis on admission - Previously with EUS for suspected pancreatic mass which did not show a mass, but had dilated PD with evidence of chronic pancreatitis and was found to have pancreas divisum. Has had stents placed which are in good position as above - HIDA on 07/12 with no evidence of acalculous cholecystitis, normal EF >33% - No labs available for review this AM, ordered stat CBC and CMP - Reviewed CBC, minimal elevation in wbc count of 11.9 w/ left shift, afebrile - AST/ALT normal, mildly elevated alk phos of 122, normal TB - GI evaluated and signed off - Stop empiric Zosyn which was started for possible acute larry - Unfortunately, no blood cultures or urine culture performed, culture data would now be skewed after 3 days of IV Zosyn - Will trend wbc w/ repeat CBC in AM to ensure not worsening with discontinuation of abx - Cap fluids - De-escalate pain medications (2) History of pulmonary embolism: Plan: Chronic/stable - Xarelto held due to stent placement. She has a distant history of DVT/PE more than 10 years ago with no thromboembolism since. - Xarelto restarted 07/13 (3) History of alcoholism: Plan: Chronic/stable No alcohol use since September 2021 per patient (ER note documented April) With history of cirrhosis. Has had paracentesis last in October, otherwise has been stable on furosemide alone. Was previously on spironolactone but this was discontinued due to hyperkalemia and per patient possibly hypotension Cirrhosis appears stable - MELD score 8 (4) HTN (hypertension), benign: Plan: Chronic/stable Patient reports that she is generally actually mildly hypotensive. Tolerates atenolol and Lasix well. These are continued. (5) Fecal impaction of colon: Plan: Acute/unstable - Seen on CT imaging - Dulcolax supp x 1 - Encourage up and OOB - Continue daily Miralax and Senna Plan On Xarelto which provides adequate DVT ppx Plan to tentatively discharge tomorrow Will d/w Dr. Webb Admission and Anticipated Discharge Date Admission Date: July 11, 2022 Supervising Physician Co-Signing Physician Notes PA Supervision Note: I personally saw and examined the patient. I verified all arshad points and agree with OLU Carrillo with the following exceptions and/or additions: None, management of pancreatitis as described above. Subjective Patient seen on rounds this morning. Still has mild pain that she is rating 6- 7/10. She is tolerating oral intake. No n/v. She had a BM yesterday but still feels that her belly is "swollen." No fever/chills. Physical Exam Physical Exam: GENERAL: 62 yo Well-developed, well-nourished WF. NAD. LUNGS: Clear to auscultation bilaterally. CARDIOVASCULAR: Regular rate and rhythm. ABDOMEN: Soft, non-tender, mildly distended. No palpable masses. BS normoactive x 4 quad. Neg lyon's. No guarding. Results & Data Results & Data Vital Signs (Past 12 Hours) Vital Signs Temp Pulse Resp BP Pulse Ox O2 Del Method 07/13/22 07:44 36.9 C 80 16 117/68 95 Room Air Laboratory Results 07/13/22 09:15 07/13/22 09:15 PG Care Time/CCT Total # of Minutes Spent Total Time Spent with Patient: Total time spent is greater than 50% in coordination of care (as documented) at patient's floor/unit and/or counseling patient: Coding Level of Care Code 80590 SUB INP/OBS CARE 3/50MIN Diagnoses Pancreatitis K85.20 Acute pancreatitis complication: unspecified Chronicity: acute Pancreatitis type: alcohol induced History of pulmonary embolism Z86.711 History of alcoholism F10.21 HTN (hypertension), benign I10 Fecal impaction of colon K56.41 (1) Pancreatitis Acute pancreatitis complication: unspecified Chronicity: acute Pancreatitis type: alcohol induced Qualified Code(s): K85.20 - Alcohol induced acute pancreatitis without necrosis or infection
[2022-07-13] MEDS: DOCUSATE SODIUM/SENNA 50/8.6MG TAB PO SCH (12:12)
[2022-07-13] MEDS: HYDROmorphone INJ 0.5 MG/0.5 ML SYR IV PRN ×3 (13:01→21:36)
[2022-07-13] MEDS: ATORVASTATIN 20 MG TAB PO SCH (21:10)
[2022-07-13] MEDS: FLUoxetine HCL 20 MG CAP PO SCH (21:10)
[2022-07-14] MEDS: HYDROmorphone INJ 0.5 MG/0.5 ML SYR IV PRN ×3 (01:35→10:41)
[2022-07-14] MEDS: LEVOTHYROXINE SODIUM 25 MCG TABLET PO SCH (05:34)
[2022-07-14 08:55] LABS: Basophils # (auto) 0.02 K/uL (0-0.2); Basophils % (auto) 0.2 %; Eosinophils # (auto) 0.04 K/uL (0-0.50); Eosinophils % (auto) 0.4 %; Hematocrit (blood only) 30.5 % (37.0-47.0); Hemoglobin 10.4 g/dl (12.0-16.0); Immature Granulocytes # (auto) 0.07 K/uL (0.01-0.20); Immature Granulocytes % (auto) 0.7 %; Lymphocytes # (auto) 0.86 K/uL (1.2-3.4); Lymphocytes % (auto) 8.5 %; Mean Corpuscular Hemoglobin 27.8 pg (25.0-34.0); Mean Corpuscular Hgb Conc 34.1 g/dL (32.0-36.0); Mean Corpuscular Volume 81.6 fL (80.0-100.0); Mean Platelet Volume 8.9 fL (9.4-12.4); Monocytes # (auto) 0.98 K/uL (0.11-0.59); Monocytes % (auto) 9.7 %; Neutrophils # (auto) 8.18 K/uL (1.40-6.50); Neutrophils % (auto) 80.5 %; Platelet Count 224 K/uL (130-400); Red Blood Count 3.74 M/uL (4.20-5.40); White Blood Count 10.15 K/ul (4.8-10.8)
[2022-07-14 09:13] LABS: Albumin Globulin Ratio 1.1 (0.9-2); Albumin Level 3.3 gm/dl (3.4-5.0); BUN Creatinine Ratio 15.6 (10-20); Bilirubin,Total 0.8 mg/dl (0.2-1.0); Calcium 8.6 mg/dl (8.6-10.3); Est GFR (African American) 111.6 ml/min; Est GFR (Non-African American) 96.3 ml/min; Potassium 3.7 mmol/L (3.5-5.1); Total Protein 6.3 gm/dl (6.0-8.3)
[2022-07-14] MEDS: POLYETHYLENE (MIRALAX) 17 GM PACK PO SCH (09:24)
[2022-07-14] MEDS: RIVAROXABAN 20 MG TAB PO SCH (09:25)
[2022-07-14] MEDS: GABAPENTIN 300 MG CAP PO SCH (09:25)
[2022-07-14] MEDS: ATENOLOL 25 MG TABLET PO SCH (09:25)
[2022-07-14] MEDS: DOCUSATE SODIUM/SENNA 50/8.6MG TAB PO SCH (09:26)
[2022-07-14] MEDS: PANTOprazole 40 MG TAB PO SCH (09:27)
--- NOTE | 2022-07-14 11:25 | Discharge Summary ---
Date of Service July 14, 2022 Admission HPI Per Admitting Provider Shruthi is a 62-year-old female who is seen for recurrent worsening abdominal pain after she had a pancreatic stent placed. She has a history of alcohol induced cirrhosis with alcohol use in remission since April, DVT with PE more than 10 years ago on Xarelto which was held around her stent placement and was to be resumed today, and depression on fluoxetine. Per patient she did not have any evidence of stones but "bad drainage. The last several days she has had worsening abdominal pain but no nausea. Had 1 episode of nonbloody nonmelanotic diarrhea today. She has not eaten much has been continued on clear since her stent placement. She has had ascites related to alcoholic cirrhosis, this seems a little bit worse. She had 1 episode of paracentesis last October but has not needed this since. Takes lasix, was on spironolactone but did not tolerate and was told to stop. Had high potassium and thinks maybe blood pressure may have low. Just had 1 episode of diarrhea, brown. no blood/melena No vomiting.No chest pain or chest pressure No fevers/chills/sweats WBC 17. No steroid use lately. Has not been able to eat since Friday night. Was on clear liquid diet due to stents. Had not yet progressed to full liquid. At bedside she is not distressed, reports her pain is present but tolerable since receiving treatment with morphine in the ER. No additional questions or concerns. Medical History: Reviewed Medications: Reviewed Surgical History: Reviewed Family history: Reviewed Allergies: Reviewed Social History: Former alcohol use, last use 04/2022. Code Status: Full code Principal Diagnosis 1. Acute on chronic pancreatitis 2. Constipation 3. Hyponatremia - SIADH 4. Hypokalemia - replaced/resolved Discharge Exam GENERAL: 62 yo Well-developed, well-nourished WF. NAD. LUNGS: Clear to auscultation bilaterally. CARDIOVASCULAR: Regular rate and rhythm. ABDOMEN: Soft, non-tender, mildly distended. No palpable masses. BS normoactive x 4 quad. Neg lyon's. No guarding. Discharge Data Allergies Allergy/AdvReac Type Severity Reaction Status Date / Time No Known Allergies Allergy Verified 07/11/22 18:11 Consultations 07/11/22 18:35 ED Decision to Admit Stat 07/11/22 21:52 Consult Gastroenterology Routine Ordered Studies Abdomen/Pelvis CT 07/11/22 15:[address] WITH IV CONTRAST CT DOSE: 263.58 mGy.cm HISTORY: abd pain and bloating, 2 pancreatic stents 3 days TECHNIQUE: Multiaxial CT images of the abdomen and pelvis were performed following the use of intravenous contrast. A dose lowering technique was utilized adhering to the principles of ALARA. COMPARISON STUDY: Abdomen and pelvis CT 05/18/2022. FINDINGS: Emphysema and dependent changes again noted at the lung bases. No pneumoperitoneum. No pneumatosis. 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 Sclerotic focus within the right sacrum remains stable. This may represent a bone island. No acute fractures identified. Mild body wall edema. There is thickening of the proximal to mid duodenum. Edema both within and surrounding the pancreatic head consistent with acute pancreatitis. This has progressed in the interval. Peripancreatic edema/fluid is noted. There is fluid tracking along the bilateral anterior pararenal spaces. There is a small loculated fluid collection between the pancreatic head and liver best seen on image 150 measuring 3.6 x 2.3 cm. This may represent a developing pseudocyst. The main pancreatic duct stent appears in good position. Mild dilatation of the proximal main pancreatic duct within the tail the pancreas. This is similar to the prior study. There is a metallic common bile duct stent which is filled with gas and is therefore patent. This results in the pneumobilia. The liver is enlarged. No hepatic or splenic masses. The adrenal glands and kidneys enhance normally. There is mild perinephric edema noted. Gas and hyperdense material within the gallbladder which could represent sludge, stones, or contrast. There is mild gallbladder wall thickening and pericholecystic edema. This could be due to recent stent placement. A developing acute cholecystitis could also have a similar appearance. Clinical correlation recommended. The heterogeneous appearance to the pancreatic head may be due to the acute pancreatitis. Underlying pancreatic lesion would be difficult to exclude by imaging. There is mild peripancreatic lymphadenopathy. Normal caliber abdominal aorta with extensive calcified plaque. Mesenteric inflammatory change has progressed. There is partial peripheral enhancement of a developing peripancreatic fluid collection on image 151. This measures 4.8 x 2.0 cm. The main portal vein is patent. The bladder, uterus, and adnexa are unremarkable. Moderate fecal retention. Colonic diverticulosis. No evidence for acute diverticulitis. No evidence for a bowel obstruction. Prior appendectomy. IMPRESSION: 1. Interval placement of common bile duct and main pancreatic duct stents which appear in good position. 2. Edema within the pancreatic head which has progressed. There is also progressive peripancreatic inflammatory change/edema with a few developing peripancreatic fluid collections as described above. Findings suggest a progressive acute pancreatitis. An underlying lesion within the pancreatic head would be difficult to exclude on this study. 3. Duodenal thickening is likely reactive to the suspected pancreatitis. 4. Bladder wall thickening with a small amount of pericholecystic fluid. There is gas and hyperdense material within the bladder lumen. This is likely due to the recent stent placement. Developing acute cholecystitis is considered less likely but not entirely excluded. 5. No evidence for bowel obstruction. 6. Additional findings as described above. ACT 112: Negative or not required by law. Electronically signed by: Mauricio Garza M.D. 07/11/2022 6:19 PM Hepatobiliary Scan Nuclear Medicine 07/12/22 10:00 NM hepatobiliary EF CLINICAL HISTORY: ?acalculous jean pierre TECHNIQUE: Following the intravenous injection of 5.4 mCi of Tc-99m labeled Technetium 99m mebrofenin, multiple images of the upper abdomen were obtained in the anterior projection with uptake measurements of the gallbladder obtained. Once the gallbladder and small bowel were visualized, the patient was intravenously infused over 30 minutes with 0.02 mcg/kg of Sincalide (CCK), and imaging and uptakes were again obtained. Comparison: None available at the time of this dictation. FINDINGS: Sequential images demonstrate normal uptake in the liver, common bile duct, gallbladder, and small bowel. No defects in uptake are identified. Subsequent imaging after the administration of sincalide demonstrates prompt elimination of the radiotracer from the gallbladder. The calculated gallbladder ejection fraction based on uptake measurements is 83%. IMPRESSION: Normal uptake and excretion of contrast by the gallbladder. No evidence of acalculous cholecystitis. Reference: Normal gallbladder ejection fraction is greater than 33%. ACT 112: Negative or not required by law. Electronically signed by: Ra Florez M.D. 07/12/2022 1:11 PM Hospital Course (1) Pancreatitis: Acute on chronic/unstable - Lipase minimally elevated at [address] evidence of acute pancreatitis on admission - Previously with EUS for suspected pancreatic mass which did not show a mass, but had dilated PD with evidence of chronic pancreatitis and was found to have pancreas divisum. Has had stents placed which are in good position as above - HIDA on 07/12 with no evidence of acalculous cholecystitis, normal EF >33% - AST/ALT normal, mildly elevated alk phos of 122, normal TB - GI evaluated and signed off - Stopped empiric Zosyn on 07/13 which was started on admit for possible acute jean pierre - Unfortunately, no blood cultures or urine culture performed, culture data would now be skewed after 3 days of IV Zosyn - Trended wbc to ensure not worsening with discontinuation of abx - reviewed cbc this AM - wbc normal on 07/14 at 10.15 - Capped fluids 07/13 - De-escalated pain medications - Tolerating oral intake, minimal abd pain, no n/v (2) History of pulmonary embolism: Chronic/stable - Xarelto held due to stent placement. She has a distant history of DVT/PE more than 10 years ago with no thromboembolism since. - Xarelto restarted 07/13 (3) History of alcoholism: Chronic/stable No alcohol use since September 2021 per patient (ER note documented April) With history of cirrhosis. Has had paracentesis last in October, otherwise has been stable on furosemide alone. Was previously on spironolactone but this was discontinued due to hyperkalemia and per patient possibly hypotension Cirrhosis appears stable - MELD score 8 (4) HTN (hypertension), benign: Chronic/stable Patient reports that she is generally actually mildly hypotensive. Tolerates atenolol and Lasix well. These were continued. (5) Fecal impaction of colon: Acute/unstable - Seen on CT imaging - Dulcolax supp x 1 - Encourage up and OOB - Continue daily Miralax and Senna - Noted she is having diarrhea now, will stop Miralax - Encouraged to continue pushing hydration, increase dietary fiber, and continue stool softener (6) Hyponatremia: Chronic/stable - Hyponatremia in October 2021 - Work up included serum osmol which was <275 and urine osmol >400 c/w with SIADH - Suspect that part of her Na irregularity could be exacerbated by ETOH use also ?degree of beer potomania - Reviewed chemistry panel today, Na 131 - stable - Avoid ETOH and ideally would fluid restrict to </=2L per day Plan At this point, patient is medically and hemodynamically stable for discharge home today. She asked specifically about receiving "pain medications" upon discharge "just in case." Pt counseled that no narcotic pain meds would be continued on discharge and she voiced understanding with this. She will need to f/u with Dr. Jaquez with GI in 1-2 weeks as outpatient and encouraged her to f/u with her PCP within 1 week of discharge. Above plan of care has been d/w Dr. Shaikh who is in agreement. Total Time Total Time Spent Total Time Spent (In Minutes): 40 minutes Discharge Plan Discharge Items Patient Disposition: Home - Self-Care Reason For Visit: AB PAIN. PANCREATITIS ?JEAN PIERRE Discharge Diagnosis: pancreatitis Activity: Resume your previous activity Non-emergency contact: Primary Care Provider Call non-emergency contact if: you have any medication questions and your symptoms worsen Follow-up/Referrals: Rachid Cool MD [Primary Care Provider] - Pedro Jaquez MD [Physician] - (1-2 weeks) Diet: Low Fat Addtl Attending Provider Instructions: You were hospitalized due to abdominal pain and nausea and found to have inflammation of your pancreas (termed acute pancreatitis) as well as constipation. You were treated with fluids and pain medications. There was also question of possibly an inflamed/malfunctioning gallbladder, however, testing confirmed that this was not the case. You were seen in consult by gastroenterology and encouraged to avoid alcohol and follow up with Dr. Jaquez as an outpatient. At this point, you are now moving your bowels, pain has subsided and you will be discharged home with outpatient follow up. You will need to abstain from alcohol consumption as this will trigger recurrence of your pancreatitis. You should continue to eat a diet rich in fiber, drink plenty of water to maintain hydration, and continue taking a daily stool softener. Follow up with your family doctor is recommended within 1 week of discharge. If you have questions or concerns after you leave the hospital, you can call the nonemergency number listed on your discharge paperwork. In the event of a medical emergency, call 911 or go to your nearest ER. Pending Studies at Discharge: No Stand-Alone Forms: My [employer], Smoking Cessation Medications and DC Order Prescriptions: New sennosides-docusate sodium [Senokot-S] 8.6-50 mg Tablet 1 tab PO QAM Qty: 30 0RF Continued atenolol 25 mg tablet 25 mg PO QAM Qty: 90 3RF furosemide 40 mg tablet 40 mg PO QAM 90 Days Qty: 90 3RF atorvastatin 20 mg tablet 20 mg PO PM Qty: 90 3RF gabapentin 300 mg capsule 300 mg PO BID Qty: 180 0RF buspirone 10 mg tablet 10 mg PO TID fluoxetine [Prozac] 20 mg capsule 20 mg PO PM Xarelto 20 mg tablet 20 mg PO DAILY Rx Instructions: ON HOLD SINCE 07/04/22 FOR PROCEDURE WAS TO START 07/11/22. MUST TAKE WITH A MEAL/FOOD levothyroxine 25 mcg tablet 25 mcg PO QAM magnesium oxide 200 mg magnesium Tablet See Rx Instructions .ROUTE .COMPLEX Rx Instructions: 200 mg orally; TAKES 400 MG QAM, THEN 200 MG QPM. vitamin B complex Tablet 1 tab PO DAILY folic acid 800 mcg Tablet 0.8 mg PO DAILY Discontinued ciprofloxacin HCl 500 mg tablet 500 mg PO BID Rx Instructions: STARTED 07/09/22 FOR 5 DAYS Discharge Orders: Discharge Order (Routine); Ordered 07/14/22 Ordered By: Isaura Carrillo Admission Data Admit Date/Time: 07/11/22 19:39 Attending Provider: Demond Shaikh Admit Provider: Rachid Rosa Primary Care Provider: Rachid Cool Other Providers: Rachid Rosa ; Pedro Jaquez ; Demond Shaikh Coding Level of Care Code 04412 INP/OBS DISCH >30 MIN Diagnoses Pancreatitis K85.20 Acute pancreatitis complication: unspecified Chronicity: acute Pancreatitis type: alcohol induced History of pulmonary embolism Z86.711 History of alcoholism F10.21 HTN (hypertension), benign I10 Fecal impaction of colon K56.41 Hyponatremia E87.1
== END 2022-07-14 13:25 | disposition home or self-care (01) | DRG 439 ==
LOC: ED 15:09 → 3N 19:39 → SUATTDRO 19:39 → 3N 21:30